=== PATIENT | male | born 1960 | race Caucasian/White ===

== ENCOUNTER 2024-05-04 09:00 | Outpatient (OUT) | payer MEDICARE, SELFPAY ==
--- NOTE | 2024-05-03 14:40 | V.VEINS.HP ---
Vital Signs 05/04/24 09:10 Height 5 ft 7 in Weight 204.117 kg BMI 70.5 BP 142/76 H BP Location Left Radial BP Position Sitting BP Cuff Size Large Adult BP Source Manual Cuff Respiration 24 H Pulse 90 Pulse Source Monitor Pulse Oximetry (%) 90 L Oxygen Delivery Method Room Air Comment The patient's blood pressure is elevated. Varicose Veins Patient is a 63 year old male in as a referral from Dr. Naidu secondary to slow healing bilateral leg wounds. Patient c/o bilateral lower leg wounds throughout legs from knees to feet for approximately 4 years. Patient has seen 2 different wound clinics to try and heal wounds with little healing noted. Patient c/o bilateral lower leg pian and edema this whole time. Patient has worn bilateral knee high compression stockings, yet currently is unable to due to the wounds and drainage and pain. Patient has no history of varicose vein treatments, nor family history of varicose vein disease noted. Patient has a history of DVT along with P.E. Doc Oates MD personally performed the services described in this documentation, as scribed by Michele Potter RN in my presence and it is both accurate and complete. IMichele RN, am scribing for, and in the presence of, Dr. Doc Ortiz and in the presence of the patient. . thigh: bilateral, knee: bilateral, calf: bilateral, ankle: bilateral and berry: bilateral aching, burning, cramping, dull and tender 2 5 years Worsened in recent months: Yes standing and sitting analgesics, elevating extremities and wraps Reports muscle spasms of leg, erythema, fatigue, heaviness, limb pain, edema and leg edema History of lower extremity trauma: No Superficial thrombophlebitis: Yes Family history of varicose veins: no Has patient had previous lower extremity venous surgery: No Patient has previously received the following treatment(s) for lower extremity varicose veins: Reports none Does patient have a history of : not applicable Has patient had lower extremity venous scan with relux testing: No Support hose used: Yes Problems walking or doing physical activity: Yes How does it affect you: inability to due to pain/edema Do you walk much: No Do you stand much: Yes Review of Systems ROS Narrative Doc Oates MD personally performed the services described in this documentation, as scribed by Michele Potter RN in my presence and it is both accurate and complete. I Michele Potter RN, am scribing for, and in the presence of, Dr. Doc Ortiz and in the presence of the patient. Status of ROS 10 or more systems reviewed and unremarkable except as noted in history and below Cardiovascular Reports: edema Integumentary/Breast Reports: itching, redness, skin pain, skin tenderness, skin swelling, changing lesion, non-healing lesion and changes in skin color Neurological Reports: numbness in extremities and weakness in extremities Hematologic/Lymphatic Reports: easy bruising and easy bleeding PFSH PFSH Medical History (Updated 05/04/24 @ 11:26 by Michele Potter) Pain due to varicose veins of both lower extremities ?I83.813 - Varicose veins of bilateral lower extremities with pain (ICD-10) Lymphedema due to venous disease ?I89.0 - Lymphedema, not elsewhere classified (ICD-10) ?I99.9 - Unspecified disorder of circulatory system (ICD-10) Obesities, morbid ?E66.01 - Morbid (severe) obesity due to excess calories (ICD-10) Venous insufficiency ?I87.2 - Venous insufficiency (chronic) (peripheral) (ICD-10) Gout ?M10.9 - Gout, unspecified (ICD-10) Type 2 diabetes mellitus ?E11.9 - Type 2 diabetes mellitus without complications (ICD-10) Myocardial infarct ?I21.9 - Acute myocardial infarction, unspecified (ICD-10) Dvt femoral (deep venous thrombosis) ?I82.419 - Acute embolism and thrombosis of unspecified femoral vein (ICD-10) CAD (coronary atherosclerotic disease) ?I25.10 - Atherosclerotic heart disease of [place] coronary artery without angina pectoris (ICD-10) CHF (congestive heart failure) ?I50.9 - Heart failure, unspecified (ICD-10) COPD (chronic obstructive pulmonary disease) ?J44.9 - Chronic obstructive pulmonary disease, unspecified (ICD-10) Hypertension ?I10 - Essential (primary) hypertension (ICD-10) Pulmonary embolism ?I26.99 - Other pulmonary embolism without acute cor pulmonale (ICD-10) Family History (Updated 05/03/24 @ 14:47 by Michele Potter) Other Family history of cancer Family history of diabetes mellitus Family history of hypertension Social History (Updated 05/03/24 @ 14:48 by Michele Potter) Within the past year, how often did you have a drink containing alcohol: monthly or less Smoking status: Former smoker Non-prescribed substance use: denies use Meds Home Medications and Allergies Home Medications ?Medication ?Instructions ?Recorded ?Confirmed ?Type allopurinol 100 mg tablet 100 mg PO DAILY 05/03/24 05/03/24 History atorvastatin 10 mg tablet 10 mg PO DAILY 05/03/24 05/03/24 History bumetanide 2 mg tablet 2 mg PO DAILY 05/03/24 05/03/24 History fenofibrate 120 mg tablet 120 mg PO DAILY 05/03/24 05/03/24 History hydrocodone 5 mg-acetaminophen 325 1 tab PO Q6H 05/03/24 05/03/24 History mg tablet losartan 50 mg tablet 50 mg PO DAILY 05/03/24 05/03/24 History omeprazole 40 mg capsule,delayed 40 mg PO DAILY 05/03/24 05/03/24 History release semaglutide 0.25 mg or 0.5 mg (2 0.25 mg subcut QWEEK 05/03/24 05/03/24 History mg/3 mL) subcutaneous pen injector (Ozempic) spironolactone 25 mg tablet 25 mg PO QAM 05/03/24 05/03/24 History (Aldactone) warfarin 5 mg tablet 5 mg PO DAILY 05/03/24 05/03/24 History Allergies Allergy/AdvReac Type Severity Reaction Status Date / Time adhesive Allergy Mild Blister Verified 05/04/24 09:41 Exam Narrative Exam Narrative: Doc Oates MD personally performed the services described in this documentation, as scribed by Michele Potter RN in my presence and it is both accurate and complete. Michele Oates RN, am scribing for, and in the presence of, Dr. Doc Ortiz and in the presence of the patient. Constitutional Documenting provider has reviewed patient's vital signs: yes Common normals: oriented x3 Nutritional appearance: overweight Cardio Peripheral pulses: posterior tibial pulses present and dorsalis pedis pulses present Extremity Common normals: normal capillary refill General: calf tenderness and edema Right lower extremity: lower leg Right lower leg: inspection and palpation Left lower extremity: lower leg Left lower leg: inspection and palpation Neuro Common normals: oriented x3 Assessment and Plan Assessment and Plan (1) Pain due to varicose veins of both lower extremities: Plan Plan is for patient to continue wound therapy, rest, elevation bilateral feet/legs.\ Patient to return for EVLTs of right GSV, followed by left GSV, followed by right SSV, followed by EVLT's of bilateral perforating veins. Once EVLTs complete, move forward with microfoam chemical ablation bilateral leg branch saphenous varicosities. Doc Oates MD personally performed the services described in this documentation, as scribed by Michele Potter RN in my presence and it is both accurate and complete. IMichele RN, am scribing for, and in the presence of, Dr. Doc Ortiz and in the presence of the patient. Procedures Procedure Instructions Procedures Bilateral leg reflux u/s reveals severe bilateral great saphenous vein venous insufficiency with dilation right greater than left. Moderate right small saphenous vein venous insufficiency with dilation. Bilateral leg incompetent perforating veins. Lastly, bilateral leg branch saphenous truncal tributary varicosities. Doc Oates MD personally performed the services described in this documentation, as scribed by Michele Potter RN in my presence and it is both accurate and complete. IMichele RN, am scribing for, and in the presence of, Dr. Doc Ortiz and in the presence of the patient.
--- NOTE | 2024-05-03 14:42 | W.VEIN ---
Discharge Plan Discharge Disposition: Home, Self-Care Outpatient Diagnostics: VC Endovenous Ablation 1VeinRT (Routine) Timeframe: 2 Weeks Facility: [facility] - Location: Vein Center Ordered By: oDc Ortiz Plan of Treatment: EVLT of right GSV once precert is achieved Patient Instructions: Endovenous Ablation (GEN) Print Language: Nepali Discharge Date/Time: 05/04/24 11:27
--- NOTE | 2024-05-04 09:09 | VEIN_ITS ---
Patient Name: GALLITO FLORES MR#: [id number] : 1960 Exam Date: 05/04/2024 Ordering Doctor: KATHY POLLACK RADIOLOGY REPORT PROCEDURE: FACILITY [facility] - OFFICE VISIT INITIAL COMPARISON: None. PROGRESS NOTES: 63-year-old male who presents with a 4 year history of lower extremity cellulitis and nonhealing ulcerations. The patient has been to several wound centers and currently is being seen by Dr. Chaves. The patient's wounds have been significantly worse than today with loss of all of the skin below the knee on both legs. The patient has subcutaneous edema. The patient's pain and swelling is exacerbated by prolonged sitting and standing. The patient is an active due to his obesity when 450 pounds. The patient denies any signs and symptoms to suggest arterial ischemia. The patient describes a family history significant for cancer, diabetes and hypertension. The patient occasionally drinks alcohol 1 drink per month. The patient discontinued smoking decades ago. No illicit or prescription drug abuse. Past medical history is significant for lymphedema, morbid obesity, gout, type 2 diabetes, myocardial infarction, deep vein thrombus, coronary artery disease, congestive heart failure, COPD, hypertension and pulmonary embolism. See separate history and physical for medication list. No prior treatment for varicose or spider veins. The patient has worn compression stockings for many years. After review of nurse notes, history and physical exam I discussed at length the pathophysiology of venous hypertension and possible treatments, therapies and strategies available. We discussed at length the importance of elevating the lower extremities above the level of the heart, increased physical activity and compression stocking use. We discussed conservative treatment with continued care of the wound center and stockings. We discussed surgical interventions including ligation stripping and phlebectomy. We discussed intravenous laser ablation and micro foam chemical ablation at length. Risks benefits and alternatives were discussed with the patient. The patient's questions were answered Ultrasound venous reflux study performed the same day was discussed at length with the patient. The report demonstrates severe bilateral great saphenous vein and moderate right small saphenous vein venous insufficiency. Bilateral incompetent perforating veins. Bilateral incompetent varicose veins PHYSICAL EXAM: The right leg demonstrates extensive varicose reticular and spider veins. There are diffuse circumferential skin ulcerations skin thickening and erythema below the knee. Mild to moderate subcutaneous edema. The left leg demonstrates extensive varicose reticular and spider veins. There are diffuse circumferential skin ulcerations skin thickening and erythema below the knee. Mild to moderate subcutaneous edema. Both thighs, legs and feet were symmetrically warm to the touch. Good posterior tibial and dorsalis pedis pulses were present bilaterally. VEIN/VC Facility EST Comprehensive IMPRESSION: 1. Severe bilateral great saphenous, moderate right small saphenous vein venous insufficiency with dilatation and saphenofemoral/saphenopopliteal junction reflux. Bilateral incompetent perforating veins with associated ulcerations 2. Bilateral lower extremity incompetent varicose veins 3. Bilateral lower extremity subcutaneous edema 4. Indeterminate flow significant arterial disease 5. CEAP: C6, Ep, Asp, Pr PLAN: 1. Endovenous laser ablation right great saphenous vein followed by left great saphenous vein followed by right small saphenous vein followed by bilateral perforating veins 2. Micro foam chemical ablation of bilateral incompetent varicose veins 3. Continued use of 20-30 mm compression stockings 4. Weight loss, leg elevation and physical activity for symptomatic relief Nurse notes, history and physical were reviewed and confirmed, see attached forms. The nurse was present throughout the physical exam and consultation Dictated by: Doc Ortiz MD on 05/04/2024 at 11:03 Approved by: Doc Ortiz MD on 05/04/2024 at 11:10
--- NOTE | 2024-05-04 09:09 | VEIN_ITS ---
Patient Name: GALLITO FLORES MR#: [id number] : 1960 Exam Date: 05/04/2024 Ordering Doctor: KATHY POLLACK RADIOLOGY REPORT PROCEDURE: VC EXT VENOUS REFLUX WANG LMTD COMPARISON: None. INDICATIONS: I83.813 Bilateral painful varicose veins TECHNIQUE: Duplex imaging of the lower extremity to assess the deep and superficial venous system for the presence of deep or superficial venous incompetence and to document the location and severity of disease. The study includes evaluation of the great saphenous vein (GSV), anterior accessory saphenous vein (AASV) and small saphenous vein (SSV). Patient scanned in reverse Trendelenburg and standing. FINDINGS: RIGHT LOWER EXTREMITY: Saphenofemoral Junction Reflux: Yes 15.1mm 2.5 sec GSV: Diam (mm) Reflux/ Time (sec) Proximal Thigh 13.2 Yes 3.8 Mid Thigh 13.8 Yes 3.1 Distal Thigh 10.6 Yes 3.4 Prox Calf 13.1 Yes 2.8 Mid Calf 7.4 Yes 1.8 Saphenopopliteal Junction Reflux: 6.4mm Yes 2.0 SSV: Proximal Calf 6.3 Yes 2.4 Mid Calf 6.7 No AASV: Not present Thrombi: Chronic thrombus visualized in distal calf GSV and multiple varicosities Compressibility: Normal Flow: Normal Preforator: Dist/med calf 6.7mm with 1.2s reflux. Prox/med calf 4.6mm with 1.8s reflux. Tech Note: Incompetent GSV, SSV, and perforators. Patent varicose vein dist/med calf 8.3mm with 1.0s reflux. Patent varicose vein 6.6mm with 1.4s reflux at prox/med calf. Patent varicose vein mid/med thigh 7.3mm with 2.2s reflux. LEFT LOWER EXTREMITY: Saphenofemoral Junction Reflux: Yes 13.3 mm 3.9 sec GSV: Diam (mm) Reflux/Time (sec) Proximal Thigh 10.9 Yes 3.2 Mid Thigh 12.1 Yes 2.2 Distal Thigh 9.0 Yes 2.1 Prox Calf 7.4 Yes 1.8 Mid Calf 6.1 No Saphenopopliteal Junction Relux: 4.9 mm No SSV: Proximal Calf 3.3 No Mid Calf 4.0 No AASV: Not present Thrombi: Normal Compressibility: Normal Flow: 1.5s reflux visualized in FV. Manager Respiratory: Dist/med calf 5.8mm with 1.6s reflux. Mid/med calf 4.9mm with 2.5s reflux. Tech Note: Incompetent GSV and perfortators. Patent varicose vein prox.med calf 5.9mm with 1.9s reflux. Patent varicose vein dist/lat calf 6.1mm with 1.1s reflux. Patent varicose vein mid/med thigh 5.0mm with 2.1s reflux. CONCLUSION: 1. Severe bilateral great saphenous vein venous insufficiency with dilatation and saphenofemoral junction reflux. Right greater than left 2. Moderate right small saphenous vein venous insufficiency with dilatation and saphenous popliteal junction reflux 3. Bilateral incompetent perforating veins 4. Bilateral incompetent varicose veins 5. Chronic thrombus identified in the distal right great saphenous vein as well as multiple superficial varicosities Dictated by: Doc Ortiz MD on 05/04/2024 at 10:29 Approved by: Doc Ortiz MD on 05/04/2024 at 10:30
[2024-05-04 09:10] VITALS: BP 142/76; PULSE 90; O2SAT 90; BMI 70.5
== END 2024-05-04 11:27 | disposition home or self-care (01) ==
LOC: VC 09:07
PROVIDERS: PCP Radiology Diagnostic Radiology; Visit Provider Podiatrist Foot & Ankle Surgery
DX: I83.813 Varicose veins of bilateral lower extremities with pain (principal)
CPT/HCPCS: 93970; G0463

== ENCOUNTER 2024-05-20 10:21 | Outpatient (OUT) | payer MEDICARE, SELFPAY ==
--- NOTE | 2024-05-19 07:40 | VEINCLINIC_ITS ---
Vital Signs 05/20/24 10:29 BP 126/76 BP Location Left Radial BP Position Sitting BP Cuff Size Large Adult BP Source Manual Cuff Respiration 22 H Pulse 85 Pulse Source Monitor Pulse Oximetry (%) 94 L Oxygen Delivery Method Room Air Comment The patient's blood pressure is elevated. Varicose Veins Patient in this day for EVLT of Edinson Oates MD personally performed the services described in this documentation, as scribed by Michele Potter RN in my presence and it is both accurate and complete. Michele Oates RN, am scribing for, and in the presence of, Dr. Edinson Grajeda and in the presence of the patient. . thigh: bilateral, knee: bilateral, calf: bilateral, ankle: bilateral and berry: bilateral aching, burning, cramping, dull and tender 2 5 years Worsened in recent months: Yes standing and sitting analgesics, elevating extremities and wraps Reports muscle spasms of leg, erythema, fatigue, heaviness, limb pain, edema and leg edema History of lower extremity trauma: No Superficial thrombophlebitis: Yes Family history of varicose veins: no Has patient had previous lower extremity venous surgery: No Patient has previously received the following treatment(s) for lower extremity varicose veins: Reports none Does patient have a history of : not applicable Has patient had lower extremity venous scan with relux testing: No Support hose used: Yes Problems walking or doing physical activity: Yes How does it affect you: inability to due to pain/edema Do you walk much: No Do you stand much: Yes Review of Systems ROS Narrative Edinson Oates MD personally performed the services described in this documentation, as scribed by Michele Potter RN in my presence and it is both accurate and complete. Michele Oates RN, am scribing for, and in the presence of, Dr. Edinson Grajeda and in the presence of the patient. Status of ROS 10 or more systems reviewed and unremark able except as noted in history and below Cardiovascular Reports: edema Integumentary/Breast Reports: itching, redness, skin pain, skin tenderness, skin swelling, changing lesion, non-healing lesion and changes in skin color Neurological Reports: numbness in extremities and weakness in extremities Hematologic/Lymphatic Reports: easy bruising and easy bleeding [facility] Medical History (Updated 05/20/24 @ 13:27 by Michele Potter) Phlebitis and thrombophlebitis of superficial vessels of right lower extremity ?I80.01 - Phlebitis and thrombophlebitis of superficial vessels of right lower extremity (ICD-10) Pain due to varicose veins of both lower extremities ?I83.813 - Varicose veins of bilateral lower extremities with pain (ICD-10) Lymphedema due to venous disease ?I89.0 - Lymphedema, not elsewhere classified (ICD-10) ?I99.9 - Unspecified disorder of circulatory system (ICD-10) Obesities, morbid ?E66.01 - Morbid (severe) obesity due to excess calories (ICD-10) Venous insufficiency ?I87.2 - Venous insufficiency (chronic) (peripheral) (ICD-10) Gout ?M10.9 - Gout, unspecified (ICD-10) Type 2 diabetes mellitus ?E11.9 - Type 2 diabetes mellitus without complications (ICD-10) Myocardial infarct ?I21.9 - Acute myocardial infarction, unspecified (ICD-10) Dvt femoral (deep venous thrombosis) ?I82.419 - Acute embolism and thrombosis of unspecified femoral vein (ICD-10) CAD (coronary atherosclerotic disease) ?I25.10 - Atherosclerotic heart disease of [place] coronary artery without angina pectoris (ICD-10) CHF (congestive heart failure) ?I50.9 - Heart failure, unspecified (ICD-10) COPD (chronic obstructive pulmonary disease) ?J44.9 - Chronic obstructive pulmonary disease, unspecified (ICD-10) Hypertension ?I10 - Essential (primary) hypertension (ICD-10) Pulmonary embolism ?I26.99 - Other pulmonary embolism without acute cor pulmonale (ICD-10) Surgical History (Updated 05/20/24 @ 15:53 by Michele Potter) Status post laser ablation of incompetent vein ?Z98.890 - Other specified postprocedural states (ICD-10) Family History (Updated 05/03/24 @ 14:47 by Michele Potter) Other Family history of cancer Family history of diabetes mellitus Family history of hypertension Social History (Updated 05/03/24 @ 14:48 by Michele Potter) Within the past year, how often did you have a drink containing alcohol: monthly or less Smoking status: Former smoker Non-prescribed substance use: denies use Meds Home Medications and Allergies Home Medications ?Medication ?Instructions ?Recorded ?Confirmed ?Type allopurinol 100 mg tablet 100 mg PO DAILY 05/03/24 05/03/24 History atorvastatin 10 mg tablet 10 mg PO DAILY 05/03/24 05/03/24 History bumetanide 2 mg tablet 2 mg PO DAILY 05/03/24 05/03/24 History fenofibrate 120 mg tablet 120 mg PO DAILY 05/03/24 05/03/24 History hydrocodone 5 mg-acetaminophen 325 1 tab PO Q6H 05/03/24 05/03/24 History mg tablet losartan 50 mg tablet 50 mg PO DAILY 05/03/24 05/03/24 History omeprazole 40 mg capsule,delayed 40 mg PO DAILY 05/03/24 05/03/24 History release semaglutide 0.25 mg or 0.5 mg (2 0.25 mg subcut QWEEK 05/03/24 05/03/24 History mg/3 mL) subcutaneous pen injector (Ozempic) spironolactone 25 mg tablet 25 mg PO QAM 05/03/24 05/03/24 History (Aldactone) warfarin 5 mg tablet 5 mg PO DAILY 05/03/24 05/03/24 History Allergies Allergy/AdvReac Type Severity Reaction Status Date / Time adhesive Allergy Mild Blister Verified 05/04/24 09:41 Exam Narrative Exam Narrative: Edinson Oates MD personally performed the services described in this documentation, as scribed by Michele Potter RN in my presence and it is both accurate and complete. Michele Oates RN, am scribing for, and in the presence of, Dr. Edinson Grajeda and in the presence of the patient. Constitutional Documenting provider has reviewed patient's vital signs: yes Common normals: oriented x3 Nutritional appearance: overweight Cardio Peripheral pulses: posterior tibial pulses present and dorsalis pedis pulses present Extremity Common normals: normal capillary refill General: calf tenderness and edema Right lower extremity: lower leg Right lower leg: inspection and palpation Left lower extremity: lower leg Left lower leg: inspection and palpation Neuro Common normals: oriented x3 Assessment and Plan Assessment and Plan (1) Pain due to varicose veins of both lower extremities: (2) Phlebitis and thrombophlebitis of superficial vessels of right lower extremity: Plan f/u evaluation with physician along with right leg limited u/s Edinson Oates MD personally performed the services described in this documentation, as scribed by Michele Potter RN in my presence and it is both accurate and complete. I, Michele Potter RN, am scribing for, and in the presence of, Dr. Edinson Grajeda and in the presence of the patient. Procedures Procedure Instructions Procedures Plan of care: Risks and benefits of the procedure were discussed at length and informed written consent was obtained.? Time-out completed for verification of correct patient, procedure and site.? Staff present during time-out: Michele Potter RN,? Doc Ortiz MD, Amy Whatley [facility], Time Out Time___1110____ Patient prepped and procedure performed in usual sterile fashion. Risk of injury related to use of Diode laser and/or laser devices__CR___ ? Serial number of laser used :? [id number] Control panel self test performed, electrical cords in good condition, floor is dry, basin of water available, fire extinguisher in close proximity_CR__ Polycarbonate goggles available and Laser warning signs outside of doors___CR__ Eye protection provided to patient and staff in room_CR___ Use of laser retardant drapes and dull blackened instruments as directed__CR___ Use of nonflammable prep solutions and use of saline soaked sponges to protect tissues as indicated _CR___ Length ____52____ cm Laser operated by __Dr. Grajeda Physician verbal confirmation laser locked in place__CR__ Laser start time (date and time) _05/20/2024@_1135 Laser stop time(date and time) _05/20/2024@_1146 [place] _8.0___ Average laser use __3992 Joules Average laser use__499 seconds Pulse continuous ___CR_? Pulse intermittent ___ Amount of Tumescent used __600cc____ Evaluated patient for signs and symptoms of electrical injury __CR___ ? Skin clear at insertion site __CR___ Patient tolerated procedure well.? Right leg Coban dressing applied to access site.? Applied right thigh high leg compression stocking. Will return on 05/31/2024 for right leg limited venous ultrasound and exam. Edinson Oates MD personally performed the services described in this documentation, as scribed by Michele Potter RN in my presence and it is both accurate and complete. I, Michele Potter RN, am scribing for, and in the presence of, Dr. Edinson Grajeda and in the presence of the patient.
--- NOTE | 2024-05-19 07:44 | W.VEIN ---
Discharge Plan Discharge Disposition: Home, Self-Care Outpatient Diagnostics: [facility] Facility EST LMTD (Routine) Timeframe: 2 Weeks Facility: [facility] - Location: Vein Center Ordered By: Edinson Grajeda VC EXT Venous RT LMTD (Routine) Timeframe: 2 Weeks Facility: [facility] - Location: Vein Center Ordered By: Edinson Grajeda Follow Up Appointments: 05/24/2024 Plan of Treatment: f/u evaluation with physician along with right leg limited u/s Patient Instructions: Endovenous Ablation (DC) Print Language: Thai Discharge Date/Time: 05/20/24 13:27
[2024-05-20] MEDS: LIDOCAINE HCL 1% 100 MG/10 ML MDV INJ (10:21)
[2024-05-20] MEDS: 0.9 % SODIUM CHLORIDE 500 ML, LIDOCAINE HCL 20 ML, SODIUM BICARBONATE 10 MEQ INJ (10:21)
--- NOTE | 2024-05-20 10:22 | VEIN_ITS ---
[address] [address] Patient Name: GALLITO FLORES MRN: [id number] date: 1960 Sex: M Assigned Patient Location: Current Patient Location: Accession/Order Number: [id number] Exam Date: 05/20/2024 10:26 Report Date: 05/20/2024 12:29 At the request of: KALLI BERNARDO Procedure: VC Endovenous Ablation 1VeinRT EXAMINATION: VC Endovenous Ablation 1VeinRT HISTORY: I83.813 - Varicose veins of bilateral lower extremities w... The risks and benefits of the procedure had been previously discussed, and were rediscussed at length. Informed written consent was obtained. Renetta Alaniz RN and Mis Child RDMS, RVT assisted. Time out procedure was performed. The right lower extremity was prepared and draped in the usual sterile fashion to allow knee flexion in the sterile field. Duplex ultrasound probe was draped in a sterile cover, sterile transmission gel was used. Venous mapping was performed with the areas of dilation and large tributaries marked. The total length was 52 cm from the entry 3 cm above the ankle to 3 cm below the Saphenofemoral junction. The diameter of the right great saphenous vein ranged from 13.8 mm. A 30 gauge needle and 1% buffered lidocaine was used to anesthetize the entry site. A 4 mm incision was made with a scalpel and the saphenous vein was entered percutaneously under direct ultrasound guidance with a micropuncture set, a single stick was successful in gaining access. A micro-guide wire was inserted and the needle removed. A micro-set including a dilator was inserted over the microwire and the needle and dilator were removed. A guide wire was inserted through the micro-set and guided through the saphenous vein to the saphenofemoral junction. The dilator was removed and an introducer sheath was inserted over the wire until the end of the sheath entered the saphenofemoral junction. The dilator and wire were removed and the 600 micron fiber was introduced and placed and positioned so that it extended beyond the sheath and was 3 cm distal to the saphenofemoral or saphenopopliteal junction. Final position of the fiber was determined by ultrasound guidance and duplex imaging. Tumescent anesthetic was delivered by ultrasound guidance. 600 cc of fluid was delivered along the entire course of the saphenous vein. The solution consisted of 1000 cc of normal saline with 40 mL of 1% lidocaine and 20 mL of sodium bicarbonate. A final positioning check was made. The energy source was turned on by means of the foot pedal and the fiber and sheath were withdrawn. The total number of Joules delivered was 3992. The laser was active for 499 seconds under continuous pulse, average laser use of 8 J. Laser start time: 11:35 AM Laser stop time: 11:46 AM Date: 05/20/2024. A duplex ultrasound revealed compressibility and flow at the saphenofemoral junction immediately after the procedure. Hemostasis at the access site was achieved. The skin incision of the saphenous vein was closed with a 4 x 4. A compression stocking was applied. Postop instructions were given. A follow up appointment was recommended and scheduled. The patient tolerated the procedure well. Electronically authenticated by: FRANKLYN BHARDWAJ Date: 05/20/2024 12:29
[2024-05-20 10:29] VITALS: BP 126/76; PULSE 85; O2SAT 94
== END 2024-05-20 13:27 | disposition home or self-care (01) ==
LOC: VC 10:21
PROVIDERS: PCP Radiology Diagnostic Radiology; Visit Provider Radiology Diagnostic Radiology
DX: I83.813 Varicose veins of bilateral lower extremities with pain (principal)
CPT/HCPCS: 36478

== ENCOUNTER 2024-05-31 11:16 | Outpatient (OUT) | payer MEDICARE, SELFPAY ==
--- NOTE | 2024-05-31 11:17 | VEIN_ITS ---
Patient Name: GALLITO FLORES MR#: [id number] : 1960 Exam Date: 05/31/2024 Ordering Doctor: DR FRANKLYN BHARDWAJ M.D. RADIOLOGY REPORT PROCEDURE: [facility] EST LMTD VEIN CENTER - OFFICE VISIT FOLLOW UP COMPARISON: None. PROGRESS NOTES: The patient reports no appreciable change in leg symptoms. The patient has difficulty maintaining physical activity and walking to any great extent each day. Physical exam demonstrates no appreciable change in varicosities of the leg. Persistent varicose veins are identified along the legs bilaterally and marked skin changes of the distal lower extremities. Review of the ultrasound performed the same day demonstrates occlusive thrombus extending from proximal to mid aspect of the great saphenous vein within the calf. Great saphenous vein within the thigh is only partially thrombosed. No thrombus extending into or beyond the saphenofemoral junction. The patient expressed a desire to proceed with treatment of left great saphenous vein. The patient was informed that treatment was a process and due to patient's body habitus, limited mobility, in overall health successful treatment will be difficult at best. VEIN/[facility] EST LMTD IMPRESSION: 1. Incomplete ablation of the right great saphenous vein despite very prolonged treatment and generous energy application within the right great saphenous vein. Successful treatment is hampered by marked dilation of the right great saphenous vein, marked obesity, inability of patient to keep wrapping is a on anterior hree right apple leg since patient cannot wear compression stockings due to size, and inability to put patient in Trendelenburg position to help drain bladder out of the lower extremity veins during treatment due to patient's shortness of breath. 2. Persistent varicose veins and lower extremity symptoms. PLAN: 1. Endovenous laser ablation of left great saphenous vein will be attempted. Nurse notes, history and physical were reviewed and confirmed, see attached forms. The nurse was present throughout the physical exam and consultation Dictated by: Franklyn Bhardwaj M.D. on 05/31/2024 at 14:53 Approved by: Franklyn Bhardwaj M.D. on 05/31/2024 at 15:07
--- NOTE | 2024-05-31 11:17 | VEIN_ITS ---
Patient Name: GALLITO FLORES MR#: [id number] : 1960 Exam Date: 05/31/2024 Ordering Doctor: DR FRANKLYN GRAJEDA M.D. RADIOLOGY REPORT PROCEDURE: VC EXT VENOUS RT LMTD COMPARISON: None. INDICATIONS: I80.01 - Phlebitis and thrombophlebitis of superficial veins right leg TECHNIQUE: Lower extremity hendrickson scale and Duplex Doppler evaluation of the deep venous system from the inguinal ligament through the calf veins. FINDINGS: REGION: Right lower extremity. THROMBI: Negative for DVT. Heat induced partial thrombus approximately 14 cm from SFJ and exends to distal lower leg. GSV from proximal to mid calf is completely closed. COMPRESSIBILITY: Non-compressible & partially compressible segments. FLOW: Areas of no flow corresponding to thrombus OTHER: CONCLUSION: 1. Occlusion of right great saphenous vein from proximal to mid calf. 2. Partial occlusion of the remainder of the right great saphenous vein. Dictated by: Franklyn Grajeda M.D. on 05/31/2024 at 14:51 Approved by: Franklyn Grajeda M.D. on 05/31/2024 at 14:53
--- OUTSIDE RECORDS SUMMARY | 2024-05-31 11:39 | XMS_ITS | CCD ---
Author Organization [facility] ion [facility] Care Team Providers Care Grade Tamper Name Role Phone PHYSICIAN, DEFAULT Admitting Unavailable PHYSICIAN, DEFAULT Attending Unavailable ROBERT LUCAS Primary Care Unavailable Robert Lucas Unavailable Unavailable Unavailable Alicia Scott Unavailable Cristine Wilson Unavailable Tiffanie Rivera Unavailable Selvin Mackay Jr. Unavailable Unavailable Unavailable Dr. Shantel Long Referring Unavaila anselmo Long, Dr. Liz Attending UnavailRobert Blandon Primary Care Unavailab Robert Song Primary Care Unavailab coby Long, Dr. Liz Referring Unavaila anselmo Long, Dr. Liz Attending UnavailRobert Blandon MD Primary Care Provider LEW CHRISTIAN I Referring Unavailable ROBERT LUCAS Primary Care Unavailable ROBERT LUCAS Primary Care Unavailable ENID FOSTER Referring Unavailable LEW CHRISTIAN I Referring Unavailable ROBERT LUCAS Primary Care Unavailable LEW CHRISTIAN I Referring Unavailable ROBERT LUCAS Primary Care Unavailable LEW CHRISTIAN I Referring Unavailable ROBERT LUCAS Primary Care Unavailable LEW CHRISTIAN I Referring Unavailable ROBERT LUCAS Primary Care Unavailable LEW CHRISTIAN I Referring Unavailable Robert Lucas MD Primary Care Provider SONAL CAMARA Referring Unavailable ROBERT LUCAS Primary Care Unavailable SONAL CAMARA Referring Unavailable ROBERT LUCAS Primary Care Unavailable SONAL CAMARA Referring Unavailable SHAYY, ROBERT R Primary Care Unavailable SONAL CAMARA Referring Unavailable SHAYY, ROBERT R Primary Care Unavailable Codie Selvin Unavailable MD Robert Lucas Primary Care Provider PEGGY Rivera Attending Provider [phone] Tiffanie Rivera Attending Unavailable Tiffanie Rivera Admitting Unavailable Robert Lucas Primary Care Unavailable Shayy SHETTY, Robert Packer Primary Care Provider SHANTEL LONG Attending Unavailable ROBERT LUCAS Primary Care Unavailab le EFREN, CATHLEEN Referring Unavailable DULCE, NARAYAN Attending Unavailable EFREN, CATHLEEN Attending Unavailable WILMAN, COURTNEY Attending Unavailable WILMAN, COURTNEY Attending Unavailable WILMAN, COURTNEY Attending Unavailable LAURA NOVOA Referring Unavailab le ROBERT LUCAS Primary Care Unavailable LAYNE RICE Consulting Unavailable YESI, TED Attending Unavailable YESI, TED Admitting Unavailable HEDY HUTTON Consulting Unavailable Shayy SHETTY, Robert Pelletier Primary Care Provider DEVORA VALDEZ Attending Unavailable NITA FARIAS Referring Unavailab SHAUN Martinez Primary Care Unavailable Kory SHETTY, Shaun Primary Care Provider [phone] FRANKLYN CADE Attending Unavailable CHELI, FRANKLYN Harris Attending Unavailable CHELI, FRANKLYN Harris Attending Unavailable CHELI, FRANKLYN Harris Attending Unavailable SERVICE, JOBST Referring Unavailable SHAYY, ROBERT R Primary Care Unavailable SERVICE, JOBST Referring Unavailable SHAYY, ROBERT R Primary Care Unavailable SHAYY, ROBERT R Referring Unavailable SHAYY, ROBERT R Primary Care Unavailable ARMEN SOTO Attending Unavailable SERVICE, JOBST Referring Unavailable SHAYY, ROBERT R Primary Care Unavailable SERVICE, JOBST Referring Unavailable SHAYY, ROBERT R Primary Care Unavailable SERVICE, JOBST Referring Unavailable SHAYY, ROBERT R Primary Care Unavailable SERVICE, JOBST Referring Unavailable SHAYY, ROBERT R Primary Care Unavailable SERVICE, JOBST Referring Unavailable SHAYY, ROBERT R Primary Care Unavailable SHAYY, ROBERT R Primary Care Unavailable BROOKE, CAROLYN Referring Unavailable SERVICE, JOBST Referring Unavailable SHAYY, ROBERT R Primary Care Unavailable SERVICE, JOBST Referring Unavailable SHAYY, ROBERT R Primary Care Unavailable SERVICE, JOBST Referring Unavailable SHAYY, ROBERT R Primary Care Unavailable SERVICE, JOBST Referring Unavailable SHAYY, ROBERT R Primary Care Unavailable SHAYY, ROBERT R Primary Care Unavailable TIFFANIE RIVERA Referring Unavailable SERVICE, JOBST Referring Unavailable SHAYY, ROBERT R Primary Care Unavailable SHAYY, ROBERT R Primary Care Unavailable MARIELA, SONAL H Referring Unavailable SHAYY, ROBERT R Primary Care Unavailable FISH, SONAL H Referring Unavailable SHAYY, ROBERT R Primary Care Unavailable FISH, SONAL H Referring Unavailable SHAYY, ROBERT R Referring Unavailable SHAYY, ROBERT R Primary Care Unavailable SERVICE, JOBST Referring Unavailable SHAYY, ROBERT R Primary Care Unavailable SHAYY, ROBERT R Primary Care Unavailable ROBERT CARDOZA Referring Unavailable SERVICE, JOBST Referring Unavailable SHAYY, ROBERT R Primary Care Unavailable SERVICE, JOBST Referring Unavailable SHAYY, ROBERT R Primary Care Unavailable SERVICE, JOBST Referring Unavailable SHAYY, ROBERT R Primary Care Unavailable SERVICE, JOBST Referring Unavailable SHAYY, ROBERT R Primary Care Unavailable SERVICE, JOBST Referring Unavailable MYERHOLTZ, NITA K Primary Care Unavailab le SERVICE, JOBST Referring Unavailable MYERHOLTZ, NITA K Primary Care Unavailab le SERVICE, JOBST [facility] Unavailable SERVICE, JOBST Referring Unavailable [facility], [facility] Primary Care Unavailable SERVICE, JOBST Referring Unavailable KORY, [facility] Primary Care Unavailable Shakir Aldrich Admitting Unavailable Kory, Shaun Primary Care Unavailable Shakir Aldrich Attending Unavailable Diallo Cox Admitting Unavailable Diallo Cox Attending Unavailable [facility] Shaun Primary Care Unavailable Dolce, Claus R Admitting Unavailable Dolce, Claus R Attending Unavailable ROBERT NEWBY Primary Care Unavailable Dolce, Claus R Admitting Unavailable Dolce, Claus R Attending Unavailable ROBERT NEWBY Primary Care Unavailable Dolce, Claus R Attending Unavailable Dolce, Claus R Admitting Unavailable Dolce, Claus R Attending Unavailable Dolce, Claus R Admitting Unavailable Cathleen Schwartz Admitting Unavailable Cathleen Schwartz Attending Unavailable ROBERT NEWBY Primary Care Unavailable Sonal Camara Attending Unavailable Sonal Camara H Admitting Unavailable ROBERT NEWBY Primary Care Unavailable Cathleen Schwartz Admitting Unavailable Cathleen Schwartz Attending Unavailable ROBERT NEWBY Primary Care Unavailable Dolce, Claus R Admitting Unavailable Dolce, Claus R Attending Unavailable Dolce, Claus R Admitting Unavailable Dolce, Claus R Attending Unavailable Mena Murrieta Attending Unavailable GonMena mcdaniels Admitting Unavailable Dolce, Claus R Attending Unavailable Dolce, Claus R Admitting Unavailable Dolce, Claus R Attending Unavailable Dolce, Claus R Admitting Unavailable Dolce, Claus R Attending Unavailable Dolce, Claus R Admitting Unavailable NEWBYROBERT E Primary Care Unavailable Dolce, Claus R Attending Unavailable Dolce, Claus R Admitting Unavailable NEWBY, JAMES E Primary Care Unavailable Dolce, Claus R Admitting Unavailable Dolce, Claus R Attending Unavailable ROBERT NEWBY E Primary Care Unavailable Diallo Prather Admitting Unavailab ROBERT Rojas Primary Care Unavailable Diallo Prather S Attending Unavailab ROBERT Rojas E Primary Care Unavailable ALMA ROSA Mendez Attending Unavailable ALMA ROSA Mendez Admitting Unavailable ALMA ROSA Mendez Attending Unavailable ROBERT NEWBY Primary Care Unavailable ALMA ROSA Mendez Admitting Unavailable Dolce, Claus R Attending Unavailable Dolce, Claus R Admitting Unavailable NEWBYROBERT E Primary Care Unavailable Dolce, Claus R Attending Unavailable Dolce, Claus R Admitting Unavailable NEWBYROBERT E Primary Care Unavailable ALMA ROSA Mendez Attending Unavailable ROBERT NEWBY Primary Care Unavailable ALMA ROSA Mendez Admitting Unavailable NEWBYROBERT Primary Care Unavailable ALMA ROSA Mendez Attending Unavailable ALMA ROSA Mendez Admitting Unavailable Kory, Shaun Primary Care Unavailable Michelle Miranda Admitting Unavailable Michelle Miranda Attending Unavailable Kory, Shaun Primary Care Unavailable Michelle Miranda Attending Unavailable Copsey, Michelle M Admitting Unavailable NEWBY, ROBERT E Primary Care Unavailable ALMA ROSA Mendez Admitting Unavailable ALMA ROSA Mendez Attending Unavailable Dolce, Claus R Admitting Unavailable Dolce, Claus R Attending Unavailable Dolce, Claus R Admitting Unavailable Dolce, Claus R Attending Unavailable Dolce, Claus R Attending Unavailable Dolce, Claus R Admitting Unavailable Dolce, Claus R Attending Unavailable Dolce, Claus R Admitting Unavailable Dolce, Claus R Attending Unavailable Dolce, Claus R Admitting Unavailable Dolce, Claus R Attending Unavailable Dolce, Claus R Admitting Unavailable Gonya, Mena Attending Unavailable Gonya, Mena Admitting Unavailable Dolce, Claus R Attending Unavailable Dolce, Claus R Admitting Unavailable ROBERT NEWBY Primary Care Unavailable Dolce, Claus R Attending Unavailable Dolce, Claus R Admitting Unavailable Dolce, Claus R Admitting Unavailable Dolce, Claus R Attending Unavailable ROBERT NEWBY Primary Care Unavailable ALMA ROSA Mendez Attending Unavailable Robert Lucas Primary Care Unavailable ALMA ROSA Mendez Admitting Unavailable Dolce, Claus R Admitting Unavailable ROBERT NEWBY Primary Care Unavailable Dolce, Claus R Attending Unavailable Dolce, Claus R Attending Unavailable Dolce, Claus R Admitting Unavailable Dolce, Claus R Attending Unavailable Dolce, Claus R Admitting Unavailable Sonal Camara Admitting Unavailable Sonal Camara Attending Unavailable Robert Lucas Primary Care Unavailable Cathleen Schwartz Admitting Unavailable Cathleen Schwartz Attending Unavailable ROBERT NEWBY Primary Care Unavailable Alonzo Bond Attending Unavailable Dolce, Claus R Attending Unavailable Dolce, Claus R Admitting Unavailable Dolce, Claus R Attending Unavailable Dolce, Claus R Admitting Unavailable Dolce, Claus R Attending Unavailable Dolce, Claus R Admitting Unavailable Dolce, Claus R Admitting Unavailable Dolce, Claus R Attending Unavailable Kory Shaun [facility] Care Unavailable Dolce, Claus R Admitting Unavailable Dolce, Claus R [facility] Unavailable Dolce, Claus R Admitting Unavailable Dolce, Claus R Attending [facility] Unavailable Dolce, Claus R Admitting Unavailable Dolce, Claus R Attending Unavailable ROBERT NEWBY Primary Care Unavailable Dolce, Claus R Admitting Unavailable Dolce, Claus R Attending Unavailable ROBERT NEWBY Primary Care Unavailable Dolce, Claus R Admitting Unavailable Dolce, Claus R Attending Unavailable ROBERT NEWBY Primary Care Unavailable Dolce, Claus R Admitting Unavailable Dolce, Claus R Attending Unavailable ROBERT NEWBY Primary Care Unavailable Dolce, Claus R Admitting Unavailable Dolce, Claus R Attending Unavailable NEWBYROBERT E Primary Care Unavailable NEWBY ROBERT E Primary Care Unavailable ALMA ROSA Mendez Admitting Unavailable ALMA ROSA Mendez Attending Unavailable Dolce, Claus R Attending Unavailable Dolce, Claus R Admitting Unavailable NEWBY, ROBERT E Primary Care Unavailable Dolce, Claus R Admitting Unavailable Dolce, Claus R Attending Unavailable Shaun Enriquez Primary Care Unavailable Dolce, Claus R Admitting Unavailable Dolce, Claus R Attending Unavailable NEWBY, ROBERT E Primary Care Unavailable Dolce, Claus R Attending Unavailable Dolce, Claus R Admitting Unavailable NEWBY, ROBERT E Primary Care Unavailable ALMA ROSA Mendez Attending Unavailable NEWBYROBERT E Primary Care Unavailable ALMA ROSA Mendez Admitting Unavailable ALMA ROSA Mendez Attending Unavailable NEWBYROBERT E Primary Care Unavailable ALMA ROSA Mendez Admitting Unavailable NEWBY, ROBERT Brothers Primary Care Unavailable ALMA ROSA Mendez Attending Unavailable ALMA ROSA Mendez Admitting Unavailable Dolce, Claus R Admitting Unavailable Dolce, Claus R Attending Unavailable NEWBY ROBERT E Primary Care Unavailable Dolce, Claus R Admitting Unavailable Dolce, Claus R Attending Unavailable NEWBYROBERT E Primary Care Unavailable Dolce, Claus R Admitting Unavailable Dolce, Claus R Attending Unavailable NEWBY, ROBERT E Primary Care Unavailable Dolce, Claus R Admitting Unavailable Dolce, Claus R Attending Unavailable Dolce, Claus R Admitting Unavailable Dolce, Claus R Attending Unavailable Mena Murrieta Attending Unavailable Mena Murrieta Admitting Unavailable Dolce, Claus R Admitting Unavailable Dolce, Claus R Attending Unavailable ALMA ROSA Mendez Attending Unavailable NEWBYROBERT Primary Care Unavailable ALMA ROSA Mendez Admitting Unavailable ALMA ROSA Mendez Attending Unavailable NEWBYROBERT Primary Care Unavailable ALMA ROSA Mendez Admitting Unavailable NEWBY, ROBERT E Primary Care Unavailable ALMA ROSA Mendez Attending Unavailable ALMA ROSA Mendez Admitting Unavailable NEWBYROBERT Primary Care Unavailable ALMA ROSA Mendez Admitting Unavailable ALMA ROSA Mendez Attending Unavailable NEWBYROBERT Primary Care Unavailable ALMA ROSA Mendez Attending Unavailable ALMA ROSA Mendez Admitting Unavailable ALMA ROSA Mendez Attending Unavailable NEWBY, ROBERT E Primary Care Unavailable ALMA ROSA Mendez Admitting Unavailable ALMA ROSA Mendez Attending Unavailable NEWBY, ROBERT E Primary Care Unavailable ALMA ROSA Mendez Admitting Unavailable ALMA ROSA Mendez Attending Unavailable NEWBY, ROBERT E Primary Care Unavailable ALMA ROSA Mendez Admitting Unavailable NEWBY, ROBERT E Primary Care Unavailable ALMA ROSA Mendez Attending Unavailable ALMA ROSA Mendez Admitting Unavailable NEWBY, ROBERT E Primary Care Unavailable ALMA ROSA Mendez Admitting Unavailable ALMA ROSA Mendez Attending Unavailable Coby Brice K Admitting Unavailable Le, Brice K Attending Unavailable NEWBY, ROBERT E Primary Care Unavailable NEWBY, ROBERT E Primary Care Unavailable ALMA ROSA Mendez Admitting Unavailable ALMA ROSA Mendez Attending Unavailable Dolce, Claus R Admitting Unavailable Dolce, Claus R Attending Unavailable Kory, Shaun Primary Care Unavailable Cathleen Schwartz E Attending Unavailable Efren Hend E Admitting Unavailable NEWBY, ROBERT E Primary Care Unavailable Dolce, Claus R Admitting Unavailable Dolce, Claus R Attending Unavailable Mena Murrieta Attending Unavailable Gonya Mena Admitting Unavailable Dolce, Claus R Admitting Unavailable Dolce, Claus R Attending Unavailable NEWBY, ROBERT E Primary Care Unavailable Kory, Shaun Primary Care Unavailable Michelle Miranda Admitting Unavailable Michelle Miranda Attending Unavailable Allergies Allergy Classification Reported Allergen(s) Allergy Type Date of Onset Reaction(s) Facility (20 sources) Adhesives Propensity to adverse reactions [place] Other (1 source) Silicone adhesive tape Propensity to adverse reactions to drug 6 [facility] (8 sources) Adhesive agent; Translations: [adhesive] Drug allergy 6 [facility] (20 sources) Adhesive Tape-Silicones; Translations: [ADHESIVE TAPE-SILICONES] Propensity to adverse reactions to drug 6 [facility] (6 sources) Wound Dressing Adhesive Drug Allergy 3 [facility] (1 source) Adhesive Tape; Translations: [Tape] Propensity to adverse reactions to drug (disorder) [facility] Repository Medications Current Medications Medication Drug Class(es) Dates Sig (Normalized) Sig (Original) acetaminophen 325 mg / HYDROcodone bitartrate 5 mg oral tablet (8 sources) Opioid Agonist Start: 02-16-2024 End: 05-07-2024 take 1 tablet by mouth every six hours for pain HYDROcodone-aceta minophen ([place]) 5-325 MG tablet Indications: Cellulitis and abscess of right lower extremity Take 1 tablet by mouth every 6 (six) hours if needed for severe pain 20 tablet 05/07/2024 Active acetaminophen 325 mg / oxyCODONE hydrochloride 5 mg oral tablet (1 source) Opioid Agonist Start: 04-23-2024 End: 04-28-2024 take 1 tablet by mouth every six hours for pain oxyCODONE-acetami nophen (Percocet) 5-325 MG tablet Indications: Non-pressure chronic ulcer of other part of left lower leg with fat layer exposed (CMS/HCC) Take 1 tablet by mouth every 6 (six) hours if needed for severe pain for up to 5 days 15 tablet 04/23/2024 04/28/2024 Active acetic acid 2.5 mg/ml irrigation solution (19 sources) Start: 11-08-2022 acetic acid 0.25 % irrigation Indications: Cellulitis of right leg without foot Apply to gauze, allow to sit on wound bed for 10 minutes prior to applying a new dressing 500 mL 12 11/08/2022 Active [id number] 200 actuat albuterol 0.09 mg/actuat metered dose inhaler (20 sources) beta2-Adrenergic Agonist Start: 05-01-2023 take 1 puff(s) by inhalation every four hours as needed Ventolin HFA 108 (90 Base) MCG/ACT 1 puff as needed Inhalation every 4 hrs for 30 days Apr, Active take 2.5 mg by inhal ation every four hours as needed albuterol 2.5 mg /3 mL (0.083 %) nebuliz er solution Inhale 3 mL (2.5 mg) every 4 hours if needed. 0 Active Albuterol Sulfat e (2.5 MG/3ML) 0.083% as directed Inhalation Four times daily DX COPD J44.9 Active Albuterol Sulfat e (2.5 MG/3ML) 0.083% as directed Inhalation Four times daily DX COPD J44.9 Active Albuterol Sulfat e (2.5 MG/3ML) 0.083% Inhalation Nebulization Solution USE 1 UNIT DOSE EVERY 4-6 HOURS NEEDED FOR WHEEZING . Quantity: 0 Refills: 0 Ordered: 19-Jul-2021 DO Active allopurinol 100 mg oral tablet (20 sources) Xanthine Oxidase Inhibitor Start: 10-30-2020 take 2 tablets by mouth once daily allopurinol (Zyloprim) 100 mg tablet Take 2 tablets (200 mg) by mouth once daily. 0 10/30/2020 Active Start: 11-03-2019 take 1 tablet by genna th once daily allopurinoL (ZYLOPRIM) 100 mg tablet Take 1 tablet (100 mg total) by mouth daily. 11/03/2019 Active Start: 05-01-2017 take 100 mg by mouth twice daily Allopurinol Active 100 MG PO Twice daily April 30, 2017 11:00pm amLODIPine 10 mg oral tablet (20 sources) Dihydropyridine Calcium Channel Elenita Start: 11-21-2022 take 1 tablet by mouth in the morning amLODIPine (Norvasc) 10 MG tablet Take 10 mg by mouth in the morning. 11/21/2022 Active Start: 12-14-2019 take 1 tablet by genna th once daily amLODIPine Besylate 5 MG Oral Tablet take 1 tablet by mouth once daily Quantity: 90 Refills: 0 Ordered: 09-Nov-2020 DO Start : 14-Dec-2019 Active atorvastatin 10 mg oral tablet (20 sources) HMG-CoA Reductase Inhibitor Start: 05-01-2017 take 1 tablet by mouth once daily atorvastatin (Lipitor) 10 mg tablet Take 1 tablet (10 mg) by mouth once daily. 0 04/21/2020 Active BIPAP Machine (20 sources) BIPAP Machine Active bumetanide 2 mg oral tablet (20 sources) Loop Diuretic Start: 06-16-2023 take 1 tablet by mouth twice daily before mealtime bumetanide (BUMEX) 2 mg tablet Take 1 tablet (2 mg total) by mouth 2 (two) times a day before meals. 60 tablet 6 11/13/2023 Active Start: 11-14-2020 take 1 tablet by genna th once daily bumetanide (Bumex) 2 mg tablet Take 1 tablet (2 mg) by mouth once daily. 0 11/14/2020 Active cholecalciferol 0.05 mg oral capsule (20 sources) Vitamin D cholecalciferol (Vitamin D-3) 50 MCG (1999 UT) capsule 1 capsule 1 (one) time each day at the same time. Active take 1 capsule by mo ut in the morning cholecalciferol, vitamin D3, 2,000 units capsule Take 1 capsule (2,000 Units total) by mouth in the morning. Active CPAP Machine (7 sources) CPAP Machine Act ti docusate sodium 50 mg oral capsule (2 sources) Start: 05-01-2017 Docusate Sodiu m (Stool Softener) 50 mg Capsule Active CAP PO April 30, 2017 11:00pm take 1 capsule by mo ut three times daily as needed for constipation docusate sodium (COLACE) 100 MG capsule Take 100 mg by mouth 3 times daily as needed for Constipation 0 Active doxycycline hyclate 100 mg oral capsule (6 sources) Tetracycline-class Drug Start: 05-05-2023 End: 08-03-2023 take 1 capsule by mouth in the morning, then take 1 capsule by mouth at bedtime doxycycline (VIBRAMYCIN) 100 mg capsule Indications: Cellulitis of right lower extremity , Open wound of right lower extremity, sequela , Open wound of left lower extremity, sequela , Methicillin resistant Staphylococcus aureus infection as the cause of diseases classified elsewhere , Elevated C-reactive protein (CRP) Take 1 capsule (100 mg total) by mouth in the morning and 1 capsule (100 mg total) before bedtime. Do all this for 90 days. 180 capsule 0 05/05/2023 08/03/2023 Active empagliflozin 25 mg oral tablet (20 sources) Sodium-Glucose Cotransporter 2 Inhibitor empagliflozin (Jardiance) 25 MG Take by mouth Active fenofibric acid 135 mg delayed release oral capsule (20 sources) Peroxisome Proliferator Receptor alpha Agonist Start: 05-01-2017 take 135 mg by mouth once daily Fenofibric Acid (Choline) Active 135 MG PO Daily April 30, 2017 11:00pm ferrous sulfate 325 mg oral tablet (1 source) Start: 05-01-2017 take 325 mg by mouth twice daily Ferrous Sulfate Active 325 MG PO Twice daily April 30, 2017 11:00pm FREESTYLE PATRICIA 14 DAY SENSOR kit (19 sources) Start: 06-07-2019 FREESTYLE PATRICIA 14 DAY SENSOR kit 06/07/2019 Active Start: 06-07-2019 FREESTYLE LIBR E 14 DAY SENSOR kit FreeStyle Patricia 2 [place] [facility] - (20 sources) Start: 01-24-2021 FreeStyle Libr e 2 [place] [facility] - as directed use with 14 days sensor check glucose with reader ac, hs, prn for 365 days Dec, Active FreeStyle Patricia 2 [place] [facility] - as directed use with 14 days sensor check glucose with reader ac, hs, prn for 365 days Active FreeStyle Patricia 2 Sensor - (20 sources) FreeStyle Patricia 2 Sensor - apply 1 SENSOR to back OF UPPER ARM REMOVE AND REPLACE every 14 days use with DEVICE to MONITOR BLOOD SUGAR for 28 Active FreeStyle Patricia 2 Sensor Sys tm - (12 sources) Start: 01-24-2021 FreeStyle Libr e 2 Sensor Systm - as directed SQ change every 14 days for 28 days Dec, Active FreeStyle Precision Aidan Test - (20 sources) Start: 06-21-2021 Start: 06-21-2021 FreeStyle Prec ision Aidan Test - Check blood sugar In Vitro QD, prn for 30 days DX: E11.9 May, Active Start: 06-21-2021 FreeStyle Prec ision Aidan Test - as directed In Vitro QD, prn for 30 days May, Active furosemide 40 mg oral tablet (2 sources) Loop Diuretic Start: 05-01-2017 take 40 mg by mouth once daily Furosemide Active 40 MG PO Daily April 30, 2017 11:00pm take 1 tablet by mouth twice latrice ly furosemide (LASIX) 40 MG tablet Take 40 mg by mouth 2 times daily 0 Active heparin sodium, porcine 10 unt/ml injectable solution (20 sources) Unfractionated Heparin, Anti-coagulant Start: 03-10-2023 heparin lock flush, porcine, 10 unit/mL injection Infuse 1-5 mL (10-50 Units total) into a venous catheter as needed (line care per nursing agency protocol.). 1 mL 03/10/2023 Active Start: 03-10-2023 heparin lock f lush, porcine, injection 100 unit/mL solution Infuse 1-5 mL (100-500 Units total) into a venous catheter as needed (line care per nursing agency protocol.). 1 mL 03/10/2023 Active 3 ml insulin degludec 100 unt/ml pen injector (1 source) Insulin Analog Insulin Degludec (TRESIBA FLEXTOUCH) 100 UNIT/ML SOPN Indications: REPLACES INSULIN GLARIGINE (LANTUS) PER DR MCKEON Inject 50 Units into the skin 2 times daily Indications: REPLACES INSULIN GLARIGINE (LANTUS) PER DR MCKEON 0 Active 3 ml insulin, regular, human 500 unt/ml pen injector (20 sources) Insulin insulin regular (HumuLIN R U-500) 500 UNIT/ML CONCENTRATED injection Inject under the skin Daily before meals. Active inject 90 [IU] by morris bcutaneous injection once daily at lunch insulin regular human U-500 concentrate d (HumuLIN R U-500 conc KWIKPEN) injection Inject 90 Units of U-500 under the skin daily with lunch. Active inject 125 [IU] by s ubcutaneous injection once daily before breakfast insulin regular human U-500 concentrate d (HumuLIN R U-500 conc KWIKPEN) injection Inject 125 Units of U-500 under the skin every morning before breakfast. Active HumuLIN R U-500 (CONCENTRATED) 500 UNIT/ML 135 bk, 80 ln, 90 dn; plus (corrective scale 5:25 ac bk/ln/dn) SQ as directed up to 500 units total a day Active HumuLIN R U-500 (CONCENTRATED) 500 UNIT/ML 125 bk, 80 ln, 100 dn; plus (corrective scale 5:25 ac bk/ln/dn) SQ as directed up to 500 units total a day Active 1 ml ixekizumab 80 mg/ml auto-injector (20 sources) Interleukin-17A Antagonist ixeki zumab (Talfifi) 80 MG/ML injection Inject under the skin Active ixekizumab (TALT Z AUTOINJECTOR, 2 PACK, SUBQ) Inject 80 mg under the skin every 14 (fourteen) days. Every other Friday Active ixekizumab (TALT Z AUTOINJECTOR, 2 PACK, SUBQ) Inject 80 mg under the skin every 14 (fourteen) days. Every other Friday 0 Active lisinopril 5 mg oral tablet (15 sources) Angiotensin Converting Enzyme Inhibitor Start: 05-01-2017 End: 08-21-2023 take 5 mg by mouth once daily Lisinopril Active 5 MG PO Daily April 30, 2017 11:00pm losartan potassium 50 mg oral tablet (20 sources) Angiotensin 2 Receptor Elenita take 1 tablet by mouth in the morning losartan (COZAAR) 50 mg tablet Indications: hypertension Take 1 tablet (50 mg total) by mouth in the morning. Indications: high blood pressure. Active meropenem 1000 mg injection (2 sources) Penem Antibacterial Start: 03-19-2023 End: 09-08-2023 take 1 g intravenously every eight hours meropenem (MERREM) 1 gram/50 mL piggyback IVPB Premix Infuse 50 mL (1 g total) into a venous catheter every 8 (eight) hours. 0 03/19/2023 09/08/2023 Active metFORMIN hydrochloride 1000 mg oral tablet (2 sources) Biguanide Start: 05-01-2017 take 1000 mg by mouth twice daily Metformin Active 1000 MG PO Twice daily April 30, 2017 11:00pm Multiple Vitamins-Minerals (Centrum Silver 50+Men) tablet (6 sources) Multiple Vitamins-Mineral s (Centrum Silver 50+Men) tablet 1 (one) time each day at the same time. Active multivitamin with minerals iron-free (Centrum Silver) (1 source) take 1 tablet by mouth once daily multivitamin with minerals iron-free (Centrum Silver) Take 1 tablet by mouth once daily. 0 Active lf-acw-oweiw-K1-ly copen-lutein [id number] mcg tablet (19 sources) take 1 tablet by mouth once daily at breakfast pb-pqq-tsjrn-K1- lycopen-lutein 560-75-344-300 mcg tablet Take 1 tablet by mouth daily with breakfast. Active take 1 tablet by genna th once daily at breakfast in-ioq-ukksc-W1-knfncij-weuavy 300-60-60 0-300 mcg tablet Take 1 tablet by mouth daily with breakfast. 0 Active omeprazole 40 mg delayed release oral capsule (20 sources) Proton Pump Inhibitor Start: 09-27-2020 take 1 capsule by mouth once daily omeprazole (PriLOSEC) [address] capsule Take 1 capsule (40 mg) by mouth once daily. 0 09/27/2020 Active Start: 05-01-2017 End: 10-02-2017 take 40 mg by mouth once daily Omeprazole Discontinued 40 MG PO Daily April 30, 2017 11:00pm October 02, 2017 8:22am oxygen as ordered (20 sources) oxygen as ordere d 4 liters continuous 3 liters Active oxygen as ordere d 3 liters Active Ozempic (1 MG/DOSE) 2 MG/1.5 ML (20 sources) Ozempic (1 MG/DO SE) 2 MG/1.5ML 1 mg as directed Subcutaneous weekly Active ozempic (2 mg/dose) 8 mg/3ml solution pen-injector (2 sources) Start: 06-19-2023 inject 2 mg by subcutaneous injection every week Ozempic (2 MG/DOSE) 8 MG/3ML 2mg Subcutaneous once weekly May, Active potassium chloride 10 meq extended release oral tablet (20 sources) Start: 10-23-2022 take 1 tablet by genna th in the morning potassium chloride CR (Klor-Con) 10 MEQ ER tablet Take 10 mEq by mouth in the morning. 10/23/2022 Active Start: 05-01-2017 Potassium Chlo ride (Klor-Con M20) 20 MEQ tablet,ER particles/crystals Active 20 MEQ PO Daily April 30, 2017 11:00pm potassium chlori de (KLOR-CON M) 20 MEQ extended release tablet Take 20 mEq by mouth 2 times daily 0 Active 1 mg dose 1.5 ml semaglutide 1.34 mg/ml pen injector (20 sources) Start: 01-18-2021 Ozempic (1 MG/ DOSE) 2 MG/1.5ML 1 mg as directed Subcutaneous weekly Dec, Active Start: 11-20-2020 semaglutide (O zempic) 0.25 mg or 0.5 mg(2 mg/1.5 mL) pen injector Inject 0.25 mg under the skin 1 (one) time per week. 0 11/20/2020 Active Start: 11-20-2020 OZEMPIC 0.25 m g or 0.5 mg(2 mg/1.5 mL) pen injector 0.4 mg by abdominal subcutaneous route once a week. Every friday11/20/2020 Active Start: 11-20-2020 OZEMPIC 0.25 m g or 0.5 mg(2 mg/1.5 mL) pen injector 0.5 mg by abdominal subcutaneous route once a week. Every friday 0 11/20/2020 Active 125 ml sodium chloride 9 mg/ ml prefilled syringe (20 sources) Start: 03-10-2023 sodium chlorid e injection Infuse 10-20 mL into a venous catheter as needed for line care (line care per nursing agency protocol.). 1 mL 03/10/2023 Active Start: 12-15-2016 sodium chlorid e (OCEAN) 0.65 % nasal spray 2 sprays by Nasal route 4 times daily 1 Bottle 1 12/15/2016 Active spironolactone 25 mg oral tablet (8 sources) Aldosterone Antagonist Start: 05-01-2017 take 25 mg by mouth twice daily Spironolactone Active 25 MG PO Twice daily April 30, 2017 11:00pm triamcinolone acetonide 1 mg/ml topical lotion (19 sources) Corticosteroid Start: 10-18-2022 triamcinolone (KENALOG) 0.1 % lotion Apply 1 Application topically 3 (three) times a day. During dressing changes to Rt lower leg 60 mL 10/18/2022 Active Vitamin D 2000 UNIT (20 sources) take 2 tablets by mouth once daily take 2 tablets by mouth once latrice ly Vitamin D 2000 UNIT 2 tablets Orally daily for 90 Not-Taking take 2 tablets by mouth once latrice ly Vitamin D 2000 UNIT 2 tablets Orally daily for 90 Active warfarin sodium 5 mg oral tablet (20 sources) Vitamin K Antagonist Start: 12-10-2019 take 1-1.5 tablets by mouth in the evening warfarin (COUMADIN) 5 mg tablet Indications: History of DVT (deep vein thrombosis) , roasterman (current) use of anticoagulants Take 1-1.5 tablets (5-7.5 mg total) by mouth in the evening. as directed by Diane GOSS (Medication Therapy Management). 135 tablet 1 03/04/2024 Active Start: 10-02-2017 take 7.5 mg by mouth once oseas y Warfarin Active 7.5 MG PO Daily October 01, 2017 11:00pm Completed/Discontinued Medications Medication Drug Class(es) Dates Sig (Normalized) Sig (Original) aspirin 81 mg chewable tablet (1 source) Platelet Aggregation Inhibitor, Nonsteroidal Anti-inflammatory Drug Start: 05-01-2017 End: 10-02-2017 take 81 mg by mouth once daily Aspirin Discontinued 81 MG PO Daily April 30, 2017 11:00pm October 02, 2017 8:22am Centrum Silver Oral Tablet (1 source) take 1 tablet by mouth once daily Centrum Silver Oral Tablet TAKE 1 TABLET DAILY. Quantity: 0 Refills: 0 Ordered: 23-Apr-2022 DO Active clindamycin 300 mg oral capsule (1 source) Lincosamide Antibacterial Start: 10-20-2017 End: 10-30-2017 take 300 mg by mouth every eight hours Clindamycin Hcl Discontinued 300 MG PO Q8H 30 10 October 19, 2017 11:00pm October 29, 2017 11:01pm 0.5 ml dulaglutide 3 mg/ml auto-injector (1 source) GLP-1 Receptor Agonist Trulicity 1.5 MG/0.5ML Subcutaneous Solution Pen-injector USE DIRECTED Quantity: 0 Refills: 0 Ordered: 19-Jul-2021 DO Active FreeStyle Patricia 14 Day Sensor - (20 sources) FreeStyle Patricia 14 Day Sensor - as directed SQ change every 14 days for 28 Not-Taking FreeStyle Patricia 14 Day Sensor - as directed SQ change every 14 days for 28 Active insulin aspart, human 100 unt/ml injectable solution (1 source) Insulin Analog Start: 05-26-2017 End: 10-02-2017 Insulin Aspart U-100 (Novolog) 100 unit/mL Solution Discontinued SOLUTION May 26, 2017 12:00am October 02, 2017 8:22am insulin glargine 100 unt/ml injectable solution (2 sources) Insulin Analog Start: 05-26-2017 End: 10-02-2017 Insulin Glargine (Lantus) 100 unit/mL Solution Discontinued SOLUTION May 26, 2017 12:00am October 02, 2017 8:21am Start: 12-15-2016 insulin glargi ne (LANTUS) 100 UNIT/ML injection vial Inject 50 Units into the skin 2 times daily 1 vial 1 12/15/2016 Active levoFLOXacin 750 mg oral tablet (4 sources) Quinolone Antimicrobial Start: 05-06-2024 End: 05-16-2024 take 1 tablet by mouth once daily, then take 1 tablet by mouth once daily levoFLOXacin (Levaquin) 750 MG tablet Indications: Diabetic Foot Infection Take 1 tablet (750 mg) by mouth Daily for 10 days TAKE 1 PILL P.O. Q.D. 10 tablet 05/06/2024 05/16/2024 OZEMPIC 0.25 mg or 0.5 mg (2 mg/3 mL) pen injector (1 source) End: 08-21-2023 OZEMPIC 0.25 mg or 0.5 mg (2 mg/3 mL) pen injector 4 mg by soft tissue injection route every 7 days. 0 08/21/2023 Discontinued Problems Active Problems Problem Classification Problem Date Documented Date Episodic/Chronic Acute myocardial infarction (20 sources) Myocardial infarction; Translations: [Acute myocardial infarction, unspecified] Onset: 03-05-2023 03-07-2023 Chronic Administrative/social admission (7 sources) Dietary counseling and surveillance Onset: 08-09-2021 Resolved: 02-25-2022 Episodic Cardiac dysrhythmias (1 source) Paroxysmal atrial fibrillation; Translations: [Paroxysmal atrial fibrillation] Onset: 11-21-2023 Chronic Chronic kidney disease (20 sources) Chronic kidney disease stage 3; Translations: [Chronic kidney disease, stage 3 (moderate)] Onset: 08-14-2023 08-13-2023 Chronic Chronic obstructive pulmonary disease and bronchiectasis (20 sources) Chronic obstructive lung disease; Translations: [Chronic obstructive pulmonary disease, unspecified] Onset: 05-16-2020 Resolved: 10-26-2021 Chronic Chronic ulcer of skin (20 sources) Non-pressure chronic ulcer of unspecified part of right lower leg limited to breakdown of skin; Translations: [Non-pressure chronic ulcer of left ankle with unspecified severity] Onset: 01-03-2023 03-07-2023 Chronic Congestive heart failure; nonhypertensive (20 sources) Right ventricular failure; Translations: [Congestive heart failure, unspecified] Onset: 09-23-2015 12-08-2016 Chronic Coronary atherosclerosis and other heart disease (20 sources) Coronary arteriosclerosis; Translations: [Atherosclerotic heart disease of elim ira coronary artery without angina pectoris] Onset: 03-05-2023 03-08-2023 Chronic Deficiency and other anemia (2 sources) Anemia, unspecified; Translations: [Anemia, unspecified] Onset: 01-09-2023 Episodic Diabetes mellitus with complications (20 sources) Disorder of kidney due to diabetes mellitus; Translations: [Type 2 diabetes mellitus with diabetic chronic kidney disease] Onset: 09-20-2015 Resolved: 02-25-2022 Chronic Diabetes mellitus without complication (20 sources) Diabetes mellitus; Translations: [Diabetes mellitus without mention of complication, type II or unspecified type, not stated as uncontrolled] Onset: 08-09-2021 Resolved: 02-25-2022 Chronic Diabetes mellitus without complication (1 source) Diabetes mellitus without complication; Translations: [Type 2 diabetes mellitus with diabetic chronic kidney disease] Onset: 06-19-2023 Disorders of lipid metabolism (20 sources) Mixed hyperlipidemia; Translations: [Mixed hyperlipidemia] Onset: 08-09-2021 Resolved: 02-25-2022 Chronic Essential hypertension (20 sources) Hypertensive disorder; Translations: [Unspecified essential hypertension] Onset: 12-08-2016 Resolved: 02-25-2022 Chronic Gout and other crystal arthropathies (20 sources) Gout; Translations: [Gout, unspecified] Onset: 01-03-2023 03-07-2023 Chronic Hypertension with complications and secondary hypertension (19 sources) Hypertensive heart failure; Translations: [Hypertensive heart disease with heart failure] Onset: 01-03-2023 03-07-2023 Chronic Mycoses (20 sources) Tinea pedis; Translations: [Tinea pedis] Onset: 10-04-2020 10-04-2020 Episodic Nutritional deficiencies (20 sources) Vitamin D deficiency; Translations: [Vitamin D deficiency, unspecified] Chronic Open wounds of head; neck; and trunk (2 sources) Unspecified open wound of abdominal wall, unspecified quadrant without penetration into peritoneal cavity, sequela; Translations: [Unspecified open wound of abdominal wall, unspecified quadrant without penetration into peritoneal cavity, sequela] Onset: 08-18-2023 Episodic Other aftercare (20 sources) Long-term current use of insulin; Translations: [USP (current) use of insulin] Episodic Other aftercare (7 sources) 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 Onset: 08-09-2021 Resolved: 02-25-2022 Episodic Other diseases of veins and lymphatics (20 sources) Lymphedema; Translations: [Lymphedema, not elsewhere classified] Onset: 02-13-2018 12-08-2016 Chronic Other diseases of veins and lymphatics (1 source) Chronic peripheral venous hypertension; Translations: [Chronic venous hypertension (idiopathic) with ulcer of unspecified lower extremity] 10-02-2017 Chronic Other diseases of veins and lymphatics (1 source) Lymphedema of bilateral lower limbs; Translations: [Lymphedema, not elsewhere classified] 10-02-2017 Chronic Other diseases of veins and lymphatics (20 sources) Peripheral venous insufficiency; Translations: [Venous insufficiency (chronic) (peripheral)] Episodic Other endocrine disorders (8 sources) Hypoglycemia; Translations: [Hypoglycemia, unspecified] Chronic Other endocrine disorders (2 sources) Hypoglycemia, unspecified Chronic Other endocrine disorders (1 source) Hyperparathyroidism, unspecified; Translations: [Hyperparathyroidism, unspecified] Onset: 08-14-2023 Chronic Other infections; including parasitic (1 source) Disorder due to infection; Translations: [Unspecified infectious disease] 11-13-2017 Episodic Other inflammatory condition of skin (1 source) Psoriasis vulgaris; Translations: [Psoriasis vulgaris] Onset: 11-20-2023 Chronic Other injuries and conditions due to external causes (2 sources) Other injury of unspecified body region, initial encounter; Translations: [Other injury of unspecified body region, initial encounter] Onset: 07-16-2023 Episodic Other lower respiratory disease (5 sources) Dyspnea; Translations: [Shortness of breath] Onset: 07-18-2023 08-20-2023 Episodic Other lower respiratory disease (20 sources) Restrictive lung disease; Translations: [Other disorders of lung] Episodic Other lower respiratory disease (1 source) Respiratory distress; Translations: [Acute respiratory distress] 09-23-2015 Episodic Other lower respiratory disease (1 source) Shortness of breath; Translations: [Shortness of breath] Onset: 07-18-2023 Episodic Other nutritional; endocrine; and metabolic disorders (20 sources) Body mass index 40+ - severely obese; Translations: [Morbid obesity] Onset: 12-07-2022 12-07-2022 Chronic Other nutritional; endocrine; and metabolic disorders (20 sources) Extreme obesity with alveolar hypoventilation; Translations: [Morbid (severe) obesity with alveolar hypoventilation] Chronic Other nutritional; endocrine; and metabolic disorders (20 sources) Body mass index (BMI) 70 or greater, adult; Translations: [Body mass index [BMI] 70 or greater, adult] Onset: 04-03-2021 Resolved: 02-25-2022 Chronic Other nutritional; endocrine; and metabolic disorders (20 sources) Obesity; Translations: [Obesity, unspecified] 10-02-2017 Chronic Other nutritional; endocrine; and metabolic disorders (20 sources) Metabolic syndrome X; Translations: [Metabolic syndrome] Chronic Other nutritional; endocrine; and metabolic disorders (1 source) Obesity, unspecified; Translations: [Obesity E66.9] Onset: 04-03-2021 Resolved: 04-03-2021 Chronic Other nutritional; endocrine; and metabolic disorders (4 sources) Morbid (severe) obesity with alveolar hypoventilation; Translations: [Morbid (severe) obesity with alveolar hypoventilation E66.2] Onset: 04-17-2021 Resolved: 10-26-2021 Chronic Other nutritional; endocrine; and metabolic disorders (3 sources) Body mass index (BMI) 60.0-69.9, adult; Translations: [BMI 60.0-69.9, adult] Chronic Other nutritional; endocrine; and metabolic disorders (19 sources) Severe obesity; Translations: [Morbid (severe) obesity due to excess calories] Onset: 10-28-2018 12-28-2022 Chronic Other nutritional; endocrine; and metabolic disorders (2 sources) Morbid (severe) obesity due to excess calories; Translations: [Morbid (severe) obesity due to excess calories (CMS/HCC)] Onset: 08-20-2023 Chronic Other skin disorders (1 source) Dystrophia unguium; Translations: [Nail dystrophy] 05-13-2024 Episodic Other upper respiratory infections (20 sources) Chronic sinusitis; Translations: [Chronic sinusitis, unspecified] Onset: 04-17-2021 Resolved: 04-17-2021 Chronic Residual codes; unclassified (20 sources) Obstructive sleep apnea syndrome; Translations: [Obstructive sleep apnea (adult) (pediatric)] Onset: 09-20-2015 12-08-2016 Chronic Residual codes; unclassified (4 sources) Obstructive sleep apnea (adult) (pediatric); Translations: [Obstructive sleep apnea (adult) (pediatric) G47.33] Onset: 04-17-2021 Resolved: 10-26-2021 Chronic Residual codes; unclassified (2 sources) Sleep apnea; Translations: [Unspecified sleep apnea] Onset: 07-18-2023 07-18-2023 Chronic Residual codes; unclassified (20 sources) Edema, unspecified; Translations: [Chronic edema] Episodic Residual codes; unclassified (1 source) Edema of lower extremity; Translations: [Localized edema] 10-02-2017 Episodic Respiratory failure; insufficiency; arrest (adult) (20 sources) Chronic respiratory failure; Translations: [Chronic respiratory failure, unspecified whether with hypoxia or hypercapnia] Onset: 09-23-2015 Resolved: 10-26-2021 Chronic Screening and history of mental health and substance abuse codes (10 sources) Ex-smoker; Translations: [Personal history of tobacco use] Episodic Unclassified (2 sources) Cellulitis of right lower extremity Onset: 07-16-2023 Past or Other Problems Problem Classification Problem Date Documented Da te Episodic/Chronic Acute and unspecified renal failure (20 sources) Acute injury of kidney; Translations: [Acute kidney failure, unspecified] Onset: 3 10-20-2022 Episodic Acute posthemorrhagic anemia (20 sources) Acute posthemorrhagic anemia; Translations: [Acute posthemorrhagic anemia] Onset: 7 12-11-2016 Episodic Bacterial infection; unspecified site (20 sources) History of methicillin resistant Staphylococcus aureus infection; Translations: [Personal history of Methicillin resistant Staphylococcus aureus infection] Onset: 3 03-07-2023 Episodic Complications of surgical procedures or medical care (19 sources) Vaccination not done; Translations: [Unvaccinated for covid-19] Onset: 3 03-07-2023 Episodic Deficiency and other anemia (20 sources) Anemia; Translations: [Anemia, unspecified] Onset: 6 09-20-2015 Episodic Fluid and electrolyte disorders (20 sources) Hyperkalemia; Translations: [Hyperkalemia] Onset: 0 Episodic Mood disorders (19 sources) Mood disorders Onset: 3 03-07-2023 Nutritional deficiencies (1 source) Deficiency of other specified B group vitamins Onset: 2 Resolved: 2 Episodic Other aftercare (9 sources) USP (current) use of insulin; Translations: [USP current use of insulin] Onset: 2 Resolved: 2 Episodic Other aftercare (4 sources) USP (current) use of anticoagulants; Translations: [USP (current) use of anticoagulants] Onset: 3 Episodic Other aftercare (19 sources) Long-term current use of anticoagulant; Translations: [roasterman (current) use of anticoagulants] Onset: 3 Resolved: 3 01-07-2023 Episodic Other aftercare (2 sources) Encounter for therapeutic drug level monitoring; Translations: [Encounter for therapeutic drug level monitoring] Onset: 3 Episodic Other injuries and conditions due to external causes (19 sources) Local infection of wound; Translations: [Other injury of unspecified body region, initial encounter] Onset: 3 12-06-2022 Episodic Other lower respiratory disease (19 sources) Hypoxia; Translations: [Hypoxemia] Onset: 3 12-05-2022 Episodic Other nutritional; endocrine; and metabolic disorders (20 sources) Morbid obesity; Translations: [Morbid obesity] Onset: 6 Resolved: 9 12-14-2016 Chronic Other screening for suspected conditions (not mental disorders or infectious disease) (20 sources) Deviation of international normalized ratio from target range; Translations: [Abnormal coagulation profile] Onset: 7 12-09-2016 Episodic Other upper respiratory disease (2 sources) Bleeding from nose; Translations: [Epistaxis] Onset: 7 07-18-2016 Episodic Other upper respiratory disease (20 sources) Posterior epistaxis; Translations: [Epistaxis] Onset: 3 12-13-2016 Episodic Phlebitis; thrombophlebitis and thromboembolism (20 sources) Thrombophlebitis of deep femoral vein; Translations: [Phlebitis and thrombophlebitis of femoral vein (deep) (superficial)] Onset: 3 Resolved: 3 12-08-2016 Episodic Pneumonia (except that caused by tuberculosis or sexually transmitted disease) (1 source) Left lower zone pneumonia; Translations: [Pneumonia, unspecified organism] Onset: 6 09-20-2015 Episodic Pulmonary heart disease (20 sources) Pulmonary embolism; Translations: [Other pulmonary embolism and infarction] Onset: 6 09-23-2015 Episodic Residual codes; unclassified (19 sources) Noncompliance with treatment; Translations: [Patient's noncompliance with other medical treatment and regimen due to unspecified reason] Onset: 3 03-07-2023 Episodic Respiratory failure; insufficiency; arrest (adult) (1 source) Acute respiratory failure; Translations: [Acute respiratory failure, unspecified whether with hypoxia or hypercapnia] Onset: 6 Resolved: 6 09-23-2015 Episodic Skin and subcutaneous tissue infections (20 sources) Cellulitis of lower limb; Translations: [Cellulitis of right lower limb] Onset: 6 Resolved: 0 09-20-2015 Episodic Varicose veins of lower extremity (20 sources) Venous stasis ulcer with edema of left lower leg; Translations: [Varicose veins of left lower extremity with ulcer of unspecified site] Onset: 8 03-13-2023 Episodic Results Test Name Value Interpretation Reference Range Facility Coding Summaryon 05-19-2024 Coding Summary [facility] Coding Summary [facility] POCT Protime / INRon 024 INR Coag (PPP) [Relative time] 2.2 {INR} Abnormal 0.8 - 1.2 [facility] Interpretation and review of laboratory results Abnormal [facility] Provider Orderson 05-18-2024 Provider Orders [id number] 1 [id number] .00OTGTIFF [facility] Coding Summaryon 05-12-2024 Coding Summary [facility] Coding Summary [facility] Coding Summaryon 05-11-2024 Coding Summary [facility] Billing Authorizationson Billing Authorizations [id number] .00OTGTIFF [facility] Coding Summaryon 05-10-2024 Coding Summary [facility] Wound Cultureon 05-09-2024 Wound Culture [facility] Comment on above: Performed By: #### [id number] ####[facility] (DEFAULT)[address] [place] [address] ED Clinical Summaryon 2023 ED Clinical Summary Normal [facility] ED Patient Education Noteon 05-07-2024 ED Patient Education Note [facility] ED Patient Summaryon 024 ED Patient Summary [facility] Wound Cultureon 05-06-2024 Wound Culture [facility] Comment on above: Performed By: #### [id number] ####[facility] (DEFAULT)[address] [place] [id number] POCT Protime / INRon 024 INR Coag (PPP) [Relative time] 4.2 {INR} Abnormal 0.8 - 1.2 [facility] Interpretation and review of laboratory results Abnormal [facility] Wound Cultureon 05-05-2024 Wound Culture Normal [facility] Comment on above: Performed By: #### [id number] ####[facility] (DEFAULT)[address] [place] [address] Coding Summaryon 05-03-2024 Coding Summary Normal [facility] .Auto Diff 1on 04-30-2024 Auto Bremer % 6 % Normal -12 [facility] Comment on above: Performed By: #### 1 [id number] ####[facility] (DEFAULT)[address] [place] [id number] Baso Abs# 0.1 x10 Normal 0.0-0.2 [facility] Comment on above: Performed By: #### 1 [id number] ####[facility] (DEFAULT)[address] [place] [address] [id number] Basophils/100 WBC (Bld) 0.7 % Normal 0.2-2.0 [facility] Comment on above: Performed By: #### 1 [id number] ####[facility] (DEFAULT)[address] [place] [id number] Eos Abs# 0.2 x10 Normal 0.0-0.4 [facility] Comment on above: Performed By: #### 1 [id number], [id number], 0423816, 25853196, [id number] ####[facility] (DEFAULT)[address] [place] [address] 14406 Eosinophils/100 WBC (Bld) 2.4 % Normal 0.9-4.0 [facility] Comment on above: Performed By: #### 1 [id number], [id number], 1396545, 60824643, [id number] ####[facility] (DEFAULT)[address] [place] [address] 55975 Lymph Abs# 1.2 x10 Low 1.3-2.9 [facility] Comment on above: Performed By: #### 1 [id number], [id number], 6019110, 21492289, [id number] ####[facility] (DEFAULT)[address] [place] [address] Lymphocytes/100 WBC (Bld) 13 % Low 14-48 [facility] Comment on above: Performed By: #### 1 [id number], [id number], 9030470, 83983146, [id number] ####[facility] (DEFAULT)[address] [place] [address] 30912 Bremer Abs# 0.6 x10 Normal 0.0-0.8 [facility] Comment on above: Performed By: #### 1 [id number], [id number], 6974536, 24138681, 1854744184 ####[facility] (DEFAULT)[address] [place] [address] Neut Abs# 7.3 x10 Normal 1.5-9.2 [facility] Comment on above: Performed By: #### 1 [id number], 6007095309, 8368313, 67039896, [id number] ####[facility] (DEFAULT)[address] [place] [address] 15761 Neutrophils/100 WBC (Bld) 78 % Normal 44-88 [facility] Comment on above: Performed By: #### 1 [id number], 1529425134, 2229841, 29481496, [id number] ####[facility] (DEFAULT)[address] [place] [address] 58860 CBC w/ Auto Diffon 4 Erythrocyte distribution width (RBC) [Ratio] 17.8 % High 11.5-15.0 [facility] Comment on above: Performed By: #### 1 [id number], [id number], 9915634, 68798582, 2599747793 ####[facility] (DEFAULT)[address] [place] [address] Hematocrit (Bld) [Volume fraction] 36.2 % Normal 34.8-51.9 [facility] Comment on above: Performed By: #### 1 [id number], 4698151552, 1264569, 10695690, [id number] ####[facility] (DEFAULT)[address] [place] [address] Hemoglobin (Bld) [Mass/Vol] 11.5 g/dL Low 11.8-17.7 [facility] Comment on above: Performed By: #### 1 [id number], 4134944525, 4612849, 41843581, [id number] ####[facility] (DEFAULT)[address] [place] [address] Man Diff? Auto Invalid Interpretation Code [facility] Comment on above: Performed By: #### 1 [id number], 7807125184, 8967147, 70973729, 5083951584 ####[facility] (DEFAULT)[address] [place] [address] MCH (RBC) [Entitic mass] 27 pg Normal 24-34 [facility] Comment on above: Performed By: #### 1 [id number], 2897596869, 6439431, 83401279, 6065539789 ####[facility] (DEFAULT)[address] [place] [address] MCHC (RBC) [Mass/Vol] 32 g/dL Normal 26-37 [facility] Comment on above: Performed By: #### 1 [id number], 1342316839, 6401337, 97085509, 1727327824 ####[facility] (DEFAULT)[address] [place] [address] MCV (RBC) [Entitic vol] 85 fL Normal 81-100 [facility] Comment on above: Performed By: #### 1 [id number], 3619917707, 5841632, 33139913, 8390064248 ####[facility] (DEFAULT)[address] [place] [address] 90132 Platelet 157 x10 Normal 138-427 [facility] Comment on above: Performed By: #### 1 [id number], 9015344970, 3614617, 85833886, 5273595302 ####[facility] (DEFAULT)[address] [place] [address] 15932 Platelet mean volume (Bld) [Entitic vol] 9.3 fL Normal 6.3-10.2 [facility] Comment on above: Performed By: #### 1 [id number], 7009407127, 5498056, 64354253, 1855313318 ####[facility] (DEFAULT)[address] [place] [address] 37085 RBC 4.23 x10 Normal 3.70-5.30 [facility] Comment on above: Performed By: #### 1 [id number], 5480912232, 1420842, 94396108, 0971111414 ####[facility] (DEFAULT)[address] [place] [address] 27459 WBC 9.3 x10 Normal 3.5-10.5 [facility] Comment on above: Performed By: #### 1 [id number], 4503447697, 1677382, 63312588, 3555699054 ####[facility] (DEFAULT)[address] [place] [address] 12429 CMP Standardon 04-30-2024 eGFR Non AA >60 Invalid Interpretation Code [facility] Comment on above: Performed By: #### 1 [id number], 6881947076, 0637719, 27150228, [id number] ####[facility] (DEFAULT)[address] [place] [address] 24154 eGFR AA >60 Invalid Interpretation Code [facility] Comment on above: Performed By: #### 1 [id number], 2890997640, 1173280, 49014021, 0888313103 ####[facility] (DEFAULT)[address] [place] [address] 46096 Albumin [Mass/Vol] 3.6 g/dL Normal 3.5-5.0 [facility] Comment on above: Performed By: #### 1 [id number], 2579788621, 6284957, 68819353, [id number] ####[facility] (DEFAULT)[address] [place] [address] 34058 Albumin/Globulin [Mass ratio] 0.7 {ratio} Low 1.4-2.6 [facility] Comment on above: Performed By: #### 1 [id number], 6995848223, 8525111, 53629918, 0180362090 ####[facility] (DEFAULT)[address] [place] [address] 70175 Alk Phos 84 IU/L Normal 32-91 [facility] Comment on above: Performed By: #### 1 [id number], 9155923807, 8348097, 60441376, 7959239919 ####[facility] (DEFAULT)[address] [place] [address] 03392 ALT [Catalytic activity/Vol] 22.0 U/L Normal 17.0-63.0 [facility] Comment on above: Performed By: #### 1 [id number], 7385803427, 3279667, 40386414, 0307244133 ####[facility] (DEFAULT)[address] [place] [address] 51106 Anion gap [Moles/Vol] 14.0 mmol/L Normal 5.0-19.0 [facility] Comment on above: Performed By: #### 1 [id number], 0503138926, 8239879, 40170128, 0471202972 ####[facility] (DEFAULT)[address] [place] [address] 27529 AST [Catalytic activity/Vol] 21 U/L Normal 15-41 [facility] Comment on above: Performed By: #### 1 [id number], 0118320791, 6847292, 38082406, 6873684968 ####[facility] (DEFAULT)[address] [place] [address] 13935 Bili Total 0.6 mg/dL Normal 0.3-1.2 [facility] Comment on above: Performed By: #### 1 [id number], 7669461815, 8451207, 93493177, 6538167801 ####[facility] (DEFAULT)[address] [place] [address] 38736 Calcium [Mass/Vol] 8.7 mg/dL Low 8.9-10.3 [facility] Comment on above: Performed By: #### 1 [id number], 0151325617, 4584895, 33084902, 2437782629 ####[facility] (DEFAULT)[address] [place] [address] 12911 Chloride [Moles/Vol] 96 mmol/L Low 101-111 [facility] Comment on above: Performed By: #### 1 [id number], 4872653770, 3112035, 63698198, 0007459759 ####[facility] (DEFAULT)[address] [place] [address] 77163 CO2 [Moles/Vol] 29 mmol/L Normal 21-32 [facility] Comment on above: Performed By: #### 1 [id number], 5559534864, 3840794, 88432415, 5690984511 ####[facility] (DEFAULT)[address] [place] [address] 67708 Creatinine [Mass/Vol] 1.06 mg/dL Normal 0.90-1.30 [facility] Comment on above: Performed By: #### 1 [id number], 7505152299, 9353768, 19618928, 8871091793 ####[facility] (DEFAULT)[address] [place] [address] 13912 Globulin (S) [Mass/Vol] 4.7 g/dL High 1.5-4.3 [facility] Comment on above: Performed By: #### 1 [id number], 8014329964, 4167471, 79588649, 3647722456 ####[facility] (DEFAULT)[address] [place] [address] 56068 Glucose [Mass/Vol] 215.0 mg/dL High 74.0-118.0 [facility] Comment on above: Performed By: #### 1 [id number], 3396152933, 4117008, 47522178, 0087853337 ####[facility] (DEFAULT)[address] [place] [address] 42937 Osmolality 286 mOsm/L Invalid Interpretation Code [facility] Comment on above: Performed By: #### 1 [id number], 6671008180, 1201937, 96838301, 7572643446 ####[facility] (DEFAULT)[address] [place] [address] 13156 Potassium [Moles/Vol] 4.0 mmol/L Normal 3.6-5.1 [facility] Comment on above: Performed By: #### 1 [id number], 0572724113, 5078196, 69371382, 7571041467 ####[facility] (DEFAULT)[address] [place] [address] 15978 Protein [Mass/Vol] 8.3 g/dL High 6.5-8.1 [facility] Comment on above: Performed By: #### 1 [id number], 5359713075, 8766794, 99316374, 9916817351 ####[facility] (DEFAULT)[address] [place] [address] 42882 Sodium [Moles/Vol] 135.0 mmol/L Low 136.0-144.0 [facility] Comment on above: Performed By: #### 1 [id number], 9359545948, 9153427, 17931079, 6601119888 ####[facility] (DEFAULT)[address] [place] [address] 59914 Urea nitrogen [Mass/Vol] 38 mg/dL High 8-26 [facility] Comment on above: Performed By: #### 1 [id number], 7015623059, 9162867, 00584620, 2939452348 ####[facility] (DEFAULT)[address] [place] [address] 28617 Urea nitrogen/Creatinine [Mass ratio] 35.8 mg/mg High 4.6-16.2 [facility] Comment on above: Performed By: #### 1 [id number], 2087384526, 2324546, 82437207, 3524175827 ####[facility] (DEFAULT)[address] [place] [address] ED Clinical Summaryon 2023 ED Clinical Summary Normal [facility] ED Patient Education Noteon 04-30-2024 ED Patient Education Note Normal [facility] ED Patient Summaryon 024 ED Patient Summary Normal [facility] Extra Blueon 04-30-2024 Tube Collected Yes Invalid Interpretation Code [facility] Comment on above: Performed By: #### 1 [id number], [id number], 8567991, 86242024, [id number] ####[facility] (DEFAULT)[address] [place] [address] POCT Protime / INRon 024 INR Coag (PPP) [Relative time] 3.5 {INR} Abnormal 0.8 - 1.2 [facility] System Interpretation and review of laboratory results Abnormal [facility] Coding Summaryon 04-13-2024 Coding Summary Normal [facility] Coding Summaryon 04-08-2024 Coding Summary Normal [facility] Coding Summaryon 03-25-2024 Coding Summary Normal [facility] Coding Summary Normal [facility] Coding Summary Normal [facility] Coding Summary Normal [facility] Coding Summaryon 03-24-2024 Coding Summary Normal [facility] Coding Summary Normal [facility] Coding Summary Normal [facility] Coding Summaryon 03-18-2024 Coding Summary Normal [facility] Coding Summaryon 03-16-2024 Coding Summary Normal [facility] Coding Summary Normal [facility] Coding Summaryon 03-12-2024 Coding Summary Normal [facility] Coding Summary Normal [facility] Coding Summaryon 03-09-2024 Coding Summary Normal [facility] Coding Summary Normal [facility] Coding Summaryon 03-03-2024 Coding Summary Normal [facility] Coding Summary Normal [facility] Coding Summaryon 02-19-2024 Coding Summary Normal [facility] Coding Summary Normal [facility] Wound Care Noteon 02-16-2024 Wound Care Note [id number]. 00OTGTIFF Normal [facility] Coding Summaryon 02-10-2024 Coding Summary Normal [facility] Coding Summaryon 01-29-2024 Coding Summary Normal [facility] Coding Summary Normal [facility] Coding Summaryon 01-26-2024 Coding Summary Normal [facility] Coding Summaryon 01-21-2024 Coding Summary Normal [facility] Coding Summaryon 01-20-2024 Coding Summary Normal [facility] Coding Summaryon 01-15-2024 Coding Summary Normal [facility] Coding Summaryon 01-07-2024 Coding Summary Normal [facility] COMPREHENSIVE METABOLIC PANE Rod 12-30-2023 Albumin [Mass/Vol] 3.8 g/dL Normal 3.2-5.3 [facility] Comment on above: Performed By: #### P INR #### [facility] ([id number]) [address] [place] [address] 65418 ALP [Catalytic activity/Vol] 85 U/L Normal 39-130 [facility] Comment on above: Performed By: #### P INR #### [facility] ([id number]) [address] [place] [address] 36176 ALT [Catalytic activity/Vol] 23 U/L Normal 0-40 [facility] Comment on above: Performed By: #### P INR #### [facility] ([id number]) [address] [place] [address] 52902 Anion gap [Moles/Vol] 9 mmol/L Normal 5-15 [facility] Comment on above: Performed By: #### P INR #### [facility] ([id number]) [address] [place] [address] 76217 AST [Catalytic activity/Vol] 20 U/L Normal 0-41 [facility] Comment on above: Performed By: #### P INR #### [facility] ([id number]) [address] [place] [address] 16558 Bilirubin [Mass/Vol] 0.4 mg/dL Normal 0.3-1.2 [facility] Comment on above: Performed By: #### P INR #### [facility] ([id number]) [address] [place] [address] 58258 Calcium [Mass/Vol] 9.4 mg/dL Normal 8.5-10.5 [facility] Comment on above: Performed By: #### P INR #### [facility] ([id number]) [address] [place] [address] 69774 Chloride [Moles/Vol] 102 mmol/L Normal 98-109 [facility] Comment on above: Performed By: #### P INR #### [facility] ([id number]) [address] [place] [address] 16712 CO2 [Moles/Vol] 30 mmol/L Normal 22-32 [facility] Comment on above: Performed By: #### P INR #### [facility] ([id number]) [address] [place] [address] 49515 Creatinine [Mass/Vol] 0.92 mg/dL Normal 0.60-1.30 [facility] Comment on above: Result Comment: METH OD TRACEABLE TO IDMS STANDARD Performed By: #### P INR #### [facility] ([id number]) [address] [place] [address] 59436 eGFR (CKD-EPI) NON-RACE DEPENDENT >90 Normal >59 [facility] Comment on above: Result Comment: Reported eGFR is based on the CKD-EPI 2021 equation that does not use a race coefficient. Performed By: #### P INR #### [facility] ([id number]) [address] [place] [address] 86241 Glucose [Mass/Vol] 66 mg/dL Normal 65-99 [facility] Comment on above: Performed By: #### P INR #### [facility] ([id number]) [address] [place] [address] 86258 Potassium [Moles/Vol] 4.0 mmol/L Normal 3.5-5.0 [facility] Comment on above: Performed By: #### P INR #### [facility] ([id number]) [address] [place] [address] 51549 Protein [Mass/Vol] 7.9 g/dL Normal 6.0-8.0 [facility] Comment on above: Performed By: #### P INR #### [facility] ([id number]) [address] [place] [address] 78758 Sodium [Moles/Vol] 141 mmol/L Normal 134-146 [facility] Comment on above: Performed By: #### P INR #### [facility] ([id number]) [address] [place] [address] 84778 Urea nitrogen [Mass/Vol] 37 mg/dL High 5-27 [facility] Comment on above: Performed By: #### P INR #### [facility] ([id number]) [address] [place] [address] 15962 Coding Summaryon 12-30-2023 Coding Summary Normal [facility] Coding Summary [facility] F2 gene mutations tested for Molgen Nom (Bld/Tiss)on 12-30-2023 PROTHROMBIN 92292 Prothrombin [id number] mutation: Normal [facility] Comment on above: Result Comment: Nega tive (qualifier value) The patient does not have the Prothrombin [id number] mutation. This finding does not exclude other causes of hereditary venous thrombosis. Consider additional testing, if indicated. Performed By: #### P INR #### [facility] ([id number]) [address] [place] [address] 00213 Lipid 1996 panelon 4 Cholesterol [Mass/Vol] 136 mg/dL Low 150-200 [facility] Comment on above: Performed By: #### P INR #### [facility] ([id number]) [address] [place] [address] 57207 Cholesterol in HDL [Mass/Vol] 31 mg/dL Low >39 [facility] Comment on above: Result Comment: HDL <40 mg/dL - High Risk HDL > or = 40mg/dL- Desirable HDL >60 mg/dL - Negative Risk Performed By: #### P INR #### [facility] ([id number]) [address] [place] [address] 37365 Cholesterol in LDL [Mass/Vol] 53 mg/dL Normal <130 [facility] Comment on above: Result Comment: LDL <100 mg/dL - Desirable LDL >160 mg/dL - High Risk Performed By: #### P INR #### [facility] ([id number]) [address] [place] [address] 05933 Cholesterol in VLDL [Mass/Vol] 52 mg/dL High 0-30 [facility] Comment on above: Performed By: #### P INR #### [facility] ([id number]) [address] [place] [address] 02927 CHOLESTEROL:HDL 4.4 Normal 1.0-5.0 [facility] Comment on above: Performed By: #### P INR #### [facility] ([id number]) [address] [place] [address] 51900 Triglyceride [Mass/Vol] 262 mg/dL High 27-150 [facility] Comment on above: Performed By: #### P INR #### [facility] ([id number]) [address] [place] [address] 36547 MICROALBUMIN - ALBUMIN:CREAT ININE URINE RATIOon 07-02-2024 ALB/CREAT RATIO 57.0 mg/g creat High 0.0-30.0 [facility] Comment on above: Performed By: #### P INR #### [facility] ([id number]) [address] [place] [address] 42410 Albumin DL <= 20 mg/L (U) [Mass/Vol] 2.9 mg/dL High 0.0-1.9 [facility] Comment on above: Performed By: #### P INR #### [facility] ([id number]) [address] [place] [address] 22492 URINE CREAT 50.85 mg/dL Normal [facility] Comment on above: Performed By: #### P INR #### [facility] ([id number]) [address] [place] [address] 59318 PROTIME AND INRon 12-30-2023 INR Coag (PPP) [Relative time] 2.0 {INR} High 0.8-1.1 [facility] Comment on above: Performed By: #### P INR #### [facility] ([id number]) [address] [place] [address] 03938 PT Coag (PPP) [Time] 22.6 s High 9.8-13.2 [facility] Comment on above: Performed By: #### P INR #### [facility] ([id number]) [address] [place] [address] 91053 Coding Summaryon 12-29-2023 Coding Summary [facility] ED Clinical Summaryon 2023 ED Clinical Summary [facility] ED Note - Physicianon 2023 ED Note - Physician [facility] Comment on above: Order Comment: Shawna choi Attachment [id number] Can be viewed in source system ED Note-Nursingon 12-19-2023 ED Note-Nursing [facility] ED Patient Education Noteon 12-19-2023 ED Patient Education Note Normal [facility] ED Patient Summaryon 024 ED Patient Summary [facility] Physical Therapy Noteon 11-28 Physical Therapy Note [id number]. [facility] B[facility] Authorizationson Billing Authorizations [id number]#[facility] C[facility] 12-10-2023 Coding Summary [facility] Wound Cultureon 12-09-2023 Wound Culture [facility] Comment on above: Performed By: #### 6 [id number] ####[facility] (DEFAULT)[address] [place] [address] Coding Summaryon 12-04-2023 Coding Summary [facility] Coding Summary [facility] Billing Authorizationson Billing Authorizations [id number]#1 [facility] 11-27-2023 Coding Summary [facility] Billing Authorizationson Billing Authorizations [id number] [facility] CBC AND AUTO DIFFon 11-20-19 ABSOLUTE BASOPHIL 0.0 X10E9/L Normal 0.0-0.2 [facility] Comment on above: Performed By: #### P INR #### [facility] ([id number]) [address] [place] [address] 70980 ABSOLUTE NEUTROPHIL 6.1 X10E9/L Normal 1.5-6.6 [facility] Comment on above: Performed By: #### P INR #### [facility] ([id number]) [address] [place] [address] 57989 Basophils/100 WBC (Bld) 0.5 % Normal [facility] Comment on above: Performed By: #### P INR #### [facility] ([id number]) [address] [place] [address] 94204 Eosinophils (Bld) [#/Vol] 0.2 10*3/uL Normal 0.0-0.4 [facility] Comment on above: Performed By: #### P INR #### [facility] ([id number]) [address] [place] [address] 66226 Eosinophils/100 WBC (Bld) 2.2 % Normal [facility] Comment on above: Performed By: #### P INR #### [facility] ([id number]) [address] [place] [address] 68367 Erythrocyte distribution width (RBC) [Ratio] 18.8 % High 11.5-15.0 [facility] Comment on above: Performed By: #### P INR #### [facility] ([id number]) [address] [place] [address] 30016 Hematocrit (Bld) [Volume fraction] 34.6 % Low 39-49 [facility] Comment on above: Performed By: #### P INR #### [facility] ([id number]) [address] [place] [address] 53343 Hemoglobin (Bld) [Mass/Vol] 11.5 g/dL Low 13.0-17.0 [facility] Comment on above: Performed By: #### P INR #### [facility] ([id number]) [address] [place] [address] 64222 Lymphocytes (Bld) [#/Vol] 1.0 10*3/uL Normal 1.0-3.5 [facility] Comment on above: Performed By: #### P INR #### [facility] ([id number]) [address] [place] [address] 12183 Lymphocytes/100 WBC (Bld) 13.4 % Normal [facility] Comment on above: Performed By: #### P INR #### [facility] ([id number]) [address] [place] [address] 95255 MCH (RBC) [Entitic mass] 29.0 pg Normal 27-34 [facility] Comment on above: Performed By: #### P INR #### [facility] ([id number]) [address] [place] [address] [id number] MCHC (RBC) [Mass/Vol] 33.3 g/dL Normal 32-36 [facility] Comment on above: Performed By: #### P INR #### [facility] ([id number]) [address] [place] [address] [id number] MCV (RBC) [Entitic vol] 87 fL Normal 80-[address] [facility] Comment on above: Performed By: #### P INR #### [facility] ([id number]) [address] [place] [address] 29270 Monocytes (Bld) [#/Vol] 0.3 10*3/uL Normal 0-0.9 [facility] Comment on above: Performed By: #### P INR #### [facility] ([id number]) [address] [place] [address] 90311 Monocytes/100 WBC (Bld) 4.2 % Normal [facility] Comment on above: Performed By: #### P INR #### [facility] ([id number]) [address] [place] [address] 52899 Neutrophils/100 WBC (Bld) 79.7 % Normal [facility] Comment on above: Performed By: #### P INR #### [facility] ([id number]) [address] [place] [address] [place] [address] Platelet mean volume (Bld) [Entitic vol] 10.3 fL Normal 7-12 [facility] Comment on above: Performed By: #### P INR #### [facility] ([id number]) [address] [place] [address] 87144 Platelets (Bld) [#/Vol] 140 10*3/uL Low 150-450 [facility] Comment on above: Performed By: #### P INR #### [facility] ([id number]) [address] [place] [address] 53340 RBC COUNT 3.97 X10E12/L Low 4.10-5.70 [facility] Comment on above: Performed By: #### P INR #### [facility] ([id number]) [address] [place] [address] 36873 WBC (Bld) [#/Vol] 7.7 10*3/uL Normal 4.0-11.0 [facility] Comment on above: Performed By: #### P INR #### [facility] ([id number]) [address] [place] [address]1173 COMPREHENSIVE METABOLIC PANE [facility] 11-20-2023 Albumin [Mass/Vol] 3.8 g/dL Normal 3.2-5.3 [facility] Comment on above: Performed By: #### P INR #### [facility] ([id number]) [address] [place] [address] 96013 ALP [Catalytic activity/Vol] 71 U/L Normal 39-130 [facility] Comment on above: Performed By: #### P INR #### [facility] ([id number]) [address] [place] [address] 30892 ALT [Catalytic activity/Vol] 14 U/L Normal 0-40 [facility] Comment on above: Performed By: #### P INR #### [facility] ([id number]) [address] [place] [address] 01091 Anion gap [Moles/Vol] 11 mmol/L Normal 5-15 [facility] Comment on above: Performed By: #### P INR #### [facility] ([id number]) [address] [place] [address] 62083 AST [Catalytic activity/Vol] 15 U/L Normal 0-41 [facility] Comment on above: Performed By: #### P INR #### [facility] ([id number]) [address] [place] [address] 48151 Bilirubin [Mass/Vol] 0.8 mg/dL Normal 0.3-1.2 [facility] Comment on above: Performed By: #### P INR #### [facility] ([id number]) [address] [place] [address] 43478 Calcium [Mass/Vol] 8.7 mg/dL Normal 8.5-10.5 [facility] Comment on above: Performed By: #### P INR #### [facility] ([id number]) [address] [place] [address] 68939 Chloride [Moles/Vol] 102 mmol/L Normal 98-109 [facility] Comment on above: Performed By: #### P INR #### [facility] ([id number]) [address] [place] [address] 97907 CO2 [Moles/Vol] 29 mmol/L Normal 22-32 [facility] Comment on above: Performed By: #### P INR #### [facility] ([id number]) [address] [place] [address] 07004 Creatinine [Mass/Vol] 1.15 mg/dL Normal 0.60-1.30 [facility] Comment on above: Result Comment: METH OD TRACEABLE TO IDMS STANDARD Performed By: #### P INR #### [facility] ([id number]) [address] [place] [address] 10368 GFR/1.73 sq M.predicted among non-blacks MDRD (S/P/Bld) [Vol rate/Area] 72 mL/min/{1.73_m2} Normal >59 [facility] Comment on above: Result Comment: Reported eGFR is based on the CKD-EPI 2020 equation that does not use a race coefficient. Performed By: #### P INR #### [facility] ([id number]) [address] [place] [address] 58614 Glucose [Mass/Vol] 226 mg/dL High 65-99 [facility] Comment on above: Performed By: #### P INR #### [facility] ([id number]) [address] [place] [address] 46676 Potassium [Moles/Vol] 3.7 mmol/L Normal 3.5-5.0 [facility] Comment on above: Performed By: #### P INR #### [facility] ([id number]) [address] [place] [address] 28892 Protein [Mass/Vol] 7.4 g/dL Normal 6.0-8.0 [facility] Comment on above: Performed By: #### P INR #### [facility] ([id number]) [address] [place] [address] 13247 Sodium [Moles/Vol] 142 mmol/L Normal 134-146 [facility] Comment on above: Performed By: #### P INR #### [facility] ([id number]) [address] [place] [address] 06029 Urea nitrogen [Mass/Vol] 33 mg/dL High 5-27 [facility] Comment on above: Performed By: #### P INR #### [facility] ([id number]) [address] [place] [address] 95567 Coding Summaryon 11-17-2023 Coding Summary [facility] Coding Summaryon 11-14-2023 Coding Summary [facility] Coding Summary [facility] Cult,Aerobe/Anaerobeon 11-12 Cult,Aerobe/Anaerobe Specimen Descriptio n .FOOT swab Direct Exam RARE NEUTROPHILS MANY GRAM NEGATIVE RODS Culture PSEUDOMONAS AERUGINOSA HEAVY GROWTH Identification by MALDI-TOF ENTEROCOCCUS FAECALIS LIGHT GROWTH Identification by MALDI-TOF No anaerobic organisms isolated at 5 days. Report Status FINAL 11/15/2023 SUSCEPTIBILITY Organism PSEUDOMONAS AERUGINOSA Method [place] Cefepime >=32 RESISTANT Imipenem >=16 RESISTANT Levofloxacin >=8 RESISTANT Meropenem >=16 RESISTANT Piperacillin/Tazobact am >=128 RESISTANT Tobramycin <=1 SUSCEPTIBLE SUSCEPTIBILITY Organism ENTEROCOCCUS FAECALIS Method [place] Ampicillin <=2 SUSCEPTIBLE Vancomycin 1 SUSCEPTIBLE Susceptible [facility] Comment on above: Performed By: #### A ANC ####[facility] [address] [place] [address] Lab Director: Luis A Alcantara MD Glucose,Whole Bloodon 2023 Glucose [Mass/Vol] 257 mg/dL High 75-110 [facility] Glucose [Mass/Vol] 178 mg/dL High 75-110 [facility] Billing Authorizationson Billing Authorizations [id number]. 00OTGTIFF [facility] C-Reactive Proteinon 024 CRP [Mass/Vol] 28.3 mg/L High 0.0-5.0 [facility] Comment on above: Performed By: #### C BC #### [facility] [place] [address] Information Director: Luis A Alcantara MD CBCon 11-10-2023 Erythrocyte distribution width (RBC) [Ratio] 17.1 % High 11.8-14.4 [facility] Comment on above: Performed By: #### C BC #### [facility] [place] [address] Information Director: Luis A Alcantara MD Hematocrit (Bld) [Volume fraction] 39.3 % Low 40.7-50.3 [facility] Comment on above: Performed By: #### C BC #### [address] [address] Information Director: Luis A Alcantara MD Hemoglobin (Bld) [Mass/Vol] 11.5 g/dL Low 13.0-17.0 [facility] Comment on above: Performed By: #### C BC #### [address] [address] Information Director: Luis A Alcantara MD MCH (RBC) [Entitic mass] 27.8 pg Normal 25.2-33.5 [facility] Comment on above: Performed By: #### C BC #### [address] [address] Information Director: Luis A Alcantara MD MCHC (RBC) [Mass/Vol] 29.3 g/dL Normal 28.4-34.8 [facility] Comment on above: Performed By: #### C BC #### [address] [address] Information Director: Luis A Alcantara MD MCV (RBC) [Entitic vol] 95.2 fL Normal 82.6-102.9 [facility] Comment on above: Performed By: #### C BC #### [address] [address] Information Director: Luis A Alcantara MD NRBC Automated 0.0 per 100 WBC Normal 0.0 [facility] Comment on above: Performed By: #### C BC #### [address] [address] Information Director: Luis A Alcantara MD Platelet mean volume (Bld) [Entitic vol] 11.8 fL Normal 8.1-13.5 [facility] Comment on above: Performed By: #### C BC #### [address] [address] Information Director: Luis A Alcantara MD Platelets (Bld) [#/Vol] 149 10*3/uL Normal 138-453 [facility] Comment on above: Performed By: #### C BC #### [address] [address] Information Director: Luis A Alcantara MD RBC (Bld) [#/Vol] 4.13 10*6/uL Low 4.21-5.77 [facility] Comment on above: Performed By: #### C BC #### [address] [address] Information Director: Luis A Alcantara MD WBC (Bld) [#/Vol] 9.7 10*3/uL Normal 3.5-11.3 [facility] Comment on above: Performed By: #### C BC #### [address] [address] Information Director: Luis A Alcantara MD Comp Metabolic Profon 2023 Albumin [Mass/Vol] 3.7 g/dL Normal 3.5-5.2 [facility] Comment on above: Performed By: #### C BC #### [address] [address] Information Director: Luis A Alcantara MD Albumin/Glob Ratio 1.0 Normal 1.0-2.5 [facility] Comment on above: Performed By: #### C BC #### [address] [address] Information Director: Luis A Alcantara MD Alkaline Phos 83 U/L Normal 40-129 [facility] Comment on above: Performed By: #### C BC #### [address] [address] Information Director: Luis A Alcantara MD ALT [Catalytic activity/Vol] 10 U/L Normal 10-50 [facility] Comment on above: Performed By: #### C BC #### [facility] [address] [place] [address] Information Director: Luis A Alcantara MD Anion gap [Moles/Vol] 13 mmol/L Normal 9-16 [facility] Comment on above: Performed By: #### C BC #### [address] [address] Information Director: Luis A Alcantara MD AST [Catalytic activity/Vol] 20 U/L Normal 10-50 [facility] Comment on above: Performed By: #### C BC #### [address] [address] Information Director: Luis A Alcantara MD Bilirubin [Mass/Vol] 0.5 mg/dL Normal 0.00-1.20 [facility] Comment on above: Performed By: #### C BC #### [address] [address] Information Director: Luis A Alcantara MD Calcium [Mass/Vol] 9.0 mg/dL Normal 8.6-10.4 [facility] Comment on above: Performed By: #### C BC #### [address] [address] Information Director: Luis A Alcantara MD Chloride [Moles/Vol] 102 mmol/L Normal 98-107 [facility] Comment on above: Performed By: #### C BC #### [address] [address] Information Director: Luis A Alcantara MD CO2 [Moles/Vol] 24 mmol/L Normal 20-31 [facility] Comment on above: Performed By: #### C BC #### [address] [address] Information Director: Luis A Alcantara MD Creatinine [Mass/Vol] 1.0 mg/dL Normal 0.70-1.20 [facility] Comment on above: Performed By: #### C BC #### [address] [address] Information Director: Luis A Alcantara MD GFR/1.73 sq M.predicted among non-blacks MDRD (S/P/Bld) [Vol rate/Area] 86 mL/min/{1.73_m2} Normal >60 [facility] Comment on above: Result Comment: These results are not intended for use in patients <18 years of age. eGFR results are calculated without a race factor using the 2020 CKD-EPI equation. Careful clinical correlation is recommended, particularly when comparing to results calculated using previous equations. The CKD-EPI equation is less accurate in patients with extremes of muscle mass, extra-renal metabolism of creatine, excessive creatine ingestion, or following therapy that affects renal tubular secretion. Performed By: #### C BC #### [facility] [address] [place] [address] Information Director: Luis A Alcantara MD Glucose [Mass/Vol] 125 mg/dL High 74-99 [facility] Comment on above: Performed By: #### C BC #### [facility] [address] [place] [address] Information Director: Luis A Alcantara MD Potassium [Moles/Vol] 3.8 mmol/L Normal 3.7-5.3 [facility] Comment on above: Result Comment: SPEC IMEN SLIGHTLY HEMOLYZED, RESULTS MAY BE ADVERSELY AFFECTED. Performed By: #### C BC #### [facility] [address] [place] [address] Information Director: Luis A Alcantara MD Protein [Mass/Vol] 7.4 g/dL Normal 6.6-8.7 [facility] Comment on above: Performed By: #### C BC #### [address] [address] Information Director: Luis A Alcantara MD Sodium [Moles/Vol] 139 mmol/L Normal 136-145 [facility] Comment on above: Performed By: #### C BC #### [facility] [place] [address] Information Director: Luis A Alcantara MD Urea nitrogen [Mass/Vol] 27 mg/dL High 8-23 [facility] Comment on above: Performed By: #### C BC #### [facility] [address] [place] [address] Information Director: Luis A Alcantara MD Consent Formson 11-10-2023 Consent Forms [id number]#1. 00OTGTIFF Normal [facility] Glucose,Whole Bloodon 2023 Glucose [Mass/Vol] 240 mg/dL High 75-110 [facility] Glucose [Mass/Vol] 118 mg/dL High 75-110 [facility] Glucose [Mass/Vol] 137 mg/dL High 75-110 [facility] Sedimentation Rateon 024 Sedimentation Rate 50 mm/Hr High 0-20 [facility] Comment on above: Performed By: #### C BC #### [facility] [address] [place] [address] Information Director: Luis A Alcantara MD C-Reactive Proteinon 024 CRP [Mass/Vol] 34.0 mg/L High 0.0-5.0 [facility] Comment on above: Performed By: #### C RP, GLYHGB, PT, SED, CBC, CP ####[employer] [address] [place] [address] Lab Director: Luis A Alcantara MD CBCon 11-09-2023 Erythrocyte distribution width (RBC) [Ratio] 17.4 % High 11.8-14.4 [facility] Comment on above: Performed By: #### C BC #### [address] [address] Information Director: Luis A Alcantara MD Hematocrit (Bld) [Volume fraction] 35.7 % Low 40.7-50.3 [facility] Comment on above: Performed By: #### C BC #### [address] [address] Information Director: Luis A Alcantara MD Hemoglobin (Bld) [Mass/Vol] 10.7 g/dL Low 13.0-17.0 [facility] Comment on above: Performed By: #### C BC #### [address] [address] Information Director: Luis A Alcantara MD MCH (RBC) [Entitic mass] 27.7 pg Normal 25.2-33.5 [facility] Comment on above: Performed By: #### C BC #### [address] [address] Information Director: Luis A Alcantara MD MCHC (RBC) [Mass/Vol] 30.0 g/dL Normal 28.4-34.8 [facility] Comment on above: Performed By: #### C BC #### [address] [address] Information Director: Luis A Alcantara MD MCV (RBC) [Entitic vol] 92.5 fL Normal 82.6-102.9 [facility] Comment on above: Performed By: #### C BC #### [address] [address] Information Director: Luis A Alcantara MD NRBC Automated 0.0 per 100 WBC Normal 0.0 [facility] Comment on above: Performed By: #### C BC #### [address] [address] Information Director: Luis A Alcantara MD Platelet mean volume (Bld) [Entitic vol] 12.1 fL Normal 8.1-13.5 [facility] Comment on above: Performed By: #### C BC #### [address] [address] Information Director: Luis A Alcantara MD Platelets (Bld) [#/Vol] 141 10*3/uL Normal 138-453 [facility] Comment on above: Performed By: #### C BC #### [address] [address] Information Director: Luis A Alcantara MD RBC (Bld) [#/Vol] 3.86 10*6/uL Low 4.21-5.77 [facility] Comment on above: Performed By: #### C BC #### [address] [address] Information Director: Luis A Alcantara MD WBC (Bld) [#/Vol] 7.7 10*3/uL Normal 3.5-11.3 [facility] Comment on above: Performed By: #### C BC #### [address] [address] Information Director: Luis A Alcantara MD Comp Metabolic Profon 2023 Albumin [Mass/Vol] 4.0 g/dL Normal 3.5-5.2 [facility] Comment on above: Performed By: #### C BC #### [address] [address] Information Director: Luis A Alcantara MD Albumin/Glob Ratio 1.0 Normal 1.0-2.5 [facility] Comment on above: Performed By: #### C BC #### [address] [address] Information Director: Luis A Alcantara MD Alkaline Phos 86 U/L Normal 40-129 [facility] Comment on above: Performed By: #### C BC #### [address] [address] Information Director: Luis A Alcantara MD ALT [Catalytic activity/Vol] 6 U/L Low 10-50 [facility] Comment on above: Performed By: #### C BC #### [address] [address] Information Director: Luis A Alcantara MD Anion gap [Moles/Vol] 11 mmol/L Normal 9-16 [facility] Comment on above: Performed By: #### C BC #### [address] [address] Information Director: Luis A Alcantara MD AST [Catalytic activity/Vol] 18 U/L Normal 10-50 [facility] Comment on above: Performed By: #### C BC #### [address] [address] Information Director: Luis A Alcantara MD Bilirubin [Mass/Vol] 0.4 mg/dL Normal 0.00-1.20 [facility] Comment on above: Performed By: #### C BC #### [address] [address] Information Director: Luis A Alcantara MD Calcium [Mass/Vol] 9.1 mg/dL Normal 8.6-10.4 [facility] Comment on above: Performed By: #### C BC #### [address] [address] Information Director: Luis A Alcantara MD Chloride [Moles/Vol] 102 mmol/L Normal 98-107 [facility] Comment on above: Performed By: #### C BC #### [address] [address] Information Director: Luis A Alcantara MD CO2 [Moles/Vol] 27 mmol/L Normal 20-31 [facility] Comment on above: Performed By: #### C BC #### [address] [address] Information Director: Luis A Alcantara MD Creatinine [Mass/Vol] 1.1 mg/dL Normal 0.70-1.20 [facility] Comment on above: Performed By: #### C BC #### [address] [address] Information Director: Luis A Alcantara MD GFR/1.73 sq M.predicted among non-blacks MDRD (S/P/Bld) [Vol rate/Area] 78 mL/min/{1.73_m2} Normal >60 [facility] Comment on above: Result Comment: These results are not intended for use in patients <18 years of age. eGFR results are calculated without a race factor using the 2020 CKD-EPI equation. Careful clinical correlation is recommended, particularly when comparing to results calculated using previous equations. The CKD-EPI equation is less accurate in patients with extremes of muscle mass, extra-renal metabolism of creatine, excessive creatine ingestion, or following therapy that affects renal tubular secretion. Performed By: #### C BC #### [address] [address] Information Director: Luis A Alcantara MD Glucose [Mass/Vol] 172 mg/dL High 74-99 [facility] Comment on above: Performed By: #### C BC #### [facility] [address] [place] [address] Information Director: Luis A Alcantara MD Potassium [Moles/Vol] 3.7 mmol/L Normal 3.7-5.3 [facility] Comment on above: Performed By: #### C BC #### [address] [address] Information Director: Luis A Alcantara MD Protein [Mass/Vol] 7.5 g/dL Normal 6.6-8.7 [facility] Comment on above: Performed By: #### C BC #### [facility] [address] [place] [address] Information Director: Luis A Alcantara MD Sodium [Moles/Vol] 140 mmol/L Normal 136-145 [facility] Comment on above: Performed By: #### C BC #### [address] [place] [address] Information Director: Luis A Alcantara MD Urea nitrogen [Mass/Vol] 25 mg/dL High 8-23 [facility] Comment on above: Performed By: #### C BC #### [address] [place], [place] [address] Information Director: Luis A Alcantara MD Glucose,Whole Bloodon 2023 Glucose [Mass/Vol] 140 mg/dL High 75-110 [facility] Glucose [Mass/Vol] 62 mg/dL Low 75-110 [facility] Glucose [Mass/Vol] 93 mg/dL Normal 75-110 [facility] Glucose [Mass/Vol] 171 mg/dL High 75-110 [facility] Glucose [Mass/Vol] 152 mg/dL High 75-110 [facility] Hemoglobin A1Con 11-09-2023 Glucose [Mass/Vol] 157 mg/dL Normal [facility] Comment on above: Result Comment: The ADA and AACC recommend providing the estimated average glucose result to permit better patient understanding of their HBA1c result. Performed By: #### C RP, GLYHGB, PT, SED, CBC, CP ####[address] [place], [place] [id number] Lab Director: Luis A Alcantara MD HbA1c (Bld) [Mass fraction] 7.1 % High 4.0-6.0 [facility] Comment on above: Performed By: #### C RP, GLYHGB, PT, SED, CBC, CP ####[facility] [address] [place] [address] lab Director: Luis A Alcantara MD PTon 11-09-2023 INR Coag (PPP) [Relative time] 2.2 {INR} Normal [facility] Comment on above: Result Comment: Therapeutic Range: Moderate Anticoagulant Intensity: INR = 2.0-3.0 High Anticoagulant Intensity: INR = 2.5-3.5 Performed By: #### C RP, GLYHGB, PT, SED, CBC, CP ####[facility] [address] [place] [address] lab Director: Luis A Alcantara MD PT Coag (PPP) [Time] 23.8 s High 11.7-14.9 [facility] Comment on above: Performed By: #### C RP, GLYHGB, PT, SED, CBC, CP ####[address] [address] lab Director: Luis A Alcantara MD Sedimentation Rateon 024 Sedimentation Rate 97 mm/Hr High 0-20 [facility] Comment on above: Performed By: #### C RP, GLYHGB, PT, SED, CBC, CP ####[facility] [address] [place] [address] lab Director: Luis A Alcantara MD XR ANKLE RIGHT (MIN 3 VIEWS) on 11-09-2023 XR ANKLE RIGHT (MIN 3 VIEWS) EXAMINATION: THREE XRAY VIEWS OF THE RIGHT ANKLE 11/08/2023 8:27 pm COMPARISON: None. HISTORY: ORDERING SYSTEM PROVIDED HISTORY: pain TECHNOLOGIST PROVIDED HISTORY: pain FINDINGS: No evidence of fracture, healing fracture or osseous malalignment at the right ankle. No obvious or significant arthritic process at the right ankle. Evidence of small inferior and posterior calcaneal spurs. Evidence of mild osteoarthritic change at the dorsal aspect of the right midfoot. In the visualized proximal right foot there is no evidence of fracture or malalignment. Evidence of generalized soft tissue swelling around right ankle and in the visualized lower portion of right leg. Focal soft tissue swelling is noted at the posterior aspect of lower portion of the calcaneal tendon. IMPRESSION: 1. No evidence of fracture, healing fracture or osseous malalignment at the right ankle. 2. Evidence of small inferior and posterior calcaneal spurs. 3. Evidence of mild osteoarthritic change at the dorsal aspect of the right midfoot. 4. Significant soft tissue swelling around right ankle and right leg. Focal soft tissue swelling at the posterior aspect of lower part of the calcaneal tendon. Interpreted by: Rancho Alexandre MD Signed by: Rancho Alexandre MD 11/09/23 Final result Normal [facility] C-Reactive Proteinon 024 CRP [Mass/Vol] 38.9 mg/L High 0.0-5.0 [facility] Comment on above: Performed By: #### S ED, CRP #### [address] [address] Information Director: Luis A Alcantara MD CBCon 11-08-2023 Erythrocyte distribution width (RBC) [Ratio] 17.1 % High 11.8-14.4 [facility] Comment on above: Performed By: #### C BC #### [address] [address] Information Director: Luis A Alcantara MD Hematocrit (Bld) [Volume fraction] 38.7 % Low 40.7-50.3 [facility] Comment on above: Performed By: #### C BC #### [address] [address] Information Director: Luis A Alcantara MD Hemoglobin (Bld) [Mass/Vol] 11.4 g/dL Low 13.0-17.0 [facility] [facility] Comment on above: Performed By: #### C BC #### [address] [address] Information Director: Luis A Alcantara MD MCH (RBC) [Entitic mass] 27.6 pg Normal 25.2-33.5 [facility] Comment on above: Performed By: #### C BC #### [address] [address] Information Director: Luis A Alcantara MD MCHC (RBC) [Mass/Vol] 29.5 g/dL Normal 28.4-34.8 [facility] Comment on above: Performed By: #### C BC #### [address] [address] Information Director: Luis A Alcantara MD MCV (RBC) [Entitic vol] 93.7 fL Normal 82.6-102.9 [facility] Comment on above: Performed By: #### C BC #### [address] [address] Information Director: Luis A Alcantara MD NRBC Automated 0.0 per 100 WBC Normal 0.0 [facility] Comment on above: Performed By: #### C BC #### [address] [address] Information Director: Luis A Alcantara MD Platelet mean volume (Bld) [Entitic vol] 12.0 fL Normal 8.1-13.5 [facility] Comment on above: Performed By: #### C BC #### [address] [address] Information Director: Luis A Alcantara MD Platelets (Bld) [#/Vol] 163 10*3/uL Normal 138-453 [facility] Comment on above: Performed By: #### C BC #### [address] [address] Information Director: Luis A Alcantara MD RBC (Bld) [#/Vol] 4.13 10*6/uL Low 4.21-5.77 [facility] Comment on above: Performed By: #### C BC #### [address] [address] Information Director: Luis A Alcantara MD WBC (Bld) [#/Vol] 9.1 10*3/uL Normal 3.5-11.3 [facility] Comment on above: Performed By: #### C BC #### [address] [address] Information Director: Luis A Alcantara MD Coding Summaryon 11-08-2023 Coding Summary Normal [facility] Metabolic Profon 2023 Albumin [Mass/Vol] 3.8 g/dL Normal 3.5-5.2 [facility] Comment on above: Performed By: #### C P #### [address] [address] Information Director: uLis A Alcantara MD Albumin/Glob Ratio 1.0 Normal 1.0-2.5 [facility] Comment on above: Performed By: #### C P #### [address] [address] Information Director: Luis A Alcantara MD Alkaline Phos 91 U/L Normal 40-129 [facility] Comment on above: Performed By: #### C P #### [address] [address] Information Director: Luis A Alcantara MD ALT [Catalytic activity/Vol] 8 U/L Low 10-50 [facility] Comment on above: Performed By: #### C P #### [address] [address] Information Director: Luis A Alcantara MD Anion gap [Moles/Vol] 12 mmol/L Normal 9-16 [facility] Comment on above: Performed By: #### C P #### [address] [address] Information Director: Luis A Alcantara MD AST [Catalytic activity/Vol] 19 U/L Normal 10-50 [facility] Comment on above: Performed By: #### C P #### [address] [address] Information Director: Luis A Alcantara MD Bilirubin [Mass/Vol] 0.4 mg/dL Normal 0.00-1.20 [facility] Comment on above: Performed By: #### C P #### [address] [address] Information Director: Luis A Alcantara MD Calcium [Mass/Vol] 9.0 mg/dL Normal 8.6-10.4 [facility] Comment on above: Performed By: #### C P #### [address] [address] Information Director: Luis A Alcantara MD Chloride [Moles/Vol] 102 mmol/L Normal 98-107 [facility] Comment on above: Performed By: #### C P #### [address] [address] Information Director: Luis A Alcantara MD CO2 [Moles/Vol] 24 mmol/L Normal 20-31 [facility] Comment on above: Performed By: #### C P #### [address] [address] Information Director: Luis A Alcantara MD Creatinine [Mass/Vol] 1.0 mg/dL Normal 0.70-1.20 [facility] Comment on above: Performed By: #### C P #### [address] [address] Information Director: Luis A Alcantara MD GFR/1.73 sq M.predicted among non-blacks MDRD (S/P/Bld) [Vol rate/Area] 88 mL/min/{1.73_m2} Normal >60 [facility] Comment on above: Result Comment: These results are not intended for use in patients <18 years of age. eGFR results are calculated without a race factor using the 2020 CKD-EPI equation. Careful clinical correlation is recommended, particularly when comparing to results calculated using previous equations. The CKD-EPI equation is less accurate in patients with extremes of muscle mass, extra-renal metabolism of creatine, excessive creatine ingestion, or following therapy that affects renal tubular secretion. Performed By: #### C P #### [address] [address] Information Director: Luis A Alcantara MD Glucose [Mass/Vol] 228 mg/dL High 74-99 [facility] Comment on above: Performed By: #### C P #### [address] [address] Information Director: Luis A Alcnatara MD Potassium [Moles/Vol] 4.2 mmol/L Normal 3.7-5.3 [facility] Comment on above: Performed By: #### C P #### [address] [address] Information Director: Luis A Alcantara MD Protein [Mass/Vol] 7.6 g/dL Normal 6.6-8.7 [facility] Comment on above: Performed By: #### C P #### [address] [address] Information Director: Luis A Alcantara MD Sodium [Moles/Vol] 138 mmol/L Normal 136-145 [facility] Comment on above: Performed By: #### C P #### [facility] [address] [place] [address] Information Director: Luis A Alcantara MD Urea nitrogen [Mass/Vol] 21 mg/dL Normal 8-23 [facility] Comment on above: Performed By: #### C P #### [address] [address] Information Director: Luis A Alcantara MD ED Clinical Summaryon 2023 ED Clinical Summary Normal [facility] ED Patient Education Noteon 11-08-2023 ED Patient Education Note Education Materials Normal [facility] ED Patient Summaryon 024 ED Patient Summary Normal [facility] Glucose,Whole Bloodon 2023 Glucose [Mass/Vol] 181 mg/dL High 75-110 [facility] Glucose [Mass/Vol] 224 mg/dL High 75-110 [facility] POCT Glucose Levelon Glucose [Mass/Vol] 179 mg/dL High 74-118 [facility] Comment on above: Result Comment: OPR_ ID=[email or web address],TGC FLAG = False,Meter:[id number]:[id number] Shuff Alicia Performed By: #### 4 [id number] ####[facility] (DEFAULT)[address] [place] [address] Sedimentation Rateon Sedimentation Rate 67 mm/Hr High 0-20 [facility] Comment on above: Performed By: #### S ED, CRP #### [facility] [address] [place] [address] Information Director: Luis A Alcantara MD Transfer Noteon 11-08-2023 Transfer Note Normal [facility] .Auto Diff 111-07-2023 Auto Bremer % 6 % Normal 1-12 [facility] Comment on above: Performed By: #### 1 [id number], 4644327, 65722771, 5032469494, 8464129, 0105013 ####[facility] (DEFAULT)[address] [place] [address] Baso Abs# 0.1 x10 Normal 0.0-0.2 [facility] Comment on above: Performed By: #### 1 [id number], 6452195, 38803155, 4685172543, 0366634, 9032535 ####[facility] (DEFAULT)[address] [place] [address] Basophils/100 WBC (Bld) 1.2 % Normal 0.2-2.0 [facility] Comment on above: Performed By: #### 1 [id number], 2862556, 67149629, 2410656648, 7527680, 8770949 ####[facility] (DEFAULT)[address] [place] [address] Eos Abs# 0.5 x10 High 0.0-0.4 [facility] Comment on above: Performed By: #### 1 [id number], 2793861, 82683146, 2014369691, 2150765, 4186828 ####[facility] (DEFAULT)[address] [place] [address] Eosinophils/100 WBC (Bld) 6.8 % High 0.9-4.0 [facility] Comment on above: Performed By: #### 1 [id number], 1942133, 49806895, 6735287204, 6686357, 9089229 ####[facility] (DEFAULT)[address] [place] [address] Lymph Abs# 1.3 x10 Normal 1.3-2.9 [facility] Comment on above: Performed By: #### 1 [id number], 8597371, 31561029, 8572864586, 1822949, 1705897 ####[facility] (DEFAULT)[address] [place] [address] Lymphocytes/100 WBC (Bld) 17 % Normal 14-48 [facility] Comment on above: Performed By: #### 1 [id number], 1372827, 38452794, 4008398852, 6458744, 8357502 ####[facility] (DEFAULT)[address] [place] [address] Bremer Abs# 0.5 x10 Normal 0.0-0.8 [facility] Comment on above: Performed By: #### 1 [id number], 6555090, 55679562, 2004514352, 2332799, 0750112 ####[facility] (DEFAULT)[address] [place] [address] Neut Abs# 5.4 x10 Normal 1.5-9.2 [facility] Comment on above: Performed By: #### 1 118626335, 0243209, 76745676, 0606619898, 5107437, 9765996 ####[facility] (DEFAULT)[address] [place] [address] Neutrophils/100 WBC (Bld) 69 % Normal 44-88 [facility] Comment on above: Performed By: #### 1 [id number], 6384059, 84500937, 1181531789, 4646272, 0746607 ####[facility] (DEFAULT)[address] [place] [address] CBC w/ Auto Diffon 4 Erythrocyte distribution width (RBC) [Ratio] 18.7 % High 11.5-15.0 [facility] Comment on above: Performed By: #### 1 [id number], 5236483, 15719817, 3895764172, 5885395, 8932915 ####[facility] (DEFAULT)[address] [place] [address] Hematocrit (Bld) [Volume fraction] 35.3 % Normal 34.8-51.9 [facility] Comment on above: Performed By: #### 1 [id number], 5570366, 59580178, 4052888167, 8199686, 3931536 ####[facility] (DEFAULT)[address] [place] [address] Hemoglobin (Bld) [Mass/Vol] 11.3 g/dL Low 11.8-17.7 [facility] Comment on above: Performed By: #### 1 645849128, 2944287, 43146174, 8660266923, 5160189, 0270567 ####[facility] (DEFAULT)[address] [place] [address] Man Diff? Auto Invalid Interpretation Code [facility] Comment on above: Performed By: #### 1 [id number], 9305377, 83656563, 3248272715, 1581876, 7662517 ####[facility] (DEFAULT)[address] [place] [address] MCH (RBC) [Entitic mass] 28 pg Normal 24-34 [facility] Comment on above: Performed By: #### 1 020711039, 4461077, 21825895, 1460851693, 3616904, 8187229 ####[facility] (DEFAULT)[address] [place] [address] MCHC (RBC) [Mass/Vol] 32 g/dL Normal 26-37 [facility] Comment on above: Performed By: #### 1 167713444, 8154987, 80626089, 0350187219, 4794367, 2637513 ####[facility] (DEFAULT)[address] [place] [address] MCV (RBC) [Entitic vol] 87 fL Normal 81-100 [facility] Comment on above: Performed By: #### 1 [id number], 5083343, 07751457, 1692779050, 3872509, 1018295 ####[facility] (DEFAULT)[address] [place] [address] Platelet 150 x10 Normal 138-427 [facility] Comment on above: Performed By: #### 1 954145957, 0409757, 51076643, 7615710236, 9362579, 4261389 ####[facility] (DEFAULT)[address] [place] [address] Platelet mean volume (Bld) [Entitic vol] 8.8 fL Normal 6.3-10.2 [facility] Comment on above: Performed By: #### 1 295480715, 9414233, 17804922, 6508393826, 7135214, 8962656 ####[facility] (DEFAULT)[address] [place] [address] RBC 4.06 x10 Normal 3.70-5.30 [facility] Comment on above: Performed By: #### 1 433858029, 2104579, 35654195, 8674974757, 4629007, 8476963 ####[facility] (DEFAULT)[address] [place] [address] WBC 7.8 x10 Normal 3.5-10.5 [facility] Comment on above: Performed By: #### 1 805437701, 4501784, 00639788, 0981323289, 5101233, 3755532 ####[facility] (DEFAULT)[address] [place] [address] CMP Standardon 11-07-2023 eGFR Non AA >60 Invalid Interpretation Code [facility] Comment on above: Performed By: #### 1 096509399, 6761545, 06709258, 8211195330, 8388133, 4367484 ####[facility] (DEFAULT)[address] [place] [address] eGFR AA >60 Invalid Interpretation Code [facility] Comment on above: Performed By: #### 1 [id number], 0473679, 27547483, 6473920616, 9431227, 1064337 ####[facility] (DEFAULT)[address] [place] [address] Albumin [Mass/Vol] 3.7 g/dL Normal 3.5-5.0 [facility] Comment on above: Performed By: #### 1 619952839, 4475797, 85980877, 3249501185, 4269574, 7933129 ####[facility] (DEFAULT)[address] [place] [address] Albumin/Globulin [Mass ratio] 0.9 {ratio} Low 1.4-2.6 [facility] Comment on above: Performed By: #### 1 245856852, 7630109, 04300038, 8269408353, 6500237, 9739033 ####[facility] (DEFAULT)[address] [place] [address] Alk Phos 81 IU/L Normal 32-91 [facility] Comment on above: Performed By: #### 1 [id number], 7777376, 15677043, 8413095183, 0049977, 6292374 ####[facility] (DEFAULT)[address] [place] [address] ALT [Catalytic activity/Vol] 20.0 U/L Normal 17.0-63.0 [facility] Comment on above: Performed By: #### 1 901653298, 8789844, 02251494, 7429967832, 2903280, 6623528 ####[facility] (DEFAULT)[address] [place] [address] Anion gap [Moles/Vol] 10.0 mmol/L Normal 5.0-19.0 [facility] Comment on above: Performed By: #### 1 129778679, 9744775, 55600227, 1489610842, 4107767, 0257341 ####[facility] (DEFAULT)[address] [place] [address] AST [Catalytic activity/Vol] 17 U/L Normal 15-41 [facility] Comment on above: Performed By: #### 1 385969423, 1471969, 70865941, 0276678223, 4106090, 5369694 ####[facility] (DEFAULT)[address] [place] [address] Bili Total 0.6 mg/dL Normal 0.3-1.2 [facility] Comment on above: Performed By: #### 1 552340992, 2538402, 12090905, 8634883981, 8185689, 5217657 ####[facility] (DEFAULT)[address] [place] [address] Calcium [Mass/Vol] 8.7 mg/dL Low 8.9-10.3 [facility] Comment on above: Performed By: #### 1 629413153, 5497176, 21003273, 9431103308, 7458294, 8107194 ####[facility] (DEFAULT)[address] [place] [address] Chloride [Moles/Vol] 101 mmol/L Normal 101-111 [facility] Comment on above: Performed By: #### 1 574014693, 2340786, 80057114, 5333045927, 7815582, 9915901 ####[facility] (DEFAULT)[address] [place] [address] CO2 [Moles/Vol] 31 mmol/L Normal 21-32 [facility] Comment on above: Performed By: #### 1 214365570, 5635821, 09618911, 3395425264, 7342420, 8709653 ####[facility] (DEFAULT)[address] [place] [address] Creatinine [Mass/Vol] 1.07 mg/dL Normal 0.90-1.30 [facility] Comment on above: Performed By: #### 1 894843819, 3365748, 86542816, 3679736642, 0204677, 8120326 ####[facility] (DEFAULT)[address] [place] [address] Globulin (S) [Mass/Vol] 4.1 g/dL Normal 1.5-4.3 [facility] Comment on above: Performed By: #### 1 121643183, 6922793, 92299842, 4684750104, 7979274, 4077153 ####[facility] (DEFAULT)[address] [place] [address] Glucose [Mass/Vol] 119.0 mg/dL High 74.0-118.0 [facility] Comment on above: Performed By: #### 1 395272818, 5635360, 17457725, 8271332531, 8161914, 3972686 ####[facility] (DEFAULT)[address] [place] [address] Osmolality 285 mOsm/L Invalid Interpretation Code [facility] Comment on above: Performed By: #### 1 494249091, 3500504, 60073320, 4750085540, 6238372, 6910808 ####[facility] (DEFAULT)[address] [place] [address] Potassium [Moles/Vol] 4.0 mmol/L Normal 3.6-5.1 [facility] Comment on above: Performed By: #### 1 742492448, 6571744, 13899291, 2658077945, 7714401, 9184418 ####[facility] (DEFAULT)[address] [place] [address] Protein [Mass/Vol] 7.8 g/dL Normal 6.5-8.1 [facility] Comment on above: Performed By: #### 1 923679184, 3323022, 95874044, 6881106905, 8277386, 0891996 ####[facility] (DEFAULT)[address] [place] [address] Sodium [Moles/Vol] 138.0 mmol/L Normal 136.0-144.0 [facility] Comment on above: Performed By: #### 1 808480377, 8847750, 58107602, 0768101189, 5272799, 1947227 ####[facility] (DEFAULT)[address] [place] [address] Urea nitrogen [Mass/Vol] 36 mg/dL High 8-26 [facility] Comment on above: Performed By: #### 1 167480059, 2429303, 57085419, 0894628814, 4999137, 1303313 ####[facility] (DEFAULT)[address] [place] [address] Urea nitrogen/Creatinine [Mass ratio] 33.6 mg/mg High 4.6-16.2 [facility] Comment on above: Performed By: #### 1 546508258, 8515790, 21255057, 0527659150, 0793879, 5185211 ####[facility] (DEFAULT)[address] [place] [address] CRPon 11-07-2023 CRP 3.2 mg/dL High <=0.5 [facility] Comment on above: Performed By: #### 1 378952580, 2843013, 91610052, 9445266167, 1326738, 3045111 ####[facility] (DEFAULT)[address] [place] [address] ED Note-Nursingon 11-07-2023 ED Note-Nursing Normal [facility] Extra Blueon 11-07-2023 Tube Collected Yes Invalid Interpretation Code [facility] Comment on above: Performed By: #### 1 [id number], 7699940, 90819309, 4490263787, 2551502, 6784959 ####[facility] (DEFAULT)[address] [place] [address] Lactic Acidon 11-07-2023 Lactic Acid 9.4 mg/dL Normal 4.5-19.8 [facility] Comment on above: Performed By: #### 2 652868 ####[facility] (DEFAULT)[address] [place] [address] POCT Glucose Levelon 024 Glucose [Mass/Vol] 144 mg/dL High 74-118 [facility] Comment on above: Result Comment: OPR_ ID=IN_LIST,TGC FLAG = False,Meter:[id number]:[id number] Mely Paz Performed By: #### 4 [id number] ####[facility] (DEFAULT)[address] [place] [address] Glucose [Mass/Vol] 56 mg/dL Low 74-118 [facility] Comment on above: Result Comment: OPR_ ID=IN_LIST,TGC FLAG = False,Meter:[id number]:[id number] Maddie Robleroie Performed By: #### 4 [id number] ####[facility] (DEFAULT)[address] [place] [address] Sed Rateon 11-07-2023 Sed Rate 70 mm/hr High 0-15 [facility] Comment on above: Performed By: #### 1 434873910, 6007634, 63698262, 4635604986, 2063143, 1871471 ####[facility] (DEFAULT)[address] [place] [address] US LE Venous Duplex Bilatera rod 11-07-2023 US LE Venous Duplex Bilateral Normal [facility] Follow-Upon 11-05-2023 Follow-Up [id number] August Flores 1960 M Date Provider Department Center 11/05/2023 Miah-COURTNEY STOVALL [facility] [address] [facility] Lavern Heal Family History Family history unknown: Yes Level of Service:38119 [place] OFFICE/OUTPATIENT ESTABLISHED LOW MDM 20 MIN Reason for Visit and Comments: Wound Infection [652087] Normal [facility] Coding Summaryon 11-01-2023 Coding Summary [facility] Billing Authorizationson Billing Authorizations [id number]#1.0 [facility] 10-25-2023 Coding Summary [facility] Provider Orderson 10-21-2023 Provider Orders [id number]#1. 00OTGTIFF [facility] Provider Orderson 10-20-2023 Provider Orders [id number]# 1.00OTGTIFF [facility] Wound Cultureon 10-20-2023 Wound Culture [facility] Comment on above: Performed By: #### 6 [id number] ####[facility] (DEFAULT)[address] [place] [address] Billing Authorizationson Billing Authorizations [id number]#1.00 [facility] Coding Summaryon 10-17-2023 Coding Summary [facility] Follow-Upon 10-13-2023 Follow-Up [id number] August Flores 1960 M Date Provider Department Center 10/13/2023 COURTNEY MILLER [facility] [address] [facility] Lavern Heal Family History Family history unknown: Yes Level of Service:96889 [place] OFFICE/OUTPATIENT ESTABLISHED LOW MDM 20 MIN Reason for Visit and Comments: culture and sensitivity results [Other] Normal [facility] Coding Summaryon 10-11-2023 Coding Summary [facility] Coding Summary [facility] Coding Summaryon 10-09-2023 Coding Summary [facility] Coding Summary [facility] Billing Authorizationson Billing Authorizations [id number]#1.00 [facility] 10-04-2023 Wound Culture [facility] Comment on above: Performed By: #### 6 [id number] ####[facility] (DEFAULT)[address] [place] [address] Coding Summaryon 10-01-2023 Coding Summary Normal [facility] Coding Summaryon 09-30-2023 Coding Summary Normal [facility] Coding Summary [facility] Billing Authorizationson Billing Authorizations [id number]#1.00 OT[facility] Normal [facility] Coding Summaryon 09-23-2023 Coding Summary Normal [facility] Coding Summaryon 09-22-2023 Coding Summary [facility] Follow-Upon 09-19-2023 Follow-Up [id number] August Flores 1960 M Date Provider Department Center 09/19/2023 COURTNEY MILLER [facility] [address] [facility] Lavern Heal Family History Family history unknown: Yes Level of Service:00607 [place] OFFICE/OUTPATIENT ESTABLISHED LOW MDM 20 MIN Reason for Visit and Comments: Follow-up [289882] Normal [facility] .Auto Diff 1on 09-15-2023 Auto Bremer % 5 % Normal 1-12 [facility] Comment on above: Performed By: #### 7 376516, 89848139, 8466573864, 8379952, 7147489 ####[facility] (DEFAULT)[address] [place] [address] Baso Abs# 0.1 x10 Normal 0.0-0.2 [facility] Comment on above: Performed By: #### 7 767494, 78578549, 9728665738, 6545018, 0873396 ####[facility] (DEFAULT)[address] [place] [address] Basophils/100 WBC (Bld) 1.1 % Normal 0.2-2.0 [facility] Comment on above: Performed By: #### 7 851781, 86210807, 3036303028, 9991282, 0640823 ####[facility] (DEFAULT)[address] [place] [address] Eos Abs# 0.4 x10 Normal 0.0-0.4 [facility] Comment on above: Performed By: #### 7 141856, 11682342, 2329321820, 1001671, 7696685 ####[facility] (DEFAULT)[address] [place] [address] 82235 Eosinophils/100 WBC (Bld) 5.4 % High 0.9-4.0 [facility] Comment on above: Performed By: #### 7 014817, 89973308, [id number], 2006608, 0040730 ####[facility] (DEFAULT)[address] [place] [address] 24615 Lymph Abs# 1.4 x10 Normal 1.3-2.9 [facility] Comment on above: Performed By: #### 7 646254, 65679754, 0631653344, 1306209, 1535217 ####[facility] (DEFAULT)[address] [place] [address] Lymphocytes/100 WBC (Bld) 19 % Normal 14-48 [facility] Comment on above: Performed By: #### 7 093122, 25343845, 0519255692, 9666997, 4352181 ####[facility] (DEFAULT)[address] [place] [address] Bremer Abs# 0.4 x10 Normal 0.0-0.8 [facility] Comment on above: Performed By: #### 7 159514, 80439724, 0958330468, 0320160, 5934476 ####[facility] (DEFAULT)[address] [place] [address] 73073 Neut Abs# 5.1 x10 Normal 1.5-9.2 [facility] Comment on above: Performed By: #### 7 822666, 77933864, 0907035239, 7758988, 4215786 ####[facility] (DEFAULT)[address] [place] [address] 13999 Neutrophils/100 WBC (Bld) 70 % Normal 44-88 [facility] Comment on above: Performed By: #### 7 603744, 15715424, 7921026428, 0758124, 8406404 ####[facility] (DEFAULT)[address] [place] [address] Standardon 09-15-2023 Breakpoint Chem Normal [facility] Comment on above: Performed By: #### 7 208383, 50863958, 5866814893, 8654564, 7980125 ####[facility] (DEFAULT)[address] [place] [address] 58509 eGFR Non AA >60 Invalid Interpretation Code [facility] Comment on above: Performed By: #### 7 453301, 48660372, 9460269017, 0610011, 7983321 ####[facility] (DEFAULT)[address] [place] [address] 91176 eGFR AA >60 Invalid Interpretation Code [facility] Comment on above: Performed By: #### 7 851858, 35421883, 6426795703, 0005126, 2084850 ####[facility] (DEFAULT)[address] [place] [address] 44124 Anion gap [Moles/Vol] 13.3 mmol/L Normal 5.0-19.0 [facility] Comment on above: Performed By: #### 7 298824, 22748627, 7248887985, 3479433, 9779631 ####[facility] (DEFAULT)[address] [place] [address] 10081 Calcium [Mass/Vol] 8.7 mg/dL Low 8.9-10.3 [facility] Comment on above: Performed By: #### 7 897877, 95582611, 2375757807, 8488702, 0664664 ####[facility] (DEFAULT)[address] [place] [address] 52913 Chloride [Moles/Vol] 105 mmol/L Normal 101-111 [facility] Comment on above: Performed By: #### 7 523613, 71343706, 3261461554, 6679947, 6442951 ####[facility] (DEFAULT)[address] [place] [address] 07878 CO2 [Moles/Vol] 28 mmol/L Normal 21-32 [facility] Comment on above: Performed By: #### 7 345475, 41846655, 8365252039, 4172387, 9277233 ####[facility] (DEFAULT)[address] [place] [address] 77625 Creatinine [Mass/Vol] 0.90 mg/dL Normal 0.90-1.30 [facility] Comment on above: Performed By: #### 7 917343, 44042671, 5793198666, 2705869, 6414473 ####[facility] (DEFAULT)[address] [place] [address] 15904 Glucose [Mass/Vol] 151.0 mg/dL High 74.0-118.0 [facility] Comment on above: Performed By: #### 7 725717, 92525132, 9164201157, 5340286, 4192319 ####[facility] (DEFAULT)[address] [place] [address] 16225 Osmolality 299 mOsm/L Invalid Interpretation Code [facility] Comment on above: Performed By: #### 7 922670, 44562077, 9923114046, 2307978, 4630530 ####[facility] (DEFAULT)[address] [place] [address] 93160 Potassium [Moles/Vol] 4.3 mmol/L Normal 3.6-5.1 [facility] Comment on above: Performed By: #### 7 780671, 77690000, 0512172566, 0638736, 7550629 ####[facility] (DEFAULT)[address] [place] [address] 85695 Sodium [Moles/Vol] 142.0 mmol/L Normal 136.0-144.0 [facility] Comment on above: Performed By: #### 7 716133, 20586795, 3531619248, 0697721, 1603157 ####[facility] (DEFAULT)[address] [place] [address] 89425 Urea nitrogen [Mass/Vol] 49 mg/dL High 8-26 [facility] Comment on above: Performed By: #### 7 220500, 32027775, 3320810687, 2946916, 1667645 ####[facility] (DEFAULT)[address] [place] [address] 23589 Urea nitrogen/Creatinine [Mass ratio] 54.4 mg/mg High 4.6-16.2 [facility] Comment on above: Performed By: #### 7 875829, 35256085, 2664815897, 8570540, 1510353 ####[facility] (DEFAULT)[address] [place] [address] CBC w/ Auto Diffon Erythrocyte distribution width (RBC) [Ratio] 18.5 % High 11.5-15.0 [facility] Comment on above: Performed By: #### 7 269686, 73291784, 2977307710, 3712908, 1064703 ####[facility] (DEFAULT)[address] [place] [address] Hematocrit (Bld) [Volume fraction] 37.0 % Normal 34.8-51.9 [facility] Comment on above: Performed By: #### 7 648906, 85104857, 2956077676, 6628890, 4992295 ####[facility] (DEFAULT)[address] [place] [address] Hemoglobin (Bld) [Mass/Vol] 11.8 g/dL Normal 11.8-17.7 [facility] Comment on above: Performed By: #### 7 644442, 84182695, 5380640691, 5890355, 6911227 ####[facility] (DEFAULT)[address] [place] [address] Man Diff? Auto Invalid Interpretation Code [facility] Comment on above: Performed By: #### 7 691836, 91219104, 3811750807, 2093113, 3941632 ####[facility] (DEFAULT)[address] [place] [address] MCH (RBC) [Entitic mass] 28 pg Normal 24-34 [facility] Comment on above: Performed By: #### 7 793638, 19629400, 5876606021, 6593109, 5064815 ####[facility] (DEFAULT)[address] [place] [address] MCHC (RBC) [Mass/Vol] 32 g/dL Normal 26-37 [facility] Comment on above: Performed By: #### 7 003049, 24541254, 4507922551, 7831714, 9154404 ####[facility] (DEFAULT)[address] [place] [address] 84106 MCV (RBC) [Entitic vol] 87 fL Normal 81-100 [facility] Comment on above: Performed By: #### 7 248249, 09640536, 5482995640, 3584605, 6803196 ####[facility] (DEFAULT)[address] [place] [address] 51346 Platelet 132 x10 Low 138-427 [facility] Comment on above: Performed By: #### 7 468039, 30159005, 6479578147, 3047621, 4402800 ####[facility] (DEFAULT)[address] [place] [address] 65000 Platelet mean volume (Bld) [Entitic vol] 12.3 fL High 6.3-10.2 [facility] Comment on above: Performed By: #### 7 484115, 03893480, 0095536472, 7967786, 8533208 ####[facility] (DEFAULT)[address] [place] [address] 21484 RBC 4.24 x10 Normal 3.70-5.30 [facility] Comment on above: Performed By: #### 7 541101, 16730321, 0670378298, 6584894, 4150867 ####[facility] (DEFAULT)[address] [place] [address] 39402 WBC 7.3 x10 Normal 3.5-10.5 [facility] Comment on above: Performed By: #### 7 841421, 88195764, 6411427368, 0597372, 2875432 ####[facility] (DEFAULT)[address] [place] [address] 04373 CRPon 09-15-2023 CRP 1.6 mg/dL High <=0.5 [facility] Comment on above: Performed By: #### 7 202088, 91990772, 1208837138, 4509930, 1467594 ####[facility] (DEFAULT)[address] [place] [address] 26009 Provider Orderson 09-15-2023 Provider Orders [id number] .00OTGTIFF [facility] Sed Rateon 09-15-2023 Sed Rate 43 mm/hr High 0-15 [facility] Comment on above: Performed By: #### 7 752717, 16110799, 9235690015, 5870016, 4290200 ####[facility] (DEFAULT)[address] [place] [address] 36on 09-12-2023 36 Spoke with Randi from [employer] and let her know pt needs to stop the meropenem because of low platelets count and to recheck CBC in one week. I also spoke with Destini from [employer] and let her know pt will be stopping meropenem and CBC with be recheck in one week. She stated ok and she will let the pt know also. Normal [facility] Billing Authorizationson Billing Authorizations [id number]#1.0 0OTGTIFF Normal [facility] Coding Summaryon 09-11-2023 Coding Summary [facility] Coding Summary [facility] POCT Protime / INRon 024 INR Coag (PPP) [Relative time] 2.5 {INR} Abnormal 0.8 - 1.2 [facility] Interpretation and review of laboratory results Abnormal [facility] .Auto Diff 1on 09-08-2023 Auto Bremer % 6 % Normal 12 [facility] Comment on above: Performed By: #### 7 266982, 19980832, 7090932770, 9445860, 6369858 ####[facility] (DEFAULT)[address] [place] [address] Baso Abs# 0.1 x10 Normal 0.0-0.2 [facility] Comment on above: Performed By: #### 7 953671, 01073472, 7553506987, 2266838, 1363134 ####[facility] (DEFAULT)[address] [place] [address] Basophils/100 WBC (Bld) 0.7 % Normal 0.2-2.0 [facility] Comment on above: Performed By: #### 7 618660, 96920632, 2359747118, 0795757, 3344792 ####[facility] (DEFAULT)[address] [place] [address] 80969 Eos Abs# 0.4 x10 Normal 0.0-0.4 [facility] Comment on above: Performed By: #### 7 303085, 09102920, 4350120527, 3521890, 3534276 ####[facility] (DEFAULT)[address] [place] [address] Eosinophils/100 WBC (Bld) 5.7 % High 0.9-4.0 [facility] Comment on above: Performed By: #### 7 886192, 88028370, 5714902375, 0029990, 7408366 ####[facility] (DEFAULT)[address] [place] [address] 73840 Lymph Abs# 1.5 x10 Normal 1.3-2.9 [facility] Comment on above: Performed By: #### 7 309119, 15184806, 3195266922, 7850914, 9339962 ####[facility] (DEFAULT)[address] [place] [address] 85130 Lymphocytes/100 WBC (Bld) 20 % Normal 14-48 [facility] Comment on above: Performed By: #### 7 956238, 06691769, 1231471026, 9476168, 6971097 ####[facility] (DEFAULT)[address] [place] [address] 82793 Bremer Abs# 0.5 x10 Normal 0.0-0.8 [facility] Comment on above: Performed By: #### 7 804847, 59463904, 5543024989, 1068351, 3500206 ####[facility] (DEFAULT)[address] [place] [address] 57935 Neut Abs# 5.3 x10 Normal 1.5-9.2 [facility] Comment on above: Performed By: #### 7 447084, 07305502, 9243314314, 5627253, 0964712 ####[facility] (DEFAULT)[address] [place] [address] 08174 Neutrophils/100 WBC (Bld) 68 % Normal 44-88 [facility] Comment on above: Performed By: #### 7 967282, 21373017, 6975413326, 3960378, 7921571 ####[facility] (DEFAULT)[address] [place] [address] 46504 BMP Standardon 09-08-2023 Breakpoint Chem Normal [facility] Comment on above: Performed By: #### 7 153531, 67154568, 9709262642, 8019268, 5378067 ####[facility] (DEFAULT)[address] [place] [address] 85717 eGFR Non AA >60 Invalid Interpretation Code [facility] Comment on above: Performed By: #### 7 287372, 24969359, 6713663727, 0634414, 6698489 ####[facility] (DEFAULT)[address] [place] [address] 33185 eGFR AA >60 Invalid Interpretation Code [facility] Comment on above: Performed By: #### 7 042297, 62144282, 1674697017, 9858054, 4574176 ####[facility] (DEFAULT)[address] [place] [address] 46727 Anion gap [Moles/Vol] 13.1 mmol/L Normal 5.0-19.0 [facility] Comment on above: Performed By: #### 7 628579, 62603769, 4202519781, 5334413, 9871006 ####[facility] (DEFAULT)[address] [place] [address] 69160 Calcium [Mass/Vol] 9.2 mg/dL Normal 8.9-10.3 [facility] Comment on above: Performed By: #### 7 598197, 29764267, 5216184029, 9549155, 1415194 ####[facility] (DEFAULT)[address] [place] [address] 48225 Chloride [Moles/Vol] 98 mmol/L Low 101-111 [facility] Comment on above: Performed By: #### 7 413000, 83178993, 3837026685, 2718224, 8467184 ####[facility] (DEFAULT)[address] [place] [address] 45033 CO2 [Moles/Vol] 34 mmol/L High 21-32 [facility] Comment on above: Performed By: #### 7 803748, 17050272, 5526165614, 0317219, 5598847 ####[facility] (DEFAULT)[address] [place] [address] 86463 Creatinine [Mass/Vol] 1.17 mg/dL Normal 0.90-1.30 [facility] Comment on above: Performed By: #### 7 169472, 15707152, 2782681413, 8982081, 3104586 ####[facility] (DEFAULT)[address] [place] [address] 80460 Glucose [Mass/Vol] 202.0 mg/dL High 74.0-118.0 [facility] Comment on above: Performed By: #### 7 552505, 73072678, 0972825709, 7190524, 2772970 ####[facility] (DEFAULT)[address] [place] [address] 78983 Osmolality 302 mOsm/L Invalid Interpretation Code [facility] Comment on above: Performed By: #### 7 882803, 29950395, 4250877945, 4064786, 5279226 ####[facility] (DEFAULT)[address] [place] [address] 68009 Potassium [Moles/Vol] 4.1 mmol/L Normal 3.6-5.1 [facility] Comment on above: Performed By: #### 7 351805, 63200218, 5866392648, 5321037, 1684767 ####[facility] (DEFAULT)[address] [place] [address] 88552 Sodium [Moles/Vol] 141.0 mmol/L Normal 136.0-144.0 [facility] Comment on above: Performed By: #### 7 351111, 06460085, 9987744315, 4666977, 9470458 ####[facility] (DEFAULT)[address] [place] [address] 44948 Urea nitrogen [Mass/Vol] 56 mg/dL High 8-26 [facility] Comment on above: Performed By: #### 7 038939, 73008028, 7206968272, 9069509, 0617524 ####[facility] (DEFAULT)[address] [place] [address] 43027 Urea nitrogen/Creatinine [Mass ratio] 47.8 mg/mg High 4.6-16.2 [facility] Comment on above: Performed By: #### 7 478079, 42723301, 5060456570, 3014987, 6089776 ####[facility] (DEFAULT)[address] [place] [address] CBC w/ Auto Diffon Erythrocyte distribution width (RBC) [Ratio] 17.5 % High 11.5-15.0 [facility] Comment on above: Performed By: #### 7 909903, 47761532, 9650280973, 6939695, 5347081 ####[facility] (DEFAULT)[address] [place] [address] Hematocrit (Bld) [Volume fraction] 38.2 % Normal 34.8-51.9 [facility] Comment on above: Performed By: #### 7 979075, 49863969, 5922657111, 6988894, 2035743 ####[facility] (DEFAULT)[address] [place] [address] 25623 Hemoglobin (Bld) [Mass/Vol] 12.1 g/dL Normal 11.8-17.7 [facility] Comment on above: Performed By: #### 7 088381, 11183095, 8518856166, 7745953, 0849584 ####[facility] (DEFAULT)[address] [place] [address] Man Diff? Auto Invalid Interpretation Code [facility] Comment on above: Performed By: #### 7 519919, 28672177, 3549809627, 0841221, 1187699 ####[facility] (DEFAULT)[address] [place] [address] MCH (RBC) [Entitic mass] 28 pg Normal 24-34 [facility] Comment on above: Performed By: #### 7 871932, 37528038, 6804152045, 1817465, 5915687 ####[facility] (DEFAULT)[address] [place] [address] 43585 MCHC (RBC) [Mass/Vol] 32 g/dL Normal 26-37 [facility] Comment on above: Performed By: #### 7 289429, 88055653, 8041064524, 0627525, 1925563 ####[facility] (DEFAULT)[address] [place] [address] 23725 MCV (RBC) [Entitic vol] 87 fL Normal 81-100 [facility] Comment on above: Performed By: #### 7 029113, 72282656, 9203852370, 0222513, 3582392 ####[facility] (DEFAULT)[address] [place] [address] Platelet 100 x10 Low 138-427 [facility] Comment on above: Performed By: #### 7 129015, 87027188, 2895937308, 2729501, 1593185 ####[facility] (DEFAULT)[address] [place] [address] 55681 Platelet mean volume (Bld) [Entitic vol] 10.2 fL Normal 6.3-10.2 [facility] Comment on above: Performed By: #### 7 098437, 33274511, 7948385089, 7221658, 6530362 ####[facility] (DEFAULT)[address] [place] [address] 59422 RBC 4.38 x10 Normal 3.70-5.30 [facility] Comment on above: Performed By: #### 7 764053, 22643244, 0505336483, 3878716, 7776273 ####[facility] (DEFAULT)[address] [place] [address] 85790 WBC 7.8 x10 Normal 3.5-10.5 [facility] Comment on above: Performed By: #### 7 236302, 34234217, 1658492561, 2876112, 0213451 ####[facility] (DEFAULT)[address] [place] [address] CRPon 09-08-2023 CRP 0.9 mg/dL High <=0.5 [facility] Comment on above: Performed By: #### 7 842142, 03773282, 3599546375, 3468332, 7429950 ####[facility] (DEFAULT)[address] [place] [address] Provider Orderson 09-08-2023 Provider Orders [id number]. 00OTGTIFF Normal [facility] Sed Rateon 09-08-2023 Sed Rate 38 mm/hr High 0-15 [facility] Comment on above: Performed By: #### 7 088886, 10087393, 8285967561, 6250047, 8476755 ####[facility] (DEFAULT)[address] [place] [address] Coding Summaryon 09-04-2023 Coding Summary Normal [facility] .Auto Diff 1on 09-01-2023 Auto Bremer % 6 % Normal 1-12 [facility] Comment on above: Performed By: #### 7 364146, 05827350, 9046232725, 8900483, 8975828 ####[facility] (DEFAULT)[address] [place] [address] Baso Abs# 0.0 x10 Normal 0.0-0.2 [facility] Comment on above: Performed By: #### 7 669115, 06535165, 3958345104, 7347031, 2804305 ####[facility] (DEFAULT)[address] [place] [address] Basophils/100 WBC (Bld) 0.6 % Normal 0.2-2.0 [facility] Comment on above: Performed By: #### 7 456943, 72781969, 8286859613, 7024041, 9365267 ####[facility] (DEFAULT)[address] [place] [address] Eos Abs# 0.4 x10 Normal 0.0-0.4 [facility] Comment on above: Performed By: #### 7 622693, 48966930, 4531038825, 6158134, 5715247 ####[facility] (DEFAULT)[address] [place] [address] 35444 Eosinophils/100 WBC (Bld) 5.6 % High 0.9-4.0 [facility] Comment on above: Performed By: #### 7 661970, 11470327, 7349315134, 3859797, 6332049 ####[facility] (DEFAULT)[address] [place] [address] 65451 Lymph Abs# 1.3 x10 Normal 1.3-2.9 [facility] Comment on above: Performed By: #### 7 058692, 18372646, 4237498326, 7747390, 1414495 ####[facility] (DEFAULT)[address] [place] [address] 72850 Lymphocytes/100 WBC (Bld) 17 % Normal 14-48 [facility] Comment on above: Performed By: #### 7 755650, 60386816, 2048941638, 0707079, 1470735 ####[facility] (DEFAULT)[address] [place] [address] 08927 Bremer Abs# 0.4 x10 Normal 0.0-0.8 [facility] Comment on above: Performed By: #### 7 633802, 60744370, 1704741078, 0400742, 9123669 ####[facility] (DEFAULT)[address] [place] [address] 79150 Neut Abs# 5.3 x10 Normal 1.5-9.2 [facility] Comment on above: Performed By: #### 7 779942, 82401507, 0252530229, 6672899, 0386703 ####[facility] (DEFAULT)[address] [place] [address] 11766 Neutrophils/100 WBC (Bld) 71 % Normal 44-88 [facility] Comment on above: Performed By: #### 7 043647, 92105634, 2824147003, 9122054, 1934085 ####[facility] (DEFAULT)[address] [place] [address] 88706 BMP Standardon 09-01-2023 Breakpoint Chem Normal [facility] Comment on above: Performed By: #### 7 118395, 55863041, 8806910729, 7464199, 5730985 ####[facility] (DEFAULT)[address] [place] [address] 68156 eGFR Non AA >60 Invalid Interpretation Code [facility] Comment on above: Performed By: #### 7 438997, 74546953, 9865253706, 6619492, 6420974 ####[facility] (DEFAULT)[address] [place] [address] 38533 eGFR AA >60 Invalid Interpretation Code [facility] Comment on above: Performed By: #### 7 168032, 60853021, 0406808297, 4449762, [id number] ####[facility] (DEFAULT)[address] [place] [address] [id number] Anion gap [Moles/Vol] 14.3 mmol/L Normal 5.0-19.0 [facility] Comment on above: Performed By: #### [id number], [id number], [id number], [id number], [id number] ####[facility] (DEFAULT)[address] [place] [address] [id number] Calcium [Mass/Vol] 9.5 mg/dL Normal 8.9-10.3 [facility] Comment on above: Performed By: #### 7 [id number], [id number], [id number], [id number], [id number] ####[facility] (DEFAULT)[address] [place] [address] 48648 Chloride [Moles/Vol] 100 mmol/L Low 101-111 [facility] Comment on above: Performed By: #### [id number], [id number], [id number], [id number], [id number] ####[facility] (DEFAULT)[address] [place] [address] [id number] CO2 [Moles/Vol] 28 mmol/L Normal 21-32 [facility] Comment on above: Performed By: #### 7 [id number], [id number], [id number], [id number], [id number] ####[facility] (DEFAULT)[address] [place] [address] 13338 Creatinine [Mass/Vol] 1.06 mg/dL Normal 0.90-1.30 [facility] Comment on above: Performed By: #### 7 [id number], [id number], [id number], [id number], [id number] ####[facility] (DEFAULT)[address] [place] [address] 41152 Glucose [Mass/Vol] 206.0 mg/dL High 74.0-118.0 [facility] [facility] Comment on above: Performed By: #### 7 037703, 62590348, 7763224307, 6588205, 9659288 ####[facility] (DEFAULT)[address] [place] [address] 97642 Osmolality 293 mOsm/L Invalid Interpretation Code [facility] Comment on above: Performed By: #### 7 589341, 79861537, 8959994217, 0370739, 8421366 ####[facility] (DEFAULT)[address] [place] [address] 39176 Potassium [Moles/Vol] 4.3 mmol/L Normal 3.6-5.1 [facility] Comment on above: Performed By: #### 7 965460, 85742348, 4656027451, 2175101, 0148051 ####[facility] (DEFAULT)[address] [place] [address] 57600 Sodium [Moles/Vol] 138.0 mmol/L Normal 136.0-144.0 [facility] Comment on above: Performed By: #### 7 262911, 02598644, 3065402801, 0449122, 6595394 ####[facility] (DEFAULT)[address] [place] [address] 42010 Urea nitrogen [Mass/Vol] 45 mg/dL High 8-26 [facility] Comment on above: Performed By: #### 7 476440, 31466961, 4185415656, 2162521, 9086635 ####[facility] (DEFAULT)[address] [place] [address] Urea nitrogen/Creatinine [Mass ratio] 42.4 mg/mg High 4.6-16.2 [facility] Comment on above: Performed By: #### 7 267246, 06714199, 4051785478, 8397602, 2376845 ####[facility] (DEFAULT)[address] [place] [address] Billing Authorizationson Billing Authorizations [id number]#1.0 0OTGTIFF Normal [facility] CBC w/ Auto Diffon Erythrocyte distribution width (RBC) [Ratio] 17.7 % High 11.5-15.0 [facility] Comment on above: Performed By: #### 7 085924, 49493100, 9746833508, 3611313, 8811352 ####[facility] (DEFAULT)[address] [place] [address] Hematocrit (Bld) [Volume fraction] 37.4 % Normal 34.8-51.9 [facility] Comment on above: Performed By: #### 7 075045, 93850944, 3817324418, 6550680, 7023555 ####[facility] (DEFAULT)[address] [place] [address] Hemoglobin (Bld) [Mass/Vol] 12.1 g/dL Normal 11.8-17.7 [facility] Comment on above: Performed By: #### 7 243066, 53679684, 8633604287, 0411226, 4380583 ####[facility] (DEFAULT)[address] [place] [address] Man Diff? Auto Invalid Interpretation Code [facility] Comment on above: Performed By: #### 7 246778, 73179942, 5933633785, 2430668, 9798377 ####[facility] (DEFAULT)[address] [place] [address] 38009 MCH (RBC) [Entitic mass] 28 pg Normal 24-34 [facility] Comment on above: Performed By: #### 7 625826, 69944189, 2714092555, 6074255, 3948728 ####[facility] (DEFAULT)[address] [place] [address] 49029 MCHC (RBC) [Mass/Vol] 32 g/dL Normal 26-37 [facility] Comment on above: Performed By: #### 7 662681, 90850347, 8561036662, 9782847, 6897503 ####[facility] (DEFAULT)[address] [place] [address] MCV (RBC) [Entitic vol] 87 fL Normal 81-100 [facility] Comment on above: Performed By: #### 7 561871, 54368307, 2402849254, 9274132, 8015805 ####[facility] (DEFAULT)[address] [place] [address] Platelet 122 x10 Low 138-427 [facility] Comment on above: Performed By: #### 7 629356, 73207232, 2101107925, 7227960, 3166388 ####[facility] (DEFAULT)[address] [place] [address] Platelet mean volume (Bld) [Entitic vol] 10.5 fL High 6.3-10.2 [facility] Comment on above: Performed By: #### 7 860079, 27864274, 7574786380, 9816402, 3410508 ####[facility] (DEFAULT)[address] [place] [address] 72513 RBC 4.31 x10 Normal 3.70-5.30 [facility] Comment on above: Performed By: #### 7 495728, 01103381, 9062830365, 6105297, 4506915 ####[facility] (DEFAULT)[address] [place] [address] WBC 7.5 x10 Normal 3.5-10.5 [facility] Comment on above: Performed By: #### 7 526666, 70519437, 4276853052, 6258276, 2999471 ####[facility] (DEFAULT)[address] [place] [address] CRPon 09-01-2023 CRP 1.4 mg/dL High <=0.5 [facility] Comment on above: Performed By: #### 7 709996, 64301333, 5728353124, 6785757, 7806708 ####[facility] (DEFAULT)[address] [place] [address] Coding Summaryon 09-01-2023 Coding Summary Normal [facility] Coding Summary Normal [facility] Coding Summary Normal [facility] Provider Orderson 09-01-2023 Provider Orders [id number]# 1.00OTGTIFF Normal [facility] Sed Rateon 09-01-2023 Sed Rate 38 mm/hr High 0-15 [facility] Comment on above: Performed By: #### 7 105360, 42898655, 7903150526, 5028135, 1015539 ####[facility] (DEFAULT)[address] [place] [address] POCT Protime / INRon 024 INR Coag (PPP) [Relative time] 2.0 {INR} Abnormal 0.8 - 1.2 [employer] Interpretation and review of laboratory results Abnormal [employer] [facility] Provider Orderson 08-28-2023 Provider Orders [id number]#1 .00OTGTIFF Normal [facility] .Auto Diff 108-25-2023 Auto Bremer % 5 % Normal -12 [facility] Comment on above: Performed By: #### 7 276355, 44970575, 7343758120, 0516819, 2254340 ####[facility] (DEFAULT)[address] [place] [address] 00082 Baso Abs# 0.0 x10 Normal 0.0-0.2 [facility] Comment on above: Performed By: #### 7 666998, 69083605, 4282517380, 3901312, 9489763 ####[facility] (DEFAULT)[address] [place] [address] 79518 Basophils/100 WBC (Bld) 0.6 % Normal 0.2-2.0 [facility] Comment on above: Performed By: #### 7 575413, 73684967, 3944805294, 7351177, 2019950 ####[facility] (DEFAULT)[address] [place] [address] 79278 Eos Abs# 0.4 x10 Normal 0.0-0.4 [facility] Comment on above: Performed By: #### 7 714066, 64133551, 5054872481, 4720450, 9552852 ####[facility] (DEFAULT)[address] [place] [address] Eosinophils/100 WBC (Bld) 5.3 % High 0.9-4.0 [facility] Comment on above: Performed By: #### 7 275122, 57809813, 3032879209, 1813038, 0486255 ####[facility] (DEFAULT)[address] [place] [address] Lymph Abs# 1.2 x10 Low 1.3-2.9 [facility] Comment on above: Performed By: #### 7 412645, 60777488, 1398340840, 1670361, 2458412 ####[facility] (DEFAULT)[address] [place] [address] Lymphocytes/100 WBC (Bld) 16 % Normal 14-48 [facility] Comment on above: Performed By: #### 7 477399, 48342385, 6260341249, 1785254, 0970324 ####[facility] (DEFAULT)[address] [place] [address] Bremer Abs# 0.4 x10 Normal 0.0-0.8 [facility] Comment on above: Performed By: #### 7 613913, 76046316, 9710919401, 6305267, 9349726 ####[facility] (DEFAULT)[address] [place] [address] Neut Abs# 5.4 x10 Normal 1.5-9.2 [facility] Comment on above: Performed By: #### 7 730890, 77915646, 0445265631, 0071363, 9834421 ####[facility] (DEFAULT)[address] [place] [address] 33935 Neutrophils/100 WBC (Bld) 73 % Normal 44-88 [facility] Comment on above: Performed By: #### 7 857966, 35705037, 9655528658, 6096607, 1445569 ####[facility] (DEFAULT)[address] [place] [address] 15590 BMP Standardon 08-25-2023 Breakpoint Chem Normal [facility] Comment on above: Performed By: #### 7 878269, 41696932, 5707742889, 7521800, 3545544 ####[facility] (DEFAULT)[address] [place] [address] 84129 eGFR Non AA >60 Invalid Interpretation Code [facility] Comment on above: Performed By: #### 7 325650, 19792371, 1052497466, 0947976, 3454677 ####[facility] (DEFAULT)[address] [place] [address] 79926 eGFR AA >60 Invalid Interpretation Code [facility] Comment on above: Performed By: #### 7 330299, 49859592, 8088119832, 4837678, 7807726 ####[facility] (DEFAULT)[address] [place] [address] 68159 Anion gap [Moles/Vol] 6.2 mmol/L Normal 5.0-19.0 [facility] Comment on above: Performed By: #### 7 748314, 03266768, 0401487515, 3203020, 4048524 ####[facility] (DEFAULT)[address] [place] [address] 30199 Calcium [Mass/Vol] 8.7 mg/dL Low 8.9-10.3 [facility] Comment on above: Performed By: #### 7 389285, 50208263, 1829128595, 2499792, 0587258 ####[facility] (DEFAULT)[address] [place] [address] 09677 Chloride [Moles/Vol] 104 mmol/L Normal 101-111 [facility] Comment on above: Performed By: #### 7 543437, 00284942, 3973453331, 0438000, 2706700 ####[facility] (DEFAULT)[address] [place] [address] 74409 CO2 [Moles/Vol] 31 mmol/L Normal 21-32 [facility] Comment on above: Performed By: #### 7 012511, 00961628, 9383061618, 9070954, 2384656 ####[facility] (DEFAULT)[address] [place] [address] 08643 Creatinine [Mass/Vol] 0.98 mg/dL Normal 0.90-1.30 [facility] Comment on above: Performed By: #### 7 419666, 05481717, 0971669028, 4223719, 0826490 ####[facility] (DEFAULT)[address] [place] [address] 15773 Glucose [Mass/Vol] 162.0 mg/dL High 74.0-118.0 [facility] Comment on above: Performed By: #### 7 657075, 72714027, 5215465528, 4682114, 6171047 ####[facility] (DEFAULT)[address] [place] [address] 18674 Osmolality 284 mOsm/L Invalid Interpretation Code [facility] Comment on above: Performed By: #### 7 698236, 66912484, 5496727994, 1063771, 7939968 ####[facility] (DEFAULT)[address] [place] [address] 31937 Potassium [Moles/Vol] 4.2 mmol/L Normal 3.6-5.1 [facility] Comment on above: Performed By: #### 7 398160, 59948073, 9483676356, 9401259, 3770519 ####[facility] (DEFAULT)[address] [place] [address] 96682 Sodium [Moles/Vol] 137.0 mmol/L Normal 136.0-144.0 [facility] Comment on above: Performed By: #### 7 414464, 54293500, 0546616331, 5971632, 3905767 ####[facility] (DEFAULT)[address] [place] [address] 32499 Urea nitrogen [Mass/Vol] 30 mg/dL High 8-26 [facility] Comment on above: Performed By: #### 7 210402, 82048063, 9465323102, 8564458, 0431788 ####[facility] (DEFAULT)[address] [place] [address] 53529 Urea nitrogen/Creatinine [Mass ratio] 30.6 mg/mg High 4.6-16.2 [facility] Comment on above: Performed By: #### 7 415161, 41109486, 0247253346, 1620581, 4429227 ####[facility] (DEFAULT)[address] [place] [address] CBC w/ Auto Diffon Erythrocyte distribution width (RBC) [Ratio] 17.5 % High 11.5-15.0 [facility] Comment on above: Performed By: #### 7 822863, 99953203, 9466365302, 1353950, 8855463 ####[facility] (DEFAULT)[address] [place] [address] 06503 Hematocrit (Bld) [Volume fraction] 36.0 % Normal 34.8-51.9 [facility] Comment on above: Performed By: #### 7 627472, 77434854, 1343372522, 6778085, 4210017 ####[facility] (DEFAULT)[address] [place] [address] 31388 Hemoglobin (Bld) [Mass/Vol] 11.6 g/dL Low 11.8-17.7 [facility] Comment on above: Performed By: #### 7 803236, 45919894, 6748288460, 3532001, 0274262 ####[facility] (DEFAULT)[address] [place] [address] 38807 MCH (RBC) [Entitic mass] 28 pg Normal 24-34 [facility] Comment on above: Performed By: #### 7 850409, 42350348, 1036074267, 1939876, 2121867 ####[facility] (DEFAULT)[address] [place] [address] MCHC (RBC) [Mass/Vol] 32 g/dL Normal 26-37 [facility] Comment on above: Performed By: #### 7 204349, 15735611, 1912910669, 8485894, 3034880 ####[facility] (DEFAULT)[address] [place] [address] MCV (RBC) [Entitic vol] 86 fL Normal 81-100 [facility] Comment on above: Performed By: #### 7 244897, 42468147, 6921554760, 0507921, 2392635 ####[facility] (DEFAULT)[address] [place] [address] Platelet 133 x10 Low 138-427 [facility] Comment on above: Performed By: #### 7 066855, 76414527, 3241323684, 4716180, 5161365 ####[facility] (DEFAULT)[address] [place] [address] Platelet mean volume (Bld) [Entitic vol] 10.1 fL Normal 6.3-10.2 [facility] Comment on above: Performed By: #### 7 073280, 29496738, 2957266678, 7722946, 0052871 ####[facility] (DEFAULT)[address] [place] [address] RBC 4.16 x10 Normal 3.70-5.30 [facility] Comment on above: Performed By: #### 7 937492, 86872872, 2140750423, 3530052, 2707403 ####[facility] (DEFAULT)[address] [place] [address] 71741 WBC 7.4 x10 Normal 3.5-10.5 [facility] Comment on above: Performed By: #### 7 319200, 81354163, 1240918620, 8115891, 6602342 ####[facility] (DEFAULT)[address] [place] [address] Man Diff? Auto Invalid Interpretation Code [facility] Comment on above: Performed By: #### 7 611099, 18340414, 8590483052, 1297395, 7687690 ####[facility] (DEFAULT)[address] [place] [address] CRPon 08-25-2023 CRP 1.4 mg/dL High <=0.5 [facility] Comment on above: Performed By: #### 7 171367, 00935980, 2098532844, 9454884, 8651259 ####[facility] (DEFAULT)[address] [place] [address] Extra Sea 08-25-2023 Tube Collected Yes Invalid Interpretation Code [facility] Comment on above: Performed By: #### 1 [id number] ####[facility] (DEFAULT)[address] [place] [address] 54403 Sed Rateon 08-25-2023 Sed Rate 45 mm/hr High 0-15 [facility] Comment on above: Performed By: #### 7 988649, 54802579, 3300073259, 8340606, 3425012 ####[facility] (DEFAULT)[address] [place] [address] POCT Protime / INRon 024 INR Coag (PPP) [Relative time] 1.5 {INR} Abnormal 0.8 - 1.2 [employer] [facility] Interpretation and review of laboratory results Abnormal [facility] [employer] 36on 08-19-2023 36 PA for Linezolid approved. Pharmacy will order it & will arrive tomorrow morning. Co-pay is $100.00. Patient was informed & educated. 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 Normal [facility] Billing Authorizationson Billing Authorizations [id number]#1. 00OTGTIFF [facility] Documentationon 08-18-2023 Documentation [id number] August Flores 1960 M Date Provider Department Center 08/18/2023 CATHLEEN FERNANDEZ [facility] [address] [facility] Lavern Heal No family history on file [facility] Follow-Upon 08-18-2023 Follow-Up [id number] August Flores 1960 M Date Provider Department Center 08/18/2023 REBECCA CATHLEEN [facility] [facility] Lavern Heal No family history on file Level of Service:87784 [place] OFFICE/OUTPATIENT ESTABLISHED LOW MDM 20 MIN Reason for Visit and Comments: Follow-up [962560] - 4 week follow up Normal [facility] 36on 08-14-[address] Schwartz, There is a PA for this patient for Linezolid. I checked in both Epic's. Let me know if you need me to process it. I see the Rx only. Normal [facility] BASIC METABOLIC PANLon 08-14 Anion gap [Moles/Vol] 9 mmol/L Normal 5-15 [facility] Comment on above: Performed By: #### C SARAI, 2731-8, 94312-0, BMP, 90535-7, 2777-1, UPCR #### [facility] ([id number]) [address], [address] [place] [address] Calcium [Mass/Vol] 9.0 mg/dL Normal 8.5-10.5 [facility] Comment on above: Performed By: #### Jaime MOON, 2731-8, 31169-0, BMP, 25359-4, 2777-1, UPCR #### [facility] ([id number]) [address], [address] [place] [address] Chloride [Moles/Vol] 100 mmol/L Normal 98-109 [facility] Comment on above: Performed By: #### Jaime BC, 2731-8, 17497-2, BMP, 24753-9, 2777-1, UPCR #### [facility] ([id number]) [address], [address] [place] [address] CO2 [Moles/Vol] 31 mmol/L Normal 22-32 [facility] Comment on above: Performed By: #### Jaime BC, 2731-8, 43990-9, BMP, 46970-5, 2777-1, UPCR #### [facility] ([id number]) [address], [address] [place] [address] Creatinine [Mass/Vol] 0.97 mg/dL Normal 0.60-1.30 [facility] Comment on above: Result Comment: METH OD TRACEABLE TO IDMS STANDARD Performed By: #### C SARAI, 2731-8, 81336-4, BMP, 13743-9, 2776-, UPCR #### [facility] ([id number]) [address] [place] [address] GFR/1.73 sq M.predicted among non-blacks MDRD (S/P/Bld) [Vol rate/Area] 88 mL/min/{1.73_m2} Normal >59 [facility] Comment on above: Result Comment: Reported eGFR is based on the CKD-EPI 2020 equation that does not use a race coefficient. Performed By: #### C SARAI, 2731-8, 33403-4, GREG, , 2776-06, UPCR #### [facility] ([id number]) [address], [address] [place] [address] Glucose [Mass/Vol] 180 mg/dL High 65-99 [facility] Comment on above: Performed By: #### C SARAI, 2731-8, 94236-4, BMP, 36077-6, 2776-, UPCR #### [facility] ([id number]) [address], [address] [place] [address] Potassium [Moles/Vol] 4.3 mmol/L Normal 3.5-5.0 [facility] Comment on above: Performed By: #### C BC, 2731-8, 66253-8, BMP, 54881-3, 2776-, UPCR #### [facility] ([id number]) [address], [address] [place] [address] Sodium [Moles/Vol] 140 mmol/L Normal 134-146 [facility] Comment on above: Performed By: #### C BC, 2731-8, 73561-5, BMP, 47385-7, 2776-, UPCR #### [facility] ([id number]) [address], [address] [place] [address] Urea nitrogen [Mass/Vol] 38 mg/dL High 5-27 [facility] Comment on above: Performed By: #### C BC, 2731-8, 90394-2, BMP, 80369-7, 2776-, UPCR #### [facility] ([id number]) [address], [address] [place] [address] COMPLETE BLOOD COUNTon 08-14 Erythrocyte distribution width (RBC) [Ratio] 17.7 % High 11.5-15.0 [facility] Comment on above: Performed By: #### C SARAI, 1-8, 80122-5, BMP, 96076-2, 2776-06, UPCR #### [facility] ([id number]) [address], [address] [place] [address] Hematocrit (Bld) [Volume fraction] 36.0 % Low 39-49 [facility] Comment on above: Performed By: #### C SARAI, 2731-8, 25914-4, BMP, 04795-7, 2776-, UPCR #### [facility] ([id number]) [address] [place] [address] Hemoglobin (Bld) [Mass/Vol] 11.5 g/dL Low 13.0-17.0 [facility] Comment on above: Performed By: #### C BC, 2731-8, 13129-8, BMP, 60771-7, 2776-06, UPCR #### [facility] ([id number]) [address] [place] [address] MCH (RBC) [Entitic mass] 28.1 pg Normal 27-34 [facility] Comment on above: Performed By: #### C SARAI, 2731-8, 05176-7, BMP, 34052-4, 2776-, UPCR #### [facility] ([id number]) [address] [place] [address] MCHC (RBC) [Mass/Vol] 31.8 g/dL Low 32-36 [facility] Comment on above: Performed By: #### C SARAI, 2731-8, 30953-9, BMP, 29369-4, 2776-, UPCR #### [facility] ([id number]) [address] [place] [address] MCV (RBC) [Entitic vol] 88 fL Normal 80-100 [facility] Comment on above: Performed By: #### Jaime MOON, 1-8, 08077-1, BMP, 98916-2, 2776-, UPCR #### [facility] ([id number]) [address] [place] [address] Platelet mean volume (Bld) [Entitic vol] 9.9 fL Normal 7-12 [facility] Comment on above: Performed By: #### C SARAI, 1-8, 06178-2, BMP, 68314-7, 2776-, UPCR #### [facility] ([id number]) [address] [place] [address] Platelets (Bld) [#/Vol] 152 10*3/uL Normal 150-450 [facility] Comment on above: Performed By: #### Jaime MOON, 2731-8, 32532-4, BMP, 81927-3, 2776-, UPCR #### [facility] ([id number]) [address], [address] [place] [address] RBC COUNT 4.08 X10E12/L Low 4.10-5.70 [facility] Comment on above: Performed By: #### C SARAI, 2731-8, 53951-5, BMP, 70813-4, 2777-1, UPCR #### [facility] ([id number]) [address], [address] [place] [address] WBC (Bld) [#/Vol] 6.9 10*3/uL Normal 4.0-11.0 [facility] Comment on above: Performed By: #### C BC, 2731-8, 36435-2, BMP, 20351-9, 2776-1, UPCR #### [facility] ([id number]) [address], [address] [place] [address] MAGNESIUMon 08-14-2023 Magnesium [Mass/Vol] 2.2 mg/dL Normal 1.8-2.6 [facility] Comment on above: Performed By: #### C BC, 2731-8, 51704-6, BMP, 07238-3, 277-, UPCR #### [facility] ([id number]) [address], [address] [place] [address] PHOSPHORUSon 08-14-2023 Phosphate [Mass/Vol] 4.4 mg/dL Normal 2.4-4.9 [facility] Comment on above: Performed By: #### C BC, 2731-8, 87765-6, BMP, 65526-0, 277-1, UPCR #### [facility] ([id number]) [address], [address] [place] [address] PROTEIN CREAT RATIOon 2023 RANDOM URINE PROTEIN 50 mg/L Normal <120 [facility] Comment on above: Performed By: #### P INR #### [facility] ([id number]) [address] [place] [address], [place] [address] U/PRO/DIGITAL MARKETING ASSISTANT RATIO CALC 0.12 Normal <0.2 [facility] Comment on above: Result Comment: Neph rotic Syndrome is associated with ratios >3.5 Performed By: #### P INR #### [facility] ([id number]) [address] [facility], [place] [address] URINE CREATININE,RDM 40.18 mg/dL Normal [facility] Comment on above: Performed By: #### P INR #### [facility] ([id number]) [address] [facility], [place] [address] Parathyrin.intact [Mass/Vol] on 08-14-2023 PTH INTACT 30 pg/mL Normal 12-88 [facility] Comment on above: Performed By: #### C BC, 2731-8, 39865-7, BMP, 21587-0, 2777-1, UPCR #### [facility] ([id number]) [address], [address] [place] [address] URINALYSISon 08-14-2023 Bilirubin Ql (U) Negative Normal NEG [facility] BLOOD/HGB Negative Normal NEG [facility] Color (U) YELLOW Normal YELLOW [facility] Glucose Ql (U) >[address] [facility] Ketones Ql (U) Negative Normal NEG [facility] Leukocyte esterase Test strip Ql (U) Negative Normal NEG [facility] Comment on above: Result Comment: HIGH CONCENTRATIONS OF GLUCOSE MAY DECREASE THE REACTIVITY OF THE DIPSTICK LEUKOCYTE TEST PAD. Nitrite Ql (U) Negative Normal NEG [facility] pH (U) 6.0 [pH] Normal 5.0-8.5 [facility] Protein Ql (U) Negative Normal NEG [facility] R.B.CELLS 0 /hpf Normal 0-5 [facility] Specific gravity (U) [Rel density] 1.021 Normal 1.003-1.035 [facility] TURBIDITY CLEAR Normal CLEAR [facility] Urobilinogen (U) [Mass/Vol] mg/dL Normal <1.1 [facility] W.B.CELLS <1 Normal 0-5 [facility] Vitamin D+Metabolites [Mass/ Vol]on 08-14-2023 VITAMIN D 25 HYD TOT 36.3 ng/mL Normal 30-100 [facility] Comment on above: Result Comment: Vitamin D status 25 [place] Vitamin D Deficiency <20 ng/mL Insufficiency 20-29 ng/mL Sufficiency 30-100 ng/mL Toxicity >100 ng/mL NOTE: A pediatric reference range has not been established by the district captain of this kit. The [place] [employer] recommends a Vitamin D level of = or >20ng/mL in infants and children. Performed By: #### C , 2731-8, 79999-3, [facility], 64394-3, 2777-1, UPCR #### [facility] ([id number]) [address] [place] [address], [address] [place] [address] Orders Onlyon 08-13-2023 Orders Only [id number] August Flores W 1960 M Date Provider Department Center 08/13/2023 269-CATHLEEN SCHWARTZ [facility] [address] INF [facility] Heal No family history on file Normal [facility] Orders Only [id number] August Flores W 1960 M Date Provider Department Center 08/13/2023 LIZETH ANGELA [facility] [address] INF La[facility] Heal No family history on file Normal [facility] Coding Summaryon 08-12-2023 Coding Summary [facility] POCT Protime / INRon 024 INR Coag (PPP) [Relative time] 1.6 {INR} Abnormal 0.8 - 1.2 [employer] Interpretation and review of laboratory results Abnormal [employer] Billing Authorizationson Billing Authorizations [id number]#1 .00OTGTIFF [facility] Coding Summaryon 08-11-2023 Coding Summary [facility] Wound Cultureon 08-09-2023 Wound Culture [facility] Comment on above: Performed By: #### 6 [id number] ####[facility] (DEFAULT)[address] [place] [address] POCT Protime / INRon 024 INR Coag (PPP) [Relative time] 1.2 {INR} 0.8 - 1.2 [facility] Coding Summaryon 08-04-2023 Coding Summary [facility] Coding Summaryon 08-01-2023 Coding Summary [facility] PROTIME AND INRon 07-28-2023 INR Coag (PPP) [Relative time] 1.3 {INR} High 0.8-1.1 [facility] Comment on above: Performed By: #### P INR #### [facility] ([id number]) [address] [place] [address] PT Coag (PPP) [Time] 14.7 s High 9.8-13.2 [facility] Comment on above: Result Comment: NEW REFERENCE RANGE Performed By: #### P INR #### [facility] ([id number]) [address] [place] [address] Billing Authorizationson Billing Authorizations [id number]#1. 00OTGTIFF [facility] Coding Summaryon 07-24-2023 Coding Summary [facility] Coding Summary [facility] Coding Summaryon 07-23-2023 Coding Summary [facility] PROTIME AND INRon 07-21-2023 INR Coag (PPP) [Relative time] 2.1 {INR} High 0.8-1.1 [facility] Comment on above: Performed By: #### P INR #### [facility] ([id number]) [address] [place] [address] PT Coag (PPP) [Time] 23.7 s High 9.8-13.2 [facility] Comment on above: Result Comment: NEW REFERENCE RANGE Performed By: #### P INR #### [facility] ([id number]) [address] [place] [address] Coding Summaryon 07-16-2023 Coding Summary [facility] Coding Summary [facility] Consent Formson 07-16-2023 Consent Forms [id number]#1. 00OTGTIFF [facility] Follow-Upon 07-16-2023 Follow-Up [id number] August Flores 1960 M Date Provider Department Center 07/16/2023 NARAYAN DE JESUS [facility] INF Lavern Heal No family history on file Level of Service:95550 [place] OFFICE/OUTPATIENT ESTABLISHED LOW MDM 20 MIN (GC) Reason for Visit and Comments: Cellulitis of right lower extremity [Other] Open wound of left lower extremity, sequela [Other] Wound Cultures [Other] Normal [facility] Provider Orderson 07-15-2023 Provider Orders [id number]#[facility] [id number]#1 [facility] PROTIME AND INRon 07-14-2023 INR Coag (PPP) [Relative time] 3.3 {INR} High 0.8-1.1 [facility] Comment on above: Performed By: #### P INR #### [facility] ([id number]) [address] [place] [address] PT Coag (PPP) [Time] 37.2 s High 9.8-13.2 [facility] Comment on above: Result Comment: NEW REFERENCE RANGE Performed By: #### P INR #### [facility] ([id number]) [address] [place] [address] Coding Summaryon 07-10-2023 Coding Summary [facility] Coding Summary [facility] Coding Summary [facility] Coding Summary Normal [facility] Coding Summary Normal [facility] Coding Summaryon 07-08-2023 Coding Summary Normal [facility] PROTIME AND INRon 07-07-2023 INR Coag (PPP) [Relative time] 1.3 {INR} High 0.8-1.1 [facility] Comment on above: Performed By: #### P INR #### [facility] ([id number]) [address], [address] [place] [address] PT Coag (PPP) [Time] 14.8 s High 9.8-13.2 [facility] Comment on above: Performed By: #### P INR #### [facility] ([id number]) [address], [address] [place] [address] .Auto Diff 1on 07-02-2023 Auto Bremer % 7 % Normal 1-12 [facility] Comment on above: Performed By: #### 1 1336124, 0209703410, 4179952940, 6333214, 4218255, 3484188793, 2115786 ####[facility] (DEFAULT)[address] [place] [address] Baso Abs# 0.0 x10 Normal 0.0-0.2 [facility] Comment on above: Performed By: #### 1 8072747, 7632070496, 1442885962, 5202428, 2085874, 2253467517, 8106642 ####[facility] (DEFAULT)[address] [place] [address] Basophils/100 WBC (Bld) 0.6 % Normal 0.2-2.0 [facility] Comment on above: Performed By: #### 1 1473193, 8276532239, 2485663562, 2582929, 8255593, 2945600655, 6908539 ####[facility] (DEFAULT)[address] [place] [address] Eos Abs# 0.6 x10 High 0.0-0.4 [facility] Comment on above: Performed By: #### 1 9231502, 4745687432, 1099018528, 5484456, 0692028, 2618838911, 7717063 ####[facility] (DEFAULT)[address] [place] [address] Eosinophils/100 WBC (Bld) 8.7 % High 0.9-4.0 [facility] Comment on above: Performed By: #### 1 9706726, 8195979371, 9140879572, 7233205, 0889974, 9203352447, 9116101 ####[facility] (DEFAULT)[address] [place] [address] Lymph Abs# 1.1 x10 Low 1.3-2.9 [facility] Comment on above: Performed By: #### 1 6233344, 1125838580, 8880970384, 2770028, 3792994, 7324609112, 5702767 ####[facility] (DEFAULT)[address] [place] [address] Lymphocytes/100 WBC (Bld) 15 % Normal 14-48 [facility] Comment on above: Performed By: #### 1 6936797, 1330943882, 0838477120, 2231448, 6658096, 8663030853, 3967781 ####[facility] (DEFAULT)[address] [place] [address] Bremer Abs# 0.5 x10 Normal 0.0-0.8 [facility] Comment on above: Performed By: #### 1 7098637, 4267110789, 3643477605, 1485824, 5505730, 8312564132, 5644390 ####[facility] (DEFAULT)[address] [place] [address] Neut Abs# 4.9 x10 Normal 1.5-9.2 [facility] Comment on above: Performed By: #### 1 0568728, 8258620638, 4488340988, 6650077, 4184350, 2644521319, 2581814 ####[facility] (DEFAULT)[address] [place] [address] Neutrophils/100 WBC (Bld) 69 % Normal 44-88 [facility] Comment on above: Performed By: #### 1 2631616, 1157393244, 9602723645, 1250699, 3226604, 3287629782, 4314291 ####[facility] (DEFAULT)[address] [place] [address] 36on 07-02-2023 36 Spoke with Dilcia gil [facility] and let her know what Ruth stated. Spoke with pt and schedule pt for 07/16 at [facility]. Spoke with Ruth and stated that would be ok Normal [facility] 36 Im sorry results wer e in Hr Business Partner Consultant but I will give them a call to see if we can schedule him with someone at [facility]. Thank you [facility] [address] called from [facility] [place] about this pt and would like for someone to look at the lab results to see what medication the pt should be on. Please advise [facility] CBC w/ Auto Diffon Erythrocyte distribution width (RBC) [Ratio] 19.6 % High 11.5-15.0 [facility] Comment on above: Performed By: #### 1 9087746, 0029489957, 0854528879, 5224612, 2518780, 6283415778, 4180600 ####[facility] (DEFAULT)[address] [place] [address] Hematocrit (Bld) [Volume fraction] 36.0 % Normal 34.8-51.9 [facility] Comment on above: Performed By: #### 1 2396542, 0419243144, 9590809587, 2419566, 0474026, 6867485809, 2466631 ####[facility] (DEFAULT)[address] [place] [address]191 Hemoglobin (Bld) [Mass/Vol] 11.5 g/dL Low 11.8-17.7 [facility] Comment on above: Performed By: #### 1 0649966, 6024993411, 5216480368, 6722338, 5458694, 3907665618, 1181253 ####[facility] (DEFAULT)[address] [place] [address]1893 Man Diff? Auto Invalid Interpretation Code [facility] Comment on above: Performed By: #### 1 2631128, 9102898894, 4992753845, 6683630, 4100128, 4876844573, 3224375 ####[facility] (DEFAULT)[address] [place] [address] 22775 MCH (RBC) [Entitic mass] 28 pg Normal 24-34 [facility] Comment on above: Performed By: #### 1 1823271, 0274935434, 0080608643, 9466426, 4216577, 7739528382, 5890508 ####[facility] (DEFAULT)[address] [place] [address] 08215 MCHC (RBC) [Mass/Vol] 32 g/dL Normal 26-37 [facility] Comment on above: Performed By: #### 1 9470034, 4565963408, 6497842822, 6858473, 5711295, 7028693291, 0962932 ####[facility] (DEFAULT)[address] [place] [address] 52800 MCV (RBC) [Entitic vol] 88 fL Normal 81-100 [facility] Comment on above: Performed By: #### 1 1516403, 1484885765, 0218191555, 7546060, 4169745, 6223610205, 4758271 ####[facility] (DEFAULT)[address] [place] [address] 80646 Platelet 162 x10 Normal 138-427 [facility] Comment on above: Performed By: #### 1 8562870, 1312394503, 8303905087, 9525315, 2546058, 6325990212, 4195509 ####[facility] (DEFAULT)[address] [place] [address] 15242 Platelet mean volume (Bld) [Entitic vol] 8.8 fL Normal 6.3-10.2 [facility] Comment on above: Performed By: #### 1 1227937, 1796672497, 8747363555, 2935623, 1288169, 2458148615, 6304616 ####[facility] (DEFAULT)[address] [place] [address] RBC 4.12 x10 Normal 3.70-5.30 [facility] Comment on above: Performed By: #### 1 6895381, 1435811923, 1487889685, 7195766, 6574661, 3410620472, 7249947 ####[facility] (DEFAULT)[address] [place] [address] WBC 7.2 x10 Normal 3.5-10.5 [facility] Comment on above: Performed By: #### 1 4712101, 9768178013, 0499542248, 8149949, 2052585, 6745567990, 4705334 ####[facility] (DEFAULT)[address] [place] [address] CMP Standardon 07-02-2023 Breakpoint Chem Normal [facility] Comment on above: Performed By: #### 1 0218830, 6951416310, 1516758902, 8544490, 8170688, 3167769882, 8646037 ####[facility] (DEFAULT)[address] [place] [address] 15735 eGFR Non AA 58 mL/min/1.73m2 Invalid Interpretation Code [facility] Comment on above: Performed By: #### 1 9667136, 4864445474, 9210510858, 9711474, 9738498, 6895137564, 9178889 ####[facility] (DEFAULT)[address] [place] [address] 80329 eGFR AA >60 Invalid Interpretation Code [facility] Comment on above: Performed By: #### 1 1076473, 5857428216, 1574986346, 4869956, 5576019, 9966644377, 0706661 ####[facility] (DEFAULT)[address] [place] [address] 23279 Albumin [Mass/Vol] 3.5 g/dL Normal 3.5-5.0 [facility] Comment on above: Performed By: #### 1 5771677, 9587001895, 0223886329, 9292091, 8757195, 3184726222, 0802095 ####[facility] (DEFAULT)[address] [place] [address] 84121 Albumin/Globulin [Mass ratio] 0.7 {ratio} Low 1.4-2.6 [facility] Comment on above: Performed By: #### 1 6408432, 6367288072, 9961568656, 7048952, 6752819, 0207033526, 1229689 ####[facility] (DEFAULT)[address] [place] [address] Alk Phos 80 IU/L Normal 32-91 [facility] Comment on above: Performed By: #### 1 7879567, 2584627613, 7134578630, 9885875, 6907476, 1975193729, 4264897 ####[facility] (DEFAULT)[address] [place] [address] 49047 ALT [Catalytic activity/Vol] 20.0 U/L Normal 17.0-63.0 [facility] Comment on above: Performed By: #### 1 7291262, 2320463921, 3532742178, 2482701, 0893613, 6180821145, 1776452 ####[facility] (DEFAULT)[address] [place] [address] 13708 Anion gap [Moles/Vol] 13.9 mmol/L Normal 5.0-19.0 [facility] Comment on above: Performed By: #### 1 9582402, 9658476894, 1248056119, 1138469, 2475474, 6393804810, 1513194 ####[facility] (DEFAULT)[address] [place] [address] 62954 AST [Catalytic activity/Vol] 21 U/L Normal 15-41 [facility] Comment on above: Performed By: #### 1 3076385, 5615943459, 1831647557, 7758884, 5673449, 4364430969, 4551883 ####[facility] (DEFAULT)[address] [place] [address] 23569 Bili Total 0.6 mg/dL Normal 0.3-1.2 [facility] Comment on above: Performed By: #### 1 6905444, 1541347590, 1008937897, 9619098, 2772538, 9721295466, 9826782 ####[facility] (DEFAULT)[address] [place] [address] 52937 Calcium [Mass/Vol] 9.4 mg/dL Normal 8.9-10.3 [facility] Comment on above: Performed By: #### 1 6885542, 8041457612, 4775463503, 7278735, 7924358, 2350219454, 2256748 ####[facility] (DEFAULT)[address] [place] [address] 68471 Chloride [Moles/Vol] 100 mmol/L Low 101-111 [facility] Comment on above: Performed By: #### 1 4066885, 4548106449, 4978315284, 7330307, 7212520, 5699676396, 6133674 ####[facility] (DEFAULT)[address] [place] [address] 82141 CO2 [Moles/Vol] 30 mmol/L Normal 21-32 [facility] Comment on above: Performed By: #### 1 5121632, 9654923726, 2599861340, 1746887, 0803423, 8617203336, 0815747 ####[facility] (DEFAULT)[address] [place] [address] 88738 Creatinine [Mass/Vol] 1.26 mg/dL Normal 0.90-1.30 [facility] Comment on above: Performed By: #### 1 1678380, 5200866455, 4146585958, 8803494, 4143154, 6044108265, 8439644 ####[facility] (DEFAULT)[address] [place] [address] 62687 Globulin (S) [Mass/Vol] 4.6 g/dL High 1.5-4.3 [facility] Comment on above: Performed By: #### 1 0735801, 4190039991, 7223718692, 0276160, 0312763, 9115648271, 7914576 ####[facility] (DEFAULT)[address] [place] [address] Glucose [Mass/Vol] 220.0 mg/dL High 74.0-118.0 [facility] Comment on above: Performed By: #### 1 3413068, 7595205991, 5471325497, 2033683, 4133716, 1007580477, 5540529 ####[facility] (DEFAULT)[address] [place] [address] 39406 Osmolality 296 mOsm/L Invalid Interpretation Code [facility] Comment on above: Performed By: #### 1 2401135, 6329962176, 0919172343, 5232809, 8682788, 0259308169, 1364301 ####[facility] (DEFAULT)[address] [place] [address] 76673 Potassium [Moles/Vol] 3.9 mmol/L Normal 3.6-5.1 [facility] Comment on above: Performed By: #### 1 2666798, 0145325409, 4727780221, 7959620, 4217878, 5370321238, 9409074 ####[facility] (DEFAULT)[address] [place] [address] 12449 Protein [Mass/Vol] 8.1 g/dL Normal 6.5-8.1 [facility] Comment on above: Performed By: #### 1 3812267, 1314600453, 5622982291, 8241043, 4122984, 2120835266, 6198342 ####[facility] (DEFAULT)[address] [place] [address] 31582 Sodium [Moles/Vol] 140.0 mmol/L Normal 136.0-144.0 [facility] Comment on above: Performed By: #### 1 7509929, 9328484035, 4545935915, 0046546, 0699623, 0490642765, 9606238 ####[facility] (DEFAULT)[address] [place] [address] 45119 Urea nitrogen [Mass/Vol] 41 mg/dL High 8-26 [facility] Comment on above: Performed By: #### 1 6640045, 7845943692, 7070996567, 9333698, 4603577, 9118574663, 7323228 ####[facility] (DEFAULT)[address] [place] [address] Urea nitrogen/Creatinine [Mass ratio] 32.5 mg/mg High 4.6-16.2 [facility] Comment on above: Performed By: #### 1 6835797, 7655564065, 9205480745, 5198817, 5833317, 3047201352, 0557436 ####[facility] (DEFAULT)[address] [place] [address] CRPon 07-02-2023 CRP 9.1 mg/dL High <=0.5 [facility] Comment on above: Performed By: #### 1 9384732, 4700611091, 5843706988, 6871379, 5072758, 4736919209, 3376782 ####[facility] (DEFAULT)[address] [place] [address] HgbA1c Standardon 07-02-2023 .Hb 12.0 Invalid Interpretation Code [facility] Comment on above: Performed By: #### 1 7616065, 9557869069, 9063957000, 4034903, 6270596, 0377350313, 4900130 ####[facility] (DEFAULT)[address] [place] [address] .Hgb A1c 0.61 g/dL Invalid Interpretation Code [facility] Comment on above: Performed By: #### 1 3238412, 2715553810, 5860052533, 6507671, 6263936, 1990783377, 2741596 ####[facility] (DEFAULT)[address] [place] [address] Glucose [Mass/Vol] 148 mg/dL Invalid Interpretation Code [facility] Comment on above: Performed By: #### 1 2615443, 8230536215, 0372248033, 3246423, 0007109, 1255354325, 7395181 ####[facility] (DEFAULT)[address] [place] [address] HbA1c (Bld) [Mass fraction] 6.8 % High 4.6-6.2 [facility] Comment on above: Performed By: #### 1 7203131, 4458698982, 8980510087, 0299594, 8892852, 5366033348, 6056316 ####[facility] (DEFAULT)[address] [place] [address] 70999 Lipid Panel Standardon 07-02 Cholesterol [Mass/Vol] 131.0 mg/dL Normal 66.0-200.0 [facility] Comment on above: Performed By: #### 1 8661163, 9618505950, 8448003868, 2523546, 7607364, 8760204648, 7444869 ####[facility] (DEFAULT)[address] [place] [address] 78287 Cholesterol in HDL [Mass/Vol] 30 mg/dL Low 40-71 [facility] Comment on above: Performed By: #### 1 3794643, 6265482571, 9693639492, 7213799, 7768601, 0783074810, 7052522 ####[facility] (DEFAULT)[address] [place] [address] 52955 Cholesterol in LDL [Mass/Vol] 63 mg/dL Normal 1-100 [facility] Comment on above: Performed By: #### 1 [id number], [id number], [id number], [id number], [id number], [id number], [id number] ####[facility] (DEFAULT)[address] [place] [address] Cholesterol.total/Ch olesterol in HDL [Mass ratio] 4.3 {ratio} Normal 0.0-4.5 [facility] Comment on above: Performed By: #### 1 [id number], [id number], [id number], [id number], 9812791, [id number], [id number] ####[facility] (DEFAULT)[address] [place] [address] Triglyceride [Mass/Vol] 191.0 mg/dL High 0.0-150.0 [facility] Comment on above: Performed By: #### 1 [id number], [id number], [id number], [id number], 2432492, [id number], [id number] ####[facility] (DEFAULT)[address] [place] [address] VLDL. 38 mg/dL Normal 5-40 [facility] Comment on above: Performed By: #### 1 [id number], [id number], [id number], [id number], 6297839, [id number], 6385512 ####[facility] (DEFAULT)[address] [place] [address] Sed Rateon 07-02-2023 Sed Rate 81 mm/hr High 0-15 [facility] Comment on above: Performed By: #### 1 [id number], [id number], [id number], [id number], [id number], [id number] ####[facility] (DEFAULT)[address] [place] [address] PROTIME AND INRon 07-01-2023 INR Coag (PPP) [Relative time] 2.2 {INR} High 0.8-1.1 [facility] Comment on above: Performed By: #### P INR #### [facility] ([id number]) [address], [address] [place] [address] PT Coag (PPP) [Time] 24.6 s High 9.8-13.2 [facility] Comment on above: Performed By: #### P INR #### [facility] ([id number]) [address], [address] [place] [address] PROTIME AND INRon 06-27-2023 INR Coag (PPP) [Relative time] 3.6 {INR} High 0.8-1.1 [facility] Comment on above: Performed By: #### P INR #### [facility] ([id number]) [address], [address] [place] [address] PT Coag (PPP) [Time] 40.5 s High 9.8-13.2 [facility] Comment on above: Performed By: #### P INR #### [facility] ([id number]) [address] [place] [address] Wound Cultureon 06-26-2023 Wound Culture [facility] Comment on above: Performed By: #### 6 [id number] ####[facility] (DEFAULT)[address] [place] [address] Wound Culture [facility] Comment on above: Performed By: #### 6 [id number] ####[facility] (DEFAULT)[address] [place] [address] PROTIME AND INRon 06-20-2023 INR Coag (PPP) [Relative time] 2.6 {INR} High 0.8-1.1 [facility] Comment on above: Performed By: #### P INR #### [facility] ([id number]) [address] [place] [address] PT Coag (PPP) [Time] 29.6 s High 9.8-13.2 [facility] Comment on above: Result Comment: NEW REFERENCE RANGE Performed By: #### P INR #### [facility] ([id number]) [address] [place] [address] A1C HEMOGLOBINon 06-19-2023 HbA1c (Bld) [Mass fraction] 7.4 % [employer] Other Coding Summaryon 06-19-2023 Coding Summary [facility] Coding Summary [facility] Coding Summary [facility] Coding Summary [facility] Coding Summary [facility] Glucose - FINGER STICKon Glucose [Mass/Vol] 216 mg/dL [employer] Other HbA1c (Bld) [Mass fraction]o n 06-19-2023 A1C HEMOGLOBIN [employer] Other Coding Summaryon 06-09-2023 Coding Summary [facility] Wound Cultureon 06-08-2023 Wound Culture [facility] Comment on above: Performed By: #### 6 [id number] ####[facility] (DEFAULT)[address] [place] [address] Wound Culture [facility] Comment on above: Performed By: #### 6 [id number] ####[facility] (DEFAULT)[address] [place] [address] PTon 06-06-2023 INR Coag (PPP) [Relative time] 2.43 {INR} High 0.91-1.11 [facility] Comment on above: Performed By: #### 2 [id number] ####[facility] (DEFAULT)[address] [place] [address] PT 23.3 second(s) High 9.7-11.8 [facility] Comment on above: Performed By: #### 2 [id number] ####[facility] (DEFAULT)[address] [place] [address] Provider Orderson 06-06-2023 Provider Orders [id number] .[id number] [facility] Coding Summaryon 06-02-2023 Coding Summary [facility] PTon 05-30-2023 INR Coag (PPP) [Relative time] 2.03 {INR} High 0.91-1.11 [facility] Comment on above: Performed By: #### 2 [id number] ####[facility] (DEFAULT)[address] [place] [address] PT 19.8 second(s) High 9.7-11.8 [facility] Comment on above: Performed By: #### 2 [id number] ####[facility] (DEFAULT)[address] [place] [address] Provider Orderson 05-30-2023 Provider Orders [id number]. 00[employer]GTIFF [facility] Coding Summaryon 05-27-2023 Coding Summary [facility] A1C HEMOGLOBINon 03-17-2023 HbA1c (Bld) [Mass fraction] 6.3 % [employer] Other Glucose - FINGER STICKon Glucose [Mass/Vol] 312 mg/dL [employer] Other HbA1c (Bld) [Mass fraction]o n 03-17-2023 A1C HEMOGLOBIN [employer] Other 36on 03-14-2023 36 Opat received. Order s confirmed with Radha at [employer] and Lisa at [employer]. Call to pt and reminded to call soon for a follow up appt. [facility] 36on 01-16-2023 36 Call to pt. He is planning to be discharged tomorrow from [facility]. Completed IV ATB and PICC has been removed- per pt. Pt needs a f/up scheduled, will have WC set this up. [facility] PTon 01-16-2023 INR Coag (PPP) [Relative time] 1.9 {INR} Normal [facility] Comment on above: Result Comment: Therapeutic Range: Moderate Anticoagulant Intensity: INR = 2.0-3.0 High Anticoagulant Intensity: INR = 2.5-3.5 Performed By: #### P T #### [facility] [address] [place] [address] Information Director: Luis A Alcantara MD PT Coag (PPP) [Time] 21.4 s High 11.7-14.9 [facility] Comment on above: Performed By: #### P T #### [facility] [address] [place], [place] [id number] Information Director: Luis A Alcantara MD Basic Metabolic Panelon 12-28 Anion gap [Moles/Vol] 8 mmol/L Low 9 - 17 mmol/L [facility] Calcium [Mass/Vol] 9.3 mg/dL 8.6 - 10. 4 mg/dL [facility] Chloride [Moles/Vol] 94 mmol/L Low 98 - 10 7 mmol/L [facility] CO2 [Moles/Vol] 40 mmol/L High 20 - 31 mmol/L [facility] Creatinine [Mass/Vol] 0.8 mg/dL 0.7 - 1.2 mg/dL [facility] GFR/1.73 sq M.predicted MDRD (S/P/Bld) [Vol rate/Area] - PINF [facility] Comment on above: These results are not intended for use in patients <18 years of age. eGFR results are calculated without a race factor using the 2020 CKD-EPI equation. Careful clinical correlation is recommended, particularly when comparing to results calculated using previous equations. The CKD-EPI equation is less accurate in patients with extremes of muscle mass, extra-renal metabolism of creatine, excessive creatine ingestion, or following therapy that affects renal tubular secretion. Glucose [Mass/Vol] 160 mg/dL High 70 - 99 mg/dL [facility] Interpretation and review of laboratory results Abnormal [facility] Potassium [Moles/Vol] 3.8 mmol/L 3.7 - 5.3 mmol/L [facility] Sodium [Moles/Vol] 142 mmol/L 135 - 144 mmol/L [facility] Urea nitrogen [Mass/Vol] 21 mg/dL 8 - 23 mg/dL [facility] Basic Metabolic Profon 01-13 Anion gap [Moles/Vol] 8 mmol/L Low 9-17 [facility] Comment on above: Performed By: #### P T #### [facility] [address] [place] [address] [id number] Information Director: Luis A Alcantara MD Calcium [Mass/Vol] 9.3 mg/dL Normal 8.6-10.4 [facility] Comment on above: Performed By: #### P T #### [facility] [address] [place], [place] [id number] Information Director: Luis A Alcantara MD Chloride [Moles/Vol] 94 mmol/L Low 98-107 [facility] Comment on above: Performed By: #### P T #### [facility] [address] [place] [address] [id number] Information Director: Luis A Alcantara MD CO2 [Moles/Vol] 40 mmol/L High 20-31 [facility] Comment on above: Performed By: #### P T #### [address] [address] Information Director: Luis A Alcantara MD Creatinine [Mass/Vol] 0.8 mg/dL Normal 0.7-1.2 [facility] Comment on above: Performed By: #### P T #### [address] [address] Information Director: Luis A Alcantara MD GFR/1.73 sq M.predicted among non-blacks MDRD (S/P/Bld) [Vol rate/Area] mL/min/{1.73_m2} Normal >60 [facility] Comment on above: Result Comment: These results are not intended for use in patients <18 years of age. eGFR results are calculated without a race factor using the 2020 CKD-EPI equation. Careful clinical correlation is recommended, particularly when comparing to results calculated using previous equations. The CKD-EPI equation is less accurate in patients with extremes of muscle mass, extra-renal metabolism of creatine, excessive creatine ingestion, or following therapy that affects renal tubular secretion. Performed By: #### P T #### [address] [address] Information Director: Luis A Alcantara MD Glucose [Mass/Vol] 160 mg/dL High 70-99 [facility] Comment on above: Performed By: #### P T #### [address] [address] Information Director: Luis A Alcantara MD Potassium [Moles/Vol] 3.8 mmol/L Normal 3.7-5.3 [facility] Comment on above: Performed By: #### P T #### [address] [address] Information Director: Luis A Alcantara MD Sodium [Moles/Vol] 142 mmol/L Normal 135-144 [facility] Comment on above: Performed By: #### P T #### [facility] [address] [place], [place] [id number] Information Director: Luis A Alcantara MD Urea nitrogen [Mass/Vol] 21 mg/dL Normal 8-23 [facility] Comment on above: Performed By: #### P T #### [facility] [address] [place], [place] [phone] Information Director: Luis A Alcantara MD CBC with Auto Differentialon 01-13-2023 Basophils (Bld) [#/Vol] 0.04 10*3/uL [facility] Basophils/100 WBC (Bld) 1 % 0 - 2 % [facility] Eosinophils (Bld) [#/Vol] 0.47 10*3/uL High [facility] Eosinophils/100 WBC (Bld) 7 % High 1 - 4 % [facility] Erythrocyte distribution width (RBC) [Ratio] 16.3 % High 11.8 - 14.4 % [facility] Hematocrit (Bld) [Volume fraction] 35.9 % Low 40.7 - 50.3 % [facility] Hemoglobin (Bld) [Mass/Vol] 10.9 g/dL Low 13.0 - 17.0 g/dL [facility] Immature granulocytes (Bld) [#/Vol] [facility] Immature granulocytes/100 WBC (Bld) 0 % 0 [facility] Interpretation and review of laboratory results Abnormal [facility] Lymphocytes/100 WBC (Bld) 22 % Low 24 - 43 % [facility] Lymphocytes/100 WBC (Bld) 1.50 % [facility] MCH (RBC) [Entitic mass] 28.9 pg 25.2 - 33.5 pg [facility] MCHC (RBC) [Mass/Vol] 30.4 g/dL 28.4 - 34.8 g/dL [facility] MCV (RBC) [Entitic vol] 95.2 fL 82.6 - 102.9 fL [facility] Monocytes/100 WBC (Bld) 7 % 3 - 12 % [facility] Monocytes/100 WBC (Bld) 0.47 % [facility] Neutrophils/100 WBC (Bld) 63 % 36 - 65 % [facility] Nucleated RBC/100 WBC (Bld) [Ratio] 0.0 % 0.0 per 100 WBC [facility] Platelet mean volume (Bld) [Entitic vol] 12.4 fL 8.1 - 13.5 fL [facility] Platelets (Bld) [#/Vol] 140 10*3/uL [facility] RBC (Bld) [#/Vol] 3.77 10*6/uL Low 4.21 - 5.7 7 m/uL [facility] RBC (Bld) [#/Vol] ANISOCYTOSIS PRESENT [facility] Segmented neutrophils/100 WBC (Bld) 4.32 % [facility] WBC other (Bld) [#/Vol] 6.8 [facility] CBC with Diffon 01-13-2023 Abs. Basophil 0.04 k/uL Normal 0.00-0.20 [facility] Comment on above: Performed By: #### C GREG GLYNN, PT #### [place] [address] Information Director: Luis A Alcantara MD Abs.Imm.Granulocyte <0.03 Normal 0.00-0.30 [facility] Comment on above: Performed By: #### C GREG GLYNN, PT #### [facility] [address] [place] [address] Information Director: Luis A Alcantara MD Abs.Neutrophil (Seg) 4.32 k/uL Normal 1.50-8.10 [facility] Comment on above: Performed By: #### C GREG GLYNN, PT #### [place] [address] Information Director: Luis A Alcantara MD Basophils/100 WBC (Bld) 1 % Normal 0-2 [facility] Comment on above: Performed By: #### C DP, BMP, PT #### [facility] [address] [place] [address] Information Director: Luis A Alcantara MD Eosinophils (Bld) [#/Vol] 0.47 10*3/uL High 0.00-0.44 [facility] Comment on above: Performed By: #### C DP, BMP, PT #### [facility] [address] [place] [address] Information Director: Luis A Alcantara MD Eosinophils/100 WBC (Bld) 7 % High 1-4 [facility] Comment on above: Performed By: #### C DP, BMP, PT #### [place] [address] Information Director: Luis A Alcantara MD Erythrocyte distribution width (RBC) [Ratio] 16.3 % High 11.8-14.4 [facility] Comment on above: Performed By: #### C DP, BMP, PT #### [place] [address] Information Director: Luis A Alcantara MD Hematocrit (Bld) [Volume fraction] 35.9 % Low 40.7-50.3 [facility] Comment on above: Performed By: #### C DP, BMP, PT #### [place] [address] Information Director: Luis A Alcantara MD Hemoglobin (Bld) [Mass/Vol] 10.9 g/dL Low 13.0-17.0 [facility] Comment on above: Performed By: #### C DP, BMP, PT #### [address] [address] Information Director: Luis A Alcantara MD Immature granulocytes/100 WBC (Bld) 0 % Normal 0 [facility] Comment on above: Performed By: #### C DP, BMP, PT #### [address] [address] Information Director: Luis A Alcantara MD Lymphocytes (Bld) [#/Vol] 1.50 10*3/uL Normal 1.10-3.70 [facility] Comment on above: Performed By: #### C DP, BMP, PT #### [address] [address] Information Director: Luis A Alcantara MD Lymphocytes/100 WBC (Bld) 22 % Low 24-43 [facility] Comment on above: Performed By: #### C DP, BMP, PT #### [place] [address] Information Director: Luis A Alcantara MD MCH (RBC) [Entitic mass] 28.9 pg Normal 25.2-33.5 [facility] Comment on above: Performed By: #### C DP, BMP, PT #### [place] [address] Information Director: Luis A Alcantara MD MCHC (RBC) [Mass/Vol] 30.4 g/dL Normal 28.4-34.8 [facility] Comment on above: Performed By: #### C DP, BMP, PT #### [place] [address] Information Director: Luis A Alcantara MD MCV (RBC) [Entitic vol] 95.2 fL Normal 82.6-102.9 [facility] Comment on above: Performed By: #### C DP, BMP, PT #### [address] [address] Information Director: Luis A Alcantara MD Monocytes (Bld) [#/Vol] 0.47 10*3/uL Normal 0.10-1.20 [facility] Comment on above: Performed By: #### C DP, BMP, PT #### [place] [address] Information Director: Luis A Alcantara MD Monocytes/100 WBC (Bld) 7 % Normal 3-12 [facility] Comment on above: Performed By: #### C DP, BMP, PT #### [address] [address] Information Director: Luis A Alcantara MD Neutrophil (Seg) 63 % Normal 36-65 [facility] Comment on above: Performed By: #### C DP, BMP, PT #### [address] [address] Information Director: Luis A Alcantara MD NRBC Automated 0.0 per 100 WBC Normal 0.0 [facility] Comment on above: Performed By: #### C DP, BMP, PT #### [address] [address] Information Director: Luis A Alcantara MD Platelet mean volume (Bld) [Entitic vol] 12.4 fL Normal 8.1-13.5 [facility] Comment on above: Performed By: #### C DP, BMP, PT #### [address] [address] Information Director: Luis A Alcantara MD Platelets (Bld) [#/Vol] 140 10*3/uL Normal 138-453 [facility] Comment on above: Performed By: #### C DP, BMP, PT #### [address] [address] Information Director: Luis A Alcantara MD RBC (Bld) [#/Vol] 3.77 10*6/uL Low 4.21-5.77 [facility] Comment on above: Performed By: #### C DP, BMP, PT #### [address] [address] Information Director: Luis A Alcantara MD RBC morphology finding Nom (Bld) ANISOCYTOSIS PRESENT Normal [facility] Comment on above: Performed By: #### C DP, BMP, PT #### [address] [address] Information Director: Luis A Alcantara MD WBC (Bld) [#/Vol] 6.8 10*3/uL Normal 3.5-11.3 [facility] Comment on above: Performed By: #### C DP, BMP, PT #### [address] [address] Information Director: Luis A Alcantara MD PTon 01-13-2023 INR Coag (PPP) [Relative time] 1.9 {INR} Normal [facility] Comment on above: Result Comment: Therapeutic Range: Moderate Anticoagulant Intensity: INR = 2.0-3.0 High Anticoagulant Intensity: INR = 2.5-3.5 Performed By: #### P T #### [address] [address] Information Director: Luis A Alcantara MD PT Coag (PPP) [Time] 21.8 s High 11.7-14.9 [facility] Comment on above: Performed By: #### P T #### [address] [address] Information Director: Luis A Alcantara MD Protime-INRon 01-13-2023 INR Coag (PPP) [Relative time] 1.9 {INR} [facility] Comment on above: Therapeutic Range: Moderate Anticoagulant Intensity: INR = 2.0-3.0 High Anticoagulant Intensity: INR = 2.5-3.5 Interpretation and review of laboratory results Abnormal [facility] PT Coag (PPP) [Time] 21.8 s High [facility] Brain Natri. Peptideon 01-09 Natriuretic peptide B (Bld) [Mass/Vol] 131 pg/mL Normal <300 [facility] Comment on above: Result Comment: An age-independent cutoff point of 300 pg/ml has a 98% negative predictive value excluding acute heart failure. Performed By: #### C P, BNP, URI, CBC #### [address] [address] Information Director: Luis A Alcantara MD CBCon 01-09-2023 Erythrocyte distribution width (RBC) [Ratio] 16.8 % High 11.8-14.4 [facility] Comment on above: Performed By: #### C P, BNP, URI, CBC #### [address] [address] Information Director: Luis A Alcantara MD Hematocrit (Bld) [Volume fraction] 34.9 % Low 40.7-50.3 [facility] Comment on above: Performed By: #### C P, BNP, URI, CBC #### [address] [address] Information Director: Luis A Alcantara MD Hemoglobin (Bld) [Mass/Vol] 10.3 g/dL Low 13.0-17.0 [facility] Comment on above: Performed By: #### C P, BNP, URI, CBC #### [address] [address] Information Director: Luis A Alcantara MD MCH (RBC) [Entitic mass] 28.3 pg Normal 25.2-33.5 [facility] Comment on above: Performed By: #### C P, BNP, URI, CBC #### [address] [address] Information Director: Luis A Alcantara MD MCHC (RBC) [Mass/Vol] 29.5 g/dL Normal 28.4-34.8 [facility] Comment on above: Performed By: #### C P, BNP, URI, CBC #### [address] [address] Information Director: Luis A Alcantara MD MCV (RBC) [Entitic vol] 95.9 fL Normal 82.6-102.9 [facility] Comment on above: Performed By: #### C P, BNP, URI, CBC #### [address] [address] Information Director: Luis A Alcantara MD NRBC Automated 0.0 per 100 WBC Normal 0.0 [facility] Comment on above: Performed By: #### C P, BNP, URI, CBC #### [address] [address] Information Director: Luis A Alcantara MD Platelet mean volume (Bld) [Entitic vol] 11.9 fL Normal 8.1-13.5 [facility] Comment on above: Performed By: #### C P, BNP, URI, CBC #### [address] [address] Information Director: Luis A Alcantara MD Platelets (Bld) [#/Vol] 150 10*3/uL Normal 138-453 [facility] Comment on above: Performed By: #### C P, BNP, URI, CBC #### [address] [address] Information Director: Luis A Alcantara MD RBC (Bld) [#/Vol] 3.64 10*6/uL Low 4.21-5.77 [facility] Comment on above: Performed By: #### C P, BNP, URI, CBC #### [address] [address] Information Director: Luis A Alcantara MD WBC (Bld) [#/Vol] 7.2 10*3/uL Normal 3.5-11.3 [facility] Comment on above: Performed By: #### C P, BNP, URI, CBC #### [address] [address] Information Director: Luis A Alcantara MD Comp Metabolic Profon 2022 Albumin [Mass/Vol] 3.6 g/dL Normal 3.5-5.2 [facility] Comment on above: Performed By: #### C P, BNP, URI, CBC #### [address] [address] Information Director: Luis A Alcantara MD Albumin/Glob Ratio 1.1 Normal 1.0-2.5 [facility] Comment on above: Performed By: #### C P, BNP, URI, CBC #### [address] [address] Information Director: Luis A Alcantara MD Alkaline Phos 88 U/L Normal 40-129 [facility] Comment on above: Performed By: #### C P, BNP, URI, CBC #### [address] [address] Information Director: Luis A Alcantara MD ALT [Catalytic activity/Vol] 18 U/L Normal 5-41 [facility] Comment on above: Performed By: #### C P, BNP, URI, CBC #### [address] [address] Information Director: Luis A Alcantara MD Anion gap [Moles/Vol] 11 mmol/L Normal 9-17 [facility] Comment on above: Performed By: #### C P, BNP, URI, CBC #### [address] [address] Information Director: Luis A Alcantara MD AST [Catalytic activity/Vol] 18 U/L Normal <40 [facility] Comment on above: Performed By: #### C P, BNP, URI, CBC #### [address] [address] Information Director: Luis A Alcantara MD Bilirubin [Mass/Vol] 0.4 mg/dL Normal 0.3-1.2 [facility] Comment on above: Performed By: #### C P, BNP, URI, CBC #### [address] [address] Information Director: Luis A Alcantara MD Calcium [Mass/Vol] 9.1 mg/dL Normal 8.6-10.4 [facility] Comment on above: Performed By: #### C P, BNP, URI, CBC #### [address] [address] Information Director: Luis A Alcantara MD Chloride [Moles/Vol] 97 mmol/L Low 98-107 [facility] Comment on above: Performed By: #### C P, BNP, URI, CBC #### [address] [address] Information Director: Luis A Alcantara MD CO2 [Moles/Vol] 33 mmol/L High 20-31 [facility] Comment on above: Performed By: #### C P, BNP, URI, CBC #### [address] [address] Information Director: Luis A Alcantara MD Creatinine [Mass/Vol] 0.8 mg/dL Normal 0.7-1.2 [facility] Comment on above: Performed By: #### C P, BNP, URI, CBC #### [address] [address] Information Director: Luis A Alcantara MD GFR/1.73 sq M.predicted among non-blacks MDRD (S/P/Bld) [Vol rate/Area] mL/min/{1.73_m2} Normal >60 [facility] Comment on above: Result Comment: These results are not intended for use in patients <18 years of age. eGFR results are calculated without a race factor using the 2020 CKD-EPI equation. Careful clinical correlation is recommended, particularly when comparing to results calculated using previous equations. The CKD-EPI equation is less accurate in patients with extremes of muscle mass, extra-renal metabolism of creatine, excessive creatine ingestion, or following therapy that affects renal tubular secretion. Performed By: #### C P, BNP, URI, CBC #### [address] [address] Information Director: Luis A Alcantara MD Glucose [Mass/Vol] 156 mg/dL High 70-99 [facility] Comment on above: Performed By: #### C P, BNP, URI, CBC #### [facility] [address] [place] [address] Information Director: Luis A Alcantara MD Potassium [Moles/Vol] 3.7 mmol/L Normal 3.7-5.3 [facility] Comment on above: Performed By: #### C P, BNP, URI, CBC #### [address] [address] Information Director: Luis A Alcantara MD Protein [Mass/Vol] 7.0 g/dL Normal 6.4-8.3 [facility] Comment on above: Performed By: #### C P, BNP, URI, CBC #### [address] [address] Information Director: Luis A Alcantara MD Sodium [Moles/Vol] 141 mmol/L Normal 135-144 [facility] Comment on above: Performed By: #### C P, BNP, URI, CBC #### [facility] [address] [place] [address] Information Director: Luis A Alcantara MD Urea nitrogen [Mass/Vol] 22 mg/dL Normal 8-23 [facility] Comment on above: Performed By: #### C P, BNP, URI, CBC #### [facility] [address] [place] [address] Information Director: Luis A Alcantara MD PTon 01-09-2023 INR Coag (PPP) [Relative time] 1.9 {INR} Normal [facility] Comment on above: Result Comment: Therapeutic Range: Moderate Anticoagulant Intensity: INR = 2.0-3.0 High Anticoagulant Intensity: INR = 2.5-3.5 Performed By: #### P T #### [facility] [address] [place] [id number] Information Director: Luis A Alcantara MD PT Coag (PPP) [Time] 21.8 s High 11.7-14.9 [facility] Comment on above: Performed By: #### P T #### [facility] [address] [place] [id number] Information Director: Luis A Alcantara MD Uric Acidon 01-09-2023 Urate [Mass/Vol] 8.3 mg/dL High 3.4-7.0 [facility] Comment on above: Performed By: #### C P, BNP, URI, CBC #### [address] [address] Information Director: Luis A Alcantara MD 36on 01-07-2023 36 Opat received. Confirmed orders with Albertina at [facility]. She states pt is being dc'd 01/10. Labs to be drawn tomorrow. Pt lizbeth schedule his follow up appt. Normal [facility] Basic Metabolic Profon 01-06 Anion gap [Moles/Vol] 18 mmol/L High 9-17 [facility] Comment on above: Performed By: #### P T, CDP, BMP #### [facility] [address] [place] [address] Information Director: Luis A Alcantara MD Calcium [Mass/Vol] 9.8 mg/dL Normal 8.6-10.4 [facility] Comment on above: Performed By: #### P T, CDP, BMP #### [facility] [address] [place] [id number] Information Director: Luis A Alcantara MD Chloride [Moles/Vol] 97 mmol/L Low 98-107 [facility] Comment on above: Performed By: #### P T, CDP, BMP #### [address] [address] Information Director: Luis A Alcantara MD CO2 [Moles/Vol] 20 mmol/L Normal 20-31 [facility] Comment on above: Performed By: #### P T, CDP, BMP #### [address] [address] Information Director: Luis A Alcantara MD Creatinine [Mass/Vol] 4.1 mg/dL High 0.70-1.20 [facility] Comment on above: Performed By: #### P T, CDP, BMP #### [address] [address] Information Director: Luis A Alcantara MD GFR/1.73 sq M.predicted among non-blacks MDRD (S/P/Bld) [Vol rate/Area] 16 mL/min/{1.73_m2} Low >60 [facility] Comment on above: Result Comment: These results are not intended for use in patients <18 years of age. eGFR results are calculated without a race factor using the 2020 CKD-EPI equation. Careful clinical correlation is recommended, particularly when comparing to results calculated using previous equations. The CKD-EPI equation is less accurate in patients with extremes of muscle mass, extra-renal metabolism of creatine, excessive creatine ingestion, or following therapy that affects renal tubular secretion. Performed By: #### P T, CDP, BMP #### [address] [address] Information Director: Luis A Alcantara MD Glucose [Mass/Vol] 76 mg/dL Normal 70-99 [facility] Comment on above: Performed By: #### P T, CDP, BMP #### [address] [address] Information Director: Luis A Alcantara MD Potassium [Moles/Vol] 4.3 mmol/L Normal 3.7-5.3 [facility] Comment on above: Performed By: #### P T, CDP, BMP #### [address] [address] Information Director: Luis A Alcantara MD Sodium [Moles/Vol] 135 mmol/L Normal 135-144 [facility] Comment on above: Performed By: #### P T, CDP, BMP #### [place] [address] Information Director: Luis A Alcantara MD Urea nitrogen [Mass/Vol] 43 mg/dL High 8-23 [facility] Comment on above: Performed By: #### P T, CDP, BMP #### [place] [address] Information Director: Luis A Alcantara MD CBC with Diffon 01-06-2023 Abs. Basophil 0.08 k/uL Normal 0.00-0.20 [facility] Comment on above: Performed By: #### P T, CDP, BMP #### [address] [address] Information Director: Luis A Alcantara MD Abs.Imm.Granulocyte 0.09 k/uL Normal 0.00-0.30 [facility] Comment on above: Performed By: #### P T, CDP, BMP #### [address] [address] Information Director: Luis A Alcantara MD Abs.Neutrophil (Seg) 5.29 k/uL Normal 1.50-8.10 [facility] Comment on above: Performed By: #### P T, CDP, BMP #### [address] [address] Information Director: Luis A Alcantara MD Basophils/100 WBC (Bld) 1 % Normal 0-2 [facility] Comment on above: Performed By: #### P T, CDP, BMP #### [address] [address] Information Director: Luis A Alcantara MD Eosinophils (Bld) [#/Vol] 0.17 10*3/uL Normal 0.00-0.44 [facility] Comment on above: Performed By: #### P T, CDP, BMP #### [address] [address] Information Director: Luis A Alcantara MD Eosinophils/100 WBC (Bld) 2 % Normal 1-4 [facility] Comment on above: Performed By: #### P T, CDP, BMP #### [address] [address] Information Director: Luis A Alcantara MD Erythrocyte distribution width (RBC) [Ratio] 13.6 % Normal 11.8-14.4 [facility] Comment on above: Performed By: #### P T, CDP, BMP #### [address] [address] Information Director: Luis A Alcantara MD Hematocrit (Bld) [Volume fraction] 32.5 % Low 40.7-50.3 [facility] Comment on above: Performed By: #### P T, CDP, BMP #### [address] [address] Information Director: Luis A Alcantara MD Hemoglobin (Bld) [Mass/Vol] 10.4 g/dL Low 13.0-17.0 [facility] Comment on above: Performed By: #### P T, CDP, BMP #### [address] [address] Information Director: Luis A Alcantara MD Immature granulocytes/100 WBC (Bld) 1 % High 0 [facility] Comment on above: Performed By: #### P T, CDP, BMP #### [facility] [address] [place] [address] Information Director: Luis A Alcantara MD Lymphocytes (Bld) [#/Vol] 2.41 10*3/uL Normal 1.10-3.70 [facility] Comment on above: Performed By: #### P T, CDP, BMP #### [address] [address] Information Director: Luis A Alcantara MD Lymphocytes/100 WBC (Bld) 28 % Normal 24-43 [facility] Comment on above: Performed By: #### P T, CDP, BMP #### [address] [address] Information Director: Luis A Alcantara MD MCH (RBC) [Entitic mass] 34.2 pg High 25.2-33.5 [facility] Comment on above: Performed By: #### P T, CDP, BMP #### [address] [address] Information Director: Luis A Alcantara MD MCHC (RBC) [Mass/Vol] 32.0 g/dL Normal 28.4-34.8 [facility] Comment on above: Performed By: #### P T, CDP, BMP #### [address] [address] Information Director: Luis A Alcantara MD MCV (RBC) [Entitic vol] 106.9 fL High 82.6-102.9 [facility] Comment on above: Performed By: #### P T, CDP, BMP #### [address] [address] Information Director: Luis A Alcantara MD Monocytes (Bld) [#/Vol] 0.54 10*3/uL Normal 0.10-1.20 [facility] Comment on above: Performed By: #### P T, CDP, BMP #### [address] [address] Information Director: Luis A Alcantara MD Monocytes/100 WBC (Bld) 6 % Normal 3-12 [facility] Comment on above: Performed By: #### P T, CDP, BMP #### [address] [address] Information Director: Luis A Alcantara MD Neutrophil (Seg) 62 % Normal 36-65 [facility] Comment on above: Performed By: #### P T, CDP, BMP #### [address] [address] Information Director: Luis A Alcantara MD NRBC Automated 0.0 per 100 WBC Normal 0.0 [facility] Comment on above: Performed By: #### P T, CDP, BMP #### [address] [address] Information Director: Luis A Alcantara MD Platelet mean volume (Bld) [Entitic vol] 9.5 fL Normal 8.1-13.5 [facility] Comment on above: Performed By: #### P T, CDP, BMP #### [address] [address] Information Director: Luis A Alcantara MD Platelets (Bld) [#/Vol] 221 10*3/uL Normal 138-453 [facility] Comment on above: Performed By: #### P T, CDP, BMP #### [address] [address] Information Director: Luis A Alcantara MD RBC (Bld) [#/Vol] 3.04 10*6/uL Low 4.21-5.77 [facility] Comment on above: Performed By: #### P T, CDP, BMP #### [address] [address] Information Director: Luis A Alcantara MD RBC morphology finding Nom (Bld) MACROCYTOSIS PRESENT Normal [facility] Comment on above: Performed By: #### P TELKE, BMP #### [facility] [address] [place] [address] [id number] Information Director: Luis A Alcantara MD WBC (Bld) [#/Vol] 8.6 10*3/uL Normal 3.5-11.3 [facility] Comment on above: Performed By: #### P TELKE, BMP #### [facility] [address] [place] [address] [id number] Information Director: Luis A Alcantara MD PTon 01-06-2023 INR Coag (PPP) [Relative time] 1.9 {INR} Normal [facility] Comment on above: Result Comment: Therapeutic Range: Moderate Anticoagulant Intensity: INR = 2.0-3.0 High Anticoagulant Intensity: INR = 2.5-3.5 Performed By: #### P ELKE [place], BMP #### [facility] [address] [place] [address] [id number] Information Director: Luis A Alcantara MD PT Coag (PPP) [Time] 21.5 s High 11.7-14.9 [facility] Comment on above: Performed By: #### P ELKE [place], BMP #### [facility] [address] [place] [address] [id number] Information Director: Luis A Alcantara MD 3612-30-2022 36 Pt calling. States grace brothers is admitted to [place] currently. 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 [facility] 12-27-2022 36 Wound care is rashaad smith to say they saw him today and his wound has doubled in size so they are sending him to the ER. [facility] 12-26-2022 36 Patient called kristie Marrero to follow up with his wound care in [place] to see if his infection is better or worse. He has an appointment with wound care 12/27 at 10:40am. Yes, I was informed he had an upcoming appointment. He insisted that you mentioned you wanted to follow up with wound care to receive an update. I informed the patient it could be discussed at the time of appointment. [facility] Telephoneon 12-26-2022 Telephone [phone] August Flores W 1960 M Date Provider Department Center 12/26/2022 [facility] [address] INF [facility] No family history on file [facility] 36on 12-23-2022 36 Call to pt, states the drainage is the same as before, now denies the drainage as increased. He does not have any concerns about it worsening, just wanted you to know (per your request). States he will hold off on the ER for now, but will go in if it gets worse. Home care nurse comes back Friday. [facility] 36 Pt called; states he was directed to call you if his drainage increased. States the drainage went through 3 of the 4 compression layers. [facility] A1C HEMOGLOBINon 09-05-2022 HbA1c (Bld) [Mass fraction] 7.2 % [employer] Other Glucose - FINGER STICKon Glucose [Mass/Vol] 188 mg/dL [employer] Other HbA1c (Bld) [Mass fraction]o n 09-05-2022 A1C HEMOGLOBIN [employer] Other A1C HEMOGLOBINon 06-03-2022 HbA1c (Bld) [Mass fraction] 7.3 % [employer] Other Glucose - FINGER STICKon Glucose [Mass/Vol] 195 mg/dL [employer] Other HbA1c (Bld) [Mass fraction]o n 06-03-2022 A1C HEMOGLOBIN [employer] Other Office Visit (Cardiology)on 04-23-2022 Follow-up visit Diagnoses/Problems Assessed Right heart failure (428.0) (I50.810) Shortness of breath (786.05) (R06.02) 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) Former smoker (V15.82) (Z87.891) Hypertension (401.9) (I10) Mixed hyperlipidemia (272.2) (E78.2) Pulmonary embolism (415.19) (I26.99) Diabetes mellitus (250.00) (E11.9) Morbid obesity with BMI of 70 and over, adult (278.01,V85.45) (E66.01,Z68.45) Sleep apnea (780.57) (G47.30) Orders Diabetes mellitus, Hypertension, Right heart failure Renew: Losartan Potassium 50 MG Oral Tablet; TAKE 1 TABLET DAILY Diabetes mellitus, Mixed hyperlipidemia ALT - Alanine Aminotransferase, Serum; Status:Active - Retrospective Authorization; Requested for:23Apr2022; AST; Status:Active - Retrospective Authorization; Requested for:23Apr2022; Lipid Panel; Status:Active - Retrospective Authorization; Requested for:23Apr2022; Hypertension, Right heart failure, Shortness of breath Basic Metabolic Panel; Status:Active - Retrospective Authorization; Requested for:23Apr2022; Complete Blood Count; Status:Active - Retrospective Authorization; Requested for:23Apr2022; Mixed hyperlipidemia Renew: Atorvastatin Calcium 10 MG Oral Tablet; take 1 tablet by mouth once daily Morbid obesity with BMI of 70 and over, adult Healthy Weight Tips; Status:Complete - Retrospective Authorization; Done: 23Apr2022 Some eating tips that can help you lose weight.; Status:Complete - Retrospective Authorization; Done: 23Apr2022 SocHx: Former smoker Tobacco Use Screening; Status:Complete; Done: 23Apr2022 Patient Instructions Please bring all medicines, vitamins, and herbal supplements with you when you come to the office. Prescriptions will not be filled unless you are compliant with your follow up appointments or have a follow up appointment scheduled as per instruction of your physician. Refills should be requested at the time of your visit. Follow up in 9 months Chief Complaint JENARO FLORES is being seen for a 9 month follow-up of. History of Present Illness Patient is here for follow-up continue management for morbid obesity, right heart failure, DVT on long-term anticoagulation. Since last time I saw him he denies any change in cardiac status or symptoms. He remains short of breath with sedentary lifestyle. He denies any change in cardiac status or symptoms. He has failed to lose any meaningful weight. Assessment 1. Patient with known chronic right heart failure. His weight has been stable 2. 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 Morbid obesity with BMI to 70 4. No known coronary artery disease. Stress test remotely 5. Recent history of lower GI bleed awaiting colonoscopy 6. Sleep apnea on CPAP and O2 at home 7. Hypertension controlled 8. Hyperlipidemia no recent labs available Plan 1. I advised him to repeat his lab work 2. Patient overall appears to be stable and unchanged from cardiovascular standpoint over the last several years 3. I need to encourage him to lose weight, exercise and consider bariatric surgery 4. Follow-up in 9-month Surgical History Problems History of Complete colonoscopy Current Meds Medication NameInstruction Albuterol Sulfate (2.5 MG/3ML) 0.083% Inhalation Nebulization SolutionUSE 1 UNIT DOSE EVERY 4-6 HOURS NEEDED FOR WHEEZING . Allopurinol 100 MG Oral Tablettake 2 tablets by mouth daily Atorvastatin Calcium 10 MG Oral Tablettake 1 tablet by mouth once daily Bumetanide 2 MG Oral TabletTAKE 1 TABLET DAILY. Centrum Silver Oral TabletTAKE 1 TABLET DAILY. Fenofibric Acid 135 MG Oral Capsule Delayed ReleaseTAKE 1 CAPSULE Daily HumuLIN R U-500 KwikPen 500 UNIT/ML Subcutaneous Solution Pen-injectorUSE DIRECTED Jardiance 25 MG Oral TabletTAKE 1 TABLET BY MOUTH ONCE DAILY Losartan Potassium 50 MG Oral TabletTAKE 1 TABLET DAILY. Omeprazole 40 MG Oral Capsule Delayed Releasetake 1 capsule by mouth once daily Ozempic (0.25 or 0.5 MG/DOSE) 2 MG/1.5ML Subcutaneous Solution Pen-injectorinject 0.25 milligrams subcutaneously for 4 weeks then inject 0.5 weekly injection. Warfarin Sodium 5 MG Oral Tablettake 1 tablet by mouth ON FRIDAY, FRIDAY, FRIDAY, AND FRIDAY... (REFER TO PRESCRIPTION NOTES). directed by dr lucas Allergies NoKnown No Known Allergies Recorded By: Anne Suarez; 06/20/2021 7:52:12 AM Social History Problems Caffeine use (V49.89) (Z78.9) 4-5 cups of coffee weekly Former smoker (V15.82) (Z87.891) No alcohol use No illicit drug use Review of Systems Constitutional: not feeling tired. Cardiovascular: no intermittent leg claudication and as noted in HPI. Respiratory: shortness of breath during exertion, but no cough and no shortness of breath. Gastrointestinal: no change in bowel habits and no blood in stools. Integumentary: no skin rashes. Neurological: no seizures and no frequent falls. All other systems have been reviewed and are negative for complaint. Vitals (more content not included)... Normal [employer] Tobacco Screening.on Adult depression screening assessment No [facility] 250 DO Work Phone: Fall risk assessment c) Not medically indicated Merged with [facility] DO Work Phone: Tobacco use status [facility] b) No Merged with [facility] [employer] 250 DO Work Phone: A1C HEMOGLOBINon 02-25-2022 HbA1c (Bld) [Mass fraction] 6.9 % [employer] Other Glucose - FINGER STICKon Glucose [Mass/Vol] 151 mg/dL [employer] Other HbA1c (Bld) [Mass fraction]o n 02-25-2022 A1C HEMOGLOBIN [employer] Other A1C HEMOGLOBINon 11-14-2021 HbA1c (Bld) [Mass fraction] 7.2 % [employer] Other Glucose - FINGER STICKon Glucose [Mass/Vol] 160 mg/dL [employer] Other HbA1c (Bld) [Mass fraction]o n 11-14-2021 A1C HEMOGLOBIN [employer] Other A1C HEMOGLOBINon 08-09-2021 HbA1c (Bld) [Mass fraction] 6.6 % [employer] Other Glucose - FINGER STICKon Glucose [Mass/Vol] 153 mg/dL [employer] Other HbA1c (Bld) [Mass fraction]o n 08-09-2021 A1C HEMOGLOBIN [employer] Other Office Visit (Cardiology)on 07-19-2021 Follow-up visit Diagnoses/Problems Assessed Right heart failure (428.0) (I50.810) Pulmonary embolism (415.19) (I26.99) 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) Shortness of breath (786.05) (R06.02) Morbidly obese (278.01) (E66.01) Diabetes mellitus (250.00) (E11.9) Former smoker (V15.82) (Z87.891) Hypertension (401.9) (I10) Morbid obesity with BMI of 60.0-69.9, adult (278.01,V85.44) (E66.01,Z68.44) Mixed hyperlipidemia (272.2) (E78.2) Orders Mixed hyperlipidemia Renew: Atorvastatin Calcium 10 MG Oral Tablet; take 1 tablet by mouth once daily Morbid obesity with BMI of 60.0-69.9, adult Healthy Weight Tips; Status:Complete - Retrospective Authorization; Done: 19Jul2021 Right heart failure Continue with our present treatment plan.; Status:Complete - Retrospective Authorization; Done: 19Jul2021 SocHx: Former smoker Tobacco Use Screening; Status:Complete; Done: 19Jul2021 Follow up in [0 ] months Patient Instructions By signing my name below, Toña Oates Lpn, Scribe, attest that this documentation has been prepared under the direction and in the presence of Dr. Shantel Long MD. All medical record entries made by the Scribe were at my direction and personally dictated by me. I have reviewed the chart and agree that the record accurately reflects my personal performance of the history, physical exam, discussion and plan. Please bring all medicines, vitamins, and herbal supplements with you when you come to the office. Prescriptions will not be filled unless you are compliant with your follow up appointments or have a follow up appointment scheduled as per instruction of your physician. Refills should be requested at the time of your visit. Chief Complaint JENARO FLORES is being seen for a 9 month follow-up of. History of Present Illness Patient is here for follow-up continue management for history of right heart failure, previous presentation with PE and DVT, morbid obesity and sleep apnea. Since last time I saw him he denies any change in cardiac status or symptoms. Continue to have shortness of breath and lower extremity edema. He continues to follow-up with the renal service. He denies lightheadedness, dizziness or syncope. He failed to lose any meaningful weight. Assessment 1. Patient with known chronic right heart failure. According him this had been stable. 2. 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 Morbid obesity with BMI to 70 4. No known coronary artery disease. Stress test remotely 5. Recent history of lower GI bleed awaiting colonoscopy 6. Sleep apnea 7. Hypertension controlled 8. Hyperlipidemia reviewed his lab from last year with him Plan 1. I reviewed with him his previous lab and cardiac work-up 2. Patient overall appears to be stable and unchanged from cardiovascular standpoint over the last for 5 years 3. I need to encourage him to lose weight, exercise and consider bariatric surgery 4. We will try to retrieve his recent lab 5. Follow-up in 9-month Surgical History Problems History of Complete colonoscopy Current Meds Medication NameInstruction Albuterol Sulfate (2.5 MG/3ML) 0.083% Inhalation Nebulization SolutionUSE 1 UNIT DOSE EVERY 4-6 HOURS NEEDED FOR WHEEZING . Allopurinol 100 MG Oral Tablettake 2 tablets by mouth daily amLODIPine Besylate 5 MG Oral Tablettake 1 tablet by mouth once daily Atorvastatin Calcium 10 MG Oral Tablettake 1 tablet by mouth once daily Bumetanide 2 MG Oral TabletTAKE 1 TABLET DAILY. Fenofibric Acid 135 MG Oral Capsule Delayed ReleaseTAKE 1 CAPSULE Daily HumuLIN R U-500 KwikPen 500 UNIT/ML Subcutaneous Solution Pen-injectorUSE DIRECTED Jardiance 25 MG Oral TabletTAKE 1 TABLET BY MOUTH ONCE DAILY Omeprazole 40 MG Oral Capsule Delayed Releasetake 1 capsule by mouth once daily Ozempic (0.25 or 0.5 MG/DOSE) 2 MG/1.5ML Subcutaneous Solution Pen-injectorinject 0.25 milligrams subcutaneously for 4 weeks then inject 0.5... (REFER TO PRESCRIPTION NOTES). Trulicity 1.5 MG/0.5ML Subcutaneous Solution Pen-injectorUSE DIRECTED Vitamin D3 50 MCG (1999) Oral CapsuleTAKE 11 CAPSULE Daily Warfarin Sodium 5 MG Oral Tablettake 1 tablet by mouth ON FRIDAY, FRIDAY, FRIDAY, AND FRIDAY... (REFER TO PRESCRIPTION NOTES). directed by dr lucas Allergies NoKnown No Known Allergies Recorded By: Anne Suarez; 06/20/2021 7:52:12 AM Social History Problems Caffeine use (V49.89) (Z78.9) couple cups of coffee weekly Former smoker (V15.82) (Z87.891) No alcohol use No illicit drug use Review of Systems Constitutional: not feeling tired. Cardiovascular: no intermittent leg claudication and as noted in HPI. Respiratory: shortness of breath, but no cough. Gastrointestinal: no change in bowel habits and no blood in stools. Integumentary: no skin rashes. Neurological: no seizures and no frequent falls. All other systems have been reviewed and are negative for complaint. Vitals Vital Signs Flynn (more content not included)... Normal [employer] Tobacco Screening.on 022 Fall risk assessment a) No falls within the last year Merged with [facility] [employer] 250 DO Work Phone: Tobacco use status [facility] b) No Merged with [facility] [employer] 250 DO Work Phone: Albumin [Mass/volume] in Ser or Plasmaon 01-10-2020 Albumin [Mass/Vol] 3.7 g/dL 3.2-5.5 [facility] Alkaline phosphatase [Enzyma tic activity/volume] in Serum or Plasmaon 01-10-2020 ALP [Catalytic activity/Vol] 83 U/L 32-92 [facility] Aspartate aminotransferase [ Enzymatic activity/volume] [facility] AST [Catalytic activity/Vol] 20 U/L 10-42 [facility] Bilirubin.total [Mass/volume ] in Serum or Plasmaon 01-10-2020 Bilirubin [Mass/Vol] 0.6 mg/dL 0.3-1.2 [facility] Calcium [Mass/volume] in Ser um or Plasmaon 01-10-2020 Calcium [Mass/Vol] 9.3 mg/dL 8.2-10.2 [facility] Carbon dioxide, total [Moles /volume] in Serum or Plasmaon 01-10-2020 CO2 [Moles/Vol] 24.8 mmol/L 22.0-30.0 [facility] Chloride [Moles/volume] in S yovana or Plasmaon 01-10-2020 Chloride [Moles/Vol] 100 mmol/L 95-114 [facility] Cholesterol [Mass/volume] in Serum or Plasmaon 01-10-2020 Cholesterol [Mass/Vol] 167 mg/dL 140-200 [facility] Comment on above: Chol less than 200 m g/dl low riskChol 201-239 mg/dl borderline riskChol 240 mg/dl and greater high risk Cholesterol in LDL Calc [Mas s/Vol]on 01-10-2020 Cholesterol in LDL [Mass/Vol] 85 mg/dL 0-100 [facility] Comment on above: LDL ATP III CLASSIFI CATIONLDL less than 100 mg/dL OptimalLDL 100-129 mg/dL Near or above optimalLDL 130-159 mg/dL Borderline highLDL 160-189 mg/dL HighLDL greater than 189 mg/dL Very high Cholesterol in VLDL Calc [Ma ss/Vol]on 01-10-2020 Cholesterol in VLDL [Mass/Vol] 51 mg/dL [facility] Creatinine [Mass/volume] in Urineon 01-10-2020 Creatinine (U) [Mass/Vol] 23.1 mg/dL [facility] Comment on above: No reference range e stablished Creatinine and Glomerular fi ltration rate.predicted panel (S/P/Bld)on 01-10-2020 Creatinine [Mass/Vol] 1.19 mg/dL 0.64-1.27 [facility] [facility] Estimated glomerular filtrat ion rate (GFR) non- Americanon 01-10-2020 GFR/1.73 sq M.predicted among non-blacks MDRD (S/P/Bld) [Vol rate/Area] mL/min/{1.73_m2} [facility] Globulin Calc (S) [Mass/Vol] on 01-10-2020 Globulin (S) [Mass/Vol] 3.1 g/dL [facility] Glucose [Mass/volume] in Ser um or Plasmaon 01-10-2020 Glucose [Mass/Vol] 140 mg/dL 70-100 [facility] Comment on above: ADA recommended refe rence rangeRandom Glucose Reference Range is dependent on time and content of last meal. Glucose of more than 200 mg/dL in a nonstressed, ambulatory subject supports the diagnosis of Diabetes Mellitus. Laboratory - Chemistry and C hemistry - challengeon 01-10-2020 Cobalamin (Vitamin B12) [Mass/Vol] 513 pg/mL 180-914 [facility] GFR/1.73 sq M.predicted MDRD (S/P/Bld) [Vol rate/Area] mL/min/{1.73_m2} [facility] Comment on above: GFR estimated refere nce range: According to KDOQI guidelines, <60 ml/min/1.73m2 is sufficient to diagnose a patient with chronic kidney disease. Microalbumin [Mass/volume] i n Urineon 01-10-2020 Albumin DL <= 20 mg/L (U) [Mass/Vol] mg/dL 0.0-1.8 [facility] No Panel Informationon 01-09 25-Hydroxy Vitamin D Total 29.3 ng/mL 30-100 [facility] Comment on above: VITAMIN D STATUS 25( OH)VITAMIN D RANGE (ng/mL) Deficient <20 Insufficient 20 to <30Sufficient 30 to 100Reference: Dilan MF,Ramandeep NC, Adrian HOANG, et al. Evaluation,treatment, and prevention of vitamin D deficiency; an Endocrine Society clinical practice guideline. JCEM. 2010; 96(7):1911-30. Pharmacy Creatinine Clearance (Chem N/A [facility] Potassium [Moles/volume] in Serum or Plasmaon 01-10-2020 Potassium [Moles/Vol] 3.8 mmol/L 3.5-5.1 [facility] Protein [Mass/volume] in Ser um or Plasmaon 01-10-2020 Protein [Mass/Vol] 6.8 g/dL 6.1-7.9 [facility] Serum or plasma alanine almaraz otransferase measurement without P-5'-P (enzymatic activion 01-10-2020 ALT No additional P-5'-P [Catalytic activity/Vol] 21 U/L 10-60 [facility] Serum or plasma albumin/glob ulin mass ratioon 01-10-2020 Albumin/Globulin [Mass ratio] 1.2 {ratio} [facility] Serum or plasma high density lipoprotein (HDL) cholesterol measurementon 01-10-2020 Cholesterol in HDL [Mass/Vol] 31 mg/dL 29-71 [facility] Comment on above: HDL CHOL ATP-III CLA SSIFICATION Cardiovascular RiskHDL > or equal to 60 mg/dL LOWHDL < 40 mg/dL HIGH Serum or plasma total choles terol/high density lipoprotein (HDL) cholesterol mass griselda 01-10-2020 Cholesterol.total/Ch olesterol in HDL [Mass ratio] 5.4 {ratio} <5.0 [facility] Sodium [Moles/volume] in Ser um or Plasmaon 01-10-2020 Sodium [Moles/Vol] 138 mmol/L 136-146 [facility] Triglyceride [Mass/volume] i n Serum or Plasmaon 01-10-2020 Triglyceride [Mass/Vol] 256 mg/dL 35-149 [facility] Comment on above: TRIG ATP III CLASSIF ICATIONTRIG less than 150 mg/dL NormalTRIG 150-199 mg/dL Borderline highTRIG 200-500 mg/dL High TRIG greater than 500 mg/dL Very highStandard traceable to the Center for Disease Conrtrol and Prevention (CDC) test method. Urea nitrogen [Mass/volume] in Serum or Plasmaon 01-10-2020 Urea nitrogen [Mass/Vol] 32 mg/dL 9-23 [facility] Urine microalbumin/creatinin e mass ratioon 01-10-2020 Albumin/Creatinine DL <= 20 mg/L (U) [Mass ratio] TNP [facility] Comment on above: Test not performed Vital Signs Date Time Vital Sign Value Performing Clinician Facility 05-13-2024 13:30-0500 Body height 172.7 cm Franklyn Cade DPM Work Phone: [facility] 05-13-2024 13:30-0500 Body mass index (BMI) [Ratio] 67.66 kg/m2 Franklyn GLYNNM Work Phone: [facility] 05-13-2024 13:30-0500 Body weight 201.85 kg Franklyn Cade DPM Work Phone: [facility] 04-12-2024 11:25-0400 Body height 169.5 cm Devora LOWRY Work Phone: [facility] 04-12-2024 11:25-0400 Body mass index (BMI) [Ratio] 69.15 kg/m2 Devora Valdez 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 Work Phone: [facility] 04-12-2024 11:25-0400 Body weight 198.77 kg Devora Valdez 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 Work Phone: [facility] 08-21-2023 13:56-0500 Body mass index (BMI) [Ratio] 69.52 kg/m2 Robert Cardoza MD Work Phone: [facility] 08-21-2023 13:56-0500 Body weight 201.4 kg Robert Cardoza MD Work Phone: [facility] 08-21-2023 13:56-0500 Diastolic blood pressure 103 mm[Hg] Robert Cardoza MD Work Phone: [facility] 08-21-2023 13:56-0500 Heart rate 73 /min Robert Cardoza MD Work Phone: [facility] 08-21-2023 13:56-0500 SaO2% (BldA) [Mass fraction] 95 % Robert Cardoza MD Work Phone: [facility] 08-21-2023 13:56-0500 Systolic blood pressure 195 mm[Hg] Robert Cardoza MD Work Phone: [facility] 08-20-2023 15:07-0500 Diastolic blood pressure 70 mm[Hg] Shantel Long MD Work Phone: [facility] 08-20-2023 15:07-0500 Systolic blood pressure 138 mm[Hg] Shantel Long MD Work Phone: [facility] 08-20-2023 14:34-0500 Body height 172.7 cm Shantel Long MD Work Phone: [facility] 08-20-2023 14:34-0500 Body mass index (BMI) [Ratio] 67.51 kg/m2 Shantel Long MD Work Phone: [facility] 08-20-2023 14:34-0500 Body weight 201.4 kg Shantel Long MD Work Phone: [facility] 08-20-2023 14:34-0500 Heart rate 82 /min Shantel Long MD Work Phone: [facility] 06-19-2023 08:45-0500 Body height 170.18 cm Tondra Mapus Other [facility] 06-19-2023 08:45-0500 Body mass index (BMI) [Ratio] 68.33 kg/m2 Tondra Mapus Other [facility] Other 06-19-2023 08:45-0500 Body weight 197.91 kg Tondra Mapus Other [facility] Other 06-19-2023 08:45-0500 Body weight 197.9 kg MD Robert Lucas Work Phone: [facility] 06-19-2023 08:45-0500 Diastolic blood pressure 87 mm[Hg] Tondra Mapus Other [facility] 06-19-2023 08:45-0500 Respiratory rate 18 /min Tondra Mapus Other [facility] Other 06-19-2023 08:45-0500 SaO2% (BldA) [Mass fraction] 95 % Tondra Mapus Other [facility] Other 06-19-2023 08:45-0500 Systolic blood pressure 137 mm[Hg] Tondra Mapus Other [facility] 05-01-2023 11:30-0400 Body height 170.18 cm Cristine Katie Other [facility] Other 05-01-2023 11:30-0400 Body mass index (BMI) [Ratio] 69.53 kg/m2 Cristine Katie Other [facility] Other 05-01-2023 11:30-0400 Body temperature 98.6 [degF] Cristine Katie Other [facility] Other 05-01-2023 11:30-0400 Body weight 201.4 kg Cristine Katie Other [facility] Other 05-01-2023 11:30-0400 Diastolic blood pressure 80 mm[Hg] Cristine Katie Other [facility] Other 05-01-2023 11:30-0400 Respiratory rate 20 /min Cristine Katie Other [facility] Other 05-01-2023 11:30-0400 SaO2% (BldA) [Mass fraction] 95 % Cristine Katie Other [facility] Other 05-01-2023 11:30-0400 Systolic blood pressure 155 mm[Hg] Cristine Katie Other [facility] Other 03-17-2023 11:15-0400 Body height 170.18 cm Tondra Mapus Other [facility] Other 03-17-2023 11:15-0400 Body mass index (BMI) [Ratio] 68.5 kg/m2 Tondra Mapus Other [facility] Other 03-17-2023 11:15-0400 Body weight 198.4 kg Tondra Mapus Other [facility] Other 03-17-2023 11:15-0400 Diastolic blood pressure 79 mm[Hg] Tondra Mapus Other [facility] Other 03-17-2023 11:15-0400 Respiratory rate 18 /min Tondra Mapus Other [facility] Other 03-17-2023 11:15-0400 SaO2% (BldA) [Mass fraction] 93 % Tondra Mapus Other [facility] Other 03-17-2023 11:15-0400 Systolic blood pressure 152 mm[Hg] Tondra Mapus Other [facility] Other 09-05-2022 08:15-0500 Body height 170.18 cm Tondra Mapus Other [facility] Other 09-05-2022 08:15-0500 Body mass index (BMI) [Ratio] 72.9 kg/m2 Tondra Mapus Other [facility] Other 09-05-2022 08:15-0500 Body weight 211.15 kg Tondra Mapus Other [facility] Other 09-05-2022 08:15-0500 Diastolic blood pressure 82 mm[Hg] Tondra Mapus Other [facility] Other 09-05-2022 08:15-0500 Respiratory rate 18 /min Tondra Mapus Other [facility] Other 09-05-2022 08:15-0500 SaO2% (BldA) [Mass fraction] 95 % Tondra Mapus Other [facility] Other 09-05-2022 08:15-0500 Systolic blood pressure 148 mm[Hg] Tondra Mapus Other [facility] Other 06-03-2022 09:45-0500 Body height 170.18 cm Tondra Mapus Other [facility] Other 06-03-2022 09:45-0500 Body mass index (BMI) [Ratio] 73.13 kg/m2 Tondra Mapus Other [facility] Other 06-03-2022 09:45-0500 Body weight 211.83 kg Tondra Mapus Other [facility] Other 06-03-2022 09:45-0500 Diastolic blood pressure 80 mm[Hg] Tondra Mapus Other [facility] Other 06-03-2022 09:45-0500 Respiratory rate 22 /min Tondra Mapus Other [facility] Other 06-03-2022 09:45-0500 SaO2% (BldA) [Mass fraction] 93 % Tondra Mapus Other [facility] Other 06-03-2022 09:45-0500 Systolic blood pressure 146 mm[Hg] Tondra Mapus Other [facility] Other 05-02-2022 12:30-0400 Body height 170.18 cm Cristine Katie Other [facility] Other 05-02-2022 12:30-0400 Body mass index (BMI) [Ratio] 72.19 kg/m2 Cristine Katie Other [facility] Other 05-02-2022 12:30-0400 Body temperature 98.6 [degF] Cristine Katie Other [facility] Other 05-02-2022 12:30-0400 Body weight 209.11 kg Cristine Katie Other [facility] Other 05-02-2022 12:30-0400 Diastolic blood pressure 91 mm[Hg] Cristine Katie Other [facility] Other 05-02-2022 12:30-0400 Respiratory rate 20 /min Cristine Katie Other [facility] Other 05-02-2022 12:30-0400 SaO2% (BldA) [Mass fraction] 93 % Cristine Katie Other [facility] Other 05-02-2022 12:30-0400 Systolic blood pressure 150 mm[Hg] Cristine Katie Other [facility] Other 04-23-2022 13:24-0400 Diastolic blood pressure 82 mm[Hg] Robert Lucas Work Phone: [facility] [employer] DO Work Phone: 04-23-2022 13:24-0400 Systolic blood pressure 132 mm[Hg] Robert Lucas Work Phone: [employer] [employer] 250 DO Work Phone: 04-23-2022 13:04-0400 Body height 172.72 cm Robert Lucas Work Phone: [facility] [employer] 250 DO Work Phone: 04-23-2022 13:04-0400 Body mass index (BMI) [Ratio] 70.1 kg/m2 Robert Lucas Work Phone: [facility] [employer] 250 DO Work Phone: 04-23-2022 13:04-0400 Body surface area Derived from formula 2.91 m2 Robert Lucas Work Phone: [facility] [employer] 250 DO Work Phone: 04-23-2022 13:04-0400 Body weight 209.11 kg Robert Lucas Work Phone: [facility] [employer] 250 DO Work Phone: 04-23-2022 13:04-0400 Diastolic blood pressure 62 mm[Hg] Robert Lucas Work Phone: [facility] [employer] 250 DO Work Phone: 04-23-2022 13:04-0400 Heart rate 92 /min Robert Lucas Work Phone: [facility] [employer] 250 DO Work Phone: 04-23-2022 13:04-0400 Systolic blood pressure 140 mm[Hg] Robert Lucas Work Phone: [facility] [employer] 250 DO Work Phone: 02-25-2022 09:45-0400 Body height 170.18 cm Tondra Mapus Other [facility] Other 02-25-2022 09:45-0400 Body mass index (BMI) [Ratio] 72.19 kg/m2 Tondra Mapus Other [facility] Other 02-25-2022 09:45-0400 Body weight 209.11 kg Tondra Mapus Other [facility] Other 02-25-2022 09:45-0400 Diastolic blood pressure 82 mm[Hg] Tondra Mapus Other [facility] Other 02-25-2022 09:45-0400 Respiratory rate 20 /min Tondra Mapus Other [facility] Other 02-25-2022 09:45-0400 SaO2% (BldA) [Mass fraction] 94 % Tondra Mapus Other [facility] Other 02-25-2022 09:45-0400 Systolic blood pressure 144 mm[Hg] Tondra Mapus Other [facility] Other 11-14-2021 10:45-0400 Body height 170.18 cm Tondra Mapus Other [facility] Other 11-14-2021 10:45-0400 Body mass index (BMI) [Ratio] 71.57 kg/m2 Tondra Mapus Other [facility] Other 11-14-2021 10:45-0400 Body weight 207.3 kg Tondra Mapus Other [facility] Other 11-14-2021 10:45-0400 Diastolic blood pressure 81 mm[Hg] Tondra Mapus Other [facility] Other 11-14-2021 10:45-0400 Respiratory rate 20 /min Tondra Mapus Other [facility] Other 11-14-2021 10:45-0400 SaO2% (BldA) [Mass fraction] 94 % Tondra Berumenus Other [facility] Other 11-14-2021 10:45-0400 Systolic blood pressure 140 mm[Hg] Ashkana Jamaicaus Other [facility] Other 10-26-2021 12:30-0400 Body height 170.18 cm Cristine Katie Other [facility] Other 10-26-2021 12:30-0400 Body mass index (BMI) [Ratio] 70.79 kg/m2 Cristine Katie Other [facility] Other 10-26-2021 12:30-0400 Body temperature 98.4 [degF] Cristine Katie Other [facility] Other 10-26-2021 12:30-0400 Body weight 205.03 kg Cristine Katie Other [facility] Other 10-26-2021 12:30-0400 Diastolic blood pressure 86 mm[Hg] Cristine Katie Other [facility] Other 10-26-2021 12:30-0400 Respiratory rate 20 /min Cristine Katie Other [facility] Other 10-26-2021 12:30-0400 SaO2% (BldA) [Mass fraction] 95 % Cristine Katie Other [facility] Other 10-26-2021 12:30-0400 Systolic blood pressure 148 mm[Hg] Cristine Katie Other [facility] Other 08-09-2021 10:45-0500 Body height 170.18 cm Tondra Mapus Other [facility] Other 08-09-2021 10:45-0500 Body mass index (BMI) [Ratio] 72.04 kg/m2 Tondra Mapus Other [facility] Other 08-09-2021 10:45-0500 Body weight 208.66 kg Tondra Mapus Other [facility] Other 08-09-2021 10:45-0500 Diastolic blood pressure 74 mm[Hg] Tondra Mapus Other [facility] Other 08-09-2021 10:45-0500 Respiratory rate 20 /min Tondra Mapus Other [facility] Other 08-09-2021 10:45-0500 SaO2% (BldA) [Mass fraction] 93 % Tondra Mapus Other [facility] Other 08-09-2021 10:45-0500 Systolic blood pressure 147 mm[Hg] Tondra Mapus Other [facility] Other 07-19-2021 13:34-0500 Diastolic blood pressure 79 mm[Hg] Robert Lucas Work Phone: [facility] [employer] 250 DO Work Phone: 07-19-2021 13:34-0500 Systolic blood pressure 136 mm[Hg] Robert Lucas Work Phone: [facility] [employer] DO Work Phone: 07-19-2021 13:21-0500 Body height 172.72 cm Robert Lucas Work Phone: [facility] [employer] 250 DO Work Phone: 07-19-2021 13:21-0500 Body mass index (BMI) [Ratio] 69.94 kg/m2 Robert Lucas Work Phone: [facility] [employer] 250 DO Work Phone: 07-19-2021 13:21-0500 Body surface area Derived from formula 2.91 m2 Robert Lucas Work Phone: [facility] [employer] 250 DO Work Phone: 07-19-2021 13:21-0500 Body weight 208.66 kg Robert Lucas Work Phone: [facility] [employer] 250 DO Work Phone: 07-19-2021 13:21-0500 Diastolic blood pressure 80 mm[Hg] Robert Lucas Work Phone: [facility] [employer] 250 DO Work Phone: 07-19-2021 13:21-0500 Heart rate 62 /min Robert Lucas Work Phone: [facility] [employer] 250 DO Work Phone: 07-19-2021 13:21-0500 Systolic blood pressure 140 mm[Hg] Robert Lucas Work Phone: [facility] [employer] 250 DO Work Phone: 04-17-2021 12:30-0400 Body height 170.18 cm Cristine Katie Other [facility] Other 04-17-2021 12:30-0400 Body mass index (BMI) [Ratio] 72.35 kg/m2 Cristine Katie Other [facility] Other 04-17-2021 12:30-0400 Body temperature 98.8 [degF] Cristine Katie Other [facility] Other 04-17-2021 12:30-0400 Body weight 209.56 kg Cristine Katie Other [facility] Other 04-17-2021 12:30-0400 Diastolic blood pressure 91 mm[Hg] Cristine Katie Other [facility] Other 04-17-2021 12:30-0400 Respiratory rate 20 /min Cristine Katie Other [facility] Other 04-17-2021 12:30-0400 SaO2% (BldA) [Mass fraction] 91 % Cristine Katie Other [facility] Other 04-17-2021 12:30-0400 Systolic blood pressure 157 mm[Hg] Cristine Katie Other [facility] Other 04-03-2021 10:30-0400 Body height 170.18 cm Alicia Fitt Other [facility] Other 04-03-2021 10:30-0400 Body mass index (BMI) [Ratio] 72.43 kg/m2 Alicia Fitt Other [facility] Other 04-03-2021 10:30-0400 Body weight 209.79 kg Alicia Fitt Other [facility] Other Encounters Encounter Date Encounter Type Care Provider Facility Start: 05-25-2024 End: 05-25-2024 ambulatory Shaun Kory Facility:[facility] Start: 05-18-2024 End: 05-18-[address] [facility] Start: 05-18-2024 End: 05-18-2024 Follow-up encounter [facility] Medication Therapy Management Comment on above: History of pulmonary embolus (PE) (Primary Dx) Start: 05-18-2024 End: 05-18-2024 ambulatory [facility] Facility:[facility] Start: 05-13-2024 End: 05-13-2024 Bamboo flowsheet Franklyn Cade DPM Work Phone: [facility] Start: 05-13-2024 End: 05-13-2024 Bamboo flowsheet Franklyn Cade DPM Work Phone: [facility] Start: 05-13-2024 End: 05-13-2024 Patient encounter procedure Franklyn Cade DPM Work Phone: [facility] Comment on above: Dermatophytosis of n ail (Primary Dx); Dystrophic nail; Diabetic peripheral vascular disorder ([facility]); Type II or unspecified type diabetes mellitus with neurological manifestations, not stated as uncontrolled(250.60) ([facility]) Start: 05-13-2024 End: 05-13-2024 ambulatory FRANKLYN CADE Not Available Start: 05-13-2024 End: 05-13-2024 ambulatory [facility] Facility:[facility] Start: 05-07-2024 End: 05-07-2024 Emergency department patient visit Diallo Cox Facility:[facility] Start: 05-07-2024 End: 05-07-2024 Refill Claus R Dolce DPM FACFAS Work Phone: [facility] Comment on above: Cellulitis and absce ss of right lower extremity Start: 05-06-2024 End: 05-06-2024 Refill Claus R Dolce DPM FACFAS Work Phone: [facility] Comment on above: Cellulitis of left l ower leg (Primary Dx) Start: 05-05-2024 End: 05-05-[address] [facility] Start: 05-05-2024 End: 05-05-2024 [facility] Medication Therapy Management Comment on above: History of pulmonary embolus (PE) (Primary Dx) Start: 05-04-2024 End: 05-04-2024 ambulatory Claus R Jagdishce Facility:[facility] Start: 05-03-2024 End: 05-03-2024 ambulatory Claus R Dolce Facility:[facility] Start: 04-30-2024 End: 04-30-2024 Emergency department patient visit Shakir Aldrich Facility:[facility] Start: 04-30-2024 ambulatory Claus R Elysia Facility :[facility] Start: 04-23-2024 End: 04-23-2024 Refill Claus Naidu DPM FACFAS Work Phone: [facility] Comment on above: 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 Work Phone: [facility] Comment on above: Encounter for screen ing colonoscopy (Primary Dx) Start: 04-12-2024 End: 04-12-2024 ambulatory [facility] Steven [facility] Start: 04-09-2024 End: 04-09-2024 ambulatory Claus Prabhu Naidu Facility:[facility] Start: 04-02-2024 End: 04-02-2024 Telephone encounter Claus Naidu DPM FACFAS Work Phone: [facility] Start: 04-02-2024 End: 04-02-2024 ambulatory Claus R Elysia Facility:[facility] Start: 03-25-2024 End: 03-25-[address] [facility] Start: 03-19-2024 End: 03-19-2024 ambulatory Claus R Dolce Facility:[facility] Start: 03-12-2024 End: 03-12-2024 ambulatory Claus R Dolce Facility:[facility] Start: 03-11-2024 End: 03-11-[address] [facility] Start: 03-05-2024 End: 03-05-2024 ambulatory Claus R Dolce Facility:[facility] Start: 03-02-2024 End: 03-02-2024 ambulatory Claus R Dolce Facility:[facility] Start: 02-27-2024 End: 02-27-2024 ambulatory Claus R Dolce Facility:[facility] Start: 02-23-2024 End: 02-23-2024 ambulatory Claus R Dolce Facility:[facility] Start: 02-19-2024 End: 02-19-2024 ambulatory [facility] Facility:[facility] Start: 02-19-2024 End: 02-19-2024 ambulatory Alonzo Bond Facility:[facility] Start: 02-16-2024 End: 02-16-2024 ambulatory Claus R Dolce Facility:[facility] Start: 02-12-2024 End: 02-12-2024 [facility] Start: 02-12-2024 End: 02-12-[address] [facility] Start: 02-09-2024 End: 02-09-2024 ambulatory Claus R Dolce Facility:[facility] Start: 02-06-2024 End: 02-06-2024 ambulatory Claus R Dolce Facility:[facility] Start: 02-02-2024 End: 02-02-2024 ambulatory Claus R Dolce Facility:[facility] Start: 01-30-2024 End: 01-30-2024 ambulatory Claus R Dolce Facility:[facility] Start: 01-29-2024 End: 01-29-2024 ambulatory FRANKLYN CADE Not Available Start: 01-26-2024 End: 01-26-2024 ambulatory Claus R Dolce Facility:[facility] Start: 01-23-2024 End: 01-23-2024 ambulatory Claus R Dolce Facility:[facility] Start: 01-22-2024 End: 01-22-[address] [facility] Start: 01-19-2024 End: 01-19-2024 ambulatory Claus R Dolce Facility:[facility] Start: 01-18-2024 End: 01-18-2024 ambulatory Claus R Dolce Facility:[facility] Start: 01-16-2024 End: 01-16-2024 ambulatory Claus R Dolce Facility:[facility] Start: 01-09-2024 End: 01-09-2024 ambulatory Claus R Dolce Facility:[facility] Start: 01-05-2024 End: 01-05-2024 ambulatory Claus R Dolce Facility:[facility] Start: 12-30-2023 End: 12-30-[address] [facility] Start: 12-29-2023 End: 12-29-2023 ambulatory Claus R Dolce Facility:[facility] Start: 12-26-2023 End: 12-26-2023 ambulatory Claus R Dolce Facility:[facility] Start: 12-24-2023 End: 12-24-[address] [facility] Start: 12-19-2023 End: 12-19-2023 Emergency department patient visit Brice K Coby Facility:[facility] Start: 12-19-2023 End: 12-19-2023 ambulatory Claus R Dolce Facility:[facility] Start: 12-16-2023 End: 12-16-[address] [facility] Start: 12-15-2023 End: 12-15-2023 ambulatory Claus R Dolce Facility:[facility] Start: 12-12-2023 End: 12-12-2023 ambulatory Claus R Dolce Facility:[facility] Start: 12-12-2023 End: 12-29-[address] [facility] Start: 12-05-2023 End: 12-05-2023 ambulatory Claus R Dolce Facility:[facility] Start: 11-28-2023 End: 11-28-2023 ambulatory ROBERT Brothers KEYONNA Facility:[facility] Start: 11-21-2023 End: 11-21-[address] [facility] Start: 11-21-2023 End: 11-21-2023 ambulatory Claus R Dolce Facility:[facility] Start: 11-20-2023 End: 11-20-[address] [facility] Start: 11-14-2023 End: 11-14-2023 ambulatory Claus R Dolce Facility:[facility] Start: 11-12-2023 End: 11-12-[address] [facility] Start: 11-08-2023 End: 11-10-2023 Evaluation and management of inpatient LAURA ALVAREZ [facility] Start: 11-07-2023 End: 11-08-2023 Emergency department patient visit Diallo [place] Facility:[facility] Start: 11-07-2023 End: 11-07-2023 ambulatory Claus R Dolce Facility:[facility] Start: 11-06-2023 End: 11-06-[address] [facility] Start: 11-05-2023 End: 11-05-[address] [facility] Start: 10-31-2023 End: 10-31-2023 ambulatory Claus R Dolce Facility:[facility] Start: 10-24-2023 End: 10-24-2023 ambulatory Claus R Dolce Facility:[facility] Start: 10-23-2023 End: 10-23-2023 ambulatory FRANKLYN CADE Not Available Start: 10-22-2023 End: 10-22-[address] [facility] Start: 10-17-2023 End: 10-17-2023 ambulatory Claus R Dolce Facility:[facility] Start: 10-15-2023 End: 10-15-[address] [facility] Start: 10-13-2023 End: 10-13-[address] [facility] Start: 10-10-2023 End: 10-10-2023 ambulatory Claus R Dolce Facility:[facility] Start: 10-09-2023 End: 10-09-[address] [facility] Start: 10-02-2023 End: 10-02-2023 ambulatory PA Nita Mendez Facility:[facility] Start: 09-25-2023 End: 09-25-2023 ambulatory PA Nita Mendez Facility:[facility] Start: 09-19-2023 End: 09-19-[address] [facility] Start: 09-18-2023 End: 09-18-2023 ambulatory ALMA ROSA Mendez Facility:[facility] Start: 09-15-2023 End: 09-15-2023 ambulatory Hend E Elsaghir Facility:[facility] Start: 09-12-2023 End: 09-12-2023 ambulatory Claus R Dolce Facility:[facility] Start: 09-11-2023 End: 09-11-2023 Follow-up encounter [facility] 1 [facility] Medication Therapy Management Comment on above: History of DVT (deep vein thrombosis) (Primary Dx) Start: 09-11-2023 End: 09-11-[address] [facility] Start: 09-08-2023 End: 09-08-2023 ambulatory Hend E Elsaghir Facility:[facility] Start: 09-05-2023 End: 09-05-2023 ambulatory Claus R Dolce Facility:[facility] Start: 09-01-2023 End: 09-01-2023 ambulatory Hend E Elsaghir Facility:[facility] Start: 08-28-2023 End: 08-28-2023 Follow-up encounter [facility] 1 [facility] Medication Therapy Management Comment on above: History of DVT (deep vein thrombosis) (Primary Dx) Start: 08-28-2023 End: 08-28-2023 ambulatory [facility] Start: 08-25-2023 End: 08-25-2023 ambulatory Claus Naidu Facility:[facility] Start: 08-25-2023 End: 08-25-2023 [facility] Start: 08-21-2023 End: 08-21-2023 Office outpatient visit 25 minutes Robert Cardoza MD Work Phone: [facility] Comment on above: CKD (chronic kidney disease), stage II (Primary Dx) Start: 08-21-2023 End: 08-21-2023 [facility] Start: 08-21-2023 End: 08-21-2023 Follow-up encounter [facility] 1 [facility] Medication Therapy Management Comment on above: History of DVT (deep vein thrombosis) (Primary Dx) Start: 08-20-2023 End: 08-20-2023 [facility] Ambulatory Start: 08-20-2023 End: 08-20-2023 Office outpatient visit 25 minutes Shantel Long MD Work Phone: [facility] Comment on above: Chronic right-sided heart failure (CMS/HCC) (Primary Dx); Primary hypertension; Mixed hyperlipidemia; Pulmonary embolism, unspecified chronicity, unspecified pulmonary embolism type, unspecified whether acute cor pulmonale present (CMS/HCC); Shortness of breath; Morbid obesity (CMS/HCC) Start: 08-19-2023 End: 08-19-2023 ambulatory ROBERT NEWBY Facility:[facility] Start: 08-18-2023 End: 08-19-2023 ambulatory [facility] Start: 08-18-2023 End: 08-18-2023 ambulatory CATHLEEN [facility] Start: 08-14-2023 End: 08-14-[address] [facility] Start: 08-13-2023 Telephone encounter Ritika KENDRICK [facility] Comment on above: Stage 2 chronic kidn ey disease (Primary Dx) Start: 08-12-2023 End: 08-12-[address] [facility] Start: 08-12-2023 End: 08-12-2023 Follow-up encounter [facility] 1 [facility] Medication Therapy Management Comment on above: History of DVT (deep vein thrombosis) (Primary Dx) Start: 08-11-2023 End: 08-11-2023 ambulatory Claus R Dolce Facility:[facility] Start: 08-05-2023 End: 08-05-2023 ambulatory ROBERT [facility] Start: 08-05-2023 End: 08-05-2023 Follow-up encounter [facility] 1 [facility] Medication Therapy Management Comment on above: History of DVT (deep vein thrombosis) (Primary Dx) Start: 08-04-2023 End: 08-04-2023 ambulatory Claus R Dolce Facility:[facility] Start: 07-28-2023 Follow-up encounter Brandi mitchell [facility] Work Phone: [facility] Medication Therapy Management Start: 07-28-2023 End: 07-28-2023 ambulatory ROBERT [facility] Start: 07-21-2023 Follow-up encounter Brandi mitchell [facility] Work Phone: [facility] Medication Therapy Management Start: 07-21-2023 End: 07-21-2023 [facility] Start: 07-21-2023 End: 07-21-[address] [facility] Start: 07-17-2023 Telephone encounter Selvin hopkins [facility] Start: 07-17-2023 End: 12-15-2023 ambulatory Claus R Dolce [facility] [employer] Other Start: 07-16-2023 End: 07-16-2023 ambulatory NARAYAN BANDA [facility] Start: 07-14-2023 End: 07-14-2023 ambulatory Claus R Elysia Facility:[facility] Start: 07-14-2023 Follow-up encounter Zoie Lisa cassidy [facility] Work Phone: [facility] Medication Therapy Management Start: 07-14-2023 End: 07-14-[address] [facility] Start: 07-08-2023 End: 07-08-2023 ambulatory FRANKLYN Steven CADE Not Available Start: 07-08-2023 Follow-up encounter Edy Jaguar ramirez [facility] Work Phone: [facility] Medication Therapy Management Start: 07-07-2023 End: 07-08-2023 ambulatory [facility] Start: 07-07-2023 End: 07-07-2023 ambulatory [facility] Start: 07-07-2023 End: 07-07-2023 ambulatory Claus Prabhu Naidu Facility:[facility] Start: 07-02-2023 Follow-up encounter Katarina sutton [facility] Work Phone: [facility] Medication Therapy Management Start: 07-02-2023 End: 07-02-2023 ambulatory ROBERT NEWBY Facility:[facility] Start: 07-01-2023 End: 07-02-2023 ambulatory [facility] Start: 07-01-2023 Telephone encounter [facility] Start: 07-01-2023 End: 07-01-2023 ambulatory ROBERT NEWBY Facility:[facility] Start: 06-27-2023 End: 06-28-2023 ambulatory [facility] Start: 06-24-2023 End: 06-24-2023 ambulatory ROBERT NEWBY Facility:[facility] Start: 06-20-2023 End: 06-20-[address] [facility] Start: 06-19-2023 (DM) Diabetes Tondra Mapus [facility] Start: 06-19-2023 End: 06-20-2023 ambulatory MD Robert Lucas Work Phone: [facility] Other Start: 06-19-2023 End: 06-19-2023 Discharged Recurring MD Robert Lucas [facility] Work Phone: Start: 06-19-2023 End: 06-19-2023 Patient encounter procedure MD Robert Lucas Work Phone: [facility] Work Phone: Start: 06-17-2023 End: 06-17-2023 ambulatory ROBERT NEWBY Facility:[facility] Start: 06-16-2023 End: 06-16-2023 ambulatory Tondra Mapus Other [facility] Other Start: 06-16-2023 Telephone encounter Tondra Mapus [facility] Start: 06-10-2023 End: 06-30-[address] [facility] Start: 06-06-2023 End: 06-06-[address] [facility] Facility:[facility] Start: 06-04-2023 End: 06-04-2023 ambulatory ALMA ROSA Mendez Facility:[facility] Start: 05-30-2023 End: 05-30-[address] [facility] Facility:[facility] Start: 05-21-2023 End: 05-21-2023 ambulatory Tondra Mapus Other [facility] Other Start: 05-21-2023 Telephone encounter Tondra Mapus [facility] Start: 05-06-2023 End: 05-06-2023 ambulatory Tondra Mapus Other [facility] Other Start: 05-06-2023 Telephone encounter Tondra Mapus [facility] Start: 05-01-2023 End: 05-01-2023 ambulatory Cristine Katie Other [facility] Other Start: 05-01-2023 Office outpatient vi sit 25 minutes Cristine Katie [facility] Start: 03-17-2023 (DM) Diabetes Tondra Mapus [facility] Start: 03-17-2023 End: 03-17-2023 ambulatory Tondra Mapus Other [facility] Other Start: 03-17-2023 Telephone encounter Tondra Mapus [facility] Start: 02-07-2023 End: 02-07-2023 ambulatory Tondra Mapus Other [facility] Other Start: 02-07-2023 Telephone encounter Tondra Mapus Ma[facility] Start: 01-23-2023 ambulatory [facility] Start: 01-20-2023 End: 01-21-2023 ambulatory [facility] Start: 01-16-2023 End: 01-17-2023 ambulatory [facility] Start: 01-13-2023 End: 01-14-2023 ambulatory [facility] Start: 01-13-2023 End: 01-13-2023 Subsequent hospital visit by physician Robert Lucas MD Work Phone: [facility] Start: 01-09-2023 End: 01-09-2023 ambulatory [facility] Start: 01-06-2023 End: 01-07-2023 [facility] Start: 09-05-2022 (DM) Diabetes Tondra Mapus [facility] Start: 09-05-2022 End: 09-05-2022 ambulatory Tondra Mapus Other [facility] Other Start: 09-02-2022 End: 09-02-2022 ambulatory Tondra Mapus Other [facility] Other Start: 09-02-2022 Telephone encounter Tondra Mapus [facility] Start: 08-14-2022 End: 08-14-2022 ambulatory Tondra Mapus Other [facility] Other Start: 08-14-2022 Telephone encounter Tondra Mapus [facility] Start: 08-13-2022 End: 08-13-2022 ambulatory Tondra Mapus Other [facility] Other Start: 08-13-2022 Telephone encounter Tondra Mapus [facility] Start: 08-12-2022 End: 08-12-2022 ambulatory Tondra Mapus Other [facility] Other Start: 08-12-2022 Telephone encounter Tondra Mapus [facility] Start: 08-07-2022 End: 08-07-2022 ambulatory Cristine Katie Other [facility] Other Start: 08-07-2022 Telephone encounter Cristine Katie [facility] Start: 07-09-2022 End: 07-09-2022 ambulatory Cristine Katie Other [facility] Other Start: 07-09-2022 Telephone encounter Cristine Katie [facility] Start: 06-03-2022 (DM) Diabetes Tondra Mapus [facility] Start: 06-03-2022 End: 06-03-2022 ambulatory Tondra Mapus Other [facility] Other Start: 05-10-2022 End: 05-10-2022 ambulatory Tondra Mapus Other [facility] Other Start: 05-10-2022 Telephone encounter Tondra Mapus [facility] Start: 05-09-2022 End: 05-09-2022 ambulatory Tondra Mapus Other [facility] Other Start: 05-09-2022 Telephone encounter Tondra Mapus [facility] Start: 05-02-2022 End: 05-02-2022 ambulatory Cristine Katie Other [facility] Other Start: 05-02-2022 Office outpatient vi sit 25 minutes Cristine Katie [facility] Start: 04-23-2022 Office outpatient vi sit 25 minutes Robert Lucas Work Phone: [facility] DO Work Phone: Start: 04-23-2022 ambulatory Robert Lucas Facility: Start: 02-25-2022 (DM) Diabetes Tondra Mapus [facility] Start: 02-25-2022 End: 02-25-2022 ambulatory Tondra Mapus Other [facility] Other Start: 02-14-2022 End: 02-14-2022 ambulatory Tondra Mapus Other [facility] Other Start: 02-14-2022 Telephone encounter Tondra Mapus [facility] Start: 12-11-2021 End: 12-11-2021 ambulatory Tondra Mapus Other [facility] Other Start: 12-11-2021 Telephone encounter Tondra Mapus [facility] Start: 11-14-2021 (DM) Diabetes Tondra Mapus [facility] Start: 11-14-2021 End: 11-14-2021 ambulatory Tondra Mapus Other [facility] Other Start: 11-14-2021 Telephone encounter Tondra Mapus [facility] Start: 10-26-2021 End: 10-26-2021 ambulatory Cristine Katie Other [facility] Other Start: 10-26-2021 Office outpatient vi sit 25 minutes Cristine Katie [facility] Start: 08-09-2021 (DM) Diabetes Tondra Mapus [facility] Start: 08-09-2021 End: 08-09-2021 ambulatory Tondra Mapus Other [facility] Other Start: 07-19-2021 Office outpatient vi sit 25 minutes Robert Prabhu [employer] Work Phone: [facility] 250 DO Work Phone: Start: 07-19-[address] Shantel Long Facility: Start: 07-12-2021 End: 07-12-2021 ambulatory Tondra Mapus Other [facility] Other Start: 07-12-2021 Telephone encounter Tondra Mapus [facility] Start: 06-20-2021 End: 06-20-2021 ambulatory Tondra Mapus Other [facility] Other Start: 06-20-2021 Telephone encounter Tondra Mapus [facility] Start: 05-21-2021 End: 05-21-2021 ambulatory Selvin Mackay Jr. Other [facility] Other Start: 05-21-2021 Telephone encounter Selvin [facility] Start: 05-14-2021 End: 05-14-2021 ambulatory Alicia Olsont Other [facility] Other Start: 05-14-2021 Telephone encounter Alicia Lassiter [facility] Start: 05-07-2021 End: 05-07-2021 ambulatory Tiffanie Rivera Other [facility] Other Start: 05-07-2021 Telephone encounter Tiffanie Rivera [facility] Start: 04-17-2021 Office outpatient vi sit 25 minutes Cristine Katie [facility] Start: 04-03-2021 ([facility] RD FU) [facility] F/ U [employer]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 Start: 08-26-2018 End: 08-27-2018 Patient encounter procedure DEFAULT PHYSICIAN Facility:[facility] Procedures Date Procedure Procedure Detail Performing Clinician Start: 05-18-2024 Prothrombin time [employer] Work Phone: Start: 05-05-2024 Prothrombin time [employer] Work Phone: Start: 04-22-2024 Prothrombin time [employer] Work Phone: Start: 09-19-2023 Follow-up visit Follow-up COURTNEY STOVALL Start: 09-11-2023 Prothrombin time [employer] Service Work Phone: Start: 08-28-2023 Prothrombin time [employer] Work Phone: Start: 08-21-2023 Prothrombin time [employer] Work Phone: Start: 08-12-2023 Prothrombin time [employer] Work Phone: Start: 08-05-2023 Prothrombin time [employer] Work Phone: Start: 06-13-2023 Microalbumin [Mass/v olume] in Urine by Test strip Luisa Su MA Start: 03-07-2023 Adult depression scr eening assessment Luisa Su MA Start: 01-13-2023 Basic metabolic pane l calcium total Lewmanuel Christian MD Work Phone: Start: 06-27-2020 Echocardiography Total colonoscopy Robert nielsen Work Phone: Plan of Treatment Date Care Activity Detail Author Start: 2025 Pneumococcal Vaccine: Pediatrics (0 to 5 Years) and At-Risk Patients (6 to 64 Years) (3 - PPSV23 or PCV20) Pneumococcal Vaccine: Pediatrics (0 to 5 Years) and At-Risk Patients (6 to 64 Years) (3 - PPSV23 or PCV20) [facility] Start: 04-12-2025 Adult BMI Screening Adult BMI Screening [facility] Start: 04-12-2025 Tobacco Screening Tobacco Screening [facility] Start: 08-26-2024 End: 08-26-2024 Patient encounter procedure 08/26/2024 1:00 PM EST Procedure Visit [facility] [address] [place] [address] Franklyn Cade DPM [address] [place] [address] [facility] Start: 08-21-2024 Adult BMI Screening Adult BMI Screening [facility] Start: 08-14-2024 End: 08-14-2024 Basic metabolic 2000 panel - Serum or Plasma Basic Metabolic Panel Lab Routine CKD (chronic kidney disease), stage II Expected: 08/14/2024 (Approximate), Expires: 08/14/2024 [facility] Work Phone: Comment on above: Expected: 08/14/2024 (Approximate), Expi res: 08/14/2024 Start: 08-14-2024 End: 08-14-2024 CBC panel - Blood by Automated count CBC without diff Lab Routine CKD (chronic kidney disease), stage II Expected: 08/14/2024 (Approximate), Expires: 08/14/2024 [facility] Comment on above: Expected: 08/14/2024 (Approximate), Expi res: 08/14/2024 Start: 08-14-2024 End: 08-14-2024 Magnesium [Mass/volume] in Serum or Plasma Magnesium Lab Routine CKD (chronic kidney disease), stage II Expected: 08/14/2024 (Approximate), Expires: 08/14/2024 [facility] Comment on above: Expected: 08/14/2024 (Approximate), Expi res: 08/14/2024 Start: 08-14-2024 End: 08-14-2024 Parathyroid Hormone, intact Parathyroid Hormone, intact Lab Routine CKD (chronic kidney disease), stage II Expected: 08/14/2024 (Approximate), Expires: 08/14/2024 [facility] Comment on above: Expected: 08/14/2024 (Approximate), Expi res: 08/14/2024 Start: 08-14-2024 End: 08-14-2024 Phosphate [Mass/volume] in Serum or Plasma Phosphorus Lab Routine CKD (chronic kidney disease), stage II Expected: 08/14/2024 (Approximate), Expires: 08/14/2024 [facility] Comment on above: Expected: 08/14/2024 (Approximate), Expi res: 08/14/2024 Start: 08-14-2024 End: 08-14-2024 Protein creat ratio Protein creat ratio Lab Routine CKD (chronic kidney disease), stage II Expected: 08/14/2024 (Approximate), Expires: 08/14/2024 [facility] Comment on above: Expected: 08/14/2024 (Approximate), Expi res: 08/14/2024 Start: 06-13-2024 Urine screening for protein [facility] Start: 06-04-2024 End: 06-04-2024 Follow-up encounter 06/04/2024 2:00 PM EST Follow Up Anticoagulation [facility] Medication Therapy Management [address] [place] [address] [facility] Med[facility] Therapy Management Start: 05-28-2024 Tobacco Screening Tobacco Screening [facility] Start: 05-20-2024 End: 05-20-2024 Patient encounter procedure 05/20/2024 2:00 PM EST Office Visit [facility] [address] [facility] [address] [place] [id number] Shantel Long MD [address] [facility] [address] [place] [address] [facility] Start: 05-14-2024 End: 05-14-2024 Follow-up encounter 05/14/2024 10:30 AM EST Follow Up Anticoagulation [facility] Medication Therapy Management [address] [place] [address] [facility] Medication Therapy Management Start: 05-13-2024 End: 05-13-2024 Patient encounter procedure 05/13/2024 1:30 PM EST [facility] [address] [place] [id number] Franklyn Cade DPM [address] [place] [address] [facility] Start: 05-05-2024 Adult BMI Screening Adult BMI Screening [facility] Start: 05-05-2024 End: 05-05-2024 Follow-up encounter 05/05/2024 10:30 AM EST Follow Up Anticoagulation [facility] Medication Therapy Management [address] [place] [address] [facility] Medication Therapy Management Start: 04-22-2024 End: 04-22-2024 Follow-up encounter 04/22/2024 10:30 AM EDT Follow Up Anticoagulation [facility] Medication Therapy Management [address] [place] [address] [facility] Medication Therapy Management Start: 03-07-2024 Depression Screening Depression Screening [facility] Start: 02-29-2024 Influenza vaccination Influenza Vaccine [facility] Start: 02-27-2024 Adult BMI Follow Up Plan Adult BMI Follow Up Plan [facility] Start: 01-10-2024 GFR test (Diabetes, CKD 3-4, OR last GFR 15-59) GFR test (Diabetes, CKD 3-4, OR last GFR 15-59) [facility] Start: 10-09-2023 End: 10-09-2023 Follow-up encounter 10/09/2023 2:00 PM EDT Follow Up Anticoagulation [facility] Medication Therapy Management [address] [place] [address] [facility] Medication Therapy Management Start: 09-27-2023 Echocardiography Echocardiogram [facility] Start: 09-11-2023 End: 09-11-2023 Follow-up encounter 09/11/2023 1:00 PM EDT Follow Up Anticoagulation [facility] Medication Therapy Management [address] [place] [address] [facility] Therapy Management Start: 08-28-2023 End: 08-28-2023 Follow-up encounter 08/28/2023 2:30 PM EST Follow Up Anticoagulation [facility] Medication Therapy Management [address] [facility] [address] [facility] Medication Therapy Management Start: 08-21-2023 End: 08-21-2023 Patient encounter procedure 08/21/2023 2:00 PM EST Office Visit [facility] [address] [place] [phone] Robert Cardoza MD [address] [place] [address] [facility] Start: 08-21-2023 End: 08-21-2023 Follow-up encounter 08/21/2023 1:30 PM EST Follow Up Anticoagulation [facility] Medication Therapy Management [address] [place] [address] [facility] Med[facility] Therapy Management Start: 08-20-2023 End: 08-13-2024 Basic metabolic 2000 panel - Serum or Plasma Basic Metabolic Panel Lab Routine Stage 2 chronic kidney disease Expected: 08/20/2023 (Approximate), Expires: 08/13/2024 [facility] Work Phone: Comment on above: Expected: 08/20/2023 (Approximate), Expi res: 08/13/2024 Start: 08-20-2023 End: 08-13-2024 CBC panel - Blood by Automated count CBC without diff Lab Routine Stage 2 chronic kidney disease Expected: 08/20/2023 (Approximate), Expires: 08/13/2024 [facility] Comment on above: Expected: 08/20/2023 (Approximate), Expi res: 08/13/2024 Start: 08-20-2023 End: 08-13-2024 Magnesium [Mass/volume] in Serum or Plasma Magnesium Lab Routine Stage 2 chronic kidney disease Expected: 08/20/2023 (Approximate), Expires: 08/13/2024 [facility] Comment on above: Expected: 08/20/2023 (Approximate), Expi res: 08/13/2024 Start: 08-20-2023 End: 08-13-2024 Parathyroid Hormone, intact Parathyroid Hormone, intact Lab Routine Stage 2 chronic kidney disease Expected: 08/20/2023 (Approximate), Expires: 08/13/2024 [facility] Comment on above: Expected: 08/20/2023 (Approximate), Expi res: 08/13/2024 Start: 08-20-2023 End: 08-13-2024 Phosphate [Mass/volume] in Serum or Plasma Phosphorus Lab Routine Stage 2 chronic kidney disease Expected: 08/20/2023 (Approximate), Expires: 08/13/2024 [facility] Comment on above: Expected: 08/20/2023 (Approximate), Expi res: 08/13/2024 Start: 08-20-2023 End: 08-13-2024 Protein creat ratio Protein creat ratio Lab Routine Stage 2 chronic kidney disease Expected: 08/20/2023 (Approximate), Expires: 08/13/2024 [facility] Comment on above: Expected: 08/20/2023 (Approximate), Expi res: 08/13/2024 Start: 08-12-2023 End: 08-12-2023 Follow-up encounter 08/12/2023 2:15 PM EST Follow Up Anticoagulation [facility] Medication Therapy Management [address] [place] [address] [facility] Medication Therapy Management Start: 08-04-2023 End: 08-04-2023 Patient encounter procedure 08/04/2023 1:40 PM EST Office Visit [facility] Infectious Disease [address] [facility] [address] [place] [address] Ruth Dorsey, [employer] BU[employer]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 [address] [facility] [address] [place] [address] [facility] Start: 02-28-2023 Influenza vaccination [facility] Start: 01-28-2023 Influenza vaccination Flu vaccine (#1) [facility] Start: 01-16-2023 Subsequent hospital visit by physician 01/16/2023 Hospital Encounter Lab [facility] Start: 01-14-2023 FUV, Provider: Shantel Long, Status: Pen, Time: 1:30 PM FUV, Provider: Shantel Long, Status: Pen, Time: 1:30 PM [facility] 250 DO Work Phone: Start: 01-06-2023 Annual Wellness Visit (AWV) Annual Wellness Visit (AWV) [facility] Start: 04-23-2022 FUV, Provider: Shantel Long, Status: Pen, Time: 1:00 PM FUV, Provider: Shantel Long, Status: Pen, Time: 1:00 PM [facility]: Start: 12-08-2017 Hemoglobin A1c measurement A1C test (Diabetic or Prediabetic) [facility] Start: 04-30-2017 Screening for malignant neoplasm of colon [facility] Start: 2010 Administration of varicella zoster vaccine Zoster (Shingles) Vaccine (1 of 2) [facility] Start: 2010 Shingles vaccine (1 of 2) Shingles vaccine (1 of 2) [facility] Start: 2010 Zoster Vaccines (1 of 2) Zoster Vaccines (1 of 2) [facility] Start: 2005 Screening for malignant neoplasm of colon [facility] Start: 1982 DTaP/Tdap/Td Vaccines (1 - Tdap) DTaP/Tdap/Td Vaccines (1 - Tdap) [facility] Start: 12-03-1979 DTaP,Tdap and Td Vaccines (1 - Tdap) DTaP,Tdap and Td Vaccines (1 - Tdap) [facility] Start: 12-03-1979 DTaP/Tdap/Td vaccine (1 - Tdap) DTaP/Tdap/Td vaccine (1 - Tdap) [facility] Start: 1978 Diabetic foot examination Diabetic Foot Exam [facility] Start: 1978 Glaucoma screening Diabetic retinal exam [facility] Start: 1978 Hepatitis C screening [facility] Start: 1978 Urine screening for protein Diabetic Alb to Cr ratio (uACR) test [facility] Start: 12-03-1975 HIV screening HIV screen [facility] Start: 1972 Depression Screen Depression Screen [facility] Start: 1970 Diabetic foot examination [facility] Start: 1970 Glaucoma screening Diabetes: Retinopathy Screening [facility] Start: 1970 Lipid panel Lipids [facility] Start: 1966 Pneumococcal 0-64 years Vaccine (1 - PCV) Pneumococcal 0-64 years Vaccine (1 - PCV) [facility] Start: 1961 MMR Vaccines (1 of 1 - Standard series) MMR Vaccines (1 of 1 - Standard series) [facility] Start: 06-03-1961 COVID-19 Vaccine (#1) COVID-19 Vaccine (#1) [facility] Start: 1960 Creatinine measurement Creatinine Level [facility] Start: 1960 Glaucoma screening Diabetic Ophthalmology Exam [facility] Start: 1960 Hemoglobin A1c measurement Diabetes: Hemoglobin A1C [facility] Start: 1960 HIV screening HIV Screening [facility] Start: 1960 Lipid panel Lipid Panel [facility] Start: 1960 Medicare Annual Wellness Visit Medicare Annual Wellness Visit (AWV) [facility] Start: 1960 Potassium measurement Potassium Level [facility] Start: 1960 Screening for malignant neoplasm of colon [facility] End: 08-14-2024 Urinalysis Urinalysis Lab Routine CKD (chronic kidney disease), stage II 1 Occurrences starting 08/21/2023 until 08/14/2024 [facility] Comment on above: 1 Occurrences starting 08/21/2023 until 08/14/2024 Immunizations Immunization Date Immunization Notes Care Provider Prateek yin 01-10-2023 tuberculin skin test ; purified protein derivative solution, intradermal Claus Dolce DPM FACFAS Work Phone: [facility] 01-05-2023 tuberculin skin test ; purified protein derivative solution, intradermal Claus Dolce DPM FACFAS Work Phone: [facility] 08-22-2022 Seasonal, quadrivale nt, recombinant, injectable influenza vaccine, preservative free Franklyn Cade DPM Work Phone: [facility] 08-22-2022 influenza virus vaccine, unspecified formulation Luisa Su MA [facility] 05-07-2021 influenza virus vaccine, unspecified formulation MD Robert Lucas Work Phone: [facility] 05-07-2021 influenza, high dose seasonal, preservative-free Tondra Mapus Other [employer] Other 05-07-2021 influenza, injectabl e, quadrivalent, preservative free Cristine Wilson Other [facility] Other 02-14-2020 influenza, injectabl e, quadrivalent, preservative free Robert Lucas Work Phone: [facility] Work Phone: 01-29-2020 influenza virus vaccine, unspecified formulation Robert Lucas Work Phone: [facility] 250 DO Work Phone: 01-29-2020 influenza, seasonal, injectable Franklyn Cade DPM Work Phone: [facility] 03-10-2019 influenza, injectabl e, quadrivalent, preservative free Robert Lucas [facility] Work Phone: 06-30-2018 pneumococcal polysaccharide vaccine, 23 valent Robert Lucas Work Phone: [facility] 04-13-2018 influenza, injectabl e, quadrivalent, preservative free Robert Lucas Work Phone: [facility] [employer] DO Work Phone: 05-19-2017 influenza, seasonal, injectable Alicia Fitt Other [facility] 05-19-2017 pneumococcal polysaccharide vaccine, 23 valent Alicia Fitt Other [facility] 02-20-2017 influenza, seasonal, injectable, preservative free Robert Lucas Work Phone: [facility] 250 DO Work Phone: 02-20-2017 pneumococcal conjuga te vaccine, 13 valent Robert Lucas Work Phone: [facility] [employer] DO Work Phone: 05-02-2015 influenza, seasonal, injectable, preservative free Robert Lucas Work Phone: [facility] 250 DO Work Phone: 05-31-2014 influenza virus vaccine, unspecified formulation Robert Lucas Work Phone: [facility] DO Work Phone: 05-31-2014 influenza virus vaccine, whole virus Robert Lucas Work Phone: [facility] DO Work Phone: 04-18-2014 influenza, seasonal, injectable Robert Lucas Work Phone: [facility] DO Work Phone: 05-14-2011 influenza virus vaccine, whole virus Robert Lucas Work Phone: [facility] DO Work Phone: 06-30-2010 influenza virus vaccine, unspecified formulation Robert Lucas Work Phone: [facility] DO Work Phone: 06-30-2010 pneumococcal polysaccharide vaccine, 23 valent Roebrt Lucas Work Phone: [facility] DO Work Phone: Payers Date Payer Category Payer Medicare (Managed Care) MADHAVI GIBSON [id number] 01-13-2018 Self-pay [id number] 01-28-2017 Medicare [id number] 01-28-2017 Medicare HMO AN[employer]M MEDICARE [id number] 01-28-2017 Medicare [id number] 2.16.840.1.407414.19 1960 Unknown [id number] 2.16.840.1.966694.3.579. 2.647 1960 Unknown [id number] 2.16.840.1.069509.3.579. 2.356 1960 Unknown [id number] 2.16.840.1.944705.3.579. 2.356 1960 Unknown [id number] 2.16.840.1.694240.3.579. 2.1286 1960 Unknown [id number] 2.16.840.1.645496.3.579. 2.1286 1960 Unknown [id number] 2.16.840.1.530818.3.579. 2.1286 1960 Unknown [id number] 2.16.840.1.703981.3.579. 2.1286 1960 Unknown [id number] 2.16.840.1.830921.3.579. 2.1244 1960 Unknown [id number] 2.16.840.1.310426.3.579. 2.175 1960 Unknown [id number] 2.16.840.1.368461.3.579. 2.128 1960 Unknown [id number] 2.16.840.1.249711.3.579. 2.1258 1960 Unknown [id number] 2.16.840.1.763641.3.579. 2.1258 1960 Unknown [id number] 2.16.840.1.881830.3.579. 2.1258 1960 Unknown [id number] 2.16.840.1.691584.3.579. 2.1258 1960 Unknown [id number] 2.16.840.1.469931.3.579. 2.1285 1960 Unknown [id number] 2.16.840.1.087062.3.579. 2.1285 1960 Unknown [id number] 2.840.1.934404.3.579. 2.1285 1960 Unknown [id number] 2.16.840.1.972928.3.579. 2.1285 1960 Unknown [id number] 2.16.840.1.283421.3.579. 2.1285 1960 Unknown [id number] 2.16.840.1.157678.3.579. 2.1285 1960 Unknown [id number] 2..840.1.013854.3.579. 2.1285 1960 Unknown [id number] 2.16.840.1.559959.3.579. 2.1285 1960 Unknown [id number] 2.16.840.1.350977.3.579. 2.1285 1960 Unknown [id number] 2.16.840.1.111897.3.579. 2.1285 1960 Unknown [id number] 2.16.840.1.435475.3.579. 2.1285 1960 Unknown [id number] 2.16.840.1.465521.3.579. 2.1285 1960 Unknown [id number] 2.16.840.1.087096.3.579. 2.1285 1960 Unknown [id number] 2.16.840.1.375687.3.579. 2.1285 1960 Unknown [id number] 2.16.840.1.985833.3.579. 2.1285 1960 Unknown [id number] 2.16.840.1.099543.3.579. 2.1285 1960 Unknown [id number] 2.16.840.1.587953.3.579. 2.1285 1960 Unknown [id number] 2.16.840.1.507667.3.579. 2.1285 1960 Unknown [id number] 2.16.840.1.481768.3.579. 2.1285 1960 Unknown [id number] 2.16.840.1.261692.3.579. 2.1285 1960 Unknown [id number] 2.16.840.1.678978.3.579. 2.1285 1960 Unknown [id number] 2.16.840.1.616666.3.579. 2.1285 1960 Unknown [id number] 2.16.840.1.124125.3.579. 2.1285 1960 Unknown [id number] 2.16.840.1.511030.3.579. 2.1285 1960 Unknown [id number] 2.16.840.1.429083.3.579. 2.1285 1960 Unknown [id number] 2.16.840.1.210007.3.579. 2.1285 1960 Unknown [id number] 2.16.840.1.942047.3.579. 2.1286 1960 Unknown [id number] 2.16.840.1.875078.3.579. 2.6 1960 Unknown [id number] 2.16.840.1.557293.3.579. 2.1285 1960 Unknown [id number] 2.16.840.1.859979.3.579. 2.1285 1960 Unknown [id number] 2.16.840.1.658428.3.579. 2. 1960 Unknown [id number] 2.16.840.1.524097.3.579. 2. 1960 Unknown [id number] 2.16.840.1.196513.3.579. 2. 1960 Unknown [id number] 2.16.840.1.411952.3.579. 2. 1960 Unknown [id number] 2.16.840.1.974070.3.579. 2. 1960 Unknown [id number] 2.16.840.1.873145.3.579. 2. 1960 Unknown [id number] 2.16.840.1.070717.3.579. 2. 1960 Unknown [id number] 2.16.840.1.495623.3.579. 2. 1960 Unknown [id number] 2.16.840.1.639918.3.579. 2. 1960 Unknown [id number] 2.16.840.1.271127.3.579. 2. 1960 Unknown [id number] 2.16.840.1.839477.3.579. 2. 1960 Unknown [id number] 2.16.840.1.404564.3.579. 2. 1960 Unknown [id number] 2.16.840.1.225395.3.579. 2. 1960 Unknown [id number] 2.16.840.1.003949.3.579. 2. 1960 Unknown [id number] 2.16.840.1.637556.3.579. 2 1960 Unknown [id number] 2.16.840.1.943621.3.579. 2. 1960 Unknown [id number] 2.16.840.1.187735.3.579. 2 1960 Unknown [id number] 2.16.840.1.933851.3.579. 2 1960 Unknown [id number] 2.16.840.1.155365.3.579. 2 1960 Unknown [id number] 2.16.840.1.069690.3.579. 2 1960 Unknown [id number] 2.16.840.1.418458.3.579. 2 1960 Unknown [id number] 2.16.840.1.481187.3.579. 2 1960 Unknown [id number] 2.16.840.1.644550.3.579. 2 1960 Unknown [id number] 2.16.840.1.851167.3.579. 2 1960 Unknown [id number] 2.16.840.1.272675.3.579. 2 1960 Unknown [id number] 2.16.840.1.119967.3.579. 2 1960 Unknown [id number] 2.16.840.1.878447.3.579. 2 1960 Unknown [id number] 2.16.840.1.112950.3.579. 2. 1960 Unknown [id number] 2.16.840.1.667656.3.579. 2. 1960 Unknown [id number] 2.16.840.1.511407.3.579. 2. 1960 Unknown [id number] 2.16.840.1.411737.3.579. 2. 1960 Unknown [id number] 2.16.840.1.351710.3.579. 2. 1960 Unknown [id number] 2.16.840.1.192182.3.579. 2. 1960 Unknown [id number] 2.16.840.1.668399.3.579. 2 1960 Unknown [id number] 2.16.840.1.467351.3.579. 2 1960 Unknown [id number] 2.16.840.1.302875.3.579. 2 1960 Unknown [id number] 2.16.840.1.075561.3.579. 2. 1960 Unknown [id number] 2.16.840.1.585479.3.579. 2 1960 Unknown [id number] 2.16.840.1.620846.3.579. 2. 1960 Unknown [id number] 2.16.840.1.348317.3.579. 2. 1960 Unknown [id number] 2.16.840.1.392450.3.579. 2. 1960 Unknown [id number] 2.16.840.1.962347.3.579. 2. 1960 Unknown [id number] 2.16.840.1.682909.3.579. 2. 1960 Unknown [id number] 2.16.840.1.540989.3.579. 2. 1960 Unknown [id number] 2.16.840.1.523318.3.579. 2. 1960 Unknown [id number] 2.16.840.1.144852.3.579. 2. 1960 Unknown [id number] 2.16.840.1.713708.3.579. 2. 1960 Unknown [id number] 2.16.840.1.735929.3.579. 2. 1960 Unknown [id number] 2.16.840.1.732996.3.579. 2 1960 Unknown [id number] 2.840.1.882523.3.579. 2 1960 Unknown [id number] 2.16.840.1.251403.3.579. 2 1960 Unknown [id number] 2..840.1.685553.3.579. 2 1960 Unknown [id number] 2.840.1.567039.3.579. 2 1960 Unknown [id number] 2.840.1.389609.3.579. 2 1960 Unknown [id number] 2.16.840.1.034125.3.579. 2. 1960 Unknown [id number] 2.16.840.1.436793.3.579. 2 1960 Unknown [id number] 2.16.840.1.448329.3.579. 2. 1960 Unknown [id number] 2.16.840.1.424878.3.579. 2 1960 Unknown [id number] 2.16.840.1.187071.3.579. 2. 1960 Unknown [id number] 2.16.840.1.299445.3.579. 2. 1960 Unknown [id number] 2.16.840.1.032013.3.579. 2. 1960 Unknown [id number] 2.16.840.1.731592.3.579. 2. 1960 Unknown [id number] 2.16.840.1.863824.3.579. 2. 1960 Unknown [id number] 2.16.840.1.048082.3.579. 2 1960 Unknown [id number] 2.16.840.1.022368.3.579. 2 1960 Unknown [id number] 2.16.840.1.014445.3.579. 2 1960 Unknown [id number] 2.16.840.1.885060.3.579. 2 1960 Unknown [id number] 2.16.840.1.315498.3.579. 2 1960 Unknown [id number] 2.16.840.1.484142.3.579. 2 1960 Unknown [id number] 2.16.840.1.574664.3.579. 2 1960 Unknown [id number] 2.16.840.1.495097.3.579. 2. 1960 Unknown [id number] 2.16.840.1.486201.3.579. 2 1960 Unknown [id number] 2.16.840.1.438311.3.579. 2 1960 Unknown [id number] 2.16.840.1.350933.3.579. 2. 1960 Unknown [id number] 2.16.840.1.872643.3.579. 2. 1960 Unknown [id number] 2.16.840.1.000640.3.579. 2. 1960 Unknown [id number] 2.16.840.1.256274.3.579. 2. 1960 Unknown [id number] 2.16.840.1.471068.3.579. 2. 1960 Unknown [id number] 2.16.840.1.703543.3.579. 2 1960 Unknown [id number] 2.840.1.135273.3.579. 2. 1960 Unknown [id number] 2.840.1.367996.3.579. 2. 1960 Unknown [id number] 2.16.840.1.433267.3.579. 2 1960 Unknown [id number] 2.840.1.338913.3.579. 2. 1960 Unknown [id number] 2.840.1.068309.3.579. 2. 1960 Unknown [id number] 2.840.1.025999.3.579. 2. 1960 Unknown [id number] 2.16.840.1.522363.3.579. 2. 1960 Unknown [id number] 2.16.840.1.716680.3.579. 2. 1960 Unknown [id number] 2.840.1.129414.3.579. 2. Medicare Medicare [id number] Unknown Unknown [id number] 2.16840.1.928261.3.579. 2.531 Social History Date Type Detail Facility Start: 05-03-2022 End: 05-13-2024 Caffeine use Caffeine use [facility] Comment on above: couple cups of coffe e weekly; 4-5 cups of coffee w eekly; Start: 03-07-2023 End: 05-13-2024 Sex Assigned At [facility] Start: 09-20-2015 End: 01-29-2024 Tobacco smoking status COIS Ex-smoker [facility] Start: 06-30-1980 End: 06-30-2009 History of tobacco use Current smoker [facility] Start: 12-08-2016 End: 04-12-2024 Alcohol intake Current non-drinker of alcohol (finding) [facility] Start: 1960 Sex Assigned At Not on file [facility] Start: 06-30-1980 End: 06-30-2009 History of tobacco use Cigarette Smoker [facility] History of tobacco use Cigar Smoker [facility] Start: 05-03-2022 Tobacco use and exposure Smoke less tobacco non-user [facility] Do you belong to any clubs or organizations such as muslim groups, unions, fraternal or athletic groups, or school groups? Yes [facility] Are you now , , , , never or living with a partner? Never [facility] How often to you hav e a drink containing alcohol? Never [facility] How many standard dr inks containing alcohol do you have on a typical day? 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 Start: 07-03-2023 Alcohol Comment Caffeine intak e: 1-2 cups per day [facility] Start: 02-02-2015 Sex Male (finding) [facility] Medical Equipment Procedure Code Equipment Code Equipment Original Text Equi pment Identifier Dates BD Insulin Syrin ge U-500 31G X 6MM 0.5 ML Goals Date Patient Goal Desired Activity /State Personal health goal Comment on above: Formatting of this n ote might be different from the original. Evaluation of progress towards goal: Patient agreeable to discharge to [facility]. Personal health goal Comment on above: Formatting of this n ote might be different from the original. Evaluation of progress towards goal: home with Clinical Notes 04-03-2021 to 05-18-2024 Lindy Cooney, [facility] - 05/18/2024 2:00 PM GRETTA White - 05/13/2024 1:30 PM ESTPatient InstructionsTelephone Encounter - [facility]/07[facility] 1:06 PM EST Note Date & Type Note Facility 05-18-2024 History of Present illness Narrative 15 minute qcud-dy-vomy follow-up anticoagulation appointment. INR performed in office per protocol. INR 2.2 (goal range: 2.0-3.0). Patient reports: Taking warfarin dosing as documented. Missed or extra doses of warfarin: No Changes to medications: YES Ciprofloxacin started- 3 days remaining Fluconazole 100 mg daily x7 days started 05/13 Changes to lifestyle (diet / alcohol / smoking / activity): No Recent emergency department visit / hospitalization / health changes / new contraindication to current anticoagulant: No Signs/symptoms of bruising/bleeding or clotting or any intolerable adverse events: No Upcoming procedures: No Anticoagulant prescription needed: No Seen referring provider in the last year Duration of therapy reviewed Assessment: INR is remaining stable in therapeutic range on current warfarin regimen.Would have anticipated fluconazole to raise INR- therefore we will safety check in 2.5 weeks. Plan: Patient instructed to continue warfarin 5 mg Tue/Fri and 7.5 mg AOD. Check INR in 2.5 week(s). Patient verbalizes understanding of anticoagulant dosing instructions and information discussed. Dosing regimen, counseling, and follow-up appointment were provided to the patient. Patient reminded to call with questions or any medication changes. Patient instructed to seek medical attention if any major bleeding/bleeding that persists or worsens. Lindy Cooney RPH 05/18/24 1417 documented in this encounter [facility] 05-13-2024 History of Present illness Narrative Images from the original note were not included. Subjective Patient ID: Jenaro Flores is a 63 y.o. male who presents for DM Foot Care (Established pt presentas today for diabetic nail care. Pt states he is currently taking clindamyacin and levaquin for his legs, and a spider bite. PCP: Tiffanie PATRICK 03/12/24, A1C: 3.1, BS: 176, SS: 13). HPI HPI Constitutional: presents today requesting nail care. Established patient, who presents for diabetic foot examination; and care of deformed toenails. Onychomycosis/Toenail Fungus: Location: identifies all toenails as deformed, thickened, discolored and problematic. Duration: chronic toenail deformity, multiple years duration. Severity of symptoms: mild; acknowledging peripheral neuropathy. Onset: gradual, without known injury or trauma. Status: progressively problematic over the past several weeks or so. Context: hard to trim, hard to reach; self-care is difficult, ineffective and not practical; exposing patient to considerable risk. Family members unable to provide effective care. Characteristics: discolored, thickened , pressure , elongated , /lifting , crusty , ingrowing; without bleeding or drainage. Relieved by: patient remains well satisfied with palliative care measures. Previous Treatment: palliative care as noted. Risk factors: Type II diabetes. Diabetic peripheral neuropathy. Diabetic peripheral vasculopathy. Chronic venous insufficiency with stasis ulceration by history, medical comorbidities. Polypharmacy. Anti-coagulant therapy. Morbid obesity. Mobility, flexibility and dexterity restraints Toenail deformity. Digital and/or shoe trauma and related complications. Aggravated by: shoe gear , pressure , walking; catching and snagging on clothing etc.. Medications Current Outpatient Medications: allopurinol (Zyloprim) 100 MG tablet, Take 1 tablet by mouth in the morning., Disp: , Rfl: amLODIPine (Norvasc) 10 MG tablet, Take 10 mg by mouth in the morning., Disp: , Rfl: atorvastatin (Lipitor) 10 MG tablet, Take 1 tablet by mouth in the morning., Disp: , Rfl: bumetanide (Bumex) 2 MG tablet, Take 1 tablet by mouth in the morning., Disp: , Rfl: cholecalciferol (Vitamin D-3) 50 MCG (2000 UT) capsule, 1 capsule 1 (one) time each day at the same time., Disp: , Rfl: choline fenofibrate (Trilipix) [address] capsule, Take 1 capsule every day by oral route., Disp: , Rfl: empagliflozin (Jardiance) 25 MG, Take by mouth, Disp: , Rfl: HYDROcodone-acetaminophen ([place]) 5-325 MG tablet, Take 1 tablet by mouth every 6 (six) hours if needed for severe pain, Disp: 20 tablet, Rfl: 0 insulin regular (HumuLIN R U-500) 500 UNIT/ML CONCENTRATED injection, Inject under the skin Daily before meals., Disp: , Rfl: ixekizumab (Taltz) 80 MG/ML injection, Inject under the skin, Disp: , Rfl: levoFLOXacin (Levaquin) 750 MG tablet, Take 1 tablet (750 mg) by mouth Daily for 10 days TAKE 1 PILL P.O. Q.D., Disp: 10 tablet, Rfl: 0 Multiple Vitamins-Minerals (Centrum Silver 50+Men) tablet, 1 (one) time each day at the same time., Disp: , Rfl: omeprazole (PriLOSEC) [address] capsule, Take 1 capsule every day by oral route., Disp: , Rfl: potassium chloride CR (Klor-Con) 10 MEQ ER tablet, Take 10 mEq by mouth in the morning., Disp: , Rfl: semaglutide (Ozempic, 0.25 or 0.5 MG/DOSE,) 2 MG/1.5ML solution pen-injector, Ozempic, Disp: , Rfl: spironolactone (Aldactone) 25 MG tablet, Take 25 mg by mouth in the morning and 25 mg before bedtime., Disp: , Rfl: warfarin (Coumadin) 5 MG tablet, Take 1 tablet by mouth in the morning., Disp: , Rfl: Allergies Wound dressing adhesive Past Surgical History Past Surgical History: Procedure Laterality Date CT ANGIOGRAM HEART CORONARY 10/11/2017 CT ANGIOGRAM TAVR 10/11/2017 Family History Family History Problem Relation Name Age of Onset Skin cancer Father Diabetes Sibling Hypertension Sibling Heart disease Sibling Objective General Examination: GENERAL EXAMINATION: Alert and oriented. Pleasant disposition. Ambulatory with cane assist. morbidly obese. SKIN: Toenails 1, 2, 3, 4, 5 bilaterally are grossly thickened, crumbly, elongated, yellow load and with subungual debris. Skin is diffusely xerotic. There is thick hyperkeratotic buildup on both heels; non-inflamed, non-fluctuant, without ulcerative changes. MUSCULOSKELETAL: weightbearing exam reveals a mostly rectus foot structure. No gross pedal deformities noted. Muscle strength is 5/5 for all quadrants. Lesion pattern: No forefoot or digital discrete keratotic lesions are noted. PERIPHERAL PULSES:1/4 for DP bilaterally. PT non-palpable bilateral. Absent pedal hair growth. T Gradient temperature is warm-cool all digits. Symmetrical pitting edema bilateral lower extremities. NEUROLOGIC: protective sensation is intact at 3/10 sites on the left and 0/10 sites on the right. Tactile sensation is compromised. Vibratory sensation diminished at the 1st MPJ bilaterally.. FOOT EXAM: Date of Last Foot Exam 05/13/2024 Sensory testing performed: sensations diminished Sensory and motor testing performed: sensations diminished Pedal pulse taking performed: absent Radiology: Assessment/Plan Chronic, stable onychodystrophy/mycosis multiple digits. Type II diabetes. Diabetic peripheral neuropathies (Q9). Diabetic peripheral vasculopathy (Q8). Chronic venous insufficiency; stasis ulceration by history. Chronic, stable hyperkeratosis left heel. Moribund obesity Plan: Notes: conservative and palliative care measures are preferred, understood and again indicated. Patient expresses no interest in oral or topical therapy; nor is it recommended. Diabetic education and assessment relative to the high risk condition. Hygiene and skin care measures discussed as patient is able to do so. Procedure: Toenail Debridement: Aseptic technique: power/manual instrumentation: onychodebridement length and thickness, curretage of offending crypotic margins, cruz-ungual debris, providing effective pressure relief, reducing shoe and digital trauma; reducing risks associated with the high risk diabetic neuropathic and vasculopathic foot condition, and related complications. This note was created with the assistance of a speech recognition program. While intending to generate a timely document that accurately reflects the content of the visit, no guarantee can be provided that every grammatical or spelling mistake has been or will be identified or corrected. Thank you for your understanding. Franklyn Cade DPM documented in this encounter [facility] 05-13-2024 Instructions Franklyn Cade DPM - 05/13/2024 1:30 PM EST As noted documented in this encounter [facility] 05-07-2024 Telephone encounter Note Pain med [facility] 05-07-2024 Miscellaneous Notes Pain med documented in this encounter [facility] 05-06-2024 Note [id number] 05-06-2024 Telephone encounter Note Culture leg wounds need oral abx [facility] 05-06-2024 Miscellaneous Notes Culture leg wounds need oral abx documented in this encounter [facility] 05-05-2024 History of Present illness Narrative 15 minute [id number] follow-up anticoagulation appointment. INR performed in office per protocol. INR 4.2 (goal range: 2.0-3.0). Patient reports: Taking warfarin dosing as documented. Missed or extra doses of warfarin: No Changes to medications: yes Clindamycin started 04/30 for 14 days Changes to lifestyle (diet / alcohol / smoking / activity): No Recent emergency department visit / hospitalization / health changes / new contraindication to current anticoagulant: Yes Pt has a skin infxn on right arm, been on clindamycin for 5 days and is much better per pt Signs/symptoms of bruising/bleeding or clotting or any intolerable adverse events: No Upcoming procedures: No Anticoagulant prescription needed: No Seen referring provider in the last year Duration of therapy reviewed Assessment: INR is elevated today, most likely d/t infection on arm pt is currently being treated for. Pt already took dose today. Pt had already been a little high last time. Will reduce x1 tomorrow AND will decrease weekly dose by 5%. Next INR in 9 days Plan: Patient instructed to decrease to warfarin 2.5 mg on 05/06, and decrease warfarin to 5 mg Tue/Fri, and 7.5 mg AOD. Check INR in 9 day(s). Patient verbalizes understanding of anticoagulant dosing instructions and information discussed. Dosing regimen, counseling, and follow-up appointment were provided to the patient. Patient reminded to call with questions or any medication changes. Patient instructed to seek medical attention if any major bleeding/bleeding that persists or worsens. Lindy Cooney [facility] 04/22/24 1035 Jet Austin RPH 05/05/24 1056 documented in this encounter [facility] 04-23-2024 Telephone encounter Note Pain meds [facility] 04-23-2024 Miscellaneous Notes Pain meds documented in this encounter [facility] 04-22-2024 History of Present illness Narrative 15 minute [id number] follow-up anticoagulation appointment. INR performed in office per protocol. INR 3.5 (goal range: 2.0-3.0). Patient reports: Taking warfarin dosing as documented. Missed or extra doses of warfarin: No Changes to medications: No Changes to lifestyle (diet / alcohol / smoking / activity): No Recent emergency department visit / hospitalization / health changes / new contraindication to current anticoagulant: No Signs/symptoms of bruising/bleeding or clotting or any intolerable adverse events: No Upcoming procedures: YES Colonoscopy no longer planned Anticoagulant prescription needed: No Seen referring provider in the last year Duration of therapy reviewed Assessment: INR is elevated for unidentifiable reason. We will reduce x1 then resume usual dosing. Plan: Patient instructed to decrease to warfarin 2.5 mg 04/23, then resume 5 mg Tue and 7.5 mg AOD. Check INR in 2 week(s). Patient verbalizes understanding of anticoagulant dosing instructions and information discussed. Dosing regimen, counseling, and follow-up appointment were provided to the patient. Patient reminded to call with questions or any medication changes. Patient instructed to seek medical attention if any major bleeding/bleeding that persists or worsens. Lindy Cooney RPH 04/22/24 1035 documented in this encounter [facility] 04-12-2024 History of Present illness Narrative Patient presented to office today for screening colonoscopy. Due to BMI of 69 we are unable to accommodate him at [facility]. Offered referral to [place], patient declines at this time and states he will do Cologuard. He is not having any concerns or changes in his bowel movements. Devora Valdez, [employer] NURSE 04/12/24 1148 documented in this encounter [facility] 04-02-2024 Telephone encounter Note Pain medication [facility] 04-02-2024 Miscellaneous Notes Pain medication documented in this encounter [facility] 12-16-2023 Note [id number]#[id number] 11-05-2023 Note 11/05/2023 Subjective Patient ID: Jenaro Flores is a 62 y.o. male who presents for Wound Infection. HPI: This is a 62-year old male patient previously admitted to [facility] on March 07, 2023 for recurrent cellulitis of the right lower extremity. Wound culture obtained revealed MRSA and pseudomonas. Patient had completed a 2 week course meropenem and doxycycline and later transitioned to doxycycline for chronic suppression for unknown period. The patient had established care at [facility] for wound care management. The patient had followed up with Dr Schwartz for evaluation of infected right lower extremity wound. Wound culture obtained on 07/2023 had grown polymicrobial Staph aureus, Acinetobacter, Pseudomonas, and Proteus species. The patient had completed a 2 week course oral Linezolid and Meropenem for 3 weeks on 09/09/2023 .Unfortunately patient was found to have thrombocytopenia while on Linezolid which has since resolved. The patient had presented on 09/18 for evaluation of lower extremity wound and wounds were not concerning for infection. The patient had presented on 10/13/23 for evaluation of lower extremity wound. Wound cultures of right lower extremity on 10/05/23 grew MRSA and MDRO Pseudomonas. However, right lower extremity wound was not concerning for infection at the time and there was concerns for colonization. It was decided to hold off on antibiotics. Patient returns today with concerns for right lower extremity wound infection. Patient states left lower extremity wound had reopened. Wound culture on 10/20/23 grew MDR pseudomonas and MRSA. Patient states wound care was concerned for worsening infection. Patient continues Unna boots every 3 days and has an appointment on 11/06/2023. Patient denies chest pain, shortness of breath, fever, chills, nausea, or vomiting. Past Medical History: History reviewed. No pertinent past medical history. Patient Active Problem List Diagnosis Abnormal coagulation profile Acute blood loss anemia Acute posterior epistaxis ROBYN (acute kidney injury) ([facility]) Anemia CAD (coronary artery disease) CHF exacerbation ([facility]) Acute on chronic diastolic HF (heart failure) ([facility] Acute on chronic respiratory failure with hypercapnia ([facility]) Chronic obstructive lung disease ([facility]) Dependence on supplemental oxygen Diabetic foot ulcers ([facility]) Elevated serum creatinine Elevated troponin Epistaxis Essential hypertension Gout, unspecified History of pulmonary embolus (PE) Hyperkalemia Hyperlipidemia, unspecified Hypertensive heart disease with heart failure ([facility]) Hypoxia Left lower lobe pneumonia Localized edema Lymphedema Methicillin resistant Staphylococcus aureus infection as the cause of diseases classified elsewhere Myocardial infarction ([facility]) Cellulitis and abscess of right lower extremity Body mass index (BMI) 70 or greater, adult ([facility]) PATRICIO (obstructive sleep apnea) Patient's noncompliance with other medical treatment and regimen due to unspecified reason Personal history of other venous thrombosis and embolism Pseudomonas (aeruginosa) (mallei) (pseudomallei) as the cause of diseases classified elsewhere Pulmonary embolism ([facility]) Resistance to multiple antibiotics Respiratory distress Stasis ulcer ([facility]) Subtherapeutic international normalized ratio (INR) Tinea pedis of both feet Type 2 diabetes mellitus with diabetic peripheral angiopathy without gangrene, with long-term current use of insulin ([facility]) Other specified diabetes mellitus with other skin ulcer ([facility]) Unvaccinated for covid-19 Venous thromboembolism Wound infection Lower extremity ulceration, right, with unspecified severity ([facility]) Edema leg Lymphedema of both lower extremities Thrombophlebitis of deep femoral vein ([facility]) Venous hypertension, chronic, with ulcer ([facility]) Dietary counseling and surveillance High risk medications (not anticoagulants) long-term use Past Surgical History: History reviewed. No pertinent surgical history. Medications: Current Outpatient Medications on File Prior to Visit Medication Sig Dispense Refill albuterol 90 mcg/actuation inhaler inhale 1 puff by mouth and INTO THE LUNGS every 4 hours allopurinol (Zyloprim) 100 mg tablet 100 mg. atorvastatin (Lipitor) 10 mg tablet Take 10 mg by mouth in the morning. BD Insulin Syringe U-500 1/2 mL 31 gauge x 15/64 syringe use subcutaneously four times a day bumetanide (Bumex) 2 mg tablet cholecalciferol, vitamin D3, 50 mcg (2,000 unit) capsule Take 2,000 Units by mouth in the morning. empagliflozin (Jardiance) 25 mg 1 (one) time each day at the same time. fenofibrate (Fenoglide) 120 mg tablet 120 mg. fenofibrate micronized (Antara) 130 mg capsule Take 130 mg by mouth with breakfast. FreeStyle Patricia 2 Sensor kit apply 1 SENSOR to back OF UPPER ARM REMOVE AND REPLACE every 14 d... (REF (more content not included)... [facility] 10-13-2023 Note 10/13/2023 Subjective Patient ID: Jenaro Flores is a 62 y.o. male who presents for culture and sensitivity results . HPI: This is a 62-year old male patient previously admitted to [facility] on March 07, 2023 found to have recurrent cellulitis of the right lower extremity. Wound cultures grew MRSA and Pseudomonas. Patient completed IV meropenem and doxycycline for 2 weeks on March 25, 2023. Patient was transitioned to doxycycline for 1 month for chronic suppression, established with wound care at [facility]. Patient is having Unna boots placed every 3 days by wound care. Of note, patient had a superficial cultures that grew polymicrobial Staph aureus, Acinetobacter, Pseudomonas, and Proteus species. Patient was started on cefdinir for this by wound care. Patient was seen by ID who felt it was colonization, no antibiotic was recommended. Patient followed up on 08/18 with Franca and was noted to have worsening infection of right leg wound. Would cultures from OSH grew MRSA and MDR pseudomonas. Patient was started on linezolid for 14 days and meropenem for 21 days EOT 09/08. Patient was found to have thrombocytopenia (plt count of 100) on 09/07. It was instructed he discontinue antibiotics but patient states he had already completed antibiotics??. Repeat CBC on 09/14 showed improvement to platelet count (132). Patient has an appointment later today at lymphedema clinic. States he followed up with wound care yesterday and had a debridement. Patient denies fever, chills, nausea, or vomiting. 10/13/2023 HPI: This is a 62-year old male patient previously admitted to [facility] on March 07, 2023 found to have recurrent cellulitis of the right lower extremity. Patient completed a 2 week course oral Linezolid and Meropenem for 3 weeks on 09/09/2023 for Infected wound of the right leg 2/2 MDR pseudomonas and MRSA. Unfortunately patient was found to have thrombocytopenia while on Linezolid which has since resolved. Patient presents to ID clinic today for IV antibiotic management. Patient had a debridement of right lower extremity on 10/05/23 and wound cultures grew MRSA and Pseudomonas. Patient states nerve specialist is requesting IV antibiotic management. Patient states he is currently on Bactrim IDS BID for 2 weeks. Patient is established at [facility] and lymphedema clinic; wears Unna boots every 3 days. Patient denies fever, chills, nausea, vomiting, and diarrhea. Past Medical History: History reviewed. No pertinent past medical history. Patient Active Problem List Diagnosis Abnormal coagulation profile Acute blood loss anemia Acute posterior epistaxis ROBYN (acute kidney injury) ([facility]) Anemia CAD (coronary artery disease) CHF exacerbation ([facility]) Acute on chronic diastolic HF (heart failure) ([facility] Acute on chronic respiratory failure with hypercapnia ([facility]) Chronic obstructive lung disease ([facility]) Dependence on supplemental oxygen Diabetic foot ulcers ([facility]) Elevated serum creatinine Elevated troponin Epistaxis Essential hypertension Gout, unspecified History of pulmonary embolus (PE) Hyperkalemia Hyperlipidemia, unspecified Hypertensive heart disease with heart failure ([facility]) Hypoxia Left lower lobe pneumonia Localized edema Lymphedema Methicillin resistant Staphylococcus aureus infection as the cause of diseases classified elsewhere Myocardial infarction ([facility]) Cellulitis and abscess of right lower extremity Body mass index (BMI) 70 or greater, adult ([facility]) PATRICIO (obstructive sleep apnea) Patient's noncompliance with other medical treatment and regimen due to unspecified reason Personal history of other venous thrombosis and embolism Pseudomonas (aeruginosa) (mallei) (pseudomallei) as the cause of diseases classified elsewhere Pulmonary embolism (CMS/HCC) Resistance to multiple antibiotics Respiratory distress Stasis ulcer (CMS/HCC) Subtherapeutic international normalized ratio (INR) Tinea pedis of both feet Type 2 diabetes mellitus with diabetic peripheral angiopathy without gangrene, with long-term current use of insulin (CMS/HCC) Diabetes mellitus (CMS/HCC) Unvaccinated for covid-19 Venous thromboembolism Wound infection Lower extremity ulceration, right, with unspecified severity (CMS/HCC) Edema leg Lymphedema of both lower extremities Thrombophlebitis of deep femoral vein (CMS/HCC) Venous hypertension, chronic, with ulcer (CMS/HCC) Dietary counseling and surveillance High risk medications (not anticoagulants) long-term use Past Surgical History: History reviewed. No pertinent surgical history. Medications: Current Outpatient Medications on File Prior to Visit Medication Sig Dispense Refill allopurinol (Zyloprim) 100 mg tablet 100 mg. atorvastatin (Lipitor) 10 mg tablet Take 10 mg by mouth in the morning. bumetanide (Bumex) 2 mg tablet cholecalciferol, vitamin D3, 50 mcg ( (more content not included)... [facility] 09-19-2023 Note 09/19/2023 Subjective Patient ID: Jenaro Flores is a 62 y.o. male who presents for Follow-up. HPI: This is a 62-year old male patient previously admitted to [facility] on March 07, 2023 found to have recurrent cellulitis of the right lower extremity. Wound cultures grew MRSA and Pseudomonas. Patient completed IV meropenem and doxycycline for 2 weeks on March 25, 2023. Patient was transitioned to doxycycline for 1 month for chronic suppression, established with wound care at [facility]. Patient is having Unna boots placed every 3 days by wound care. Of note, patient had a superficial cultures that grew polymicrobial Staph aureus, Acinetobacter, Pseudomonas, and Proteus species. Patient was started on cefdinir for this by wound care. Patient was seen by ID who felt it was colonization, no antibiotic was recommended. Patient followed up on 08/18 with Franca and was noted to have worsening infection of right leg wound. Would cultures from OSH grew MRSA and MDR pseudomonas. Patient was started on linezolid for 14 days and meropenem for 21 days EOT 09/08. Patient was found to have thrombocytopenia (plt count of 100) on 09/07. It was instructed he discontinue antibiotics but patient states he had already completed antibiotics??. Repeat CBC on 09/14 showed improvement to platelet count (132). Patient has an appointment later today at lymphedema clinic. States he followed up with wound care yesterday and had a debridement. Patient denies fever, chills, nausea, or vomiting. Past Medical History: History reviewed. No pertinent past medical history. Patient Active Problem List Diagnosis Abnormal coagulation profile Acute blood loss anemia Acute posterior epistaxis ROBYN (acute kidney injury) ([facility]) Anemia CAD (coronary artery disease) CHF exacerbation ([facility]) Acute on chronic diastolic HF (heart failure) ([facility] Acute on chronic respiratory failure with hypercapnia ([facility]) Chronic obstructive lung disease ([facility]) Dependence on supplemental oxygen Diabetic foot ulcers ([facility]) Elevated serum creatinine Elevated troponin Epistaxis Essential hypertension Gout, unspecified History of pulmonary embolus (PE) Hyperkalemia Hyperlipidemia, unspecified Hypertensive heart disease with heart failure ([facility]) Hypoxia Left lower lobe pneumonia Localized edema Lymphedema Methicillin resistant Staphylococcus aureus infection as the cause of diseases classified elsewhere Myocardial infarction ([facility]) Cellulitis and abscess of right lower extremity Body mass index (BMI) 70 or greater, adult ([facility]) PATRICIO (obstructive sleep apnea) Patient's noncompliance with other medical treatment and regimen due to unspecified reason Personal history of other venous thrombosis and embolism Pseudomonas (aeruginosa) (mallei) (pseudomallei) as the cause of diseases classified elsewhere Pulmonary embolism ([facility]) Resistance to multiple antibiotics Respiratory distress Stasis ulcer ([facility]) Subtherapeutic international normalized ratio (INR) Tinea pedis of both feet Type 2 diabetes mellitus with diabetic peripheral angiopathy without gangrene, with long-term current use of insulin ([facility]) Diabetes mellitus ([facility]) Unvaccinated for covid-19 Venous thromboembolism Wound infection Lower extremity ulceration, right, with unspecified severity ([facility]) Edema leg Lymphedema of both lower extremities Thrombophlebitis of deep femoral vein ([facility]) Venous hypertension, chronic, with ulcer ([facility]) Past Surgical History: History reviewed. No pertinent surgical history. Medications: Current Outpatient Medications on File Prior to Visit Medication Sig Dispense Refill allopurinol (Zyloprim) 100 mg tablet 100 mg. atorvastatin (Lipitor) 10 mg tablet Take 10 mg by mouth in the morning. bumetanide (Bumex) 2 mg tablet insulin regular (HumuLIN R U-500, Conc, Insulin) 500 unit/mL CONCENTRATED injection 0 Refill(s) ixekizumab (Taltz Autoinjector) 80 mg/mL auto-injector 80 mg. losartan (Cozaar) 50 mg tablet Take 50 mg by mouth in the morning. omeprazole (PriLOSEC) [address] capsule 40 mg. semaglutide (Ozempic) 0.25 mg or 0.5 mg (2 mg/3 mL) pen injector 0 Refill(s) warfarin (Coumadin) 5 mg tablet Take 5-7.5 mg by mouth in the morning. acetic acid 0.25 % irrigation APPLY TO GAUZE, ALLOW TO SIT ON WOUND BED FOR 10 MINUTES PRIOR TO APPLYING A NEW DRESSING Acidophilus Ex Str, L. sporog, 35 million- 25 million cell tablet Take 1 tablet by mouth in the morning. albuterol 90 mcg/actuation inhaler inhale 1 puff by mouth and INTO THE LUNGS every 4 hours amLODIPine (Norvasc) 10 mg tablet Take 10 mg by mouth in the morning. amLODIPine (Norvasc) 2.5 mg tablet Take 2.5 mg by mouth in the morning. amLODIPine (Norvasc) 5 mg tablet Take 5 mg by mouth in the morning. ammonium lactate (Amlactin) 12 % cream apply to affected area once daily at bedtime with DRESS (more content not included)... [facility] 09-11-2023 History of Present illness Narrative 15 minute [id number]-[id number] follow-up anticoagulation appointment. INR performed in office per protocol. INR 2.5 (goal range: 2.0-3.0). Patient reports: Taking warfarin dosing as documented. Missed or extra doses of warfarin: No Changes to medications: YES A few remaining doses of meropenem Changes to lifestyle (diet / alcohol / smoking / activity): No Recent emergency department visit / hospitalization / health changes / new contraindication to current anticoagulant: No Signs/symptoms of bruising/bleeding or clotting or any intolerable adverse events: No Upcoming procedures: No Anticoagulant prescription needed: No Seen referring provider in the last year Duration of therapy reviewed Assessment: INR is remaining stable in therapeutic range on current warfarin regimen. Plan: Patient instructed to continue warfarin 5 mg Tue and 7.5 mg AOD. Check INR in 4 week(s). Patient verbalizes understanding of anticoagulant dosing instructions and information discussed. Dosing regimen, counseling, and follow-up appointment were provided to the patient. Patient reminded to call with questions or any medication changes. Patient instructed to seek medical attention if any major bleeding/bleeding that persists or worsens. Lindy Cooney Grace 09/11/23 1430 documented in this encounter [facility] 08-28-2023 History of Present illness Narrative 15 minute qrbf-pi-favs follow-up anticoagulation appointment. INR performed in office per protocol. INR 2.0 (goal range: 2.0-3.0). Patient reports: Taking warfarin dosing as documented. Missed or extra doses of warfarin: No Changes to medications: No Changes to lifestyle (diet / alcohol / smoking / activity): No Recent emergency department visit / hospitalization / health changes / new contraindication to current anticoagulant: No Signs/symptoms of bruising/bleeding or clotting or any intolerable adverse events: No Upcoming procedures: No Anticoagulant prescription needed: No Seen referring provider in the last year Duration of therapy reviewed Assessment: INR is remaining stable in therapeutic range on current warfarin regimen. Plan: Patient instructed to continue warfarin 5 mg Tue and 7.5 mg AOD. Check INR in 2 week(s). Patient verbalizes understanding of anticoagulant dosing instructions and information discussed. Dosing regimen, counseling, and follow-up appointment were provided to the patient. Patient reminded to call with questions or any medication changes. Patient instructed to seek medical attention if any major bleeding/bleeding that persists or worsens. Lindy Cooney RPH 08/28/23 1429 documented in this encounter [facility] 08-21-2023 History of Present illness Narrative Images from the original note were not included. Date of Service: 08/21/23 PCP: ROBERT LUCAS MD History of Present Illness Jenaro Flores Jr. is a 62 y.o. male, with a history of stage 2 chronic kidney disease returning for nephrologic follow-up. When seen in October of 2022 the creatinine was 1.03 mg/dL and EGFR 60 mL/min. He has developed acute on chronic renal failure in the past during episodes of decompensated congestive heart failure. Laboratories August 14, 2023 included a urinalysis which showed greater than 1000 mg/dL glucose but negative protein on dipstick exam. Microscopic exam the urinary sediment showed 0 red blood cells and less than 1 white blood cell per high-power field. Urine protein creatinine ratio was 0.12 gram/gram. Phosphorus is 4.4 mg/dL. Magnesium was 2.2 mg/dL. Intact PTH was 30 pg/mL. The sodium was 140 potassium 4.3 chloride 100 total CO2 31 BUN 38 creatinine 0.97 EGFR 88 mL/min Problem List 1. Fluctuating renal function depending on intravascular volume status and degree to which diastolic heart failure is compensated. Urinalysis from April 2021 was negative for blood or protein 2. Obstructive sleep apnea 3. Hypertension 4. Type 2 diabetes mellitus 5. Hyperlipidemia 6. History of pulmonary embolus on Coumadin therapy. 7. Hypovitaminosis D 8. Lymphedema He is a patient at the lymphedema Clinic at the [facility] for weekly [place] bandage applications. 9. Depression 10.Obesity 11. Left ventricular diastolic congestive heart failure with preserved left ventricular systolic function. Left ventricular ejection fraction on cardiac echo on 08/20/2018 was 60%. Surgical, Family & Social History Surgical History: Past Surgical History: Procedure Laterality Date HERNIA REPAIR Social History: Social History Socioeconomic History Marital status: Single Spouse name: Not on file Number of children: Not on file Years of education: Not on file Highest education level: Not on file Occupational History Not on file Tobacco Use Smoking status: Former Packs/day: 1 Types: Cigars, Cigarettes Start date: 1985 Quit date: 2004 Years since quittin.1 Smokeless tobacco: Never Vaping Use Vaping Use: Never used Substance and Sexual Activity Alcohol use: No Drug use: No Sexual activity: Defer Other Topics Concern Not on file Social History Narrative Not on file Social Determinants of Health Financial Resource Strain: Low Risk (03/07/2023) Overall Financial Resource Strain (CARDIA) Difficulty of Paying Living Expenses: Not very hard Food Insecurity: No Food Insecurity (05/09/2023) Hunger Screening Food Insecurity - Worry: Never True Food Insecurity - Inability: Never True Transportation Needs: No Transportation Needs (03/07/2023) PRAPARE - Transportation Lack of Transportation (Medical): No Lack of Transportation (Non-Medical): No Physical Activity: Inactive (03/07/2023) Exercise Vital Sign Days of Exercise per Week: 0 days Minutes of Exercise per Session: 0 min Stress: No Stress Concern Present (03/07/2023) [employer] [place] [employer] - Occupational Stress Questionnaire Feeling of Stress : Not at all Social Connections: Moderately Integrated (03/07/2023) Social Connection and Isolation Panel [NHANES] Frequency of Communication with Friends and Family: More than three times a week Frequency of Social Gatherings with Friends and Family: More than three times a week Attends Buddhism Services: More than 4 times per year Active Member of Clubs or Organizations: Yes Attends Club or Organization Meetings: More than 4 times per year Marital Status: Never Interpersonal Safety: Not At Risk (03/07/2023) Humiliation, Afraid, Rape, and Kick questionnaire Fear of Current or Ex-Partner: No Emotionally Abused: No Physically Abused: No Sexually Abused: No Housing Instability: Low Risk (03/07/2023) Housing Instability Housing Instability: No Family History: Family History Problem Relation Age of Onset Diabetes Sister Heart disease Brother Diabetes Brother Heart attack Brother Heart disease Mother Allergies & Medications Allergies: Allergies Allergen Reactions Adhesive Tape-Silicones Rash Current Meds: Current Outpatient Medications Medication Sig Dispense Refill acetic acid 0.25 % irrigation Apply to gauze, allow to sit on wound bed for 10 minutes prior to applying a new dressing 500 mL 12 allopurinoL (ZYLOPRIM) 100 mg tablet Take 1 tablet (100 mg total) by mouth daily. amLODIPine (NORVASC) 10 mg tablet Take 1 tablet (10 mg total) by mouth in the morning. atorvastatin (LIPITOR) 10 mg tablet Take 1 tablet (10 mg total) by mouth in the morning. bumetanide (BUMEX) 2 mg tablet take 1 tablet by mouth twice a day before meals 60 tablet 1 cholecalciferol, vitamin D3, 2,000 units capsule Take 1 capsule (2,000 Units total) by mouth in the morning. choline fenofibrate (TRILIPIX) 135 mg capsule Take 1 capsule (135 mg total) by mouth in the morning. FREESTYLE PATRICIA 14 DAY SENSOR kit heparin lock flush, porcine, 10 unit/mL injection Infuse 1-5 mL (10-50 Units total) into a venous catheter as needed (line care per nursing agency protocol.). 1 mL 0 heparin lock flush, porcine, injection 100 unit/mL solution Infuse 1-5 mL (100-500 Units total) into a venous catheter as needed (line care per nursing agency protocol.). 1 mL 0 insulin regular human U-500 concentrated (HumuLIN R U-500 conc KWIKPEN) injection Inject 90 Units of U-500 under the skin daily with lunch. insulin regular human U-500 concentrated (HumuLIN R U-500 conc KWIKPEN) injection Inject 125 Units of U-500 under the skin every morning before breakfast. insulin regular human U-500 concentrated (HumuLIN R U-500 concentrated KWIKPEN) injection Inject 110 Units of U-500 under the skin Daily before evening meal. ixekizumab ([employer] AUTOINJECTOR, 2 PACK, SUBQ) Inject 80 mg under the skin every 14 (fourteen) days. Every other Friday meropenem (MERREM) 1 gram/50 mL piggyback IVPB Premix Infuse 50 mL (1 g total) into a venous catheter every 8 (eight) hours. tv-elk-jjvlr-D7-abvxnyr-jgxpka [id number] mcg tablet Take 1 tablet by mouth daily with breakfast. omeprazole (PriLOSEC) 40 mg capsule Take 1 capsule (40 mg total) by mouth in the morning. OZEMPIC 0.25 mg or 0.5 mg(2 mg/1.5 mL) pen injector 0.4 mg by abdominal subcutaneous route once a week. Every friday potassium chloride (K-TAB,KLOR-CON) 10 MEQ CR tablet Take 1 tablet (10 mEq total) by mouth in the morning. 30 tablet 0 sodium chloride injection Infuse 10-20 mL into a venous catheter as needed for line care (line care per nursing agency protocol.). 1 mL 0 triamcinolone (KENALOG) 0.1 % lotion Apply 1 Application topically 3 (three) times a day. During dressing changes to Rt lower leg (Patient taking differently: Apply 1 Application topically 3 (three) times a week. During dressing changes to Rt lower leg, MWF) 60 mL 0 warfarin (COUMADIN) 5 mg tablet Take 1-1.5 tablets (5-7.5 mg total) by mouth in the evening. as directed by Diane GOSS (Medication Therapy Management). 135 tablet 1 No current facility-administered medications for this visit. Review of Systems Review of Systems Physical Exam Vital Signs:136/90 Left wrist BMI: Body mass index is 69.52 kg/m . General appearance: alert in no apparent distress. Psychiatric: Oriented to place, time and person HEENT: atraumatic, supple, moist oral mucosa, no JVD Cardiovascular: normal S1-S2 Respiratory: No respiratory distress with no use of accessory muscles. Clear to auscultation bilaterally with no wheezes or crackles Abdomen: soft, no tenderness, no guarding, positive bowel sounds and no hepato or splenomegaly Vascular: adequate pulses and no carotid bruits. Musculoskeletal: no joint swelling or tenderness. Neurologic: No focal deficit in upper or lower extremities Lymphatic: no cervical or axillary lymphadenopathy. Edema:chronic lymphedema Laboratory Studies Chemistry: Lab Results Component Value Date SODIUM 140 08/14/2023 SODIUM 140 03/14/2023 SODIUM 140 03/13/2023 SODIUM 137 03/12/2023 SODIUM 140 03/11/2023 K 4.3 08/14/2023 K 4.8 03/14/2023 K 4.3 03/13/2023 K 4.3 03/12/2023 K 4.2 03/11/2023 CL 100 08/14/2023 CL 94 (L) 03/14/2023 CL 92 (L) 03/13/2023 CL 92 (L) 03/12/2023 CL 95 (L) 03/11/2023 CO2 31 08/14/2023 CO2 35 (H) 03/14/2023 CO2 39 (H) 03/13/2023 CO2 35 (H) 03/12/2023 CO2 35 (H) 03/11/2023 ANIONGAP 9 08/14/2023 ANIONGAP 11 03/14/2023 ANIONGAP 9 03/13/2023 ANIONGAP 10 03/12/2023 ANIONGAP 10 03/11/2023 BUN 38 (H) 08/14/2023 BUN 37 (H) 03/14/2023 BUN 38 (H) 03/13/2023 BUN 33 (H) 03/12/2023 BUN 28 (H) 03/11/2023 CREATININE 0.97 08/14/2023 CREATININE 0.89 03/14/2023 CREATININE 1.07 03/13/2023 CREATININE 0.95 03/12/2023 CREATININE 0.95 03/11/2023 EGFR 88 08/14/2023 EGFR >90 03/14/2023 EGFR 78 03/13/2023 EGFR >90 03/12/2023 EGFR >90 03/11/2023 CALCIUM 9.0 08/14/2023 CALCIUM 9.4 03/14/2023 CALCIUM 9.4 03/13/2023 CALCIUM 9.1 03/12/2023 CALCIUM 8.9 03/11/2023 MG 2.2 08/14/2023 MG 2.0 03/13/2023 MG 2.2 03/12/2023 MG 1.9 03/12/2023 MG 2.0 03/11/2023 PHOSPHORUS 4.4 08/14/2023 PHOSPHORUS 2.9 12/28/2022 PHOSPHORUS 3.1 11/20/2022 PHOSPHORUS 2.9 10/08/2022 PHOSPHORUS 2.6 06/13/2022 Lab Results Component Value Date TOTALPROTEI 8.0 03/14/2023 TOTALPROTEI 8.0 03/14/2023 ALBUMIN 3.6 03/14/2023 ALBUMIN 3.6 03/14/2023 AST 38 03/14/2023 AST 38 03/14/2023 ALT 17 03/14/2023 ALT 17 03/14/2023 BILIRUBIN Negative 08/14/2023 BILIRUBIN 0.5 03/14/2023 BILIRUBIN 0.1 03/14/2023 BILIRUBIN 0.5 03/14/2023 ALKPHOS 83 03/14/2023 ALKPHOS 73 03/13/2023 Hematology: Lab Results Component Value Date WBC 6.9 08/14/2023 WBC 8.9 03/14/2023 HGB 11.5 (L) 08/14/2023 HGB 11.6 (L) 03/14/2023 HCT 36.0 (L) 08/14/2023 HCT 36.5 (L) 03/14/2023 PLT 152 08/14/2023 PLT ESTIMATE OF PLATELETS, NORMAL 03/14/2023 Anemia Studies: Lab Results Component Value Date [id number] 498 03/14/2023 [id number] 606 11/17/2020 Mineral and Bone Labs: Lab Results Component Value Date CALCIUM 9.0 08/14/2023 CALCIUM 9.4 03/14/2023 PHOSPHORUS 4.4 08/14/2023 PHOSPHORUS 2.9 12/28/2022 VITD25 36.3 08/14/2023 VITD25 46.1 03/14/2023 PTH 30 08/14/2023 PTH 25 03/14/2023 Urine Studies: Lab Results Component Value Date COLOR YELLOW 08/14/2023 TURBIDITY CLEAR 08/14/2023 SPECIFICGRA 1.021 08/14/2023 NITRITE Negative 08/14/2023 PHURINE 6.0 08/14/2023 LEUKOCYTE Negative 08/14/2023 PROTEIN Negative 08/14/2023 KETONES Negative 08/14/2023 UROBILINOGEN <1.1 08/14/2023 BLOODHGB Negative 08/14/2023 Lab Results Component Value Date UPROCRTRAT 0.12 08/14/2023 UPROCRTRAT 0.09 11/20/2022 UPROCRTRAT 0.15 10/08/2022 UPROCRTRAT 0.12 06/13/2022 UPROCRTRAT 0.15 10/10/2021 MICROALBUR <0.7 06/13/2023 MICROALBUR <0.7 11/09/2021 MICROALBUR 1.1 11/17/2020 Immunology Profile Lab Results Component Value Date SEDRATE 115 (H) 10/20/2022 CRP 2.1 (H) 03/08/2023 Lab Results Component Value Date HEPBCAB Negative 05/15/2022 Imaging Echocardiogram: Echo complete W/ contrast Result Date: 09/26/2022 Left Ventricle: There is mild to moderate concentric increased wall thickness/hypertrophy. There is mild LVOT gradient noted. Systolic function is normal with an ejection fraction of 55-60%. No obvious regional wall motion abnormalities. Aortic Valve: The aortic valve was not well visualized. There is no regurgitation. There is mild stenosis. The calculated aortic valve peak gradient is 16.32 mmHg. The calculated aortic valve mean gradient is 8.00 mmHg. Mitral Valve: The mitral valve was not well visualized. There is mild annular calcification. IMPRESSION 1. Stage 2 chronic kidney disease: He had an episode of acute kidney injury in September 2022 attributable to decompensated congestive heart failure as well as aggressive diuretic administration. His renal function is essentially normal at this point PLAN 1. Target systolic blood pressure to 130 mm of mercury or less 2. Target hemoglobin A1c to 7% or less. 3. Avoid prolonged use of nonsteroidal anti-inflammatory drugs or proton pump inhibitors. 4. Continue losartan 50 mg mg p.o. daily for renal protection protein sparing and mortality benefit in congestive heart failure. 5. He was asked to return to the office in 1 year's time; a CKD panel will be obtained at that time Thank you ROBERT LUCAS MD for the opportunity to participate in the care of your patients! Please contact me at [phone] (Office) or [phone] (Answering service) with any questions. ROBERT CARDOZA MD [facility] This note was created with the assistance of a speech-recognition program. Although the intention is to generate a document that actually reflects the content of the visit, no guarantees can be provided that every mistake has been identified and corrected by editing. documented in this encounter [employer] [facility] 08-21-2023 History of Present illness Narrative 15 minute kfgb-yf-rlri follow-up anticoagulation appointment. INR performed in office per protocol. INR 1.5 (goal range: 2.0-3.0). Patient reports: Taking warfarin dosing as documented. Missed or extra doses of warfarin: No Changes to medications: YES ~3 days remaining on doxycyline, then started linezolid Started IV ABX via PICC line (meropenem) Changes to lifestyle (diet / alcohol / smoking / activity): No Recent emergency department visit / hospitalization / health changes / new contraindication to current anticoagulant: No Signs/symptoms of bruising/bleeding or clotting or any intolerable adverse events: No Upcoming procedures: No Anticoagulant prescription needed: No Seen referring provider in the last year Duration of therapy reviewed Assessment: INR remains subtherapeutic. We will increase weekly dose by 11% given lack of response to previous dose increase. (12.5% increase) Patient notes slight gain in weight. Of note, linezolid has small DDI that may result in higher INR. Patient endorses no change in volume status. Plan: Patient instructed to increase to warfarin 5 mg Tue and 7.5 mg AOD. Check INR in 7 day(s). Patient verbalizes understanding of anticoagulant dosing instructions and information discussed. Dosing regimen, counseling, and follow-up appointment were provided to the patient. Patient reminded to call with questions or any medication changes. Patient instructed to seek medical attention if any major bleeding/bleeding that persists or worsens. Lindy Cooney [facility] 08/21/23 1346 documented in this encounter [employer] 08-20-2023 History of Present illness Narrative Subjective Jenaro Flores is a 62 y.o. male Chief Complaint Follow-up HPI Patient is here for follow-up continue management for history of chronic right heart failure, morbid obesity, history of hypertension and hyperlipidemia. Since last time I saw him he denies any change in cardiac status or symptoms. His symptoms lost a little bit of weight. His recent laboratory data noted and reviewed with him. His compliance with his medication. Assessment 1. Patient with known chronic right heart failure. His weight has been stable 2. 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 Morbid obesity with BMI to 67 4. No known coronary artery disease. Stress test remotely 5. Recent history of lower GI bleed awaiting colonoscopy 6. Sleep apnea on CPAP and O2 at home 7. Hypertension controlled 8. Hyperlipidemia no recent labs available 9. Recent hospitalization for cellulitis and upper respiratory tract infection Plan 1. I reviewed his recent lab work 2. Patient overall appears to be stable and unchanged from cardiovascular standpoint over the last several years 3. I need to encourage him to lose weight, exercise and consider bariatric surgery 4. Follow-up in 9-month with an EKG 5. I encouraged him to consider the weight loss clinic and bariatric surgery Review of Systems All other systems reviewed and are negative. Vitals: 08/20/23 1434 08/20/23 1507 BP: 152/70 138/70 BP Location: Left arm Left arm Patient Position: Sitting Sitting Pulse: 82 Weight: (!) 201 kg (444 lb) Height: 1.727 m (5' 8 ) Objective Physical Exam Constitutional: Appearance: Normal appearance. He is normal weight. HENT: Nose: Nose normal. Neck: Vascular: No carotid bruit. Cardiovascular: Rate and Rhythm: Normal rate. Rhythm irregularly irregular. Pulses: Normal pulses. Heart sounds: Normal heart sounds. Comments: +1 edema bilaterally Pulmonary: Effort: Pulmonary effort is normal. Abdominal: General: Bowel sounds are normal. Palpations: Abdomen is soft. Genitourinary: Rectum: Normal. Musculoskeletal: General: Normal range of motion. Cervical back: Normal range of motion. Right lower leg: No edema. Left lower leg: No edema. Skin: General: Skin is warm and dry. Neurological: General: No focal deficit present. Mental Status: He is alert. Psychiatric: Mood and Affect: Mood normal. Behavior: Behavior normal. Thought Content: Thought content normal. Judgment: Judgment normal. Allergies Patient has no known allergies. Current Medications Current Outpatient Medications: albuterol 2.5 mg /3 mL (0.083 %) nebulizer solution, Inhale 3 mL (2.5 mg) every 4 hours if needed., Disp: , Rfl: allopurinol (Zyloprim) 100 mg tablet, Take 2 tablets (200 mg) by mouth once daily., Disp: , Rfl: atorvastatin (Lipitor) 10 mg tablet, Take 1 tablet (10 mg) by mouth once daily., Disp: , Rfl: bumetanide (Bumex) 2 mg tablet, Take 1 tablet (2 mg) by mouth once daily., Disp: , Rfl: choline fenofibrate (Trilipix) [address] capsule, Take 1 capsule (135 mg) by mouth once daily., Disp: , Rfl: insulin regular (HumuLIN R U-500, Conc, Kwikpen) 500 unit/mL (3 mL) CONCENTRATED injection, Inject under the skin., Disp: , Rfl: losartan (Cozaar) 50 mg tablet, Take 1 tablet (50 mg) by mouth once daily., Disp: , Rfl: multivitamin with minerals iron-free (Centrum Silver), Take 1 tablet by mouth once daily., Disp: , Rfl: omeprazole (PriLOSEC) [address] capsule, Take 1 capsule (40 mg) by mouth once daily., Disp: , Rfl: potassium chloride CR 10 mEq ER tablet, Take 1 tablet (10 mEq) by mouth once daily. Do not crush, chew, or split., Disp: , Rfl: semaglutide (Ozempic) 0.25 mg or 0.5 mg(2 mg/1.5 mL) pen injector, Inject 0.25 mg under the skin 1 (one) time per week., Disp: , Rfl: warfarin (Coumadin) 5 mg tablet, Take 1 tablet (5 mg) by mouth. Take one tablet by mouth as directed by [facility], Disp: , Rfl: Assessment/Plan 1. Chronic right-sided heart failure (CMS/HCC) Follow Up In Cardiology 2. Primary hypertension 3. Mixed hyperlipidemia 4. Pulmonary embolism, unspecified chronicity, unspecified pulmonary embolism type, unspecified whether acute cor pulmonale present (CMS/HCC) 5. Shortness of breath 6. Morbid obesity (CMS/HCC) Scribe Attestation By signing my name below, I, Enid Olson LPN , Chio attest that this documentation has been prepared under the direction and in the presence of Shantel Long MD. Provider Attestation - Scribe documentation All medical record entries made by the Scribe were at my direction and personally dictated by me. I have reviewed the chart and agree that the record accurately reflects my personal performance of the history, physical exam, discussion and plan. documented in this encounter [facility] Work Phone: 08-20-2023 Instructions Enid Red LPN - 08/20/2023 2:00 PM EST Please bring all medicines, vitamins, and herbal supplements with you when you come to the office. Prescriptions will not be filled unless you are compliant with your follow up appointments or have a follow up appointment scheduled as per instruction of your physician. Refills should be requested at the time of your visit. BMI was above normal measurement. Current weight: (!) 201 kg (444 lb) Weight change since last visit (-) denotes wt loss -16 lbs Weight loss needed to achieve BMI 25: 279.9 Lbs Weight loss needed to achieve BMI 30: 247.1 Lbs Provided instructions on dietary changes Provided instructions on exercise. documented in this encounter [facility] Work Phone: 08-19-2023 Note Dx Wound infection senior care for Meropenem infusions, labs and Picc care and dressing changes for 3 weeks. Per CYNTHIA Schwartz Md/David ESCOBAR [facility] 08-18-2023 Note Patient name: Jenaro Flores Date of : 1960 Admission date: outpatient seen 08/18 ANTIBIOTIC ORDERS Infectious Diseases Diagnosis for antibiotic management: infected wound right leg Name/dosing/frequency of antibiotic: meropenem one gm q 8 h Continue antibiotics through: 09/09/2023 Pharmacy to dose LABORATORY ORDERS: Draw WEEKLY the following labs:, CBC, BUN, Creatinine, ESR, CRP, >>>FAX RESULTS TO [phone]<<<, Discontinue laboratory orders when antibiotics have been completed, and Call Infectious Diseases with critical lab values. CONTACT NUMBERS For all questions call: [phone] IV ACCESS: PICC line OK to draw blood from IV access device: Yes Remove intravenous access after completion of antibiotics. IV ACCESS FLUSHING ORDERS PER INFUSION COMPANY PROTOCOL ID PHYSICIAN WHO WILL BE OVERSEEING OUTPATIENT IV ANTIMICROBIAL THERAPY: Dr. Cathleen Schwartz MD PRIMARY CARE PROVIDER: Robert Lucas MD ALLERGIES: Allergies Allergen Reactions Adhesive Adhesive Tape-Silicones Rash WEIGHT: Wt Readings from Last 1 Encounters: 08/18/23 (!) 200 kg (442 lb) HEIGHT: Ht Readings from Last 1 Encounters: 08/18/23 1.727 m (5' 8 ) RECENT LABS: No lab exists for component: SODIUM , LABGLOM Significant Hospital Summary: He has chronic lymphedema and chronic leg wound that is now infected MICROBIOLOGY: MRSA and MDR pseudomonas DISPOSITION: home with home health through [facility] Follow-up: The patient has been scheduled for follow up with Courtney DOUGLAS at 10:40 AM on 09/19/2023. This information has been explained to the patient: Yes Thank you for allowing me to see the patient Please call for any questions or concerns, Cathleen Schwartz MD [place] Infectious diseases P:[phone] [facility] 08-18-2023 Note Infectious Diseases - clinic Progress Note - Patient name: Jenaro Flores Patient Today's Date and Time: 08/18/2023, 9:42 AM Assessment/Plan Impression: Right leg wound infected and smells bad Left leg wound small and not infected Chronic lymphedema worse on the right leg Morbid obesity Recommendations: His cultures are growing multidrug resistant organisms MRSA and MDR pseudomonas And I have offered hospital admission but he declined so I have arranged for him to have PICC line today And script for linezolid to cover MRSA is already sent to his pharmacy waiting for insurance approval And for pseudomonas will do meropenem one gm q 8 h for 21 days And he will need ESR,CRP,BMP,CBC weekly to be drawn And follow up in one month I am faxing the note and the script to [facility] at [phone] Follow up in 4 weeks Subjective Interval history: 62 y.o. male who presents for Cellulitis of right lower extremity ; Open wound of left lower extremity, sequela; and Wound Cultures. This is a patient with a notable history of diabetes mellitus, chronic venous stasis, and bilateral venous stasis ulcerations. Patient has been treated multiple times for cellulitis in the past. Patient has had wound cultures done in the past which have grown MRSA and Pseudomonas for which she has received antibiotic therapy. Patient has been subsequently placed on doxycycline suppression. Patient presents today for evaluation of right lower extremity wound. Patient is seeing wound care at [facility]. Patient is having Unna boots placed every 3 days by wound care. Patient is told by wound care that his wounds on his bilateral lower extremities are improving. Patient denies any new erythema, increased tenderness, increased swelling, or purulent drainage. Patient did have a wound swab done 2 weeks ago which was polymicrobial including Staph aureus, Acinetobacter, Pseudomonas, and Proteus species. Patient has not noted any change in the wound at this time. Patient was started on cefdinir for this by wound care. Patient has not had any fevers or chills during this time and otherwise is doing well. 08/18/2023 His wound look worse today and smells bad Dr Naidu has new cultures growing MRSA and MDR pseudomonas And no fever but drainage is worse from the right leg wound Objective Physical Examination: BP 137/74 (BP Location: Right arm, Patient Position: Sitting, BP Cuff Size: Large adult) Pulse 82 Temp 36.4 ???C (97.5 ???F) (Oral) Ht 1.727 m (5' 8 ) Wt (!) 200 kg (442 lb) SpO2 90% BMI 67.21 kg/m??? Temperature Range: Temp: 36.4 ???C (97.5 ???F) General Appearance: Awake, alert, and in no apparent distress, nontoxic Eyes: Sclera anicteric; conjunctivae clear Neck: Supple, without lymphadenopathy. Pulmonary/Chest: no respiratory distress Cardiovascular: no fluid overload Abdomen: soft, non-tender, nondistended, no palpable masses no organomegaly; normal bowel sounds Extremities: No cyanosis, edema, no joint effusions. Bilateral lymphedema worse on the right leg And left leg has small ulcer lateral side not infected And right leg has large ulcer with foul smell Discharge and erythema Neurologic: Alert and oriented x 3, gait normal., reflexes normal and symmetric, strength and sensation grossly normal uses cane due to weight reasons Skin: No rash no lesions. no pallor Laboratory data: I have independently reviewed the following labs: Imaging Studies: I have reviewed myself the following imaging studies performed in the past 3 days: No X-ray results found for the past [address] results found for the past 3 days No MRI results found for the past 3 days Cultures: No results found for any visits on 08/18/23. Medications: This progress note was completed using a voice fire officer system. Every effort was made to ensure accuracy; however, inadvertent computerized fire officer errors may be present. Thank you for allowing us to participate in the care of this patient. Thank you for allowing me to see the patient Please call for any questions or concerns, Cathleen Schwartz MD PR Infectious diseases P:[phone] [facility] 08-13-2023 Miscellaneous Notes Patient return phone call to confirm appt with Dr Cardoza in [place] at 2pm documented in this encounter [facility] 08-13-2023 Telephone encounter Note Patient return phone call to confirm appt with Dr Cardoza in [place] at 2pm [facility] 08-13-2023 Miscellaneous Notes Call and spoke with patient to confirm appt as well to have labs done 1 week before appt documented in this encounter [facility] 08-13-2023 Telephone encounter Note Call and spoke with patient to confirm appt as well to have labs done 1 week before appt [facility] 08-12-2023 History of Present illness Narrative 15 minute [id number] follow-up anticoagulation appointment. INR performed in office per protocol. INR 1.6 (goal range: 2.0-3.0). Patient reports: Taking warfarin dosing as documented. Missed or extra doses of warfarin: No Changes to medications: No Changes to lifestyle (diet / alcohol / smoking / activity): No Recent emergency department visit / hospitalization / health changes / new contraindication to current anticoagulant: No Signs/symptoms of bruising/bleeding or clotting or any intolerable adverse events: No Upcoming procedures: No Anticoagulant prescription needed: No Seen referring provider in the last year Duration of therapy reviewed Assessment: Patient remains on doxycyline (~3 weeks remaining), but has completed fluconazole (~3 weeks ago). Anticipate INR is low d/t this. We will continue to increase weekly dosing (12.5%) Plan: Patient instructed to increase to warfarin 5 mg Tue/Thurs/Sat and 7.5 mg AOD. Check INR in 10 days(s). Patient verbalizes understanding of anticoagulant dosing instructions and information discussed. Dosing regimen, counseling, and follow-up appointment were provided to the patient. Patient reminded to call with questions or any medication changes. Patient instructed to seek medical attention if any major bleeding/bleeding that persists or worsens. Lindy Cooney [facility] 08/12/23 1431 documented in this encounter [facility] 08-05-2023 History of Present illness Narrative 15 minute [id number] follow-up anticoagulation appointment. INR performed in office per protocol. INR 1.2 (goal range: 2.0-3.0). Patient reports: Taking warfarin dosing as documented. Missed or extra doses of warfarin: YES Patient only took 1/2 tablets on Friday/Friday Changes to medications: YES Off fluconazole x1 week, remains on doxycycline Changes to lifestyle (diet / alcohol / smoking / activity): No Recent emergency department visit / hospitalization / health changes / new contraindication to current anticoagulant: No Signs/symptoms of bruising/bleeding or clotting or any intolerable adverse events: No Upcoming procedures: No Anticoagulant prescription needed: No Seen referring provider in the last year Duration of therapy reviewed Assessment: INR remains low as patient did not follow dosing instruction. We will boost to 10 mg x1, then retry 40 mg/week Plan: Patient instructed to increase to warfarin 10 mg 08/06, then retry 7.5 mg Fri/Fri and 5 mg AOD. Check INR in 1 week(s). Patient verbalizes understanding of anticoagulant dosing instructions and information discussed. Dosing regimen, counseling, and follow-up appointment were provided to the patient. Patient reminded to call with questions or any medication changes. Patient instructed to seek medical attention if any major bleeding/bleeding that persists or worsens. Lindy Cooney [facility] 08/05/23 1024 documented in this encounter [facility] 07-28-2023 History of Present illness Narrative Result received from [facility] lab via [employer] (drawn by [employer]). INR 1.3 (goal range: 2.0-3.0). Left voicemail for patient at [phone] with the following instructions including INR result: Assessment: INR is subtherapeutic possibly due to the completion of fluconazole. However, unable to verify or assess for other causes. Will plan to begin increasing the patient's dose again. Will plan to recheck an INR in 1 week. Patient also requested to call back to discuss. Plan: Patient instructed to increase to warfarin 7.5 mg every Mon; 5 mg all other days. Check INR in 1 week(s). Order faxed to [employer]. Patient instructed to return call to discuss INR result, anticoagulant dosing instructions, and follow-up INR redraw date as well as confirm current warfarin regimen and assess any recent changes in medications, lifestyle (diet / alcohol / smoking / activity), or health. Patient also instructed to report any upcoming procedures or signs/symptoms of bleeding or clotting. Brandi Roland [facility] 07/28/23 1629 documented in this encounter [facility] 07-21-2023 History of Present illness Narrative Result received from [facility] (drawn by [facility]). INR 2.1 (goal range: 2.0-3.0). Left voicemail for patient at [phone] with the following instructions including INR result: Assessment: INR is now therapeutic after last week's dose adjustment. Patient has received 32.5 mg of warfarin in the last week. Will plan to continue this dosing for one more week until fluconazole course is complete (patient likely has about 1 week remaining). After that, patient may begin requiring more warfarin again. Plan: Patient instructed to continue warfarin 2.5 mg on Fri; 5 mg all other days. Check INR in 1 week(s). Order faxed to [employer]. Patient instructed to return call to discuss INR result, anticoagulant dosing instructions, and follow-up INR redraw date as well as confirm current warfarin regimen and assess any recent changes in medications, lifestyle (diet / alcohol / smoking / activity), or health. Patient also instructed to report any upcoming procedures or signs/symptoms of bleeding or clotting. Brandi Roland [facility] 07/21/23 1316 documented in this encounter [facility] 07-16-2023 Note Underlying diabetes likely playing a role in poor wound healing and lower extremity wounds. [facility] 07-16-2023 Note Wound does not appea r infected. Overall superficial wound cultures are of limited utility and should only be obtained when the clinical picture is consistent with infection. Wound swab obtained by wound care at outside facility likely represents colonization. [facility] 07-16-2023 Note Attestation signed by Cathleen Schwartz MD at 07/16/2023 5:17 PM I personally saw and examined the patient on the same date of service as resident/fellow MD Dulce. I discussed the findings and therapeutic plan with the resident/fellow MD Dulce. I agree with the documentation, except for any edits/updates below. Teaching Physician's Revisions: The right leg is inspected has chronic wounds due to venous stasis No need for antibiotics at this time Follow up in one month Thank you for allowing me to see the patient Please call for any questions or concerns, Cathleen Schwartz MD [place] Infectious diseases P:[phone] Subjective Patient ID: Jenaro Flores is a 62 y.o. male who presents for Cellulitis of right lower extremity ; Open wound of left lower extremity, sequela; and Wound Cultures. This is a patient with a notable history of diabetes mellitus, chronic venous stasis, and bilateral venous stasis ulcerations. Patient has been treated multiple times for cellulitis in the past. Patient has had wound cultures done in the past which have grown MRSA and Pseudomonas for which she has received antibiotic therapy. Patient has been subsequently placed on doxycycline suppression. Patient presents today for evaluation of right lower extremity wound. Patient is seeing wound care at [facility]. Patient is having Unna boots placed every 3 days by wound care. Patient is told by wound care that his wounds on his bilateral lower extremities are improving. Patient denies any new erythema, increased tenderness, increased swelling, or purulent drainage. Patient did have a wound swab done 2 weeks ago which was polymicrobial including Staph aureus, Acinetobacter, Pseudomonas, and Proteus species. Patient has not noted any change in the wound at this time. Patient was started on cefdinir for this by wound care. Patient has not had any fevers or chills during this time and otherwise is doing well. Past Medical History: No past medical history on file. Patient Active Problem List Diagnosis Abnormal coagulation profile Acute blood loss anemia Acute posterior epistaxis ROBYN (acute kidney injury) ([facility]) Anemia CAD (coronary artery disease) CHF exacerbation ([facility]) Acute on chronic diastolic HF (heart failure) ([facility]) Acute on chronic respiratory failure with hypercapnia ([facility] Chronic obstructive lung disease ([facility]) Dependence on supplemental oxygen Diabetic foot ulcers ([facility]) Elevated serum creatinine Elevated troponin Epistaxis Essential hypertension Gout, unspecified History of pulmonary embolus (PE) Hyperkalemia Hyperlipidemia, unspecified Hypertensive heart disease with heart failure ([facility]) Hypoxia Left lower lobe pneumonia Localized edema Lymphedema Methicillin resistant Staphylococcus aureus infection as the cause of diseases classified elsewhere Myocardial infarction ([facility]) Cellulitis and abscess of right lower extremity Body mass index (BMI) 70 or greater, adult ([facility]) PATRICIO (obstructive sleep apnea) Patient's noncompliance with other medical treatment and regimen due to unspecified reason Personal history of other venous thrombosis and embolism Pseudomonas (aeruginosa) (mallei) (pseudomallei) as the cause of diseases classified elsewhere Pulmonary embolism ([facility]) Resistance to multiple antibiotics Respiratory distress Stasis ulcer ([facility]) Subtherapeutic international normalized ratio (INR) Tinea pedis of both feet Type 2 diabetes mellitus with diabetic peripheral angiopathy without gangrene, with long-term current use of insulin ([facility]) Diabetes mellitus ([facility]) Unvaccinated for covid-19 Venous thromboembolism Wound infection Lower extremity ulceration, right, with unspecified severity ([facility]) Past Surgical History: No past surgical history on file. Medications: Current Outpatient Medications on File Prior to Visit Medication Sig Dispense Refill allopurinol (Zyloprim) 100 mg tablet 100 mg. atorvastatin (Lipitor) 10 mg tablet Take 10 mg by mouth in the morning. bumetanide (Bumex) 2 mg tablet doxycycline (Vibramycin) 100 mg capsule Take 100 mg by mouth twice a day. insulin regular (HumuLIN R U-500, Conc, Insulin) 500 unit/mL CONCENTRATED injection 0 Refill(s) ixekizumab (Taltz Autoinjector) 80 mg/mL auto-injector 80 mg. losartan (Cozaar) 50 mg tablet Take 50 mg by mouth in the morning. omeprazole (PriLOSEC) [address] capsule 40 mg. semaglutide (Ozempic) 0.25 mg or 0.5 mg(2 mg/1.5 mL) pen injector Inject 0.5 mg under the skin every 7 (seven) days. warfarin (Coumadin) 5 mg tablet Take 5-7.5 mg by mouth in the morning. acetic acid 0.25 % irrigation APPLY TO GAUZE, ALLOW TO SIT ON WOUND BED FOR 10 MINUTES PRIOR TO APPLYING A NE (more content not included)... [facility] 07-14-2023 History of Present illness Narrative Result received from [facility]/ Labs . INR 3.3 (goal range: 2.0-3.0). Left voicemail for patient at [phone] with the following instructions including INR result: Assessment: INR is now supratherapeutic but unable to assess. INRs have been labile. Patient has had a total of 35mg over the last 7 days so will target 32.5mg at next check. Appears patient takes warfarin in the morning so will reduce dose tomorrow x1. Plan: Patient instructed to decrease to warfarin 2.5mg Tues, then resume 5mg daily. Check INR in 1 week(s). Order faxed to [employer]. Patient instructed to return call to discuss INR result, anticoagulant dosing instructions, and follow-up INR redraw date as well as confirm current warfarin regimen and assess any recent changes in medications, lifestyle (diet / alcohol / smoking / activity), or health. Patient also instructed to report any upcoming procedures or signs/symptoms of bleeding or clotting. Zoie Jo [facility] 07/14/23 6395 documented in this encounter [facility] 07-08-2023 History of Present illness Narrative [phone] Result received from [facility]/ lab. INR 1.3 on 07/07 (goal range: 2.0-3.0). Spoke to patient and/or caregiver who reports patient findings: Taking warfarin dosing as documented. Missed or extra doses of warfarin: No Changes to medications: Yes, patient reports he was also started on a course of cefdinir. Changes to lifestyle (diet / alcohol / smoking / activity): No Recent emergency department visit / hospitalization / health changes / new contraindication to current anticoagulant: No Signs/symptoms of bruising/bleeding or clotting: No Upcoming procedures: No Anticoagulant prescription needed: No Seen referring provider in the last year Duration of therapy reviewed Assessment: INR subtherapeutic following dose adjustments for fluconazole interaction. Will maintain a slightly higher TWD which will still be a slight reduction from prior maintenance dosing. Plan: Patient instructed to increase to warfarin 5 mg daily. Check INR in 1 week(s). Order faxed to [facility]. Patient and/or caregiver verbalizes understanding of anticoagulant dosing instructions and information discussed. Dosing regimen, counseling, and follow-up INR redraw date were provided. Patient reminded to call with questions or any medication changes. Patient instructed to seek medical attention if any major bleeding/bleeding that persists or worsens. Edy Feldman Grace 07/08/23 0916 documented in this encounter [facility] 07-02-2023 History of Present illness Narrative Result received from [facility]. INR 2.2 on 07/01/23 (goal range: 2.0-3.0). Spoke to patient who reports patient findings: Taking warfarin dosing as documented. Missed or extra doses of warfarin: No Changes to medications: yes, patient states that he has been started on 3 different abx- patient states that he is not sure the names of these medications. Did ask him to call [employer] [facility] with the names of these abx as this will likely change the dosing if there is a DDI. Changes to lifestyle (diet / alcohol / smoking / activity): No Recent emergency department visit / hospitalization / health changes / new contraindication to current anticoagulant: No Signs/symptoms of bruising/bleeding or clotting: No Upcoming procedures: No Anticoagulant prescription needed: No Seen referring provider in the last year Duration of therapy reviewed Assessment: INR is therapeutic at 2.2 today after continuing with 35 mg of warfarin/week. Will plan to continue with this but asked patient to notify [employer] as these medications may change dosing. Plan: Patient instructed to continue warfarin 5 mg once daily. Check INR in 1 week(s). Order faxed Patient and/or caregiver verbalizes understanding of anticoagulant dosing instructions and information discussed. Dosing regimen, counseling, and follow-up INR redraw date were provided. Patient reminded to call with questions or any medication changes. Patient instructed to seek medical attention if any major bleeding/bleeding that persists or worsens. [phone] Katarina Haque RPH 07/02/23922 documented in this encounter [facility] 07-01-2023 Miscellaneous Notes The patient LVM. He states the nurse at the wound clinic prescribed antibiotics last week. He can be reached at [phone] to discuss further. documented in this encounter [facility] 07-01-2023 Telephone encounter Note The patient LVM. He states the nurse at the wound clinic prescribed antibiotics last week. He can be reached at [phone] to discuss further. [facility] 06-19-2023 Evaluation note Encounter Date Diagnosis Assessment Notes May, Dietary counseling and surveillance (ICD-10 - Z71.3) Eat well, exercise well, be well: dietary and fitness guidelines material was published May, Type 2 diabetes mellitus (ICD-10 - E11.9) Managing type 2 diabetes material was published 1. Uncontrolled, a Type 2 diabetes with A1c of 7.4% 2. Blood glucose levels according to Patricia CGM download 06/06/2023-2022: Average glucose 166. >250-10%, >180-32%, 70-180-54%, <70-3%, <54-1%. CV 36.5%, GMI 7.3%. Reviewed download with pt, incidence of hypoglycemia early am recommend reducing U500 supper dose from 100 to 90 units. glucose above target postprandial breakfast, recommend increasing breakfast dose from 125 to 135 units. Denies adverse s/e with ozempic 1mg, recommend increasing ozempic to 2mg once weekly. Reviewed with pt if skipping meal he would need to take half of the u500 dose to prevent hyperglycemia. Reviewed with pt if eating smaller carb meal recommend reducing insulin by 5/10 units; a larger carb meal increase 5/10 units . Pt verbalizes understanding. Note: cardiology prescribed jardiance 25mg In the past, pt had admission for robyn/cellulitis/m rsa, hyperkalemia and metformin was stopped. Currently receiving rx assist through [employer] for U500/[employer] for ozempic. 3. Patient is alert, oriented and receptive to making changes or counseling. Notes: Seen for an assessment of current glucose pattern, changes in treatment plan, with this time spent in counseling and coordination of care related to diabetes, risks, and benefits of treatment, medications, and side effects. TOPICS REVIEWED: 1. Time was spent reviewing: a. Basic concepts of diabetes, progressive beta cell , concepts of basal/bolus/mike ective insulin requirements. Basal: The goal is fasting blood glucose of 90-130mg. IF fasting blood glucose starts to run under 100mg 3x's/ week, decrease dose by 10%. Bolus: The goal is to hold the blood glucose level steady meal to meal. If pt. is going to have increased physical activity after a meal, decrease the schedule meal dose prior to the activity by 30-50%. If pt. skips a meal do not take this dose. Correction: The goal is to correct an elevated glucose back into the 100-150mg range b. Nutrition: Concepts of healthy diet, encouraged to decrease saturated fat in diet and increase non-starchy vegetables and fruits in diet. BMI: Pt. needs to select one small change to decrease caloric intake or increase physical activity to help decrease weight. c. Correct treatment of hypoglycemia, carry a glucose source at all times on your person, in vehicles, and at bedside. Can use glucose tablets/4, four ounces of pop or juice equal to 15 G of carbohydrate. Blood glucose should be 100 mg/dl or higher when driving. d. ADA glucose goals for age and medical complexity reviewed e. Patient questions addressed 2. Activity/exercis e: Encouraged to start any form of physical activity. Start low level and increase slowly to a minimal goal of 150 minutes/week. Limit activity to what is allowed by other issues such as cardiac, pulmonary or orthopedic restrictions. 3. Standards of care: Reminded to have an annual dilated eye exam, A1C every 3 months, urine testing for microalbumin once/year, check feet daily and report any cuts or sores that do not appear to be healing. 4. Meter: Plan to check blood glucose: Please check blood glucose levels 4 times/day. Back to back meals reveal effectiveness of bolus dosing. The blood glucose data is used to determine insulin doses and confirm symptoms for hypoglycemia and hyperglcyemia. The blood glucose data is used to determine insulin doses, and confirm symptoms for hypoglycemia and hyperglcyemia. 5. [facility] Contact office if any issues or concerns with patterns of hypoglycemia, hyperglycemia, or diabetes medication issues. 6. Prescriptions: [facility] PAP-OZEMPIC; [facility] PAP-HUMULIN R U500 APPROVED FOR 2023. Order for ozempic 2mg sent to [facility]. 7. Prescriptions will not be filled unless you are compliant with follow up appointments or have a follow up appointment scheduled as ordered by your provider. Refills should be requested at the time of your visit. May, Hyperlipidemia (ICD-10 - E78.5) Atherosclerosis : blocking your blood vessels material was published 02/2023 ldl 77 at goal. On statin and fenofibrate. May, HTN (hypertension) (ICD-10 - I10) About hypertension material was published, High blood pressure material was published uncontrolled; f/u with pcp for further recommendation May, roasterman current use of insulin (ICD-10 - Z79.4) May, High risk medications (not anticoagulants) long-term use (ICD-10 - Z79.899) Patient Education for Humulin Regular 500 Concentrated Insulin: 1. U500 is a slow loading insulin that contains both basal/liver glucose coverage and bolus/carbohydra te mealtime coverage. When possible, try to take this medication 30-60 minutes before you eat the meal. This allows the insulin to line up better with the rise in glucose after eating a meal. Some patients take this insulin at mealtime only, others need to take a small dose at bedtime to help control the glucose from the liver overnight. a. The goal is to have a fasting blood glucose in the 100/150 mg range and a bedtime blood glucose in the 150/200 mg range. Please contact our office if you have a pattern or unexplained episodes of hypoglycemia or hyperglycemia/ab ove 200 mg on a regular basis. b. If you skip a meal, please take 30-50% less of the schedule dose. You do not need the food portion but you still need coverage for glucose from the liver. If you decide to eat the meal later on, take the other half of the dose. 2. If you are going to have physical activity after the meal decrease your dose by 30 to 50% at the meal prior to the activity. Physical activity will bring the blood glucose down. If the usual dose is correct for when you are not active, it will be too much when you add activity into your schedule. 3. When you take a set dose of U500, this means there is a set dose for the sugar from the liver and a set dose for the sugar from your carbohydrates. Please try to be as carbohydrate consistent as possible for each time frame of the day. If you are going to eat a smaller carbohydrate meal, subtract 5 units. If you are going to eat a larger carbohydrate meal, add 5 units. 4. Carry a glucose source such as tablets, juice, regular pop on you, in your car, and at the bedside for easy access in case you would have symptoms of hypoglycemia. Blood glucose should be 100 mg/dl or higher when driving. 5. If you have any issues with insulin supplies through your pharmacy, please contact our office at [phone]. May, Type 2 diabetes mellitus with diabetic chronic kidney disease (ICD-10 - E11.22) Complications of type 2 diabetes material was published keep f/u with Dr. Ram May, BMI 60.0-69.9, adult (ICD-10 - Z68.44) Real-life stories of weight loss material was published 1 pound weight loss from last visit, continue with weight loss efforts May, Hypoglycemia (ICD-10 - E16.2) Hypoglycemia material was published [facility] 11-07-2023 Evaluation note* Encounter Date Diagnosis Assessment Notes Treatment Notes Treatment Clinical Notes Apr, Type 2 diabetes mellitus (ICD-10 - E11.9) [facility] Other 11-02-2023 Evaluation note* Encounter Date Diagnosis Assessment Notes Treatment Notes Treatment Clinical Notes Apr, Obstructive sleep apnea (adult) (pediatric) (ICD-10 - G47.33) Continue with BIPAP209/14 with 4L/oxygen bleed in at night and with naps. Will send [employer] order for new hose connector and supplies. Apr, Chronic respiratory failure, unspecified whether with hypoxia or hypercapnia (ICD-10 - J96.10) Apr, Morbid (severe) obesity with alveolar hypoventilation (ICD-10 - E66.2) Your weight is down 17 pounds since last visit. Apr, COPD (chronic obstructive pulmonary disease) (ICD-10 - J44.9) Use oxygen 4L with extended activity. [facility] Other 09-18-2023 Evaluation note* Encounter Date Diagnosis Assessment Notes Treatment Notes Treatment Clinical Notes Feb, Dietary counseling and surveillance (ICD-10 - Z71.3) Eat well, exercise well, be well: dietary and fitness guidelines material was published Feb, Type 2 diabetes mellitus (ICD-10 - E11.9) Diabetes and choosing the right foods material was published 1. Controlled, a Type 2 diabetes with A1c of 6.3% 2. Blood glucose levels according to [facility] CGM download 03/04/2023-03/17/2023: Average glucose 161. >250-10%, >180-33%, 70-180-48%, <70-8%, <54-1%. CV 43.5%. Reviewed download with pt, incidence of hypoglycemia afternoon/evening. Recommend pt reduce lunch dose u500 to 80 units and reduce supper dose to 100 units. Today glucose 312. Pt reports he did not take his morning dose of u500. Reviewed with pt if skipping meal he would need to take half of the u500 dose to prevent hyperglycemia. Reviewed with pt if eating smaller carb meal recommend reducing insulin by 5/10 units; a larger carb meal increase 5/10 units . Pt verbalizes understanding. Pt declines applying for pap for BI for jardiance- doesn't want to add another pill , reviewed with pt CV/CKD benefit, continues to decline. In the past, pt had admission for robyn/cellulitis/mrsa , hyperkalemia and metformin was stopped. Currently receiving rx assist through [facility] for U500/[facility] for ozempic. 3. Patient is alert, oriented and receptive to making changes or counseling. Notes: Seen for an assessment of current glucose pattern, changes in treatment plan, with this time spent in counseling and coordination of care related to diabetes, risks, and benefits of treatment, medications, and side effects. TOPICS REVIEWED: 1. Time was spent reviewing: a. Basic concepts of diabetes, progressive beta cell , concepts of basal/bolus/correct ti insulin requirements. Basal: The goal is fasting blood glucose of 90-130mg. IF fasting blood glucose starts to run under 100mg 3x's/ week, decrease dose by 10%. Bolus: The goal is to hold the blood glucose level steady meal to meal. If pt. is going to have increased physical activity after a meal, decrease the schedule meal dose prior to the activity by 30-50%. If pt. skips a meal do not take this dose. Correction: The goal is to correct an elevated glucose back into the 100-150mg range b. Nutrition: Concepts of healthy diet, encouraged to decrease saturated fat in diet and increase non-starchy vegetables and fruits in diet. BMI: Pt. needs to select one small change to decrease caloric intake or increase physical activity to help decrease weight. c. Correct treatment of hypoglycemia, carry a glucose source at all times on your person, in vehicles, and at bedside. Can use glucose tablets/4, four ounces of pop or juice equal to 15 G of carbohydrate. Blood glucose should be 100 mg/dl or higher when driving. d. ADA glucose goals for age and medical complexity reviewed e. Patient questions addressed 2. Activity/exercise: Encouraged to start any form of physical activity. Start low level and increase slowly to a minimal goal of 150 minutes/week. Limit activity to what is allowed by other issues such as cardiac, pulmonary or orthopedic restrictions. 3. Standards of care: Reminded to have an annual dilated eye exam, A1C every 3 months, urine testing for microalbumin once/year, check feet daily and report any cuts or sores that do not appear to be healing. 4. Meter: Plan to check blood glucose: Please check blood glucose levels 4 times/day. Back to back meals reveal effectiveness of bolus dosing. The blood glucose data is used to determine insulin doses and confirm symptoms for hypoglycemia and hyperglcyemia. The blood glucose data is used to determine insulin doses, and confirm symptoms for hypoglycemia and hyperglcyemia. 5. [facility]. Contact office if any issues or concerns with patterns of hypoglycemia, hyperglycemia, or diabetes medication issues. 6. Prescriptions: S[facility]ENE PAP-OZEMPIC; [facility] PAP-HUMULIN R U500 7. Prescriptions will not be filled unless you are compliant with follow up appointments or have a follow up appointment scheduled as ordered by your provider. Refills should be requested at the time of your visit. Feb, Hyperlipidemia (ICD-10 - E78.5) Atherosclerosis: blocking your blood vessels material was published 02/2023 ldl 77 at goal. On statin and fenofibrate. Feb, HTN (hypertension) (ICD-10 - I10) About hypertension material was published uncontrolled; f/u with pcp for further recommendation Feb, [employer] current use of insulin (ICD-10 - Z79.4) Feb, High risk medications (not anticoagulants) long-term use (ICD-10 - Z79.899) Patient Education for Humulin Regular 500 Concentrated Insulin: 1. U500 is a slow loading insulin that contains both basal/liver glucose coverage and bolus/carbohydrate mealtime coverage. When possible, try to take this medication 30-60 minutes before you eat the meal. This allows the insulin to line up better with the rise in glucose after eating a meal. Some patients take this insulin at mealtime only, others need to take a small dose at bedtime to help control the glucose from the liver overnight. a. The goal is to have a fasting blood glucose in the 100/150 mg range and a bedtime blood glucose in the 150/200 mg range. Please contact our office if you have a pattern or unexplained episodes of hypoglycemia or hyperglycemia/above 200 mg on a regular basis. b. If you skip a meal, please take 30-50% less of the schedule dose. You do not need the food portion but you still need coverage for glucose from the liver. If you decide to eat the meal later on, take the other half of the dose. 2. If you are going to have physical activity after the meal decrease your dose by 30 to 50% at the meal prior to the activity. Physical activity will bring the blood glucose down. If the usual dose is correct for when you are not active, it will be too much when you add activity into your schedule. 3. When you take a set dose of U500, this means there is a set dose for the sugar from the liver and a set dose for the sugar from your carbohydrates. Please try to be as carbohydrate consistent as possible for each time frame of the day. If you are going to eat a smaller carbohydrate meal, subtract 5 units. If you are going to eat a larger carbohydrate meal, add 5 units. 4. Carry a glucose source such as tablets, juice, regular pop on you, in your car, and at the bedside for easy access in case you would have symptoms of hypoglycemia. Blood glucose should be 100 mg/dl or higher when driving. 5. If you have any issues with insulin supplies through your pharmacy, please contact our office at [phone]. Feb, Type 2 diabetes mellitus with diabetic chronic kidney disease (ICD-10 - E11.22) Complications of type 2 diabetes material was published 10/2021 GFR 60, keep f/u with Dr. Ram Feb, BMI 60.0-69.9, adult (ICD-10 - Z68.44) Setting weight-loss goals material was published, Staying motivated while on a weight loss plan material was published 28 pound weight loss from last visit, continue with weight loss efforts Feb, Hypoglycemia (ICD-10 - E16.2) Low blood glucose and diabetes material was published [facility] 03-09-2023 Evaluation note* Encounter Date Diagnosis Assessment Notes Treatment Notes Treatment Clinical Notes Aug, Dietary counseling and surveillance (ICD-10 - Z71.3) Eat well, exercise well, be well: dietary and fitness guidelines material was published Aug, Type 2 diabetes mellitus (ICD-10 - E11.9) Diabetes and choosing the right foods material was published 1. Uncontrolled, a Type 2 diabetes with A1c of 7.2% 2. Blood glucose levels improved. According to [facility] CGM download 08/23/2022-09/05/2022 : Average glucose 164. >250-6%, >180-36%, 70-180-54%, <70-2%, <54-0%. CV 0%. Reviewed download with pt,incidence of hypoglycemia middle of night- recommend reducing u500 at hs from 30 to 20 units qhs. Reviewed with pt if eating smaller carb meal recommend reducing insulin by 5/10 units; a larger carb meal increase 5/10 units . Pt verbalizes understanding. In the past, pt had admission for robyn/cellulitis/mrs a, hyperkalemia and metformin was stopped. Currently receiving rx assist through [facility] for U500, [employer] for jardiance. [facility] for ozempic 3. Patient is alert, oriented and receptive to making changes or counseling. Notes: Seen for an assessment of current glucose pattern, changes in treatment plan, with this time spent in counseling and coordination of care related to diabetes, risks, and benefits of treatment, medications, and side effects. TOPICS REVIEWED: 1. Time was spent reviewing: a. Basic concepts of diabetes, progressive beta cell , concepts of basal/bolus/correc tive insulin requirements. Basal: The goal is fasting blood glucose of 90-130mg. IF fasting blood glucose starts to run under 100mg 3x's/ week, decrease dose by 10%. Bolus: The goal is to hold the blood glucose level steady meal to meal. If pt. is going to have increased physical activity after a meal, decrease the schedule meal dose prior to the activity by 30-50%. If pt. skips a meal do not take this dose. Correction: The goal is to correct an elevated glucose back into the 100-150mg range b. Nutrition: Concepts of healthy diet, encouraged to decrease saturated fat in diet and increase non-starchy vegetables and fruits in diet. BMI: Pt. needs to select one small change to decrease caloric intake or increase physical activity to help decrease weight. c. Correct treatment of hypoglycemia, carry a glucose source at all times on your person, in vehicles, and at bedside. Can use glucose tablets/4, four ounces of pop or juice equal to 15 G of carbohydrate. Blood glucose should be 100 mg/dl or higher when driving. d. ADA glucose goals for age and medical complexity reviewed e. Patient questions addressed 2. Activity/exercise: Encouraged to start any form of physical activity. Start low level and increase slowly to a minimal goal of 150 minutes/week. Limit activity to what is allowed by other issues such as cardiac, pulmonary or orthopedic restrictions. 3. Standards of care: Reminded to have an annual dilated eye exam, A1C every 3 months, urine testing for microalbumin once/year, check feet daily and report any cuts or sores that do not appear to be healing. 4. Meter: Plan to check blood glucose: Please check blood glucose levels 4 times/day. Back to back meals reveal effectiveness of bolus dosing. The blood glucose data is used to determine insulin doses and confirm symptoms for hypoglycemia and hyperglcyemia. The blood glucose data is used to determine insulin doses, and confirm symptoms for hypoglycemia and hyperglcyemia. 5. [facility]. Contact office if any issues or concerns with patterns of hypoglycemia, hyperglycemia, or diabetes medication issues. 6. Prescriptions: Patient assistance for [facility]a/[employer]/selene. Approved by all for 2022. Refill for syringes sent to [facility] in [place] 09/05/22 7. Prescriptions will not be filled unless you are compliant with follow up appointments or have a follow up appointment scheduled as ordered by your provider. Refills should be requested at the time of your visit. Aug, Hyperlipidemia (ICD-10 - E78.5) Atherosclerosis: blocking your blood vessels material was published 10/2021 ldl 64 at goal. Trig 210- On statin and fenofibrate. Aug, HTN (hypertension) (ICD-10 - I10) About hypertension material was published Aug, roasterman current use of insulin (ICD-10 - Z79.4) Aug, High risk medications (not anticoagulants) long-term use (ICD-10 - Z79.899) Patient Education for Humulin Regular 500 Concentrated Insulin: 1. U500 is a slow loading insulin that contains both basal/liver glucose coverage and bolus/carbohydrate mealtime coverage. When possible, try to take this medication 30-60 minutes before you eat the meal. This allows the insulin to line up better with the rise in glucose after eating a meal. Some patients take this insulin at mealtime only, others need to take a small dose at bedtime to help control the glucose from the liver overnight. a. The goal is to have a fasting blood glucose in the 100/150 mg range and a bedtime blood glucose in the 150/200 mg range. Please contact our office if you have a pattern or unexplained episodes of hypoglycemia or hyperglycemia/abov e 200 mg on a regular basis. b. If you skip a meal, please take 30-50% less of the schedule dose. You do not need the food portion but you still need coverage for glucose from the liver. If you decide to eat the meal later on, take the other half of the dose. 2. If you are going to have physical activity after the meal decrease your dose by 30 to 50% at the meal prior to the activity. Physical activity will bring the blood glucose down. If the usual dose is correct for when you are not active, it will be too much when you add activity into your schedule. 3. When you take a set dose of U500, this means there is a set dose for the sugar from the liver and a set dose for the sugar from your carbohydrates. Please try to be as carbohydrate consistent as possible for each time frame of the day. If you are going to eat a smaller carbohydrate meal, subtract 5 units. If you are going to eat a larger carbohydrate meal, add 5 units. 4. Carry a glucose source such as tablets, juice, regular pop on you, in your car, and at the bedside for easy access in case you would have symptoms of hypoglycemia. Blood glucose should be 100 mg/dl or higher when driving. 5. If you have any issues with insulin supplies through your pharmacy, please contact our office at [phone]. Aug, Type 2 diabetes mellitus with diabetic chronic kidney disease (ICD-10 - E11.22) Complications of type 2 diabetes material was published 10/2021 GFR 60, keep f/u with Dr. Ram Aug, BMI 70 and over, adult (ICD-10 - Z68.45) Setting weight-loss goals material was published [facility] 03-06-2023 Evaluation note* Encounter Date Diagnosis Assessment Notes Treatment Notes Treatment Clinical Notes Aug, Type 2 diabetes mellitus (ICD-10 - E11.9) [facility] 02-14-2023 Evaluation note* Encounter Date Diagnosis Assessment Notes Treatment Notes Treatment Clinical Notes Jul, Type 2 diabetes mellitus with hyperglycemia (ICD-10 - E11.65) [facility] Other 02-13-2023 Evaluation note* Encounter Date Diagnosis Assessment Notes Treatment Notes Treatment Clinical Notes Jul, Type 2 diabetes mellitus with hyperglycemia (ICD-10 - E11.65) [facility] 12-05-2022 Evaluation note* Encounter Date Diagnosis Assessment Notes Treatment Notes Treatment Clinical Notes May, Dietary counseling and surveillance (ICD-10 - Z71.3) Eat well, exercise well, be well: dietary and fitness guidelines material was published May, Type 2 diabetes mellitus (ICD-10 - E11.9) Diabetes and choosing the right foods material was published 1. Uncontrolled, a Type 2 diabetes with A1c of 7.3% 2. Blood glucose levels above target. According to [facility] CGM download 05/21/2022-06/03/20 22: Average glucose 157. >250-8%, >180-27%, 70-180-58%, <70-7%, <54-0%. CV 0%. Reviewed download with pt,incidence of hypoglycemia nocturnallly after ltaking correction insulin. Readings trend higher after lunch. Recommend he stop correctiion dose at bedtime and modify corrective dose at lunch from 5:50 to 5:25. Pt verbalizes understanding. Also reviewed with pt if eating smaller carb meal recommend reducing insulin by 5/10 units; a larger carb meal increase 5/10 units . Pt verbalizes understanding. In the past, pt had admission for robyn/cellulitis/mrs a, hyperkalemia and metformin was stopped. Currently receiving rx assist through [facility] for U500, [employer] for jardiance. [facility] for ozempic 3. Patient is alert, oriented and receptive to making changes or counseling. Notes: Seen for an assessment of current glucose pattern, changes in treatment plan, with this time spent in counseling and coordination of care related to diabetes, risks, and benefits of treatment, medications, and side effects. TOPICS REVIEWED: 1. Time was spent reviewing: a. Basic concepts of diabetes, progressive beta cell , concepts of basal/bolus/correc tive insulin requirements. Basal: The goal is fasting blood glucose of 90-130mg. IF fasting blood glucose starts to run under 100mg 3x's/ week, decrease dose by 10%. Bolus: The goal is to hold the blood glucose level steady meal to meal. If pt. is going to have increased physical activity after a meal, decrease the schedule meal dose prior to the activity by 30-50%. If pt. skips a meal do not take this dose. Correction: The goal is to correct an elevated glucose back into the 100-150mg range b. Nutrition: Concepts of healthy diet, encouraged to decrease saturated fat in diet and increase non-starchy vegetables and fruits in diet. BMI: Pt. needs to select one small change to decrease caloric intake or increase physical activity to help decrease weight. c. Correct treatment of hypoglycemia, carry a glucose source at all times on your person, in vehicles, and at bedside. Can use glucose tablets/4, four ounces of pop or juice equal to 15 G of carbohydrate. Blood glucose should be 100 mg/dl or higher when driving. d. ADA glucose goals for age and medical complexity reviewed e. Patient questions addressed 2. Activity/exercise: Encouraged to start any form of physical activity. Start low level and increase slowly to a minimal goal of 150 minutes/week. Limit activity to what is allowed by other issues such as cardiac, pulmonary or orthopedic restrictions. 3. Standards of care: Reminded to have an annual dilated eye exam, A1C every 3 months, urine testing for microalbumin once/year, check feet daily and report any cuts or sores that do not appear to be healing. 4. Meter: Plan to check blood glucose: Please check blood glucose levels 4 times/day. Back to back meals reveal effectiveness of bolus dosing. The blood glucose data is used to determine insulin doses and confirm symptoms for hypoglycemia and hyperglcyemia. The blood glucose data is used to determine insulin doses, and confirm symptoms for hypoglycemia and hyperglcyemia. 5. [facility]. Contact office if any issues or concerns with patterns of hypoglycemia, hyperglycemia, or diabetes medication issues. 6. Prescriptions: Patient assistance for lea/[employer]/selene. Approved for [facility]a/[employer]; waiting for response from [facility]. 7. Prescriptions will not be filled unless you are compliant with follow up appointments or have a follow up appointment scheduled as ordered by your provider. Refills should be requested at the time of your visit. May, Hyperlipidemia (ICD-10 - E78.5) Atherosclerosis: blocking your blood vessels material was published 10/2021 ldl 64 at goal. Trig 210- On statin and fenofibrate. May, HTN (hypertension) (ICD-10 - I10) About hypertension material was published May, roasterman current use of insulin (ICD-10 - Z79.4) May, High risk medications (not anticoagulants) long-term use (ICD-10 - Z79.899) Patient Education for Humulin Regular 500 Concentrated Insulin: 1. U500 is a slow loading insulin that contains both basal/liver glucose coverage and bolus/carbohydrate mealtime coverage. When possible, try to take this medication 30-60 minutes before you eat the meal. This allows the insulin to line up better with the rise in glucose after eating a meal. Some patients take this insulin at mealtime only, others need to take a small dose at bedtime to help control the glucose from the liver overnight. a. The goal is to have a fasting blood glucose in the 100/150 mg range and a bedtime blood glucose in the 150/200 mg range. Please contact our office if you have a pattern or unexplained episodes of hypoglycemia or hyperglycemia/abov e 200 mg on a regular basis. b. If you skip a meal, please take 30-50% less of the schedule dose. You do not need the food portion but you still need coverage for glucose from the liver. If you decide to eat the meal later on, take the other half of the dose. 2. If you are going to have physical activity after the meal decrease your dose by 30 to 50% at the meal prior to the activity. Physical activity will bring the blood glucose down. If the usual dose is correct for when you are not active, it will be too much when you add activity into your schedule. 3. When you take a set dose of U500, this means there is a set dose for the sugar from the liver and a set dose for the sugar from your carbohydrates. Please try to be as carbohydrate consistent as possible for each time frame of the day. If you are going to eat a smaller carbohydrate meal, subtract 5 units. If you are going to eat a larger carbohydrate meal, add 5 units. 4. Carry a glucose source such as tablets, juice, regular pop on you, in your car, and at the bedside for easy access in case you would have symptoms of hypoglycemia. Blood glucose should be 100 mg/dl or higher when driving. 5. If you have any issues with insulin supplies through your pharmacy, please contact our office at [phone]. May, Type 2 diabetes mellitus with diabetic chronic kidney disease (ICD-10 - E11.22) Complications of type 2 diabetes material was published 10/2021 GFR 60, keep f/u with Dr. Ram May, BMI 70 and over, adult (ICD-10 - Z68.45) Setting weight-loss goals material was published [facility] Other 11-10-2022 Evaluation note* Encounter Date Diagnosis Assessment Notes Treatment Notes Treatment Clinical Notes Apr, Type 2 diabetes mellitus with hyperglycemia (ICD-10 - E11.65) [facility] Other 11-03-2022 Evaluation note* Encounter Date Diagnosis Assessment Notes Treatment Notes Treatment Clinical Notes Apr, Obstructive sleep apnea (adult) (pediatric) (ICD-10 - G47.33) Apr, Chronic respiratory failure, unspecified whether with hypoxia or hypercapnia (ICD-10 - J96.10) Apr, Morbid (severe) obesity with alveolar hypoventilation (ICD-10 - E66.2) Apr, COPD (chronic obstructive pulmonary disease) (ICD-10 - J44.9) [facility] Other 08-29-2022 Evaluation note* Encounter Date Diagnosis Assessment Notes Treatment Notes Treatment Clinical Notes Jan, Dietary counseling and surveillance (ICD-10 - Z71.3) Eat well, exercise well, be well: dietary and fitness guidelines material was published Jan, Type 2 diabetes mellitus (ICD-10 - E11.9) Diabetes and choosing the right foods material was published 1. Controlled, a Type 2 diabetes with A1c of 6.9% 2. Blood glucose levels improved. According to [facility] CGM download 02/12/2022-02/25/2022 : Average glucose 159. >250-2%, >180-33%, 70-180-64%, <70-1%, <54-0%. CV 28.4%. Reviewed download with pt, isolated incidence of hypoglycemia after lower carb load. Reading tend to trend above target middle of night, pt admits to eating bran cereal at bedtime, encouraged lowerglycemic carb/protien for snack to reduce incidence of hypoerglycemia after snack at hs, pt verbalizes understanding. Reviewed with pt if eating smaller carb meal recommend reducing insulin by 5/10 units. Pt verbalizes understanding. In the past, pt had admission for robyn/cellulitis/mrsa , hyperkalemia and metformin was stopped. Currently receiving rx assist through [facility] for U500, [employer] for jardiance. [employer] for ozempic 3. Patient is alert, oriented and receptive to making changes or counseling. Notes: Seen for an assessment of current glucose pattern, changes in treatment plan, with this time spent in counseling and coordination of care related to diabetes, risks, and benefits of treatment, medications, and side effects. TOPICS REVIEWED: 1. Time was spent reviewing: a. Basic concepts of diabetes, progressive beta cell , concepts of basal/bolus/correct ti insulin requirements. Basal: The goal is fasting blood glucose of 90-130mg. IF fasting blood glucose starts to run under 100mg 3x's/ week, decrease dose by 10%. Bolus: The goal is to hold the blood glucose level steady meal to meal. If pt. is going to have increased physical activity after a meal, decrease the schedule meal dose prior to the activity by 30-50%. If pt. skips a meal do not take this dose. Correction: The goal is to correct an elevated glucose back into the 100-150mg range b. Nutrition: Concepts of healthy diet, encouraged to decrease saturated fat in diet and increase non-starchy vegetables and fruits in diet. BMI: Pt. needs to select one small change to decrease caloric intake or increase physical activity to help decrease weight. c. Correct treatment of hypoglycemia, carry a glucose source at all times on your person, in vehicles, and at bedside. Can use glucose tablets/4, four ounces of pop or juice equal to 15 G of carbohydrate. Blood glucose should be 100 mg/dl or higher when driving. d. ADA glucose goals for age and medical complexity reviewed e. Patient questions addressed 2. Activity/exercise: Encouraged to start any form of physical activity. Start low level and increase slowly to a minimal goal of 150 minutes/week. Limit activity to what is allowed by other issues such as cardiac, pulmonary or orthopedic restrictions. 3. Standards of care: Reminded to have an annual dilated eye exam, A1C every 3 months, urine testing for microalbumin once/year, check feet daily and report any cuts or sores that do not appear to be healing. 4. Meter: Plan to check blood glucose: Please check blood glucose levels 4 times/day. Back to back meals reveal effectiveness of bolus dosing. The blood glucose data is used to determine insulin doses and confirm symptoms for hypoglycemia and hyperglcyemia. The blood glucose data is used to determine insulin doses, and confirm symptoms for hypoglycemia and hyperglcyemia. 5. [facility] Contact office if any issues or concerns with patterns of hypoglycemia, hyperglycemia, or diabetes medication issues. 6. Prescriptions: Patient assistance for lea/[employer]/selene. Jan, Hyperlipidemia (ICD-10 - E78.5) Atherosclerosis: blocking your blood vessels material was published 10/2021 ldl 64 at goal. Trig 210- On statin and fenofibrate. Jan, HTN (hypertension) (ICD-10 - I10) About hypertension material was published Jan, USP current use of insulin (ICD-10 - Z79.4) Jan, High risk medications (not anticoagulants) long-term use (ICD-10 - Z79.899) Patient Education for Humulin Regular 500 Concentrated Insulin: 1. U500 is a slow loading insulin that contains both basal/liver glucose coverage and bolus/carbohydrate mealtime coverage. When possible, try to take this medication 30-60 minutes before you eat the meal. This allows the insulin to line up better with the rise in glucose after eating a meal. Some patients take this insulin at mealtime only, others need to take a small dose at bedtime to help control the glucose from the liver overnight. a. The goal is to have a fasting blood glucose in the 100/150 mg range and a bedtime blood glucose in the 150/200 mg range. Please contact our office if you have a pattern or unexplained episodes of hypoglycemia or hyperglycemia/above 200 mg on a regular basis. b. If you skip a meal, please take 30-50% less of the schedule dose. You do not need the food portion but you still need coverage for glucose from the liver. If you decide to eat the meal later on, take the other half of the dose. 2. If you are going to have physical activity after the meal decrease your dose by 30 to 50% at the meal prior to the activity. Physical activity will bring the blood glucose down. If the usual dose is correct for when you are not active, it will be too much when you add activity into your schedule. 3. When you take a set dose of U500, this means there is a set dose for the sugar from the liver and a set dose for the sugar from your carbohydrates. Please try to be as carbohydrate consistent as possible for each time frame of the day. If you are going to eat a smaller carbohydrate meal, subtract 5 units. If you are going to eat a larger carbohydrate meal, add 5 units. 4. Carry a glucose source such as tablets, juice, regular pop on you, in your car, and at the bedside for easy access in case you would have symptoms of hypoglycemia. Blood glucose should be 100 mg/dl or higher when driving. 5. If you have any issues with insulin supplies through your pharmacy, please contact our office at [phone]. Jan, Type 2 diabetes mellitus with diabetic chronic kidney disease (ICD-10 - E11.22) Complications of type 2 diabetes material was published 10/2021 GFR 60, keep f/u with Dr. Ram Jan, BMI 70 and over, adult (ICD-10 - Z68.45) Setting weight-loss goals material was published [facility] Other [id number] Evaluation note* Encounter Date Diagnosis Assessment Notes Treatment Notes Treatment Clinical Notes October, Dietary counseling and surveillance (ICD-10 - Z71.3) Eat well, exercise well, be well: dietary and fitness guidelines material was published October, Type 2 diabetes mellitus (ICD-10 - E11.9) Diabetes and choosing the right foods material was published 1. Uncontrolled, a Type 2 diabetes with A1c of 7.2% 2. Blood glucose levels slightly higher. According to [facility] CGM download 11/01/2021-11/14/2021 : Average glucose 152. >250-4%, >180-25%, 70-180-68%, <70-2%, <54-1%. CV 34.9%. Reviewed download with pt, incidence of nocturnal hypoglycemia, will reduce hs u500 from 35 to 30. Discussed with pt increasing ozempic to 2mg once weekly, he reports will be getting new shipment of 1mg dose in and would like to wait until next visit. Reviewed with pt if eating smaller carb meal recommend reducing insulin by 5/10 units. Pt verbalizes understanding. In the past, pt had admission for robyn/cellulitis/mrs a, hyperkalemia and metformin was stopped. Currently receiving rx assist through [facility] for U500, [facility] [employer] for jardiance. [facility] for ozempic 3. Patient is alert, oriented and receptive to making changes or counseling. Notes: Seen for an assessment of current glucose pattern, changes in treatment plan, with this time spent in counseling and coordination of care related to diabetes, risks, and benefits of treatment, medications, and side effects. TOPICS REVIEWED: 1. Time was spent reviewing: a. Basic concepts of diabetes, progressive beta cell , concepts of basal/bolus/correc tive insulin requirements. Basal: The goal is fasting blood glucose of 90-130mg. IF fasting blood glucose starts to run under 100mg 3x's/ week, decrease dose by 10%. Bolus: The goal is to hold the blood glucose level steady meal to meal. If pt. is going to have increased physical activity after a meal, decrease the schedule meal dose prior to the activity by 30-50%. If pt. skips a meal do not take this dose. Correction: The goal is to correct an elevated glucose back into the 100-150mg range b. Nutrition: Concepts of healthy diet, encouraged to decrease saturated fat in diet and increase non-starchy vegetables and fruits in diet. BMI: Pt. needs to select one small change to decrease caloric intake or increase physical activity to help decrease weight. c. Correct treatment of hypoglycemia, carry a glucose source at all times on your person, in vehicles, and at bedside. Can use glucose tablets/4, four ounces of pop or juice equal to 15 G of carbohydrate. Blood glucose should be 100 mg/dl or higher when driving. d. ADA glucose goals for age and medical complexity reviewed e. Patient questions addressed 2. Activity/exercise: Encouraged to start any form of physical activity. Start low level and increase slowly to a minimal goal of 150 minutes/week. Limit activity to what is allowed by other issues such as cardiac, pulmonary or orthopedic restrictions. 3. Standards of care: Reminded to have an annual dilated eye exam, A1C every 3 months, urine testing for microalbumin once/year, check feet daily and report any cuts or sores that do not appear to be healing. 4. Meter: Plan to check blood glucose: Please check blood glucose levels 4 times/day. Back to back meals reveal effectiveness of bolus dosing. The blood glucose data is used to determine insulin doses and confirm symptoms for hypoglycemia and hyperglcyemia. The blood glucose data is used to determine insulin doses, and confirm symptoms for hypoglycemia and hyperglcyemia. 5. [facility]. Contact office if any issues or concerns with patterns of hypoglycemia, hyperglycemia, or diabetes medication issues. 6. Prescriptions: Patient assistance for [facility]a/[employer]/selene. October, Hyperlipidemia (ICD-10 - E78.5) Atherosclerosis: blocking your blood vessels material was published 10/2021 ldl 64 at goal On statin and fenofibrate. October, HTN (hypertension) (ICD-10 - I10) About hypertension material was published October, roasterman current use of insulin (ICD-10 - Z79.4) October, High risk medications (not anticoagulants) long-term use (ICD-10 - Z79.899) Patient Education for Humulin Regular 500 Concentrated Insulin: 1. U500 is a slow loading insulin that contains both basal/liver glucose coverage and bolus/carbohydrate mealtime coverage. When possible, try to take this medication 30-60 minutes before you eat the meal. This allows the insulin to line up better with the rise in glucose after eating a meal. Some patients take this insulin at mealtime only, others need to take a small dose at bedtime to help control the glucose from the liver overnight. a. The goal is to have a fasting blood glucose in the 100/150 mg range and a bedtime blood glucose in the 150/200 mg range. Please contact our office if you have a pattern or unexplained episodes of hypoglycemia or hyperglycemia/abov e 200 mg on a regular basis. b. If you skip a meal, please take 30-50% less of the schedule dose. You do not need the food portion but you still need coverage for glucose from the liver. If you decide to eat the meal later on, take the other half of the dose. 2. If you are going to have physical activity after the meal decrease your dose by 30 to 50% at the meal prior to the activity. Physical activity will bring the blood glucose down. If the usual dose is correct for when you are not active, it will be too much when you add activity into your schedule. 3. When you take a set dose of U500, this means there is a set dose for the sugar from the liver and a set dose for the sugar from your carbohydrates. Please try to be as carbohydrate consistent as possible for each time frame of the day. If you are going to eat a smaller carbohydrate meal, subtract 5 units. If you are going to eat a larger carbohydrate meal, add 5 units. 4. Carry a glucose source such as tablets, juice, regular pop on you, in your car, and at the bedside for easy access in case you would have symptoms of hypoglycemia. Blood glucose should be 100 mg/dl or higher when driving. 5. If you have any issues with insulin supplies through your pharmacy, please contact our office at [phone]. October, Type 2 diabetes mellitus with diabetic chronic kidney disease (ICD-10 - E11.22) Complications of type 2 diabetes material was published 10/2020 GFR 60, keep f/u with Dr. Ram October, BMI 70 and over, adult (ICD-10 - Z68.45) Setting weight-loss goals material was published 3 pound weight loss from last visit, continue with weight loss efforts [facility] Other [id number] Evaluation note* Encounter Date Diagnosis Assessment Notes Treatment Notes Treatment Clinical Notes Sep, Obstructive sleep apnea (adult) (pediatric) (ICD-10 - G47.33) Our office will contact your [employer] company in regards to obtaining new machine. Sep, Chronic respiratory failure, unspecified whether with hypoxia or hypercapnia (ICD-10 - J96.10) Sep, Morbid (severe) obesity with alveolar hypoventilation (ICD-10 - E66.2) Sep, COPD (chronic obstructive pulmonary disease) (ICD-10 - J44.9) [facility] Other 02-10-2022 Evaluation note* Encounter Date Diagnosis Assessment Notes Treatment Notes Treatment Clinical Notes Jul, Dietary counseling and surveillance (ICD-10 - Z71.3) Eat well, exercise well, be well: dietary and fitness guidelines material was published Jul, Type 2 diabetes mellitus (ICD-10 - E11.9) Diabetes and choosing the right foods material was published 1. Controlled, a Type 2 diabetes with A1c of 6.6% 2. Blood glucose levels stable. According to [facility] CGM download 07/27/2021-08/09/2021 : Average glucose 132. >250-0%, >180-14%, 70-180-83%, <70-2%, <54-1%. CV 30.4%. Reviewed download with pt, low incidence of hypoglcyemia after meals from overestimation of insulin for meal. Reviewed with pt if eating smaller carb meal recommend reducing insulin by 5/10 units. Pt verbalizes understanding. In the past, pt had admission for robyn/cellulitis/mrsa , hyperkalemia and metformin was stopped. Currently receiving rx assist through [facility] for U500, [employer] for jardiance. [employer] for ozempic 3. Patient is alert, oriented and receptive to making changes or counseling. Notes: Seen for an assessment of current glucose pattern, changes in treatment plan, with this time spent in counseling and coordination of care related to diabetes, risks, and benefits of treatment, medications, and side effects. TOPICS REVIEWED: 1. Time was spent reviewing: a. Basic concepts of diabetes, progressive beta cell , concepts of basal/bolus/correct ti insulin requirements. Basal: The goal is fasting blood glucose of 90-130mg. IF fasting blood glucose starts to run under 100mg 3x's/ week, decrease dose by 10%. Bolus: The goal is to hold the blood glucose level steady meal to meal. If pt. is going to have increased physical activity after a meal, decrease the schedule meal dose prior to the activity by 30-50%. If pt. skips a meal do not take this dose. Correction: The goal is to correct an elevated glucose back into the 100-150mg range b. Nutrition: Concepts of healthy diet, encouraged to decrease saturated fat in diet and increase non-starchy vegetables and fruits in diet. BMI: Pt. needs to select one small change to decrease caloric intake or increase physical activity to help decrease weight. c. Correct treatment of hypoglycemia, carry a glucose source at all times on your person, in vehicles, and at bedside. Can use glucose tablets/4, four ounces of pop or juice equal to 15 G of carbohydrate. Blood glucose should be 100 mg/dl or higher when driving. d. ADA glucose goals for age and medical complexity reviewed e. Patient questions addressed 2. Activity/exercise: Encouraged to start any form of physical activity. Start low level and increase slowly to a minimal goal of 150 minutes/week. Limit activity to what is allowed by other issues such as cardiac, pulmonary or orthopedic restrictions. 3. Standards of care: Reminded to have an annual dilated eye exam, A1C every 3 months, urine testing for microalbumin once/year, check feet daily and report any cuts or sores that do not appear to be healing. 4. Meter: Plan to check blood glucose: Please check blood glucose levels 4 times/day. Back to back meals reveal effectiveness of bolus dosing. The blood glucose data is used to determine insulin doses and confirm symptoms for hypoglycemia and hyperglcyemia. The blood glucose data is used to determine insulin doses, and confirm symptoms for hypoglycemia and hyperglcyemia. 5. [facility]. Contact office if any issues or concerns with patterns of hypoglycemia, hyperglycemia, or diabetes medication issues. 6. Prescriptions: Patient assistance for [facility]/[employer]/selene. Jul, Hyperlipidemia (ICD-10 - E78.5) Atherosclerosis: blocking your blood vessels material was published 10/2020 ldl 70 at goal On statin and fenofibrate. Jul, HTN (hypertension) (ICD-10 - I10) About hypertension material was published Jul, USP current use of insulin (ICD-10 - Z79.4) Jul, High risk medications (not anticoagulants) long-term use (ICD-10 - Z79.899) Patient Education for Humulin Regular 500 Concentrated Insulin: 1. U500 is a slow loading insulin that contains both basal/liver glucose coverage and bolus/carbohydrate mealtime coverage. When possible, try to take this medication 30-60 minutes before you eat the meal. This allows the insulin to line up better with the rise in glucose after eating a meal. Some patients take this insulin at mealtime only, others need to take a small dose at bedtime to help control the glucose from the liver overnight. a. The goal is to have a fasting blood glucose in the 100/150 mg range and a bedtime blood glucose in the 150/200 mg range. Please contact our office if you have a pattern or unexplained episodes of hypoglycemia or hyperglycemia/above 200 mg on a regular basis. b. If you skip a meal, please take 30-50% less of the schedule dose. You do not need the food portion but you still need coverage for glucose from the liver. If you decide to eat the meal later on, take the other half of the dose. 2. If you are going to have physical activity after the meal decrease your dose by 30 to 50% at the meal prior to the activity. Physical activity will bring the blood glucose down. If the usual dose is correct for when you are not active, it will be too much when you add activity into your schedule. 3. When you take a set dose of U500, this means there is a set dose for the sugar from the liver and a set dose for the sugar from your carbohydrates. Please try to be as carbohydrate consistent as possible for each time frame of the day. If you are going to eat a smaller carbohydrate meal, subtract 5 units. If you are going to eat a larger carbohydrate meal, add 5 units. 4. Carry a glucose source such as tablets, juice, regular pop on you, in your car, and at the bedside for easy access in case you would have symptoms of hypoglycemia. Blood glucose should be 100 mg/dl or higher when driving. 5. If you have any issues with insulin supplies through your pharmacy, please contact our office at [phone]. Jul, Vitamin B 12 deficiency (ICD-10 - E53.8) Good food sources of vitamin B12 material was published 10/2020 Vit b12 606 at target Jul, Type 2 diabetes mellitus with diabetic chronic kidney disease (ICD-10 - E11.22) Complications of type 2 diabetes material was published 10/2020 GFR 60, keep f/u with Dr. Ram Jul, BMI 70 and over, adult (ICD-10 - Z68.45) Setting weight-loss goals material was published 6 pound weight loss from last visit, continue with weight loss efforts [facility] Other 12-22-2021 Evaluation note* Encounter Date Diagnosis Assessment Notes Treatment Notes Treatment Clinical Notes May, Type 2 diabetes mellitus with hyperglycemia (ICD-10 - E11.65) [facility] Other 11-08-2021 Evaluation note* Encounter Date Diagnosis Assessment Notes Treatment Notes Treatment Clinical Notes Apr, Type 2 diabetes mellitus with hyperglycemia (ICD-10 - E11.65) [facility] Other 10-19-2021 Evaluation note* Encounter Date Diagnosis Assessment Notes Treatment Notes Treatment Clinical Notes Mar, Obstructive sleep apnea (adult) (pediatric) (ICD-10 - G47.33) Mar, Chronic respiratory failure, unspecified whether with hypoxia or hypercapnia (ICD-10 - J96.10) Continue with oxygen via BIPAP and with activity. Check oxygen level periodicall, if less than 90%, put on oxygen 2L. Mar, Morbid (severe) obesity with alveolar hypoventilation (ICD-10 - E66.2) Mar, COPD (chronic obstructive pulmonary disease) (ICD-10 - J44.9) Mar, Chronic sinusitis (ICD-10 - J32.9) Recommend using Navage nasal/sinus rinse system. [facility] Other 10-05-2021 Evaluation note* Encounter Date Diagnosis Assessment Notes Treatment Notes Treatment Clinical Notes Mar, Obesity (ICD-10 - E66.9) Mar, Body mass index [BMI] 70 or greater, adult (ICD-10 - Z68.45) Mar, Other Summary of Visit: (A) Reviewed the plate method (B) Encouraged spreading meals and snacks by 3-4 hours (C) Advised against eating in the middle of the night [facility] Other Evaluation noteNo [employer] Other Evaluation note* Diagnosis History of DVT (deep vein thrombosis)- Primary [facility] assessment information available [facility] Work Phone: Evaluation note* Diagnosis Stage 2 chronic kidney disease- Primary documented in this encounter [facility]* Diagnosis Chronic right-sided heart failure (CMS/HCC)- Primary Congestive heart failure, unspecified Primary hypertension Unspecified essential hypertension Mixed hyperlipidemia Pulmonary embolism, unspecified chronicity, unspecified pulmonary embolism type, unspecified whether acute cor pulmonale present ([facility]) Shortness of breath Morbid obesity ([facility]) Morbid obesity documented in this encounter [facility] Work Phone: Evaluation note* Diagnosis History of DVT (deep vein thrombosis)- Primary documented in this encounter [facility]* Diagnosis CKD (chronic kidney disease), stage II- Primary Chronic kidney disease, Stage II (mild) documented in this encounter [facility]* Diagnosis History of DVT (deep vein thrombosis)- Primary documented in this encounter [facility]* Diagnosis Diabetic peripheral vascular disorder ([facility]/HCC)- Primary Type II or unspecified type diabetes mellitus with peripheral circulatory disorders, not stated as uncontrolled Type II or unspecified type diabetes mellitus with neurological manifestations, not stated as uncontrolled(250.60) ([facility]) Type II or unspecified type diabetes mellitus with neurological manifestations, not stated as uncontrolled documented in this encounter [facility]Evaluation [facility]* Diagnosis Encounter for screening colonoscopy- Primary documented in this encounter [facility]* Diagnosis History of pulmonary embolus (PE)- Primary documented in this encounter [facility]* Diagnosis Non-pressure chronic ulcer of other part of left lower leg with fat layer exposed ([facility])- Primary documented in this encounter [facility] HealthcareEvaluation note* Diagnosis Cellulitis of left lower leg- Primary documented in this encounter [facility] HealthcareEvaluation note* Diagnosis Cellulitis and abscess of right lower extremity documented in this encounter [facility] HealthcareEvaluation note* Diagnosis Dermatophytosis of nail- Primary Dystrophic nail Other specified disease of nail Diabetic peripheral vascular disorder ([facility]) Type II or unspecified type diabetes mellitus with peripheral circulatory disorders, not stated as uncontrolled Type II or unspecified type diabetes mellitus with neurological manifestations, not stated as uncontrolled(250.60) ([facility]/HCC) Type II or unspecified type diabetes mellitus with neurological manifestations, not stated as uncontrolled 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 respiratory failure Surgical History lesion on left thigh removed Surgical History LESION SCALP REMOVED Hospitalization History HEART ATTACK 2008 Hospitalization History RESPITORY FAILURE - [facility] 09/2015 Hospitalization History NOSE BLEED 11/2016 Hospitalization History [facility] RIGHT LOWER LEG W OPEN SORE 10/15 Hospitalization History Fluid around his heart P [facility] 07/2018 Hospitalization History Cellulitis in right lowe re leg[facility] 10/2019 [facility] Other History general Narrative - Reported* Type Description Date Medical History heart attack 2009 Medical History congestive heart failure 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 respiratory failure Surgical History lesion on left thigh removed Surgical History LESION SCALP REMOVED Hospitalization History HEART ATTACK 2008 Hospitalization History RESPITORY FAILURE - [facility] 09/2015 Hospitalization History NOSE BLEED 11/2016 Hospitalization History [facility] CELL[facility] RIGHT LOWER LEG W OPEN SORE 10/15 Hospitalization History Fluid around his heart P [facility] 07/2018 Hospitalization History Cellulitis in right lowe re leg-[facility] 10/[address] [facility] Other History of Present illness Narrative* Patient is here for follow-up continue management for history of right heart failure, previous presentation with PE and DVT, morbid obesity and sleep apnea. Since last time I saw him he denies any change in cardiac status or symptoms. Continue to have shortness of breath and lower extremity edema. He continues to follow-up with the renal service. He denies lightheadedness, dizziness or syncope. He failed to lose any meaningful weight. * Assessment * 1. Patient with known chronic right heart failure. According him this had been stable. * 2. 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 Morbid obesity with BMI to 70 * 4. No known coronary artery disease. Stress test remotely * 5. Recent history of lower GI bleed awaiting colonoscopy * 6. Sleep apnea * 7. Hypertension controlled * 8. Hyperlipidemia reviewed his lab from last year with him * Plan * 1. I reviewed with him his previous lab and cardiac work-up * 2. Patient overall appears to be stable and unchanged from cardiovascular standpoint over the last for 5 years * 3. I need to encourage him to lose weight, exercise and consider bariatric surgery * 4. We will try to retrieve his recent lab * 5. Follow-up in 9-month [facility] 250 DO Work Phone: History of Present illness Narrative* Patient is here for follow-up continue management for morbid obesity, right heart failure, DVT on long-term anticoagulation. Since last time I saw him he denies any change in cardiac status or symptoms. He remains short of breath with sedentary lifestyle. He denies any change in cardiac status or symptoms. He has failed to lose any meaningful weight. * Assessment * 1. Patient with known chronic right heart failure. His weight has been stable * 2. 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 Morbid obesity with BMI to 70 * 4. No known coronary artery disease. Stress test remotely * 5. Recent history of lower GI bleed awaiting colonoscopy * 6. Sleep apnea on CPAP and O2 at home * 7. Hypertension controlled * 8. Hyperlipidemia no recent labs available * Plan * 1. I advised him to repeat his lab work * 2. Patient overall appears to be stable and unchanged from cardiovascular standpoint over the last several years * 3. I need to encourage him to lose weight, exercise and consider bariatric surgery * 4. Follow-up in 9-month [facility] with [facility] 250 DO Work Phone: InstructionsNot on filedocumented in this encounter [facility]ed [facility] on filedocumented in this encounter [facility] on filedocumented in this encounter [facility]ructionsNot on filedocumented in this encounter [facility]ructionsNot on filedocumented in this encounter [facility] System[facility] for referral (narrative)* Consultation (Routine) - Authorized Specialty Diagnoses / Procedures Referred By Anthony samayoa Referred To Contact Cardiology Diagnoses Chronic right-sided heart failure (CMS/HCC) Procedures Follow Up In Cardiology Shantel Long MD [address] [place] [address] [address], [address] [address] Shantel Long MD [address] [place] [address] 2, [address] [address] Referral ID Status Reason Start Date Expiration Date V isits Requested Visits Authorized [id number] Authorized 08/20/2023 08/19/2024 1 1 [facility] Work Phone: Summary Purpose Family History No Family History Records FoundUnknown Family Member Name Dates Details Family history of hypertensi on: Sister(V17.49, Z82.49) Status:Active Family history of diabetes m ellitus: Sister(V18.0, Z83.3) Status:Active Family history of arterioscl erotic cardiovascular disease: Mother(V17.49, Z82.49) Status:Active Unknown Family Member Name Dates Details Family history of arterioscl erotic cardiovascular disease: Mother(V17.49, Z82.49) Status:Active Family history of hypertensi on: Sister(V17.49, Z82.49) Status:Active Family history of diabetes m ellitus: Sister(V18.0, Z83.3) Status:Active Relationship Condition Age at Onset Recorded Date/T lillie brother Heart disease Unknown father History of stroke Unknown Unknown Not Specified Unknown Coronary artery disease Unknown Heart disease Unknown sister Heart disease Unknown Diabetes mellitus Unknown Hypertension Unknown Advance Directives No Advanced Directives Records FoundDocuments on File Type Date Recorded 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 Center 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 Expl anation ACP-Advance Directive 11/07/2015 1:40 PM Latest Code Status on File Code Status Date Activated Date Inactivated Comments Full Code 12/08/2016 6:18 AM 12/15/2016 6:39 PM Code Status History Code Status Date Activated Date Inactivated Comments Full Code 07/18/2016 7:15 AM 07/19/2016 10:04 PM Full Code 09/20/2015 3:17 AM 11/06/2015 9:46 PM Latest Code Status on File Code Status Date Activated Date Inactivated Comments Full Code 03/07/2023 6:49 PM 03/13/2023 4:23 PM Code Status History Code Status Date Activated Date Inactivated Comments Full Code 12/27/2022 6:22 PM 01/03/2023 12:47 PM Full Code 11/29/2022 3:42 PM 12/05/2022 9:53 AM Full Code 10/16/2022 7:53 PM 10/23/2022 6:12 PM Full Code 09/23/2022 10:59 PM 09/26/2022 10:08 PM Advance Directive Response Recorded Date/ Time Advance Directives No May 01, 2017 2:26am Date Activated Date Inactivated Comments 03/07/2023 6:49 PM 03/13/2023 4:23 PM Date Activated Date Inactivated Comments 12/27/2022 6:22 PM 01/03/2023 12:47 PM Date Activated Date Inactivated Comments 11/29/2022 3:42 PM 12/05/2022 9:53 AM Date Activated Date Inactivated Comments 10/16/2022 7:53 PM 10/23/2022 6:12 PM Date Activated Date Inactivated Comments 09/23/2022 10:59 PM 09/26/2022 10:08 PM Chief Complaint CANDIDOGABRIELLE FLORES is being seen for a 9 month follow-up of.JENARO FLORES is being seen for a 9 month follow-up of. Chief Complaint and Reason for Visit Chief Complaint Dm 3 Month F/U e11.8 Reason for Referral Specialty Diagnoses / Procedures Referred By Contac t Referred To Contact Diagnoses Diabetic peripheral vascular disorder (CMS/HCC) Claus Naidu, BRICE FACFAS [address] [place] [address] [place] [address] Referral ID Status Reason Start Date Expiration Date Visits Re quested Visits Authorized [id number] Closed 1 1 Additional Source Comments (unrecognized sect ion and content) No Status Records FoundNo Status Records FoundNo Status Records FoundNo Status Records FoundNo Status Records FoundNo Status Records FoundNo Status Records FoundNo Status Records FoundNo Status Records FoundNo Status Records FoundNo Status Records FoundNo Status Records FoundNo Status Records FoundNo Status Records Found INFORMATION SOURCE (unrecogn ized section and content) DATE CREATED AUTHOR 08/27/2018 [facility] DATE CREATED AUTHOR AUTHOR'S ORGANIZ ATION 06/29/2020 [facility] DATE CREATED AUTHOR AUTHOR'S ORGANIZ ATION 04/24/2022 [facility] DATE CREATED AUTHOR AUTHOR'S ORGANIZ ATION 04/24/2022 [facility] DATE CREATED AUTHOR AUTHOR'S ORGANIZ ATION 01/23/2023 [facility] DATE CREATED AUTHOR AUTHOR'S ORGANIZ ATION 07/12/2023 [facility] DATE CREATED AUTHOR AUTHOR'S ORGANIZ ATION 08/15/2023 [facility] DATE CREATED AUTHOR AUTHOR'S ORGANIZ ATION 08/28/2023 [facility] DATE CREATED AUTHOR AUTHOR'S ORGANIZ ATION 11/07/2023 [facility] DATE CREATED AUTHOR AUTHOR'S ORGANIZ ATION 12/26/2023 [facility] DATE CREATED AUTHOR AUTHOR'S ORGANIZ ATION 04/14/2024 [facility] DATE CREATED AUTHOR AUTHOR'S ORGANIZ ATION 05/16/2024 [facility] DATE CREATED AUTHOR AUTHOR'S ORGANIZ ATION 05/21/2024 [facility] DATE CREATED AUTHOR AUTHOR'S ORGANIZ ATION 05/27/2024 [facility] REASON FOR VISIT (unrecogniz ed section and content) Reason Comments Follow-up 9 month Reason Comments [facility] Established pt prese ntas today for diabetic nail care. Pt states he is currently taking clindamyacin and levaquin for his legs, and a spider bite. PCP: Tiffanie Rivera LV 03/12/24, A1C: 3.1, BS: 176, SS: 13 Care Teams (unrecognized sec tion and content) Grade Tamper Relationship Specialty Start Date End Date Robert Lucas MD [address] [place], [place] [id number] PCP - General 09/20/15 Grade Tamper Relationship Specialty Start Date End Date Robert Lucas MD [address] [facility] [place] [place] [address] PCP - General Family Medicine 09/23/22 Grade Tamper Relationship Specialty Start Date End Date Robert Lucas MD [address] [facility] [place] [address] PCP - General Family Medicine 09/23/22 Grade Tamper Relationship Specialty Start Date End Date Robert Lucas MD [address] [facility] [place] [place] [address] PCP - General Family Medicine 09/23/22 Team Status: Active Member Role Status Dates Robert Lucas MD Primary Care Provider Active Team Status: Inactive Member Role Status Dates Tiffanie Rivera APRN Attending Provider Active Start: June 19, 2023 End: June 19, 2023 Team Status: Inactive Member Role Status Dates Robert Lucas MD Primary Care Provider Active Start: June 19, 2023 End: June 19, 2023 Tiffanie Rivera APRN Attending Provider Active Start: June 19, 2023 End: June 19, 2023 Grade Tamper Relationship Specialty Start Date End Date Robert Lucas MD [address] [place], [place] [id number] PCP - General Family Medicine 09/23/22 Grade Tamper Relationship Specialty Start Date End Date Robert Lucas MD [address] [place] [address] PCP - General 06/27/20 Grade Tamper Relationship Specialty Start Date End Date Robert Lucas MD [address] [facility] [place] [address] PCP - General Family Medicine 09/23/22 Grade Tamper Relationship Specialty Start Date End Date Robert Lucas MD [address] [facility] [place] [address] PCP - General Family Medicine 09/23/22 Grade Tamper Relationship Specialty Start Date End Date Robert Lucas MD [address] [place] [address] PCP - General Family Medicine 03/04/23 Grade Tamper Relationship Specialty Start Date End Date Shaun Enriquez MD [address] [place] [address] PCP - General Infectious Disease 04/12/24 Grade Tamper Relationship Specialty Start Date End Date Robert Lucas MD [address] [place] [address] PCP - General Family Medicine 03/04/23 Grade Tamper Relationship Specialty Start Date End Date Robert Lucas MD [address] [place] [address] PCP - General Family Medicine 03/04/23 Grade Tamper Relationship Specialty Start Date End Date Robert Lucas MD [address] [place] [address] PCP - General Family Medicine 03/04/23 Grade Tamper Relationship Specialty Start Date End Date Robert Lucas MD [address] [place] [address] PCP - General Family Medicine 03/04/23 Goals (unrecognized section and content) Goals may be documented in a n alternate section FOR RECORDS PERTAINING TO PATIENTS WHO ARE OR HAVE BEEN ENROLLED IN A CHEMICAL DEPENDENCY/SUBSTANCEABUSE PROGRAM, SOME INFORMATION MAY BE OMITTED. This clinical summary was aggregated from multiple sources. Caution should be exercised in using it in the provision of clinical care. This summary normalizes information from multiple sources, and as a consequence, information in this document may materially change the coding, format and clinical context of patient data. In addition, data may be omitted in some cases. CLINICAL DECISIONS SHOULD BE BASED ON THE PRIMARY CLINICAL RECORDS. [employer] provides no warranty or guarantee of the accuracy or completeness of information in this document.
[2024-05-31 14:41] VITALS: BMI 70.4
--- NOTE | 2024-05-31 14:41 | V.VEINS.HP ---
Vital Signs 05/31/24 14:41 Height 5 ft 7 in Weight 204 kg BMI 70.4 Varicose Veins Patient in today for follow up ultrasound of right lower extremity following EVLT of right GSV completed on 05/20/24. Edinson Oates MD personally performed the services described in this documentation, as scribed by Amy Whatley RDMS in my presence and it is both accurate and complete. Amy Oates RDMS am scribing for, and in the presence of, Dr. Lucio Grajeda and in the presence of the patient. thigh: bilateral, knee: bilateral, calf: bilateral, ankle: bilateral and berry: bilateral aching, burning, cramping, dull and tender 2 5 years Worsened in recent months: Yes standing and sitting analgesics, elevating extremities and wraps Reports muscle spasms of leg, erythema, fatigue, heaviness, limb pain, edema and leg edema History of lower extremity trauma: No Superficial thrombophlebitis: Yes Family history of varicose veins: no Has patient had previous lower extremity venous surgery: No Patient has previously received the following treatment(s) for lower extremity varicose veins: Reports none Does patient have a history of : not applicable Has patient had lower extremity venous scan with relux testing: No Support hose used: Yes Problems walking or doing physical activity: Yes How does it affect you: inability to due to pain/edema Do you walk much: No Do you stand much: Yes Review of Systems ROS Narrative Edinson Oates MD personally performed the services described in this documentation, as scribed by Amy Whatley RDMS in my presence and it is both accurate and complete. Amy Oates RDMS, am scribing for, and in the presence of, Dr. Lucio Grajeda and in the presence of the patient. Status of ROS 10 or more systems reviewed and unremarkable except as noted in history and below Cardiovascular Reports: edema Integumentary/Breast Reports: itching, redness, skin pain, skin tenderness, skin swelling, changing lesion, non-healing lesion and changes in skin color Neurological Reports: numbness in extremities and weakness in extremities Hematologic/Lymphatic Reports: easy bruising and easy bleeding PFSH PFS Medical History (Updated 05/20/24 @ 13:27 by Michele Potter) Phlebitis and thrombophlebitis of superficial vessels of right lower extremity ?I80.01 - Phlebitis and thrombophlebitis of superficial vessels of right lower extremity (ICD-10) Pain due to varicose veins of both lower extremities ?I83.813 - Varicose veins of bilateral lower extremities with pain (ICD-10) Lymphedema due to venous disease ?I89.0 - Lymphedema, not elsewhere classified (ICD-10) ?I99.9 - Unspecified disorder of circulatory system (ICD-10) Obesities, morbid ?E66.01 - Morbid (severe) obesity due to excess calories (ICD-10) Venous insufficiency ?I87.2 - Venous insufficiency (chronic) (peripheral) (ICD-10) Gout ?M10.9 - Gout, unspecified (ICD-10) Type 2 diabetes mellitus ?E11.9 - Type 2 diabetes mellitus without complications (ICD-10) Myocardial infarct ?I21.9 - Acute myocardial infarction, unspecified (ICD-10) Dvt femoral (deep venous thrombosis) ?I82.419 - Acute embolism and thrombosis of unspecified femoral vein (ICD-10) CAD (coronary atherosclerotic disease) ?I25.10 - Atherosclerotic heart disease of [place] coronary artery without angina pectoris (ICD-10) CHF (congestive heart failure) ?I50.9 - Heart failure, unspecified (ICD-10) COPD (chronic obstructive pulmonary disease) ?J44.9 - Chronic obstructive pulmonary disease, unspecified (ICD-10) Hypertension ?I10 - Essential (primary) hypertension (ICD-10) Pulmonary embolism ?I26.99 - Other pulmonary embolism without acute cor pulmonale (ICD-10) Surgical History (Updated 05/20/24 @ 15:53 by Michele Potter) Status post laser ablation of incompetent vein ?Z98.890 - Other specified postprocedural states (ICD-10) Family History (Updated 05/03/24 @ 14:47 by Michele Potter) Other Family history of cancer Family history of diabetes mellitus Family history of hypertension Social History (Updated 05/03/24 @ 14:48 by Michele Potter) Within the past year, how often did you have a drink containing alcohol: monthly or less Smoking status: Former smoker Non-prescribed substance use: denies use Meds Home Medications and Allergies Home Medications ?Medication ?Instructions ?Recorded ?Confirmed ?Type allopurinol 100 mg tablet 100 mg PO DAILY 05/03/24 05/03/24 History atorvastatin 10 mg tablet 10 mg PO DAILY 05/03/24 05/03/24 History bumetanide 2 mg tablet 2 mg PO DAILY 05/03/24 05/03/24 History fenofibrate 120 mg tablet 120 mg PO DAILY 05/03/24 05/03/24 History hydrocodone 5 mg-acetaminophen 325 1 tab PO Q6H 05/03/24 05/03/24 History mg tablet losartan 50 mg tablet 50 mg PO DAILY 05/03/24 05/03/24 History omeprazole 40 mg capsule,delayed 40 mg PO DAILY 05/03/24 05/03/24 History release semaglutide 0.25 mg or 0.5 mg (2 0.25 mg subcut QWEEK 05/03/24 05/03/24 History mg/3 mL) subcutaneous pen injector (Ozempic) spironolactone 25 mg tablet 25 mg PO QAM 05/03/24 05/03/24 History (Aldactone) warfarin 5 mg tablet 5 mg PO DAILY 05/03/24 05/03/24 History Allergies Allergy/AdvReac Type Severity Reaction Status Date / Time adhesive Allergy Mild Blister Verified 05/04/24 09:41 Exam Narrative Exam Narrative: Edinson Oates MD personally performed the services described in this documentation, as scribed by Amy Whatley RDMS in my presence and it is both accurate and complete. Amy Oates RDMS, am scribing for, and in the presence of, Dr. Lucio Grajeda and in the presence of the patient. Constitutional Documenting provider has reviewed patient's vital signs: yes Common normals: oriented x3 Nutritional appearance: overweight Cardio Peripheral pulses: posterior tibial pulses present and dorsalis pedis pulses present Extremity Common normals: normal capillary refill General: calf tenderness and edema Right lower extremity: lower leg Right lower leg: inspection and palpation Left lower extremity: lower leg Left lower leg: inspection and palpation Neuro Common normals: oriented x3 Results Imaging Venous US: Radiologist's impression: Heat induced partial thrombus approximately 14 cm from SFJ and exends to distal lower leg. GSV from proximal to mid calf is completely closed. Edinson Oates MD personally performed the services described in this documentation, as scribed by Amy Whatley RDMS in my presence and it is both accurate and complete. I, Amy Whatley RDMS, am scribing for, and in the presence of, Dr. Lucio Grajeda and in the presence of the patient. Assessment and Plan Assessment and Plan (1) Phlebitis and thrombophlebitis of superficial vessels of right lower extremity: Plan Plan is for patient to return for EVLT of left GSV on 06/14/24. I, Edinson Grajeda MD personally performed the services described in this documentation, as scribed by Amy Whatley RDMS in my presence and it is both accurate and complete. I, Amy Whatley RDMS, am scribing for, and in the presence of, Dr. Lucio Grajeda and in the presence of the patient.
--- NOTE | 2024-05-31 14:46 | W.VEIN ---
Discharge Plan Discharge Disposition: Home, Self-Care Outpatient Diagnostics: VC Endovenous Ablation 1VeinLT (Routine) Timeframe: 1 Month Facility: [facility] - Location: Vein Center Ordered By: Edinson Grajeda Follow Up Appointments: 06/14/24 Plan of Treatment: EVLT of left GSV EVLT Tumescent Anesthesia: 500 mL 0.9% NS with 20 mL 1% Lidocaine and 10 mL 8.4% NAHCO3 Buffered Local Anesthesia: 10 mL of 1% Lidocaine Buffered Print Language: Citizen Of [place] Discharge Date/Time: 05/31/24 14:47
== END 2024-05-31 14:47 | disposition home or self-care (01) ==
PROVIDERS: PCP Radiology Diagnostic Radiology; Visit Provider Radiology Diagnostic Radiology
DX: I80.01 Phlebitis and thrombophlebitis of superficial vessels of right lower extremity (principal)
CPT/HCPCS: 93971; G0463

== ENCOUNTER 2024-06-14 09:51 | Outpatient (OUT) | payer MEDICARE, SELFPAY ==
--- NOTE | 2024-06-11 08:37 | V.VEINS.HP ---
Vital Signs 06/14/24 10:06 BP 136/79 BP Location Left Radial BP Position Sitting BP Cuff Size Adult BP Source Automatic Cuff Respiration 20 Pulse 84 Pulse Oximetry (%) 91 L Comment The patient's blood pressure is elevated. Varicose Veins Patient in today for EVLT of left GSV Doc Oates MD personally performed the services described in this documentation, as scribed by Michele Potter RN in my presence and it is both accurate and complete. IMichele RN, am scribing for, and in the presence of, Dr. Doc Ortiz and in the presence of the patient. thigh: bilateral, knee: bilateral, calf: bilateral, ankle: bilateral and berry: bilateral aching, burning, cramping, dull and tender 2 5 years Worsened in recent months: Yes standing and sitting analgesics, elevating extremities and wraps Reports muscle spasms of leg, erythema, fatigue, heaviness, limb pain, edema and leg edema History of lower extremity trauma: No Superficial thrombophlebitis: Yes Family history of varicose veins: no Has patient had previous lower extremity venous surgery: No Patient has previously received the following treatment(s) for lower extremity varicose veins: Reports none Does patient have a history of : not applicable Has patient had lower extremity venous scan with relux testing: No Support hose used: Yes Problems walking or doing physical activity: Yes How does it affect you: inability to due to pain/edema Do you walk much: No Do you stand much: Yes Review of Systems ROS Narrative Doc Oates MD personally performed the services described in this documentation, as scribed by Michele Potter RN in my presence and it is both accurate and complete. Michele Oates RN, am scribing for, and in the presence of, Dr. Doc Ortiz and in the presence of the patient.. Status of ROS 10 or more systems reviewed and unremarkable except as noted in history and below Cardiovascular Reports: edema Integumentary/Breast Reports: itching, redness, skin pain, skin tenderness, skin swelling, changing lesion, non-healing lesion and changes in skin color Neurological Reports: numbness in extremities and weakness in extremities Hematologic/Lymphatic Reports: easy bruising and easy bleeding PFSH [facility] Medical History (Updated 06/14/24 @ 10:06 by Michele Potter) Phlebitis and thrombophlebitis of superficial vessels of left lower extremity ?I80.02 - Phlebitis and thrombophlebitis of superficial vessels of left lower extremity (ICD-10) Phlebitis and thrombophlebitis of superficial vessels of right lower extremity ?I80.01 - Phlebitis and thrombophlebitis of superficial vessels of right lower extremity (ICD-10) Pain due to varicose veins of both lower extremities ?I83.813 - Varicose veins of bilateral lower extremities with pain (ICD-10) Lymphedema due to venous disease ?I89.0 - Lymphedema, not elsewhere classified (ICD-10) ?I99.9 - Unspecified disorder of circulatory system (ICD-10) Obesities, morbid ?E66.01 - Morbid (severe) obesity due to excess calories (ICD-10) Venous insufficiency ?I87.2 - Venous insufficiency (chronic) (peripheral) (ICD-10) Gout ?M10.9 - Gout, unspecified (ICD-10) Type 2 diabetes mellitus ?E11.9 - Type 2 diabetes mellitus without complications (ICD-10) Myocardial infarct ?I21.9 - Acute myocardial infarction, unspecified (ICD-10) Dvt femoral (deep venous thrombosis) ?I82.419 - Acute embolism and thrombosis of unspecified femoral vein (ICD-10) CAD (coronary atherosclerotic disease) ?I25.10 - Atherosclerotic heart disease of [place] coronary artery without angina pectoris (ICD-10) CHF (congestive heart failure) ?I50.9 - Heart failure, unspecified (ICD-10) COPD (chronic obstructive pulmonary disease) ?J44.9 - Chronic obstructive pulmonary disease, unspecified (ICD-10) Hypertension ?I10 - Essential (primary) hypertension (ICD-10) Pulmonary embolism ?I26.99 - Other pulmonary embolism without acute cor pulmonale (ICD-10) Surgical History (Updated 06/14/24 @ 11:13 by Michele Potter) Status post laser ablation of incompetent vein ?Z98.890 - Other specified postprocedural states (ICD-10) Status post laser ablation of incompetent vein ?Z98.890 - Other specified postprocedural states (ICD-10) Family History (Updated 05/03/24 @ 14:47 by Michele Potter) Other Family history of cancer Family history of diabetes mellitus Family history of hypertension Social History (Updated 05/03/24 @ 14:48 by Michele Potter) Within the past year, how often did you have a drink containing alcohol: monthly or less Smoking status: Former smoker Non-prescribed substance use: denies use Meds Home Medications and Allergies Home Medications ?Medication ?Instructions ?Recorded ?Confirmed ?Type allopurinol 100 mg tablet 100 mg PO DAILY 05/03/24 05/03/24 History atorvastatin 10 mg tablet 10 mg PO DAILY 05/03/24 05/03/24 History bumetanide 2 mg tablet 2 mg PO DAILY 05/03/24 05/03/24 History fenofibrate 120 mg tablet 120 mg PO DAILY 05/03/24 05/03/24 History hydrocodone 5 mg-acetaminophen 325 1 tab PO Q6H 05/03/24 05/03/24 History mg tablet losartan 50 mg tablet 50 mg PO DAILY 05/03/24 05/03/24 History omeprazole 40 mg capsule,delayed 40 mg PO DAILY 05/03/24 05/03/24 History release semaglutide 0.25 mg or 0.5 mg (2 0.25 mg subcut QWEEK 05/03/24 05/03/24 History mg/3 mL) subcutaneous pen injector (Ozempic) spironolactone 25 mg tablet 25 mg PO QAM 05/03/24 05/03/24 History (Aldactone) warfarin 5 mg tablet 5 mg PO DAILY 05/03/24 05/03/24 History Allergies Allergy/AdvReac Type Severity Reaction Status Date / Time adhesive Allergy Mild Blister Verified 05/04/24 09:41 Exam Narrative Exam Narrative: Doc Oates MD personally performed the services described in this documentation, as scribed by Michele Ptoter RN in my presence and it is both accurate and complete. IMichele RN, am scribing for, and in the presence of, Dr. Doc Ortiz and in the presence of the patient. Constitutional Documenting provider has reviewed patient's vital signs: yes Common normals: oriented x3 Nutritional appearance: overweight Cardio Peripheral pulses: posterior tibial pulses present and dorsalis pedis pulses present Extremity Common normals: normal capillary refill General: calf tenderness and edema Right lower extremity: lower leg Right lower leg: inspection and palpation Left lower extremity: lower leg Left lower leg: inspection and palpation Neuro Common normals: oriented x3 Assessment and Plan Assessment and Plan (1) Pain due to varicose veins of both lower extremities: Plan f/u examination with physician along with left leg limited u/s I, Doc Ortiz MD personally performed the services described in this documentation, as scribed by Michele Potter RN in my presence and it is both accurate and complete. I, Michele Potter RN, am scribing for, and in the presence of, Dr. Doc Ortiz and in the presence of the patient. Procedures Procedure Instructions Procedures Plan of care: Risks and benefits of the procedure were discussed at length and informed written consent was obtained.? Time-out completed for verification of correct patient, procedure and site.? Staff present during time-out: Michele Potter RN,? Doc Ortiz MD, Amy Whatley RDMS, Mis Almeida RDMS/RVT Time Out Time__1031 Patient prepped and procedure performed in usual sterile fashion. Risk of injury related to use of Diode laser and/or laser devices?__CR___ ? Serial number of laser used :? [id number] Control panel self test performed, electrical cords in good condition, floor is dry, basin of water available, fire extinguisher in close proximity_CR__ Polycarbonate goggles available and Laser warning signs outside of doors___CR__ Eye protection provided to patient and staff in room_CR___ Use of laser retardant drapes and dull blackened instruments as directed__CR___ Use of nonflammable prep solutions and use of saline soaked sponges to protect tissues as indicated _CR___ Length _45 cm Laser operated by _Dr. Ortiz Physician verbal confirmation laser locked in place__CR__ Laser start time (date and time) __06/14/2024@__1046 Laser stop time(date and time) _06/14/2024@__1050 [place] _8.0___ Average laser use ___3396____Joules Average laser use___403 seconds Pulse continuous ___CR_? Pulse intermittent ___ Amount of Tumescent used _350cc Evaluated patient for signs and symptoms of electrical injury __CR___ ? Skin clear at insertion site __CR___ Patient tolerated procedure well.? Left leg Coban dressing applied to access site.? Applied Left thigh high leg compression stocking. Will return on 06/21/2024 for Left leg limited venous ultrasound and exam. IDoc MD personally performed the services described in this documentation, as scribed by Michele Potter RN in my presence and it is both accurate and complete. I, Michele Potter RN, am scribing for, and in the presence of, Dr. Doc Ortiz and in the presence of the patient.
--- NOTE | 2024-06-11 08:40 | P.DS_ITS ---
Discharge Plan Discharge Disposition: Home, Self-Care Outpatient Diagnostics: VC Facility EST LMTD (Routine) Timeframe: 2 Weeks Facility: [facility] [place] - Location: Vein Center Ordered By: Doc Ortiz VC EXT Venous LT Limited (Routine) Timeframe: 2 Weeks Facility: [facility] [place] - Location: Vein Center Ordered By: Doc Ortiz Follow Up Appointments: 06/21/24 Plan of Treatment: f/u evaluation with physician along with left leg limited u/s Patient Instructions: Endovenous Ablation (DC) Print Language: Greek Discharge Date/Time: 06/14/24 11:14
[2024-06-14] MEDS: LIDOCAINE HCL 1% 100 MG/10 ML MDV INJ (09:54)
[2024-06-14] MEDS: 0.9 % SODIUM CHLORIDE 500 ML, LIDOCAINE HCL 20 ML, SODIUM BICARBONATE 10 MEQ INJ (09:54)
--- NOTE | 2024-06-14 09:57 | VEIN_ITS ---
[address] [address] Patient Name: GALLITO FLORES MRN: [id number] date: 1960 Sex: M Assigned Patient Location: Current Patient Location: Accession/Order Number: [id number] Exam Date: 06/14/2024 10:00 Report Date: 06/14/2024 11:09 At the request of: FRANKLYN BHARDWAJ Procedure: VC Endovenous Ablation 1VeinLT EXAMINATION: VC Endovenous Ablation 1Vein, left great saphenous vein HISTORY: I83.813 - Varicose veins of bilateral lower extremities w... COMPARISON: No relevant comparison available. TECHNIQUE: The risks and benefits of the procedure had been previously discussed, and were rediscussed at length. Informed written consent was obtained. Carly Whatley and Michele Potter assisted. Time out procedure was performed. The left lower extremity was prepared and draped in the usual sterile fashion to allow knee flexion in the sterile field. Duplex ultrasound probe was draped in a sterile cover, sterile transmission gel was used. Venous mapping was performed with the areas of dilation and large tributaries marked. The total length was 45 cm from the entry mid to lower leg to 3 cm below the saphenofemoral junction. The diameter of the greater saphenous vein ranged from 7-12 mm. A 30 gauge needle and 1% buffered lidocaine was used to anesthetize the entry site. A 4 mm incision was made with a scalpel and the saphenous vein was entered percutaneously under direct ultrasound guidance with a micropuncture set, a single stick was successful in gaining access. A micro-guide wire was inserted and the needle removed. A micro-set including a dilator was inserted over the microwire and the needle and dilator were removed. A 0.018 guide wire was inserted through the micro-set and threaded through the saphenous vein to the saphenofemoral junction. The dilator was removed and an introducer sheath was inserted over the wire until the end of the sheath entered the saphenofemoral junction. The dilator and wire were removed and the 600 micron fiber was introduced and placed and positioned so that it extended beyond the sheath and was 3 cm peripheral to the saphenofemoral femoral junction. Final position of the fiber was determined by ultrasound guidance and duplex imaging. Tumescent anesthetic was delivered by ultrasound guidance. 350 cc of fluid was delivered along the entire course of the saphenous vein. The solution consisted of 1000 cc of normal saline with 40 mL of 1% lidocaine and 20 mL of sodium bicarbonate. A final positioning check was made. The energy source was turned on by means of the foot pedal and the fiber and sheath were withdrawn. The total number of Joules delivered was 3396. The laser was active for 425 seconds under continuous pulse, average laser use of 8 J. Laser start time 10:46 AM 06/14/2024 . Laser stop time 10:50 AM, 06/14/2024 . A duplex ultrasound revealed compressibility and flow at the saphenofemoral junction immediately after the procedure. Hemostasis at the access site was achieved. The skin incision of the saphenous vein was closed with a 4 x 4. A compression stocking was applied. Postop instructions were given. A follow up appointment was recommended and scheduled. The patient tolerated the procedure well and was discharged in good condition . VEIN/VC Endovenous Ablation 1VeinLT IMPRESSION: Technically successful endovenous laser ablation left great saphenous vein Electronically authenticated by: KALLI BERNARDO Date: 06/14/2024 11:09
[2024-06-14 10:06] VITALS: BP 136/79; PULSE 84; O2SAT 91
== END 2024-06-14 11:14 | disposition home or self-care (01) ==
LOC: VC 09:52
PROVIDERS: PCP Radiology Diagnostic Radiology; Visit Provider Radiology Diagnostic Radiology
DX: I83.813 Varicose veins of bilateral lower extremities with pain (principal)
CPT/HCPCS: 36478

== ENCOUNTER 2024-06-21 12:53 | Outpatient (OUT) | payer MEDICARE, SELFPAY ==
[2024-06-21 10:15] VITALS: BMI 70.4
--- NOTE | 2024-06-21 10:15 | V.VEINS.HP ---
Vital Signs 06/21/24 10:15 Height 5 ft 7 in Weight 204 kg BMI 70.4 Varicose Veins Patient in today for follow up ultrasound of left lower extremity following EVLT of left GSV completed on 06/14/24. Doc Oates MD personally performed the services described in this documentation, as scribed by Amy Whatley RDMS in my presence and it is both accurate and complete. Amy Oates RDMS, am scribing for, and in the presence of, Dr. Doc Ortiz and in the presence of the patient. thigh: bilateral, knee: bilateral, calf: bilateral, ankle: bilateral and berry: bilateral aching, burning, cramping, dull and tender 2 5 years Worsened in recent months: Yes standing and sitting analgesics, elevating extremities and wraps Reports muscle spasms of leg, erythema, fatigue, heaviness, limb pain, edema and leg edema History of lower extremity trauma: No Superficial thrombophlebitis: Yes Family history of varicose veins: no Has patient had previous lower extremity venous surgery: No Patient has previously received the following treatment(s) for lower extremity varicose veins: Reports none Does patient have a history of : not applicable Has patient had lower extremity venous scan with relux testing: No Support hose used: Yes Problems walking or doing physical activity: Yes How does it affect you: inability to due to pain/edema Do you walk much: No Do you stand much: Yes Review of Systems ROS Narrative Doc Oates MD personally performed the services described in this documentation, as scribed by Amy Whatley RDMS in my presence and it is both accurate and complete. Amy Oates RDMS, am scribing for, and in the presence of, Dr. Doc Ortiz and in the presence of the patient. Status of ROS 10 or more systems reviewed and unremarkable except as noted in history and below Cardiovascular Reports: edema Integumentary/Breast Reports: itching, redness, skin pain, skin tenderness, skin swelling, changing lesion, non-healing lesion and changes in skin color Neurological Reports: numbness in extremities and weakness in extremities Hematologic/Lymphatic Reports: easy bruising and easy bleeding PFSH PFS Medical History (Updated 06/14/24 @ 10:06 by Michele Potter) Phlebitis and thrombophlebitis of superficial vessels of left lower extremity ?I80.02 - Phlebitis and thrombophlebitis of superficial vessels of left lower extremity (ICD-10) Phlebitis and thrombophlebitis of superficial vessels of right lower extremity ?I80.01 - Phlebitis and thrombophlebitis of superficial vessels of right lower extremity (ICD-10) Pain due to varicose veins of both lower extremities ?I83.813 - Varicose veins of bilateral lower extremities with pain (ICD-10) Lymphedema due to venous disease ?I89.0 - Lymphedema, not elsewhere classified (ICD-10) ?I99.9 - Unspecified disorder of circulatory system (ICD-10) Obesities, morbid ?E66.01 - Morbid (severe) obesity due to excess calories (ICD-10) Venous insufficiency ?I87.2 - Venous insufficiency (chronic) (peripheral) (ICD-10) Gout ?M10.9 - Gout, unspecified (ICD-10) Type 2 diabetes mellitus ?E11.9 - Type 2 diabetes mellitus without complications (ICD-10) Myocardial infarct ?I21.9 - Acute myocardial infarction, unspecified (ICD-10) Dvt femoral (deep venous thrombosis) ?I82.419 - Acute embolism and thrombosis of unspecified femoral vein (ICD-10) CAD (coronary atherosclerotic disease) ?I25.10 - Atherosclerotic heart disease of [place] coronary artery without angina pectoris (ICD-10) CHF (congestive heart failure) ?I50.9 - Heart failure, unspecified (ICD-10) COPD (chronic obstructive pulmonary disease) ?J44.9 - Chronic obstructive pulmonary disease, unspecified (ICD-10) Hypertension ?I10 - Essential (primary) hypertension (ICD-10) Pulmonary embolism ?I26.99 - Other pulmonary embolism without acute cor pulmonale (ICD-10) Surgical History (Updated 06/14/24 @ 11:13 by Michele Potter) Status post laser ablation of incompetent vein ?Z98.890 - Other specified postprocedural states (ICD-10) Status post laser ablation of incompetent vein ?Z98.890 - Other specified postprocedural states (ICD-10) Family History (Updated 05/03/24 @ 14:47 by Michele Potter) Other Family history of cancer Family history of diabetes mellitus Family history of hypertension Social History (Updated 05/03/24 @ 14:48 by Michele Potter) Within the past year, how often did you have a drink containing alcohol: monthly or less Smoking status: Former smoker Non-prescribed substance use: denies use Meds Home Medications and Allergies Home Medications ?Medication ?Instructions ?Recorded ?Confirmed ?Type allopurinol 100 mg tablet 100 mg PO DAILY 05/03/24 05/03/24 History atorvastatin 10 mg tablet 10 mg PO DAILY 05/03/24 05/03/24 History bumetanide 2 mg tablet 2 mg PO DAILY 05/03/24 05/03/24 History fenofibrate 120 mg tablet 120 mg PO DAILY 05/03/24 05/03/24 History hydrocodone 5 mg-acetaminophen 325 1 tab PO Q6H 05/03/24 05/03/24 History mg tablet losartan 50 mg tablet 50 mg PO DAILY 05/03/24 05/03/24 History omeprazole 40 mg capsule,delayed 40 mg PO DAILY 05/03/24 05/03/24 History release semaglutide 0.25 mg or 0.5 mg (2 0.25 mg subcut QWEEK 05/03/24 05/03/24 History mg/3 mL) subcutaneous pen injector (Ozempic) spironolactone 25 mg tablet 25 mg PO QAM 05/03/24 05/03/24 History (Aldactone) warfarin 5 mg tablet 5 mg PO DAILY 05/03/24 05/03/24 History Allergies Allergy/AdvReac Type Severity Reaction Status Date / Time adhesive Allergy Mild Blister Verified 05/04/24 09:41 Exam Narrative Exam Narrative: Doc Oates MD personally performed the services described in this documentation, as scribed by Amy Whatley RDMS in my presence and it is both accurate and complete. IAmy RDMS, am scribing for, and in the presence of, Dr. Doc Ortiz and in the presence of the patient. Constitutional Documenting provider has reviewed patient's vital signs: yes Common normals: oriented x3 Nutritional appearance: overweight Cardio Peripheral pulses: posterior tibial pulses present and dorsalis pedis pulses present Extremity Common normals: normal capillary refill General: calf tenderness and edema Right lower extremity: lower leg Right lower leg: inspection and palpation Left lower extremity: lower leg Left lower leg: inspection and palpation Neuro Common normals: oriented x3 Results Imaging Venous US: Radiologist's impression: Heat induced thrombus in left GSV 5.1 cm from SFJ and extends to proximal lower leg. Doc Oates MD personally performed the services described in this documentation, as scribed by Amy Whatley RDMS in my presence and it is both accurate and complete. IAmy RDMS, am scribing for, and in the presence of, Dr. Doc Ortiz and in the presence of the patient. Assessment and Plan Assessment and Plan (1) Phlebitis and thrombophlebitis of superficial vessels of left lower extremity: Plan Plan is for patient to return for EVLT of right SSV on 07/05/24. IDoc MD personally performed the services described in this documentation, as scribed by Amy Whatley RDMS in my presence and it is both accurate and complete. Lashon, Amy Whatley RDMS, am scribing for, and in the presence of, Dr. Doc Ortiz and in the presence of the patient.
--- NOTE | 2024-06-21 10:18 | P.DS_ITS ---
Discharge Plan Discharge Disposition: Home, Self-Care Outpatient Diagnostics: VC Endovenous Ablation 1VeinRT (Routine) Timeframe: 3 Weeks Facility: [facility] - Location: Vein Center Ordered By: Doc Ortiz Follow Up Appointments: 07/05/24 Plan of Treatment: EVLT of right SSV EVLT Tumescent Anesthesia: 500 mL 0.9% NS with 20 mL 1% Lidocaine and 10 mL 8.4% NAHCO3 Buffered Local Anesthesia: 10 mL of 1% Lidocaine Buffered Print Language: Anguill[place] Discharge Date/Time: 06/21/24 13:53
--- NOTE | 2024-06-21 12:55 | VEIN_ITS ---
Patient Name: GALLITO FLORES MR#: [id number] : 1960 Exam Date: 06/21/2024 Ordering Doctor: DR DOC ORTIZ M.D. RADIOLOGY REPORT PROCEDURE: [facility] EST [facility] - OFFICE VISIT FOLLOW UP [facility]. PROGRESS NOTES: The patient reports no significant problems following intravenous laser ablation of the left great saphenous vein. The patient has tried wear his compression wraps. The patient has difficulty exercising. Physical exam demonstrates a small area of bruising in the medial left thigh related to tumescence injection. No erythema or warmth to suggest cellulitis or thrombophlebitis. The great saphenous vein cannot be palpated due to patient body habitus. No new ulceration. Review of the ultrasound performed the same day demonstrates occlusive thrombus extending throughout the treated left great saphenous vein with heat induced thrombus 3.2 cm from the saphenofemoral junction. No deep vein thrombus. The patient expressed a desire to proceed with treatment of incompetent perforating veins. The patient is unable to lay on his stomach due to difficulty breathing and obesity, he did not want to proceed treatment of the right small saphenous vein. VEIN/[facility] EST TD IMPRESSION: 1. Successful ablation of the left great saphenous vein 2. Persistent bilateral incompetent perforating veins with associated venous stasis ulcerations. PLAN: Intravenous laser ablation right leg incompetent perforating veins Nurse notes, history and physical were reviewed and confirmed, see attached forms. The nurse was present throughout the physical exam and consultation Dictated by: Doc Ortiz MD on 06/21/2024 at 13:56 Approved by: Doc Ortiz MD on 06/21/2024 at 13:58
--- NOTE | 2024-06-21 12:55 | VEIN_ITS ---
Patient Name: GALLITO FLORES MR#: [id number] : 1960 Exam Date: 06/21/2024 Ordering Doctor: DR DOC ORTIZ M.D. RADIOLOGY REPORT PROCEDURE: VC EXT VENOUS LT LIMITED COMPARISON: None. INDICATIONS: I80.02 - Phlebitis and thrombophlebitis of superficial veins left leg TECHNIQUE: Lower extremity hendrickson scale and Duplex Doppler evaluation of the deep venous system from the inguinal ligament through the calf veins. FINDINGS: REGION: Left lower extremity. THROMBI: Negative for DVT. Heat induced thrombus in left GSV 5.1 cm from SFJ and extends to proximal lower leg. COMPRESSIBILITY: Non-compressible segments corresponding to thrombus FLOW: Areas of no flow corresponding to thrombus CONCLUSION: 1. Post ablation occlusion of the left great saphenous vein with heat induced thrombus 5.1 cm from the saphenofemoral junction and no deep vein thrombus Dictated by: Doc Ortiz MD on 06/21/2024 at 13:26 Approved by: Doc Ortiz MD on 06/21/2024 at 13:28
== END 2024-06-21 13:53 | disposition home or self-care (01) ==
LOC: VC 12:53
PROVIDERS: PCP Radiology Diagnostic Radiology; Visit Provider Radiology Diagnostic Radiology
DX: I80.02 Phlebitis and thrombophlebitis of superficial vessels of left lower extremity (principal)
CPT/HCPCS: 93971; G0463

== ENCOUNTER 2024-07-05 12:47 | Outpatient (OUT) | payer MEDICARE, SELFPAY ==
--- NOTE | 2024-07-02 09:51 | VEINCLINIC_ITS ---
Vital Signs 07/05/24 12:58 BP 160/90 H BP Location Right Brachial BP Position Sitting BP Cuff Size Large Adult BP Source Manual Cuff Respiration 24 H Pulse 85 Pulse Source Monitor Pulse Oximetry (%) 93 L Oxygen Delivery Method Room Air Comment The patient's blood pressure is elevated. Varicose Veins Patient in today for EVLT of right SSV. Doc Oates MD personally performed the services described in this documentation, as scribed by Michele Potter RN in my presence and it is both accurate and complete. Michele Oates RN, am scribing for, and in the presence of, Dr. Doc Ortiz and in the presence of the patient. thigh: bilateral, knee: bilateral, calf: bilateral, ankle: bilateral and berry: bilateral aching, burning, cramping, dull and tender 2 5 years Worsened in recent months: Yes standing and sitting analgesics, elevating extremities and wraps Reports muscle spasms of leg, erythema, fatigue, heaviness, limb pain, edema and leg edema History of lower extremity trauma: No Superficial thrombophlebitis: Yes Family history of varicose veins: no Has patient had previous lower extremity venous surgery: No Patient has previously received the following treatment(s) for lower extremity varicose veins: Reports none Does patient have a history of : not applicable Has patient had lower extremity venous scan with relux testing: No Support hose used: Yes Problems walking or doing physical activity: Yes How does it affect you: inability to due to pain/edema Do you walk much: No Do you stand much: Yes Review of Systems ROS Narrative Doc Oates MD personally performed the services described in this documentation, as scribed by Michele Potter RN in my presence and it is both accurate and complete. Michele Oates RN, am scribing for, and in the presence of, Dr. Doc Ortiz and in the presence of the patient. Status of ROS 10 or more systems reviewed and unremark able except as noted in history and below Cardiovascular Reports: edema Integumentary/Breast Reports: itching, redness, skin pain, skin tenderness, skin swelling, changing lesion, non-healing lesion and changes in skin color Neurological Reports: numbness in extremities and weakness in extremities Hematologic/Lymphatic Reports: easy bruising and easy bleeding [facility] Medical History (Updated 06/14/24 @ 10:06 by Michele Potter) Phlebitis and thrombophlebitis of superficial vessels of left lower extremity ?I80.02 - Phlebitis and thrombophlebitis of superficial vessels of left lower extremity (ICD-10) Phlebitis and thrombophlebitis of superficial vessels of right lower extremity ?I80.01 - Phlebitis and thrombophlebitis of superficial vessels of right lower extremity (ICD-10) Pain due to varicose veins of both lower extremities ?I83.813 - Varicose veins of bilateral lower extremities with pain (ICD-10) Lymphedema due to venous disease ?I89.0 - Lymphedema, not elsewhere classified (ICD-10) ?I99.9 - Unspecified disorder of circulatory system (ICD-10) Obesities, morbid ?E66.01 - Morbid (severe) obesity due to excess calories (ICD-10) Venous insufficiency ?I87.2 - Venous insufficiency (chronic) (peripheral) (ICD-10) Gout ?M10.9 - Gout, unspecified (ICD-10) Type 2 diabetes mellitus ?E11.9 - Type 2 diabetes mellitus without complications (ICD-10) Myocardial infarct ?I21.9 - Acute myocardial infarction, unspecified (ICD-10) Dvt femoral (deep venous thrombosis) ?I82.419 - Acute embolism and thrombosis of unspecified femoral vein (ICD-10) CAD (coronary atherosclerotic disease) ?I25.10 - Atherosclerotic heart disease of [place] coronary artery without angina pectoris (ICD-10) CHF (congestive heart failure) ?I50.9 - Heart failure, unspecified (ICD-10) COPD (chronic obstructive pulmonary disease) ?J44.9 - Chronic obstructive pulmonary disease, unspecified (ICD-10) Hypertension ?I10 - Essential (primary) hypertension (ICD-10) Pulmonary embolism ?I26.99 - Other pulmonary embolism without acute cor pulmonale (ICD-10) Surgical History (Updated 07/05/24 @ 15:02 by Michele Potter) Status post laser ablation of incompetent vein ?Z98.890 - Other specified postprocedural states (ICD-10) Status post laser ablation of incompetent vein ?Z98.890 - Other specified postprocedural states (ICD-10) Status post laser ablation of incompetent vein ?Z98.890 - Other specified postprocedural states (ICD-10) Family History (Updated 05/03/24 @ 14:47 by Michele Potter) Other Family history of cancer Family history of diabetes mellitus Family history of hypertension Social History (Updated 05/03/24 @ 14:48 by Michele Potter) Within the past year, how often did you have a drink containing alcohol: monthly or less Smoking status: Former smoker Non-prescribed substance use: denies use Meds Home Medications and Allergies Home Medications ?Medication ?Instructions ?Recorded ?Confirmed ?Type allopurinol 100 mg tablet 100 mg PO DAILY 05/03/24 05/03/24 History atorvastatin 10 mg tablet 10 mg PO DAILY 05/03/24 05/03/24 History bumetanide 2 mg tablet 2 mg PO DAILY 05/03/24 05/03/24 History fenofibrate 120 mg tablet 120 mg PO DAILY 05/03/24 05/03/24 History hydrocodone 5 mg-acetaminophen 325 1 tab PO Q6H 05/03/24 05/03/24 History mg tablet losartan 50 mg tablet 50 mg PO DAILY 05/03/24 05/03/24 History omeprazole 40 mg capsule,delayed 40 mg PO DAILY 05/03/24 05/03/24 History release semaglutide 0.25 mg or 0.5 mg (2 0.25 mg subcut QWEEK 05/03/24 05/03/24 History mg/3 mL) subcutaneous pen injector (Ozempic) spironolactone 25 mg tablet 25 mg PO QAM 05/03/24 05/03/24 History (Aldactone) warfarin 5 mg tablet 5 mg PO DAILY 05/03/24 05/03/24 History Allergies Allergy/AdvReac Type Severity Reaction Status Date / Time adhesive Allergy Mild Blister Verified 05/04/24 09:41 Exam Narrative Exam Narrative: Doc Oates MD personally performed the services described in this documentation, as scribed by Michele Potter RN in my presence and it is both accurate and complete. Michele Oates RN, am scribing for, and in the presence of, Dr. Doc Ortiz and in the presence of the patient. Constitutional Documenting provider has reviewed patient's vital signs: yes Common normals: oriented x3 Nutritional appearance: overweight Cardio Peripheral pulses: posterior tibial pulses present and dorsalis pedis pulses present Extremity Common normals: normal capillary refill General: calf tenderness and edema Right lower extremity: lower leg Right lower leg: inspection and palpation Left lower extremity: lower leg Left lower leg: inspection and palpation Neuro Common normals: oriented x3 Assessment and Plan Assessment and Plan (1) Pain due to varicose veins of both lower extremities: Plan f/u evaluation with physician along with right leg limited u/s IDoc MD personally performed the services described in this documentation, as scribed by Michele Potter RN in my presence and it is both accurate and complete. IMicheel RN, am scribing for, and in the presence of, Dr. Doc Ortiz and in the presence of the patient. Procedures Procedure Instructions Procedures Plan of care: Risks and benefits of the procedure were discussed at length and informed written consent was obtained.? Time-out completed for verification of correct patient, procedure and site.? Staff present during time-out: Michele Potter RN,? Doc Ortiz MD, Amy Whatley [facility] [place] Time Out Time___[id number]____ Patient prepped and procedure performed in usual sterile fashion. Risk of injury related to use of Diode laser and/or laser devices?__CR___ ? Serial number of laser used :? [id number] Control panel self test performed, electrical cords in good condition, floor is dry, basin of water available, fire extinguisher in close proximity_CR__ Polycarbonate goggles available and Laser warning signs outside of doors___CR__ Eye protection provided to patient and staff in room_CR___ Use of laser retardant drapes and dull blackened instruments as directed__CR___ Use of nonflammable prep solutions and use of saline soaked sponges to protect tissues as indicated _CR___ Length ___9 cm Laser operated by __Dr. Ortiz Physician verbal confirmation laser locked in place__CR__ Laser start time (date and time) _07/05/2024@1358 Laser stop time(date and time) ___07/05/2024@1400 [place] _8.0___ Average laser use _830 Joules Average laser use__104 seconds Pulse continuous ___CR_? Pulse intermittent ___ Amount of Tumescent used _100cc Evaluated patient for signs and symptoms of electrical injury __CR___ ? Skin clear at insertion site __CR___ Patient tolerated procedure well.? Right leg Coban dressing applied to access site.? Applied right thigh high leg compression stocking. Will return on 07/12/2024 for right leg limited venous ultrasound and exam. I, Doc Ortiz MD personally performed the services described in this documentation, as scribed by Michele Potter RN in my presence and it is both accurate and complete. I, Michele Potter RN, am scribing for, and in the presence of, Dr. Doc Ortiz and in the presence of the patient.
--- NOTE | 2024-07-02 09:54 | P.DS_ITS ---
Discharge Plan Discharge Disposition: Home, Self-Care Outpatient Diagnostics: VC Facility EST LMTD (Routine) Timeframe: 2 Weeks Facility: [facility] - Location: Vein Center Ordered By: Doc Ortiz VC EXT Venous RT LMTD (Routine) Timeframe: 2 Weeks Facility: [facility] - Location: Vein Center Ordered By: Doc Ortiz Follow Up Appointments: 07/12/2024 Plan of Treatment: f/u evaluation with physician along with right leg limited u/s Patient Instructions: Endovenous Ablation (DC) Print Language: Faroese Discharge Date/Time: 07/05/24 12:57
[2024-07-05] MEDS: 0.9 % SODIUM CHLORIDE 500 ML, LIDOCAINE HCL 20 ML, SODIUM BICARBONATE 10 MEQ INJ (12:49)
[2024-07-05] MEDS: LIDOCAINE HCL 1% 100 MG/10 ML MDV INJ (12:49)
--- NOTE | 2024-07-05 12:51 | VEIN_ITS ---
[address] [address] Patient Name: GALLITO FLORES MRN: [id number] date: 1960 Sex: M Assigned Patient Location: Current Patient Location: Accession/Order Number: [id number] Exam Date: 07/05/2024 12:55 Report Date: 07/05/2024 14:21 At the request of: KALLI BERNARDO Procedure: VC Endovenous Ablation 1VeinRT EXAMINATION: VC Endovenous Ablation 1Vein, right small saphenous vein HISTORY: I83.813 - Varicose veins of bilateral lower extremities w... COMPARISON: No relevant comparison available. TECHNIQUE: The risks and benefits of the procedure had been previously discussed, and were rediscussed at length. Informed written consent was obtained. Carly Rao and Michele Potter assisted. Time out procedure was performed. The right lower extremity was prepared and draped in the usual sterile fashion with the patient on his left side. The patient could not lay on his stomach due to obesity. Duplex ultrasound probe was draped in a sterile cover, sterile transmission gel was used. Venous mapping was performed with the areas of dilation and large tributaries marked. The total length was 9 cm from the entry mid calf to where we could provide tumescent due to the patient denies lateral decubitus position along the proximal small saphenous vein approximately 5 cm from the popliteal junction. The diameter of the small saphenous vein ranged from 5-8 mm. A 30 gauge needle and 1% buffered lidocaine was used to anesthetize the entry site. A 4 mm incision was made with a scalpel and the saphenous vein was entered percutaneously under direct ultrasound guidance with a micropuncture set, a single stick was successful in gaining access. A micro-guide wire was inserted and the needle removed. A micro-set including a dilator was inserted over the microwire and the needle and dilator were removed. A 0.018 guide wire was inserted through the micro-set and threaded through the saphenous vein. The dilator was removed and an introducer sheath was inserted over the wire. The dilator and wire were removed and the 600 micron fiber was introduced and placed and positioned so that it extended beyond the sheath. Final position of the fiber was determined by ultrasound guidance and duplex imaging. Tumescent anesthetic was delivered by ultrasound guidance. 100 cc of fluid was delivered along the entire course of the saphenous vein. The solution consisted of 1000 cc of normal saline with 40 mL of 1% lidocaine and 20 mL of sodium bicarbonate. A final positioning check was made. The energy source was turned on by means of the foot pedal and the fiber and sheath were withdrawn. The total number of Joules delivered was 830. The laser was active for 104seconds under continuous pulse, average laser use of 8 J. Laser start time 1:58 PM . Laser stop time 2:00 PM . A duplex ultrasound revealed compressibility and flow at the saphenofemoral junction immediately after the procedure. Hemostasis at the access site was achieved. The skin incision of the saphenous vein was closed with a 4 x 4. A compression stocking was applied. Postop instructions were given. A follow up appointment was recommended and scheduled. The patient tolerated the procedure well and was discharged in good condition . VEIN/VC Endovenous Ablation 1VeinRT IMPRESSION: Technically successful endovenous laser ablation of the right small saphenous vein Electronically authenticated by: KALLI BERNARDO Date: 07/05/2024 14:21
[2024-07-05 12:58] VITALS: BP 160/90; PULSE 85; O2SAT 93
== END 2024-07-05 12:57 | disposition home or self-care (01) ==
LOC: VC 12:48
PROVIDERS: PCP Radiology Diagnostic Radiology; Visit Provider Radiology Diagnostic Radiology
DX: I83.813 Varicose veins of bilateral lower extremities with pain (principal)
CPT/HCPCS: 36478

== ENCOUNTER 2024-07-12 13:16 | Outpatient (OUT) | payer MEDICARE, SELFPAY ==
[2024-07-12 10:01] VITALS: BMI 70.4
--- NOTE | 2024-07-12 10:01 | VEINCLINIC_ITS ---
Vital Signs 07/12/24 10:01 Height 5 ft 7 in Weight 204 kg BMI 70.4 Varicose Veins Patient in today for follow up ultrasound of right lower extremity following EVLT of right SSV completed on 07/05/24. Doc Oates MD personally performed the services described in this documentation, as scribed by Amy Whatley RDMS in my presence and it is both accurate and complete. Amy Oates RDMS, am scribing for, and in the presence of, Dr. Doc Ortiz and in the presence of the patient.. thigh: bilateral, knee: bilateral, calf: bilateral, ankle: bilateral and berry: bilateral aching, burning, cramping, dull and tender 2 5 years Worsened in recent months: Yes standing and sitting analgesics, elevating extremities and wraps Reports muscle spasms of leg, erythema, fatigue, heaviness, limb pain, edema and leg edema History of lower extremity trauma: No Superficial thrombophlebitis: Yes Family history of varicose veins: no Has patient had previous lower extremity venous surgery: No Patient has previously received the following treatment(s) for lower extremity varicose veins: Reports none Does patient have a history of : not applicable Has patient had lower extremity venous scan with relux testing: No Support hose used: Yes Problems walking or doing physical activity: Yes How does it affect you: inability to due to pain/edema Do you walk much: No Do you stand much: Yes Review of Systems ROS Narrative Doc Oates MD personally performed the services described in this documentation, as scribed by Amy Whatley RDMS in my presence and it is both accurate and complete. Amy Oates RDMS, am scribing for, and in the presence of, Dr. Doc Ortiz and in the presence of the patient. Status of ROS 10 or more systems reviewed and unremark able except as noted in history and below Cardiovascular Reports: edema Integumentary/Breast Reports: itching, redness, skin pain, skin tenderness, skin swelling, changing lesion, non-healing lesion and changes in skin color Neurological Reports: numbness in extremities and weakness in extremities Hematologic/Lymphatic Reports: easy bruising and easy bleeding [facility] Medical History (Updated 06/14/24 @ 10:06 by Michele Potter) Phlebitis and thrombophlebitis of superficial vessels of left lower extremity ?I80.02 - Phlebitis and thrombophlebitis of superficial vessels of left lower extremity (ICD-10) Phlebitis and thrombophlebitis of superficial vessels of right lower extremity ?I80.01 - Phlebitis and thrombophlebitis of superficial vessels of right lower extremity (ICD-10) Pain due to varicose veins of both lower extremities ?I83.813 - Varicose veins of bilateral lower extremities with pain (ICD-10) Lymphedema due to venous disease ?I89.0 - Lymphedema, not elsewhere classified (ICD-10) ?I99.9 - Unspecified disorder of circulatory system (ICD-10) Obesities, morbid ?E66.01 - Morbid (severe) obesity due to excess calories (ICD-10) Venous insufficiency ?I87.2 - Venous insufficiency (chronic) (peripheral) (ICD-10) Gout ?M10.9 - Gout, unspecified (ICD-10) Type 2 diabetes mellitus ?E11.9 - Type 2 diabetes mellitus without complications (ICD-10) Myocardial infarct ?I21.9 - Acute myocardial infarction, unspecified (ICD-10) Dvt femoral (deep venous thrombosis) ?I82.419 - Acute embolism and thrombosis of unspecified femoral vein (ICD-10) CAD (coronary atherosclerotic disease) ?I25.10 - Atherosclerotic heart disease of [place] coronary artery without angina pectoris (ICD-10) CHF (congestive heart failure) ?I50.9 - Heart failure, unspecified (ICD-10) COPD (chronic obstructive pulmonary disease) ?J44.9 - Chronic obstructive pulmonary disease, unspecified (ICD-10) Hypertension ?I10 - Essential (primary) hypertension (ICD-10) Pulmonary embolism ?I26.99 - Other pulmonary embolism without acute cor pulmonale (ICD-10) Surgical History (Updated 07/05/24 @ 15:02 by Michele Potter) Status post laser ablation of incompetent vein ?Z98.890 - Other specified postprocedural states (ICD-10) Status post laser ablation of incompetent vein ?Z98.890 - Other specified postprocedural states (ICD-10) Status post laser ablation of incompetent vein ?Z98.890 - Other specified postprocedural states (ICD-10) Family History (Updated 05/03/24 @ 14:47 by Michele Potter) Other Family history of cancer Family history of diabetes mellitus Family history of hypertension Social History (Updated 05/03/24 @ 14:48 by Michele Potter) Within the past year, how often did you have a drink containing alcohol: monthly or less Smoking status: Former smoker Non-prescribed substance use: denies use Meds Home Medications and Allergies Home Medications ?Medication ?Instructions ?Recorded ?Confirmed ?Type allopurinol 100 mg tablet 100 mg PO DAILY 05/03/24 05/03/24 History atorvastatin 10 mg tablet 10 mg PO DAILY 05/03/24 05/03/24 History bumetanide 2 mg tablet 2 mg PO DAILY 05/03/24 05/03/24 History fenofibrate 120 mg tablet 120 mg PO DAILY 05/03/24 05/03/24 History hydrocodone 5 mg-acetaminophen 325 1 tab PO Q6H 05/03/24 05/03/24 History mg tablet losartan 50 mg tablet 50 mg PO DAILY 05/03/24 05/03/24 History omeprazole 40 mg capsule,delayed 40 mg PO DAILY 05/03/24 05/03/24 History release semaglutide 0.25 mg or 0.5 mg (2 0.25 mg subcut QWEEK 05/03/24 05/03/24 History mg/3 mL) subcutaneous pen injector (Ozempic) spironolactone 25 mg tablet 25 mg PO QAM 05/03/24 05/03/24 History (Aldactone) warfarin 5 mg tablet 5 mg PO DAILY 05/03/24 05/03/24 History Allergies Allergy/AdvReac Type Severity Reaction Status Date / Time adhesive Allergy Mild Blister Verified 05/04/24 09:41 Exam Narrative Exam Narrative: Doc Oates MD personally performed the services described in this documentation, as scribed by Amy Whatley RDMS in my presence and it is both accurate and complete. IAmy RDMS, am scribing for, and in the presence of, Dr. Doc Ortiz and in the presence of the patient. Constitutional Documenting provider has reviewed patient's vital signs: yes Common normals: oriented x3 Nutritional appearance: overweight Cardio Peripheral pulses: posterior tibial pulses present and dorsalis pedis pulses present Extremity Common normals: normal capillary refill General: calf tenderness and edema Right lower extremity: lower leg Right lower leg: inspection and palpation Left lower extremity: lower leg Left lower leg: inspection and palpation Neuro Common normals: oriented x3 Results Imaging Venous US: Radiologist's impression: Heat induced thrombus in right SSV from prox to distal lower leg. Doc Oates MD personally performed the services described in this documentation, as scribed by Amy Whatley RDMS in my presence and it is both accurate and complete. I, Amy Whatley RDMS, am scribing for, and in the presence of, Dr. Doc Ortiz and in the presence of the patient. Assessment and Plan Assessment and Plan (1) Phlebitis and thrombophlebitis of superficial vessels of right lower extremity: Plan Plan is for patient to return for EVLT of left leg perforating veins on 07/21/24. Doc Oates MD personally performed the services described in this documentation, as scribed by Amy Whatley RDMS in my presence and it is both accurate and complete. I, Amy Whatley RDMS, am scribing for, and in the presence of, Dr. Doc Ortiz and in the presence of the patient.
--- NOTE | 2024-07-12 13:18 | VEIN_ITS ---
Patient Name: GALLITO FLORES MR#: [id number] : 1960 Exam Date: 07/12/2024 Ordering Doctor: DR DOC ORTIZ M.D. RADIOLOGY REPORT PROCEDURE: VC EXT VENOUS RT LMTD COMPARISON: VC EXT VENOUS RT LMTD, 05/31/2024. INDICATIONS: I80.01 - Phlebitis and thrombophlebitis of superficial veins right leg TECHNIQUE: Lower extremity hendrickson scale and Duplex Doppler evaluation of the deep venous system from the inguinal ligament through the calf veins. FINDINGS: REGION: Right lower extremity. THROMBI: Negative for DVT. Heat induced thrombus in right SSV from prox to distal lower leg. COMPRESSIBILITY: Non-compressible segments corresponding to thrombus FLOW: Areas of no flow corresponding to thrombus CONCLUSION: Post ablation occlusion of the right small saphenous vein with no deep vein thrombus Dictated by: Doc Ortiz MD on 07/12/2024 at 14:09 Approved by: Doc Ortiz MD on 07/12/2024 at 14:13
--- NOTE | 2024-07-12 13:18 | VEIN_ITS ---
Patient Name: GALLITO FLORES MR#: [id number] : 1960 Exam Date: 07/12/2024 Ordering Doctor: DR DOC ORTIZ M.D. RADIOLOGY REPORT PROCEDURE: [facility] EST LMTD [facility] - OFFICE VISIT FOLLOW UP COMPARISON: [facility] EST LMTD, 06/21/2024. [facility] EST LMTD, 05/31/2024. PROGRESS NOTES: The patient reports no significant problems following intravenous laser ablation of the right small saphenous vein. The patient has worn his compression wraps. The patient did not require oral analgesics. Physical exam demonstrates marked improvement in the overall appearance of the right lower leg with significant reduction in size and number of ulcerations. Marked reduction in erythema and swelling. Review of the ultrasound performed the same day demonstrates occlusive thrombus extending throughout the treated right small saphenous vein with no deep vein thrombus. Incompetent perforating veins and varicose veins remain. The patient expressed a desire to proceed with treatment of incompetent left leg perforating veins with intravenous laser ablation. VEIN/[facility] EST LMTD IMPRESSION: 1. Successful ablation of the right small saphenous vein 2. Persistent bilateral incompetent perforating veins and incompetent varicose veins. PLAN: Intravenous laser ablation left leg incompetent perforating veins Nurse notes, history and physical were reviewed and confirmed, see attached forms. The nurse was present throughout the physical exam and consultation Dictated by: Doc Ortiz MD on 07/12/2024 at 14:19 Approved by: Doc Ortiz MD on 07/12/2024 at 14:20
--- NOTE | 2024-07-12 14:32 | W.VEIN ---
Discharge Plan Discharge Disposition: Home, Self-Care Outpatient Diagnostics: VC Endovenous Perf Ablation LT (Routine) Timeframe: 2 Weeks Facility: [facility] - Location: [facility]in Center Ordered By: Doc Ortiz Follow Up Appointments: 07/21/24 Plan of Treatment: EVLT of left leg perforators Tumescent Anesthesia: None Buffered Local Anesthesia: 20 mL of 1% Lidocaine Buffered Print Language: Grenadian Discharge Date/Time: 07/12/24 14:34
== END 2024-07-12 14:34 | disposition home or self-care (01) ==
PROVIDERS: PCP Radiology Diagnostic Radiology; Visit Provider Radiology Diagnostic Radiology
DX: I80.01 Phlebitis and thrombophlebitis of superficial vessels of right lower extremity (principal)
CPT/HCPCS: 93971; G0463

== ENCOUNTER 2024-07-21 10:19 | Outpatient (OUT) | payer MEDICARE, SELFPAY ==
--- NOTE | 2024-07-19 10:19 | VEINCLINIC_ITS ---
Vital Signs 07/21/24 10:41 BP 130/62 BP Location Left Radial BP Position Sitting BP Cuff Size Large Adult BP Source Manual Cuff Respiration 20 Pulse 71 Pulse Source Monitor Pulse Oximetry (%) 94 L Oxygen Delivery Method Room Air Comment The patient's blood pressure is elevated. Varicose Veins Patient in today for EVLT of left leg perforating veins Edinson Oates MD personally performed the services described in this documentation, as scribed by Michele Potter RN in my presence and it is both accurate and complete. Michele Oates RN, am scribing for, and in the presence of, Dr. Edinson Grajeda and in the presence of the patient. thigh: bilateral, knee: bilateral, calf: bilateral, ankle: bilateral and berry: bilateral aching, burning, cramping, dull and tender 2 5 years Worsened in recent months: Yes standing and sitting analgesics, elevating extremities and wraps Reports muscle spasms of leg, erythema, fatigue, heaviness, limb pain, edema and leg edema History of lower extremity trauma: No Superficial thrombophlebitis: Yes Family history of varicose veins: no Has patient had previous lower extremity venous surgery: No Patient has previously received the following treatment(s) for lower extremity varicose veins: Reports none Does patient have a history of : not applicable Has patient had lower extremity venous scan with relux testing: No Support hose used: Yes Problems walking or doing physical activity: Yes How does it affect you: inability to due to pain/edema Do you walk much: No Do you stand much: Yes Review of Systems ROS Narrative Edinson Oates MD personally performed the services described in this documentation, as scribed by Michele Potter RN in my presence and it is both accurate and complete. Michele Oates RN, am scribing for, and in the presence of, Dr. Edinson Grajeda and in the presence of the patient. Status of ROS 10 or more systems reviewed and unremark able except as noted in history and below Cardiovascular Reports: edema Integumentary/Breast Reports: itching, redness, skin pain, skin tenderness, skin swelling, changing lesion, non-healing lesion and changes in skin color Neurological Reports: numbness in extremities and weakness in extremities Hematologic/Lymphatic Reports: easy bruising and easy bleeding [facility] Medical History (Updated 06/14/24 @ 10:06 by Michele Potter) Phlebitis and thrombophlebitis of superficial vessels of left lower extremity ?I80.02 - Phlebitis and thrombophlebitis of superficial vessels of left lower extremity (ICD-10) Phlebitis and thrombophlebitis of superficial vessels of right lower extremity ?I80.01 - Phlebitis and thrombophlebitis of superficial vessels of right lower extremity (ICD-10) Pain due to varicose veins of both lower extremities ?I83.813 - Varicose veins of bilateral lower extremities with pain (ICD-10) Lymphedema due to venous disease ?I89.0 - Lymphedema, not elsewhere classified (ICD-10) ?I99.9 - Unspecified disorder of circulatory system (ICD-10) Obesities, morbid ?E66.01 - Morbid (severe) obesity due to excess calories (ICD-10) Venous insufficiency ?I87.2 - Venous insufficiency (chronic) (peripheral) (ICD-10) Gout ?M10.9 - Gout, unspecified (ICD-10) Type 2 diabetes mellitus ?E11.9 - Type 2 diabetes mellitus without complications (ICD-10) Myocardial infarct ?I21.9 - Acute myocardial infarction, unspecified (ICD-10) Dvt femoral (deep venous thrombosis) ?I82.419 - Acute embolism and thrombosis of unspecified femoral vein (ICD-10) CAD (coronary atherosclerotic disease) ?I25.10 - Atherosclerotic heart disease of [place] coronary artery without angina pectoris (ICD-10) CHF (congestive heart failure) ?I50.9 - Heart failure, unspecified (ICD-10) COPD (chronic obstructive pulmonary disease) ?J44.9 - Chronic obstructive pulmonary disease, unspecified (ICD-10) Hypertension ?I10 - Essential (primary) hypertension (ICD-10) Pulmonary embolism ?I26.99 - Other pulmonary embolism without acute cor pulmonale (ICD-10) Surgical History (Updated 07/21/24 @ 11:13 by Michele Potter) Status post laser ablation of incompetent vein ?Z98.890 - Other specified postprocedural states (ICD-10) Status post laser ablation of incompetent vein ?Z98.890 - Other specified postprocedural states (ICD-10) Status post laser ablation of incompetent vein ?Z98.890 - Other specified postprocedural states (ICD-10) Status post laser ablation of incompetent vein ?Z98.890 - Other specified postprocedural states (ICD-10) Family History (Updated 05/03/24 @ 14:47 by Michele Potter) Other Family history of cancer Family history of diabetes mellitus Family history of hypertension Social History (Updated 05/03/24 @ 14:48 by Michele Potter) Within the past year, how often did you have a drink containing alcohol: monthly or less Smoking status: Former smoker Non-prescribed substance use: denies use Meds Home Medications and Allergies Home Medications ?Medication ?Instructions ?Recorded ?Confirmed ?Type allopurinol 100 mg tablet 100 mg PO DAILY 05/03/24 05/03/24 History atorvastatin 10 mg tablet 10 mg PO DAILY 05/03/24 05/03/24 History bumetanide 2 mg tablet 2 mg PO DAILY 05/03/24 05/03/24 History fenofibrate 120 mg tablet 120 mg PO DAILY 05/03/24 05/03/24 History hydrocodone 5 mg-acetaminophen 325 1 tab PO Q6H 05/03/24 05/03/24 History mg tablet losartan 50 mg tablet 50 mg PO DAILY 05/03/24 05/03/24 History omeprazole 40 mg capsule,delayed 40 mg PO DAILY 05/03/24 05/03/24 History release semaglutide 0.25 mg or 0.5 mg (2 0.25 mg subcut QWEEK 05/03/24 05/03/24 History mg/3 mL) subcutaneous pen injector (Ozempic) spironolactone 25 mg tablet 25 mg PO QAM 05/03/24 05/03/24 History (Aldactone) warfarin 5 mg tablet 5 mg PO DAILY 05/03/24 05/03/24 History Allergies Allergy/AdvReac Type Severity Reaction Status Date / Time adhesive Allergy Mild Blister Verified 05/04/24 09:41 Exam Narrative Exam Narrative: IEdinson MD personally performed the services described in this documentation, as scribed by Michele Potter RN in my presence and it is both accurate and complete. IMichele RN, am scribing for, and in the presence of, Dr. Edinson Grajeda and in the presence of the patient. Constitutional Documenting provider has reviewed patient's vital signs: yes Common normals: oriented x3 Nutritional appearance: overweight Cardio Peripheral pulses: posterior tibial pulses present and dorsalis pedis pulses present Extremity Common normals: normal capillary refill General: calf tenderness and edema Right lower extremity: lower leg Right lower leg: inspection and palpation Left lower extremity: lower leg Left lower leg: inspection and palpation Neuro Common normals: oriented x3 Assessment and Plan Assessment and Plan (1) Pain due to varicose veins of both lower extremities: Plan f/u evaluation with physician along with left leg limited u/s IEdinson MD personally performed the services described in this d ocumentation, as scribed by Michele Potter RN in my presence and it is both accurate and complete. IMichele RN, am scribing for, and in the presence of, Dr. Edinson Grajeda and in the presence of the patient. Procedures Procedure Instructions Procedures Plan of care: Risks and benefits of the procedure were discussed at length and informed written consent was obtained.? Time-out completed for verification of correct patient, procedure and site.? Staff present during time-out: Michele Potter RN,? Edinson Grajeda MD, Amy Whatley [facility] Time Out Time_[id number] Patient prepped and procedure performed in usual sterile fashion. Risk of injury related to use of Diode laser and/or laser devices __CR___ ? Serial number of laser used :? [id number] Control panel self test performed, electrical cords in good condition, floor is dry, basin of water available, fire extinguisher in close proximity_CR__ Polycarbonate goggles available and Laser warning signs outside of doors___CR__ Eye protection provided to patient and staff in room_CR___ Use of laser retardant drapes and dull blackened instruments as directed__CR___ Use of nonflammable prep solutions and use of saline soaked sponges to protect tissues as indicated _CR___ Laser operated by __Dr. Grajeda Physician verbal confirmation laser locked in place__CR__ Laser start time (date and time) __07/21/2024@_1119 Laser stop time(date and time) __07/21/2024@_1128 [place] _8.0___ Laser Site #1: left distal medial lower leg Seconds: 22 Joules: 178 Laser Site #2: left mid medial lower leg Seconds: 31 Joules: 249 Laser Site #3: left mid lateral lower leg Seconds: 24 Joules: 192 Pulse continuous ___CR_? Pulse intermittent ___ Evaluated patient for signs and symptoms of electrical injury __CR___ ? Skin clear at insertion site __CR___ Patient tolerated procedure well.? Left leg Coban dressing applied to access site.? Applied Left thigh high leg compression stocking. Will return on 07/23/2024 for Left leg limited venous ultrasound and exam. IEdinson MD personally performed the services described in this documentation, as scribed by Michele Potter RN in my presence and it is both accurate and complete. IMichele RN, am scribing for, and in the presence of, Dr. Edinson Grajeda and in the presence of the patient.
--- NOTE | 2024-07-19 10:34 | W.VEIN ---
Discharge Plan Discharge Disposition: Home, Self-Care Follow Up Appointments: 07/23/2024 Plan of Treatment: f/u evaluation with physician along with left leg limited u/s Patient Instructions: Endovenous Ablation (DC) Print Language: [place]ian Discharge Date/Time: 07/21/24 11:00
--- NOTE | 2024-07-21 10:25 | VEIN_ITS ---
[address] [address] Patient Name: GALLITO FLORES MRN: [id number] date: 1960 Sex: M Assigned Patient Location: Current Patient Location: Accession/Order Number: [id number] Exam Date: 07/21/2024 10:37 Report Date: 07/21/2024 11:36 At the request of: KALLI BERNARDO Procedure: VC Endovenous Perf Ablation LT EXAMINATION: VC Endovenous Perf Ablation LT COMPARISON: INDICATIONS: I83.813 - Varicose veins of bilateral lower extremities w... OPERATIVE REPORT: Diagnosis: Superficial venous reflux, incompetent perforating veins Procedure: Endovenous laser ablation of the left interactive digital media specialist(s) Procedure: The patient was positioned supine on the table and the leg was prepped and draped to allow for visualization during venous access. A sterile cover was draped over a 16 mhz ultrasound probe. Venous mapping was performed prior to the procedure noting location and size of vessel(s). Forklift Technician vein 1: Distal medial lower left leg. The diameter of the vein ranged from 5.8 mm's below the muscular fascia to 5.8 mm's at the entry point. Using a 30 gauge needle the entry site was anesthetized with 1 cc of 1% buffered lidocaine. Access was gained percutaneously, with a 21-gauge needle, into the interactive digital media specialist vein under ultrasound guidance. The needle was advanced into the desired position and the pre-measured 400-micron fiber was then inserted into the needle and locked in place. The position of the fiber was imaged with ultrasound guidance. The fiber tip was visualized to be 10 mm from the deep vessel. An anesthetic solution of 5 cc 1% buffered lidocaine was delivered along the course of the vein under ultrasound guidance using a syringe. A final positioning check of the laser fiber tip was performed. The laser was activated by means of a foot-pedal and the fiber and needle were withdrawn together in accordance to the desired joules per treatment area/spot weld. 3 areas/spot welds were performed, and the total number of joules delivered was 178. The total time of energy delivery was 22 seconds. A duplex ultrasound revealed compressibility and flow of the deep system immediately after the procedure. Hemostasis of the access site was achieved and dressed. A 20-30 mm compression stocking over coban was placed on the treated leg. Post-Op instructions were given, and a follow-up appointment was made. Forklift Technician vein 2: Mid medial lower left leg. The diameter of the vein ranged from 5.2 mm's below the muscular fascia to 5.2 mm's at the entry point. Using a 30 gauge needle the entry site was anesthetized with 1 cc of 1% buffered lidocaine. Access was gained percutaneously, with a 21-gauge needle, into the interactive digital media specialist vein under ultrasound guidance. The needle was advanced into the desired position and the pre-measured 400-micron fiber was then inserted into the needle and locked in place. The position of the fiber was imaged with ultrasound guidance. The fiber tip was visualized to be 10 mm from the deep vessel. An anesthetic solution of 5 cc 1% buffered lidocaine was delivered along the course of the vein under ultrasound guidance using a syringe. A final positioning check of the laser fiber tip was performed. The laser was activated by means of a foot-pedal and the fiber and needle were withdrawn together in accordance to the desired joules per treatment area/spot weld. 4 areas/spot welds were performed, and the total number of joules delivered was 249. The total time of energy delivery was 31 seconds. A duplex ultrasound revealed compressibility and flow of the deep system immediately after the procedure. Hemostasis of the access site was achieved and dressed. A 20-30 mm compression stocking over coban was placed on the treated leg. Post-Op instructions were given, and a follow-up appointment was made. Forklift Technician vein 3: Mid lateral lower left leg. The diameter of the vein ranged from 5.5 mm's below the muscular fascia to 5.5 mm's at the entry point. Using a 30 gauge needle the entry site was anesthetized with 1 cc of 1% buffered lidocaine. Access was gained percutaneously, with a 21-gauge needle, into the interactive digital media specialist vein under ultrasound guidance. The needle was advanced into the desired position and the pre-measured 400-micron fiber was then inserted into the needle and locked in place. The position of the fiber was imaged with ultrasound guidance. The fiber tip was visualized to be 10 mm from the deep vessel. An anesthetic solution of 6 cc 1% buffered lidocaine was delivered along the course of the vein under ultrasound guidance using a syringe. A final positioning check of the laser fiber tip was performed. The laser was activated by means of a foot-pedal and the fiber and needle were withdrawn together in accordance to the desired joules per treatment area/spot weld. 3 areas/spot welds were performed, and the total number of joules delivered was 192. The total time of energy delivery was 24 seconds. A duplex ultrasound revealed compressibility and flow of the deep system immediately after the procedure. Hemostasis of the access site was achieved and dressed. A 20-30 mm compression stocking over coban was placed on the treated leg. Post-Op instructions were given, and a follow-up appointment was made. CONCLUSION: 1. Technically successful endovenous laser ablation of 3 interactive digital media specialist veins Electronically authenticated by: FRANKLYN BHARDWAJ Date: 07/21/2024 11:36
[2024-07-21 10:41] VITALS: BP 130/62; PULSE 71; O2SAT 94
[2024-07-21] MEDS: LIDOCAINE HCL 20 ML, SODIUM BICARBONATE 2 MEQ INJ (11:20)
== END 2024-07-21 11:00 | disposition home or self-care (01) ==
LOC: VC 10:19
PROVIDERS: PCP Radiology Diagnostic Radiology; Visit Provider Radiology Diagnostic Radiology
DX: I83.813 Varicose veins of bilateral lower extremities with pain (principal)
CPT/HCPCS: 36478

== ENCOUNTER 2024-07-23 10:17 | Outpatient (OUT) | payer MEDICARE, SELFPAY ==
--- NOTE | 2024-07-21 09:30 | VEINCLINIC_ITS ---
Varicose Veins Patient in today for EVLT of right leg perforating veins. Doc Oates MD personally performed the services described in this documentation, as scribed by Michele Potter RN in my presence and it is both accurate and complete. Michele Oates RN, am scribing for, and in the presence of, Dr. Doc Ortiz and in the presence of the patient. thigh: bilateral, knee: bilateral, calf: bilateral, ankle: bilateral and berry: bilateral aching, burning, cramping, dull and tender 2 5 years Worsened in recent months: Yes standing and sitting analgesics, elevating extremities and wraps Reports muscle spasms of leg, erythema, fatigue, heaviness, limb pain, edema and leg edema History of lower extremity trauma: No Superficial thrombophlebitis: Yes Family history of varicose veins: no Has patient had previous lower extremity venous surgery: No Patient has previously received the following treatment(s) for lower extremity varicose veins: Reports none Does patient have a history of : not applicable Has patient had lower extremity venous scan with relux testing: No Support hose used: Yes Problems walking or doing physical activity: Yes How does it affect you: inability to due to pain/edema Do you walk much: No Do you stand much: Yes Review of Systems ROS Narrative Doc Oates MD personally performed the services described in this documentation, as scribed by Michele Potter RN in my presence and it is both accurate and complete. Michele Oates RN, am scribing for, and in the presence of, Dr. Doc Ortiz and in the presence of the patient. Status of ROS 10 or more systems reviewed and unremark able except as noted in history and below Cardiovascular Reports: edema Integumentary/Breast Reports: itching, redness, skin pain, skin tenderness, skin swelling, changing lesion, non-healing lesion and changes in skin color Neurological Reports: numbness in extremities and weakness in extremities Hematologic/Lymphatic Reports: easy bruising and easy bleeding [facility] Medical History (Updated 06/14/24 @ 10:06 by Michele Potter) Phlebitis and thrombophlebitis of superficial vessels of left lower extremity ?I80.02 - Phlebitis and thrombophlebitis of superficial vessels of left lower extremity (ICD-10) Phlebitis and thrombophlebitis of superficial vessels of right lower extremity ?I80.01 - Phlebitis and thrombophlebitis of superficial vessels of right lower extremity (ICD-10) Pain due to varicose veins of both lower extremities ?I83.813 - Varicose veins of bilateral lower extremities with pain (ICD-10) Lymphedema due to venous disease ?I89.0 - Lymphedema, not elsewhere classified (ICD-10) ?I99.9 - Unspecified disorder of circulatory system (ICD-10) Obesities, morbid ?E66.01 - Morbid (severe) obesity due to excess calories (ICD-10) Venous insufficiency ?I87.2 - Venous insufficiency (chronic) (peripheral) (ICD-10) Gout ?M10.9 - Gout, unspecified (ICD-10) Type 2 diabetes mellitus ?E11.9 - Type 2 diabetes mellitus without complications (ICD-10) Myocardial infarct ?I21.9 - Acute myocardial infarction, unspecified (ICD-10) Dvt femoral (deep venous thrombosis) ?I82.419 - Acute embolism and thrombosis of unspecified femoral vein (ICD-10) CAD (coronary atherosclerotic disease) ?I25.10 - Atherosclerotic heart disease of [place] coronary artery without angina pectoris (ICD-10) CHF (congestive heart failure) ?I50.9 - Heart failure, unspecified (ICD-10) COPD (chronic obstructive pulmonary disease) ?J44.9 - Chronic obstructive pulmonary disease, unspecified (ICD-10) Hypertension ?I10 - Essential (primary) hypertension (ICD-10) Pulmonary embolism ?I26.99 - Other pulmonary embolism without acute cor pulmonale (ICD-10) Surgical History (Updated 07/21/24 @ 11:13 by Michele Potter) Status post laser ablation of incompetent vein ?Z98.890 - Other specified postprocedural states (ICD-10) Status post laser ablation of incompetent vein ?Z98.890 - Other specified postprocedural states (ICD-10) Status post laser ablation of incompetent vein ?Z98.890 - Other specified postprocedural states (ICD-10) Status post laser ablation of incompetent vein ?Z98.890 - Other specified postprocedural states (ICD-10) Family History (Updated 05/03/24 @ 14:47 by Michele Potter) Other Family history of cancer Family history of diabetes mellitus Family history of hypertension Social History (Updated 05/03/24 @ 14:48 by Michele Potter) Within the past year, how often did you have a drink containing alcohol: monthly or less Smoking status: Former smoker Non-prescribed substance use: denies use Meds Home Medications and Allergies Home Medications ?Medication ?Instructions ?Recorded ?Confirmed ?Type allopurinol 100 mg tablet 100 mg PO DAILY 05/03/24 05/03/24 History atorvastatin 10 mg tablet 10 mg PO DAILY 05/03/24 05/03/24 History bumetanide 2 mg tablet 2 mg PO DAILY 05/03/24 05/03/24 History fenofibrate 120 mg tablet 120 mg PO DAILY 05/03/24 05/03/24 History hydrocodone 5 mg-acetaminophen 325 1 tab PO Q6H 05/03/24 05/03/24 History mg tablet losartan 50 mg tablet 50 mg PO DAILY 05/03/24 05/03/24 History omeprazole 40 mg capsule,delayed 40 mg PO DAILY 05/03/24 05/03/24 History release semaglutide 0.25 mg or 0.5 mg (2 0.25 mg subcut QWEEK 05/03/24 05/03/24 History mg/3 mL) subcutaneous pen injector (Ozempic) spironolactone 25 mg tablet 25 mg PO QAM 05/03/24 05/03/24 History (Aldactone) warfarin 5 mg tablet 5 mg PO DAILY 05/03/24 05/03/24 History Allergies Allergy/AdvReac Type Severity Reaction Status Date / Time adhesive Allergy Mild Blister Verified 05/04/24 09:41 Exam Narrative Exam Narrative: Doc Oates MD personally performed the services described in this documentation, as scribed by Michele Potter RN in my presence and it is both accurate and complete. Michele Oates RN, am scribing for, and in the presence of, Dr. Doc Ortiz and in the presence of the patient. Constitutional Documenting provider has reviewed patient's vital signs: yes Common normals: oriented x3 Nutritional appearance: overweight Cardio Peripheral pulses: posterior tibial pulses present and dorsalis pedis pulses present Extremity Common normals: normal capillary refill General: calf tenderness and edema Right lower extremity: lower leg Right lower leg: inspection and palpation Left lower extremity: lower leg Left lower leg: inspection and palpation Neuro Common normals: oriented x3 Assessment and Plan Assessment and Plan (1) Pain due to varicose veins of both lower extremities: Plan F/u evaluation with physician along with bilateral leg limited u/s IDoc MD personally performed the services described in this documentation, as scribed by Michele Potter RN in my presence and it is both accurate and complete. IMichele RN, am scribing for, and in the presence of, Dr. Doc Ortiz and in the presence of the patient. Procedures Procedure Instructions Procedures Plan of care: Risks and benefits of the procedure were discussed at length and informed written consent was obtained.? Time-out completed for verification of correct patient, procedure and site.? Staff present during time-out: Michele Potter RN,? Doc Ortiz MD, [facility]. Time Out Time_1057 Patient prepped and procedure performed in usual sterile fashion. Risk of injury related to use of Diode laser and/or laser devices __CR___ ? Serial number of laser used :? [id number] Control panel self test performed, electrical cords in good condition, floor is dry, basin of water available, fire extinguisher in close proximity_CR__ Polycarbonate goggles available and Laser warning signs outside of doors___CR__ Eye protection provided to patient and staff in room_CR___ Use of laser retardant drapes and dull blackened instruments as directed__CR___ Use of nonflammable prep solutions and use of saline soaked sponges to protect tissues as indicated _CR___ Laser operated by _Dr. Ortiz Physician verbal confirmation laser locked in place__CR__ Laser start time (date and time) _07/23/2024@__1100 Laser stop time(date and time) _07/23/2024@__1113 [place] _8.0___ Laser Site #1: Right mid medial lower leg Seconds: 52 Joules: 413 Laser Site #2 Right [id number]-lower leg Seconds: 38 Joules: 302 Laser Site #3: Distal medial lower leg Seconds: 39 Joules: 310 Pulse continuous ___CR_? Pulse intermittent ___ Evaluated patient for signs and symptoms of electrical injury __CR___ ? Skin clear at insertion site __CR___ Patient tolerated procedure well.? Right leg Coban dressing applied to access site.? Applied Right thigh high leg compression stocking. Will return on 08/23/2024 for Right leg limited venous ultrasound and exam. IDoc MD personally performed the services described in this documentation, as scribed by Michele Potter RN in my presence and it is both accurate and complete. I, Michele Potter RN, am scribing for, and in the presence of, Dr. Doc Ortiz and in the presence of the patient.
--- NOTE | 2024-07-21 09:34 | P.DS_ITS ---
Discharge Plan Discharge Disposition: Home, Self-Care Follow Up Appointments: 08/03/2024 Plan of Treatment: f/u evaluation with physician along with bilateral leg limited u/s Patient Instructions: Endovenous Ablation (DC) Print Language: E[place] Discharge Date/Time: 07/23/24 10:22
[2024-07-23] MEDS: LIDOCAINE HCL 20 ML, SODIUM BICARBONATE 2 MEQ INJ (10:20)
--- NOTE | 2024-07-23 10:22 | VEIN_ITS ---
[address] [address] Patient Name: GALLITO FLORES MRN: [id number] date: 1960 Sex: M Assigned Patient Location: Current Patient Location: Accession/Order Number: [id number] Exam Date: 07/23/2024 10:23 Report Date: 07/23/2024 11:45 At the request of: KALLI BERNARDO Procedure: VC Endovenous Perf Ablation RT EXAMINATION: VC Endovenous Perf Ablation RT COMPARISON: INDICATIONS: I83.813 - Varicose veins of bilateral lower extremities w... OPERATIVE REPORT: Diagnosis: Superficial venous reflux, incompetent perforating veins Procedure: Endovenous laser ablation of the right machine container washer(s) Procedure: The patient was positioned supine on the table and the leg was prepped and draped to allow for visualization during venous access. A sterile cover was draped over a 16 mhz ultrasound probe. Venous mapping was performed prior to the procedure noting location and size of vessel(s). Apprentice Instrument Technician vein 1: Right mid medial lower leg. The diameter of the vein ranged from 6 mm's below the muscular fascia to 7 mm's at the entry point. Using a 30 gauge needle the entry site was anesthetized with 1 cc of 1% buffered lidocaine. Access was gained percutaneously, with a 21-gauge needle, into the machine container washer vein under ultrasound guidance. The needle was advanced into the desired position and the pre-measured 400-micron fiber was then inserted into the needle and locked in place. The position of the fiber was imaged with ultrasound guidance. The fiber tip was visualized to be 25 mm from the deep vessel. An anesthetic solution of 10 cc 1% buffered lidocaine was delivered along the course of the vein under ultrasound guidance using a syringe. A final positioning check of the laser fiber tip was performed. The laser was activated by means of a foot-pedal and the fiber and needle were withdrawn together in accordance to the desired joules per treatment area/spot weld. 7 areas/spot welds were performed, and the total number of joules delivered was 413. The total time of energy delivery was 52 seconds. A duplex ultrasound revealed compressibility and flow of the deep system immediately after the procedure. Hemostasis of the access site was achieved and dressed. Apprentice Instrument Technician vein 2: Right mid to distal medial lower leg. The diameter of the vein ranged from 8 mm's below the muscular fascia to 9 mm's at the entry point. Using a 30 gauge needle the entry site was anesthetized with cc of 1% buffered lidocaine. Access was gained percutaneously, with a 21-gauge needle, into the machine container washer vein under ultrasound guidance. The needle was advanced into the desired position and the pre-measured 400-micron fiber was then inserted into the needle and locked in place. The position of the fiber was imaged with ultrasound guidance. The fiber tip was visualized to be 30 mm from the deep vessel. An anesthetic solution of 8 cc 1% buffered lidocaine was delivered along the course of the vein under ultrasound guidance using a syringe. A final positioning check of the laser fiber tip was performed. The laser was activated by means of a foot-pedal and the fiber and needle were withdrawn together in accordance to the desired joules per treatment area/spot weld. 6 areas/spot welds were performed, and the total number of joules delivered was 302. The total time of energy delivery was 38 seconds. A duplex ultrasound revealed compressibility and flow of the deep system immediately after the procedure. Hemostasis of the access site was achieved and dressed. Apprentice Instrument Technician vein 3: Right distal medial lower leg. The diameter of the vein ranged from 6 mm's below the muscular fascia to 7 mm's at the entry point. Using a 30 gauge needle the entry site was anesthetized with 1 cc of 1% buffered lidocaine. Access was gained percutaneously, with a 21-gauge needle, into the machine container washer vein under ultrasound guidance. The needle was advanced into the desired position and the pre-measured 400-micron fiber was then inserted into the needle and locked in place. The position of the fiber was imaged with ultrasound guidance. The fiber tip was visualized to be 30 mm from the deep vessel. An anesthetic solution of 12 cc 1% buffered lidocaine was delivered along the course of the vein under ultrasound guidance using a syringe. A final positioning check of the laser fiber tip was performed. The laser was activated by means of a foot-pedal and the fiber and needle were withdrawn together in accordance to the desired joules per treatment area/spot weld. 6 areas/spot welds were performed, and the total number of joules delivered was 310. The total time of energy delivery was 39 seconds. A duplex ultrasound revealed compressibility and flow of the deep system immediately after the procedure. Hemostasis of the access site was achieved and dressed. A 20-30 mm compression stocking over coban was placed on the treated leg. Post-Op instructions were given, and a follow-up appointment was made. CONCLUSION: 1. Technically successful endovenous laser ablation of 3 right leg incompetent machine container washer veins Electronically authenticated by: KALLI BERNARDO Date: 07/23/2024 11:45
== END 2024-07-23 10:22 | disposition home or self-care (01) ==
LOC: VC 10:17
PROVIDERS: PCP Radiology Diagnostic Radiology; Visit Provider Radiology Diagnostic Radiology
DX: I80.03 Phlebitis and thrombophlebitis of superficial vessels of lower extremities, bilateral (principal)
CPT/HCPCS: 36478

== ENCOUNTER 2024-08-03 12:55 | Outpatient (OUT) | payer MEDICARE, SELFPAY ==
--- NOTE | 2024-08-03 12:59 | V.VEINS.HP ---
Varicose Veins Patient in today for EVLT of bilateral leg perforating veins. Edinson Oates MD personally performed the services described in this documentation, as scribed by Mis Child RVT, RDMS in my presence and it is both accurate and complete. Mis Oates RVT, RDMS, am scribing for, and in the presence of, Dr. Edinson Grajeda and in the presence of the patient. thigh: bilateral, knee: bilateral, calf: bilateral, ankle: bilateral and berry: bilateral aching, burning, cramping, dull and tender 2 5 years Worsened in recent months: Yes standing and sitting analgesics, elevating extremities and wraps Reports muscle spasms of leg, erythema, fatigue, heaviness, limb pain, edema and leg edema History of lower extremity trauma: No Superficial thrombophlebitis: Yes Family history of varicose veins: no Has patient had previous lower extremity venous surgery: No Patient has previously received the following treatment(s) for lower extremity varicose veins: Reports none Does patient have a history of : not applicable Has patient had lower extremity venous scan with relux testing: No Support hose used: Yes Problems walking or doing physical activity: Yes How does it affect you: inability to due to pain/edema Do you walk much: No Do you stand much: Yes Review of Systems ROS Narrative Edinson Oates MD personally performed the services described in this documentation, as scribed by Mis Child RVT, RDMS in my presence and it is both accurate and complete. Mis Oates RVT, RDMS, am scribing for, and in the presence of, Dr. Edinson Grajeda and in the presence of the patient. Status of ROS 10 or more systems reviewed and unremarkable except as noted in history and below Cardiovascular Reports: edema Integumentary/Breast Reports: itching, redness, skin pain, skin tenderness, skin swelling, changing lesion, non-healing lesion and changes in skin color Neurological Reports: numbness in extremities and weakness in extremities Hematologic/Lymphatic Reports: easy bruising and easy bleeding [facility] Medical History (Updated 08/03/24 @ 13:01 by Mis Child) Phlebitis and thrombophlebitis of superficial vessels of lower extremities, bilateral ?I80.03 - Phlebitis and thrombophlebitis of superficial vessels of lower extremities, bilateral (ICD-10) Phlebitis and thrombophlebitis of superficial vessels of left lower extremity ?I80.02 - Phlebitis and thrombophlebitis of superficial vessels of left lower extremity (ICD-10) Phlebitis and thrombophlebitis of superficial vessels of right lower extremity ?I80.01 - Phlebitis and thrombophlebitis of superficial vessels of right lower extremity (ICD-10) Pain due to varicose veins of both lower extremities ?I83.813 - Varicose veins of bilateral lower extremities with pain (ICD-10) Lymphedema due to venous disease ?I89.0 - Lymphedema, not elsewhere classified (ICD-10) ?I99.9 - Unspecified disorder of circulatory system (ICD-10) Obesities, morbid ?E66.01 - Morbid (severe) obesity due to excess calories (ICD-10) Venous insufficiency ?I87.2 - Venous insufficiency (chronic) (peripheral) (ICD-10) Gout ?M10.9 - Gout, unspecified (ICD-10) Type 2 diabetes mellitus ?E11.9 - Type 2 diabetes mellitus without complications (ICD-10) Myocardial infarct ?I21.9 - Acute myocardial infarction, unspecified (ICD-10) Dvt femoral (deep venous thrombosis) ?I82.419 - Acute embolism and thrombosis of unspecified femoral vein (ICD-10) CAD (coronary atherosclerotic disease) ?I25.10 - Atherosclerotic heart disease of [place] coronary artery without angina pectoris (ICD-10) CHF (congestive heart failure) ?I50.9 - Heart failure, unspecified (ICD-10) COPD (chronic obstructive pulmonary disease) ?J44.9 - Chronic obstructive pulmonary disease, unspecified (ICD-10) Hypertension ?I10 - Essential (primary) hypertension (ICD-10) Pulmonary embolism ?I26.99 - Other pulmonary embolism without acute cor pulmonale (ICD-10) Surgical History (Updated 07/21/24 @ 11:13 by Michele Potter) Status post laser ablation of incompetent vein ?Z98.890 - Other specified postprocedural states (ICD-10) Status post laser ablation of incompetent vein ?Z98.890 - Other specified postprocedural states (ICD-10) Status post laser ablation of incompetent vein ?Z98.890 - Other specified postprocedural states (ICD-10) Status post laser ablation of incompetent vein ?Z98.890 - Other specified postprocedural states (ICD-10) Family History (Updated 05/03/24 @ 14:47 by Michele Potter) Other Family history of cancer Family history of diabetes mellitus Family history of hypertension Social History (Updated 05/03/24 @ 14:48 by Michele Potter) Within the past year, how often did you have a drink containing alcohol: monthly or less Smoking status: Former smoker Non-prescribed substance use: denies use Meds Home Medications and Allergies Home Medications ?Medication ?Instructions ?Recorded ?Confirmed ?Type allopurinol 100 mg tablet 100 mg PO DAILY 05/03/24 05/03/24 History atorvastatin 10 mg tablet 10 mg PO DAILY 05/03/24 05/03/24 History bumetanide 2 mg tablet 2 mg PO DAILY 05/03/24 05/03/24 History fenofibrate 120 mg tablet 120 mg PO DAILY 05/03/24 05/03/24 History hydrocodone 5 mg-acetaminophen 325 1 tab PO Q6H 05/03/24 05/03/24 History mg tablet losartan 50 mg tablet 50 mg PO DAILY 05/03/24 05/03/24 History omeprazole 40 mg capsule,delayed 40 mg PO DAILY 05/03/24 05/03/24 History release semaglutide 0.25 mg or 0.5 mg (2 0.25 mg subcut QWEEK 05/03/24 05/03/24 History mg/3 mL) subcutaneous pen injector (Ozempic) spironolactone 25 mg tablet 25 mg PO QAM 05/03/24 05/03/24 History (Aldactone) warfarin 5 mg tablet 5 mg PO DAILY 05/03/24 05/03/24 History Allergies Allergy/AdvReac Type Severity Reaction Status Date / Time adhesive Allergy Mild Blister Verified 05/04/24 09:41 Exam Narrative Exam Narrative: IEdinson MD personally performed the services described in this documentation, as scribed by Mis Child RVT, RDMS in my presence and it is both accurate and complete. I, Mis Child RVT, RDMS, am scribing for, and in the presence of, Dr. Edinson Grajeda and in the presence of the patient. Constitutional Documenting provider has reviewed patient's vital signs: yes Common normals: oriented x3 Nutritional appearance: overweight Cardio Peripheral pulses: posterior tibial pulses present and dorsalis pedis pulses present Extremity Common normals: normal capillary refill General: calf tenderness and edema Right lower extremity: lower leg Right lower leg: inspection and palpation Left lower extremity: lower leg Left lower leg: inspection and palpation Neuro Common normals: oriented x3 Results Imaging Venous US: Radiologist's impression: The ultrasound demonstrates Assessment and Plan Assessment and Plan (1) Pain due to varicose veins of both lower extremities: Plan Patient in today for follow up ultrasound of lower extremity following treatment of bilateral perforating veins. IEdinson MD personally performed the services described in this documentation, as scribed by Mis Child RVT, RDMS in my presence and it is both accurate and complete. Mis Oates RVT, RDMS, am scribing for, and in the presence of, Dr. Edinson Grajeda and in the presence of the patient.
--- NOTE | 2024-08-03 13:00 | P.DS_ITS ---
Discharge Plan Discharge Disposition: Home, Self-Care Outpatient Diagnostics: [facility] Facility EST LMTD (Routine) Timeframe: 2 Weeks Facility: [facility] - Location: Vein Center Ordered By: Edinson Grajeda VC EXT Venous WANG Limited (Routine) Timeframe: 2 Weeks Facility: [facility] - Location: Vein Center Ordered By: Edinson Grajeda Follow Up Appointments: Patient wants to continue treatment under Dr. Ortiz and Dr. Grajeda Print Language: Armenian Discharge Date/Time: 08/03/24 13:43
--- NOTE | 2024-08-03 13:02 | VEIN_ITS ---
Patient Name: GALLITO FLORES MR#: [id number] : 1960 Exam Date: 08/03/2024 Ordering Doctor: DR FRANKLYN GRAJEDA M.D. RADIOLOGY REPORT PROCEDURE: VC EXT VENOUS WANG LIMITED COMPARISON: None. INDICATIONS: I80.03 - Phlebitis and thrombophlebitis of superficial ve... TECHNIQUE: Lower extremity hendrickson scale and Duplex Doppler evaluation of the deep venous system from the inguinal ligament through the calf veins. FINDINGS: REGION: Right lower extremity. THROMBI: Acute and chronic appearing thrombi. Heat induced thrombus visualized at mid and distal medial calf. COMPRESSIBILITY: Non-compressible segments. FLOW: Areas on no flow. OTHER: Negative. REGION: Left lower extremity. THROMBI: Acute and chronic appearing heat induced thrombus visualized at mid medial calf and mid/lat calf. COMPRESSIBILITY: Non-compressible segments. FLOW: Areas on no flow. OTHER: Negative. CONCLUSION: 1. Successful post ablation occlusion of lower right leg hotel associate veins and lower left leg hotel associate veins. Dictated by: Franklyn Grajeda M.D. on 08/03/2024 at 14:26 Approved by: Franklyn Grajeda M.D. on 08/03/2024 at 14:28
--- NOTE | 2024-08-03 13:02 | VEIN_ITS ---
Patient Name: GALLITO FLORES MR#: [id number] : 1960 Exam Date: 08/03/2024 Ordering Doctor: DR FRANKLYN BHARDWAJ M.D. RADIOLOGY REPORT PROCEDURE: [facility] EST [facility] - OFFICE VISIT FOLLOW UP COMPARISON: [facility], 07/12/2024. PROGRESS NOTES: The patient reports improvement in leg symptoms. There has been interval reduction in varicosities. The patient has followed our recommendations to walk 20-30 minutes once or twice per day since the procedure. Physical exam demonstrates decrease in varicosities of the leg. Persistent varicosities and extensive lower extremity skin changes are identified along the legs bilaterally. Review of the ultrasound performed the same day demonstrates occlusive thrombus extending throughout the treated vein(s), see separate report, consistent with a successful ablation. No thrombus extending into or beyond the saphenofemoral junction. The patient expressed a desire to proceed with treatment of remaining incompetent varicosities. The patient was informed that treatment was a process and would require several procedures/sessions. [facility]: 1. Successful ablation of the right leg [employer] vein(s). 2. Persistent varicose veins and lower extremity symptoms. PLAN: 1. Microfoam chemical ablation of bilateral lower extremity [employer] senior [employer] veins. Nurse notes, history and physical were reviewed and confirmed, see attached forms. The nurse was present throughout the physical exam and consultation Dictated by: Franklyn Bhardwaj M.D. on 08/03/2024 at 14:28 Approved by: Franklyn Bhardwaj M.D. on 08/03/2024 at 14:32
== END 2024-08-03 13:43 | disposition home or self-care (01) ==
PROVIDERS: PCP Radiology Diagnostic Radiology; Visit Provider Radiology Diagnostic Radiology
DX: I80.03 Phlebitis and thrombophlebitis of superficial vessels of lower extremities, bilateral (principal)
CPT/HCPCS: 93970; G0463